=== PATIENT | female | born 1980 | race Caucasian/White ===

== ENCOUNTER 2024-12-13 12:12 | Inpatient (IN) | payer MEDICAID ==
[~2024-12-13] VITALS: Ht 142.2 cm; Wt 43.5 kg
[2024-12-13] VITALS (36 sets, daily range): BP systolic 66–134; BP diastolic 39–87; PULSE 59–101; RESP 8–18; TEMP 95–98.9; O2SAT 92–99
[2024-12-13 12:57] LABS: BASOPHILS # (AUTO) 0.03 K/uL (0.00-0.20); BASOPHILS % (AUTO) 0.3 % (0.0-5.0); HEMATOCRIT 39.2 % (36-48); IMMATURE GRANULOCYTE ABSOLUTE 0.04 K/uL (0-1); LYMPHOCYTES # (AUTO) 0.8 K/uL (1.0-4.8); MEAN CORPUSCULAR HEMOGLOBIN 31.7 pg (27.0-33.0); MEAN CORPUSCULAR HGB CONC 33.7 g/dL (32.0-36.0); MEAN CORPUSCULAR VOLUME 94.2 fL (79-99); MONOCYTES # (AUTO) 0.3 K/uL (0.1-1.0); MONOCYTES % (AUTO) 3.2 % (3.0-13.0); NEUTROPHILS # (AUTO) 8.1 K/uL (1.8-7.7); NEUTROPHILS % (AUTO) 87.1 % (40.0-77.0); PLATELET COUNT (AUTO) 142 K/uL (130-400); RED BLOOD CELL COUNT(AUTO) 4.16 MIL/uL (4.00-5.50); RED CELL DISTRIBUTION WIDTH 14.7 % (11.0-15.5); WHITE BLOOD COUNT (AUTO) 9.3 K/uL (4.8-10.8)
[2024-12-13 13:04] LABS: CREATININE 0.6 mg/dL (0.5-1.0); POTASSIUM 3.6 mmol/L (3.5-5.1)
[2024-12-13 13:09] LABS: ALBUMIN 2.2 g/dL (3.5-5.0); BILIRUBIN,DIRECT 0.1 mg/dL (0.0-0.3); BILIRUBIN,TOTAL 0.3 mg/dL (0.2-1.0); TOTAL PROTEIN, SERUM 5.8 g/dL (6.0-8.3)
[2024-12-13] MEDS: 0.9%NACL 1000ML 1,000 ML IV ONE ×2 (13:16→15:20)
--- NOTE | 2024-12-13 13:30 | NUR ---
dr joan quesada at bedside. patient requiring large dose of norepinephrine and shallow breathing; possible intubation. voiced that he ordered some CT scans but to go ahead and hold off and do them later or tomorrow until patient is more stable.
[2024-12-13] MEDS: cefTRIAXone 1G VIAL IVPB ONE (13:32)
[2024-12-13 13:45] LABS: RAPID GROUP A STREP negative (NEGATIVE)
[2024-12-13 13:55] LABS: COVID19 (SARS ANTIGEN RAPID) PRESUMPTIVE NEGATIVE (NEGATIVE); INFLUENZA TYPE A Negative For Type A (NEGATIVE); INFLUENZA TYPE B Negative For Type B (NEGATIVE)
[2024-12-13 14:03] LABS: APPEARANCE,URINE TURBID (CLEAR); COLOR,URINE Light-Yellow (YELLOW)
[2024-12-13 14:04] LABS: BILIRUBIN,URINE N mg/dL (NEGATIVE); GLUCOSE, URINE (UA) NEGATIVE (NEGATIVE); OCCULT BLOOD,URINE LARGE (NEGATIVE); PH,URINE 8.5 (5.0-8.0); PROTEIN,URINE 300 mg/dL (NEGATIVE)
[2024-12-13 14:05] LABS: KETONES,URINE NEGATIVE (NEGATIVE); LEUKOCYTE ESTERASE ,URINE LARGE Leu/uL (NEGATIVE); NITRATE,URINE NEGATIVE (NEGATIVE); UROBILINOGEN,URINE 0.2 mg/dL (0.2-1.0)
--- NOTE | 2024-12-13 14:09 | NUR ---
transfered care to mirlande at this time
[2024-12-13 14:11] LABS: BACTERIA,URINE Moderate /HPF (None Seen); WBC,URINE 26-50 /HPF (0-1)
[2024-12-13 14:12] LABS: TRIPLE PHOSPHATE CRYSTAL,UR Moderate /LPF (None Seen)
--- NOTE | 2024-12-13 14:18 | HMCIMG ---
Exam Type: CHEST 1VW Clinical Information: Sepsis Comparison: None Findings: Status post median sternotomy. Ill-defined infiltrates of the right upper lobe are seen consistent with pneumonia. The heart is normal in size. The bony and soft tissue structures show no worrisome pathology. IMPRESSION: Findings consistent with pneumonia. Follow-up is advised.
--- NOTE | 2024-12-13 14:59 | ERN ---
General Chief Complaint: Weakness Stated Complaint: WEAKNESS, FTT Time Seen by MD: 12:16 Time Seen by Midlevel: 12:16 Source: patient History of Present Illness Initial Comments 44 y/o female presents to the ED due to generalized weakness onset 3 days. Pt from [facility] facility, she is non-verbal, wheelchair / bedbound. Per provider she denies any fever, cough, congestion, vomiting, or further associated symtpoms. PMHx IDD, Scoliosis, cerebral palsy Allergies: Coded Allergies: clindamycin (Unverified Allergy, Unknown, 12/13/24) thioridazine (Unverified Allergy, Unknown, 12/13/24) Past Medical History Past Medical History: Other Medical History Other: IDD, KYHOSIS, SCOLIOSIS, CP, Past Surgical History: Other ROS Dictation ROS limited due to poor mentation Physical Exam Physical Exam Dictation General: awake, alert, no acute distress Head/Face: Normocephalic, atraumatic Eyes: PERRL, EOMI, normal conjuctiva ENT: oral cavity clear, oral mucosa moist Neck: Supple, normal range of motion Cardiovascular: RRR, normal S1/S2 Respiratory:No respiratory distress, crackles auscultated to the right side Abdomen: Soft, non-tender, non-distended, no guarding or rebound. Skin: Warm, dry, normal turgor. Left hip pressure ulcer MS/Extremity: Pulses equal, no cyanosis, neurovascular intact Neuro: Baseline neurologically Results Laboratory and Microbiology Lab and Micro Result Labs Reviewed?: Yes EKG/XRAY/US/CT/MRI X-RAY Comment REASON: Sepsis ORDERING PHYSICIAN: KAYLA GIBSON PROCEDURE: CXR1VW - CHEST 1VW Exam Type: CHEST 1VW Clinical Information: Sepsis Comparison: None Findings: Status post median sternotomy. Ill-defined infiltrates of the right upper lobe are seen consistent with pneumonia. The heart is normal in size. The bony and soft tissue structures show no worrisome pathology. IMPRESSION: Findings consistent with pneumonia. Follow-up is advised. DICTATED BY: JODIE OROZCO MD DATE: 12/13/24 1415 MDM MDM: Differential diagnosis: Sepsis, pneumonia, UTI, electrolyte imbalance, dehydration Rationale: 44 y/o female presents to the ED due to generalized weakness onset 3 days. Pt from [facility] facility, she is non-verbal, wheelchair / bedbound. Per provider she denies any fever, cough, congestion, vomiting, or further associated symtpoms. PMHx IDD, Scoliosis, cerebral palsy Per physical examination patient appears malnourished, dehydrated, she is nonverbal, pressure ulcer wound noted to the patient's left hip. Provider states that patient has had the wound therefore quite a while and is to follow up with wound care but isn't currently on antibiotics. Per initial vitals patient's hypotensive with blood pressure 86/62 and tympanic temperature of 96.3�. Patient received IV fluids and Rocephin in the ED. Repeat blood pressure of 71/44 therefore patient placed on Levophed. Due to patient's rectal temperature of 93.4� she was placed on a Halina Hugger. Labs obtained CBC nonspecific, chemistry indicates some mild alkaline phosphatase elevation, UA indicates urinary tract infection. SARs influenza and strep negative. Chest x- ray obtained indicates pneumonia noted to the right upper lobe. Case was disc ussed with hospitalist who accepted admission. Previous outside records reviewed: Old ER visits. Risk of complication and/or morbidity or mortality of patient management: None Medications-Per medication reconciliation Need for hospitalization: Patient does meet criteria for hospitalization. Need for emergency major/minor surgery: No There are no social concerns with this patient. Prescription drug management Prescriptions will include symptomatic care Patient's prior external medical records from other ER visits were reviewed by me as indicated. Prior testing and results from previous visits were reviewed. Prior tests were taken into account with medical decision making and resource utilization, independent historian/historians were used to obtain complete medical history. I independently interpreted the test that were performed, results were reviewed by me and considered findings on radiology if ordered. Medical management and examination interpretation discussions were had by me with other qualified healthcare professionals as indicated for the patient's care. ED Course Critical Care Note Critical Time: 30 minutes Comments Critical Care Procedure Note Authorized and Performed by: me Total critical care time: Approximately 36 minutes Due to a high probability of clinically significant, life threatening deterioration, the patient required my highest level of preparedness to intervene emergently and I personally spent this critical care time directly and personally managing the patient. This critical care time included obtaining a history; examining the patient; pulse oximetry; ordering and review of studies; arranging urgent treatment with development of a management plan; evaluation of patient's response to treatment; frequent reassessment; and, discussions with other providers. This critical care time was performed to assess and manage the high probability of imminent, life-threatening deterioration that could result in multi-organ failure. It was exclusive of separately billable procedures and treating other patients and teaching time. Please see MDM section and the rest of the note for further information on patient assessment and treatment. DX & DISP Disposition: Inpatient Decision to Admit Date: Dec 13, 2024 Departure Impression: Primary Impression: Sepsis Additional Impressions: Pneumonia, UTI (urinary tract infection), Hypotension Condition: Stable Referrals: CLAIRE ALVARADO MD (PCP) I performed the substantive portion of the visit. I have reviewed and personally made and approve the management plan that is documented in the notes by myself or the SLAVA. I acknowledge full responsibility for the patient's management plan. KAYLA GIBSON Dec 13, 2024 14:59
[2024-12-13] MEDS ORDERED: GLUCAGON 1MG KIT 1 MG ML IM PRN (15:00)
[2024-12-13] MEDS ORDERED: LACTATED RINGERS 1000ML 1,000 ML IV SCH (15:00)
[2024-12-13] MEDS ORDERED: PHARMACY COMMUNICATION MISC SCH (15:00)
[2024-12-13] MEDS: DEXTROSE 50%-WATER 50 ML DISP.SYRIN IV ONE (15:20)
[2024-12-13] MEDS: SODIUM CHLORIDE 3% FOR INHALATION 4 ML/AMP VIAL.NEB IH ONE (15:29)
[2024-12-13 15:32] LABS: INR 1.3 (0.85-1.15); PROTHROMBIN TIME 13.4 SEC (9.6-11.6)
[2024-12-13 15:33] LABS: PARTIAL THROMBOPLASTIN TIME 41.8 SEC (26.3-35.5)
[2024-12-13 16:03] LABS: ALBUMIN 2.2 g/dL (3.5-5.0); BILIRUBIN,DIRECT 0.1 mg/dL (0.0-0.3); BILIRUBIN,TOTAL 0.3 mg/dL (0.2-1.0); THYROID STIMULATING HORMONE 2.61 uIU/mL (0.36-3.74); TOTAL PROTEIN, SERUM 5.9 g/dL (6.0-8.3)
--- NOTE | 2024-12-13 16:20 | HP ---
[facility] H[facility]ORY [facility] PHYS[facility] Date of Service: Dec 13, 2024 Time of Service: 16:19 HISTORY OF PRESENT ILLNESS: [Service: 12/13/2024, patient is critically ill, patient was seen in ER room nine The 44-year-old nonverbal female with history of severe intellectual disability, scoliosis, cerebral palsy, attention deficit hyperactive disorder, history of microcephaly, history of oppositional defiant disorder with aggression, severe contracture of bilateral upper and lower extremity, currently a [facility] patient, who presented to the ER for further evaluation of significant obtundation/lethargy, poor oral intake and clinical decline. Patient is obtunded out and unable to participate in any history at all. longterm nurse present at bedside who states that patient has been having poor oral intake over the past 2-3 days. She was seen by her PCP today and was referred to the ER for further evaluation. At baseline, patient is awake, nonverbal and very fidgety per the nursing staff. She does not follow commands and she has no history of seizures. Patient to the hospital, patient was noted to be hypothermic and hypotensive. She received 1 L of IV fluids with NS, she was placed on a Halina Hugger and she receive broad-spectrum antibiotics with IV Rocephin. Chest x-ray showed concerns for developing right upper lobe pneumonia, urinalysis showed turbid urine with large amount of leukocyte esterase, pyuria, bacteriuria concerning for UTI. Labs on presentation showed WBC count of 9300, hemoglobin of 13.2, platelet coun t of [id number]. BMP remarkable for sodium of 150, potassium 3.6, chloride of 116, BUN of 47, creatinine of 0.6, alkaline phosphatase of 151, lactic acid of 1.0, ammonia of 43. Patient will be admitted for further management of suspected septic shock with hypothermia, UTI, pneumonia. Patient will be admitted to ICU, patient also noted to have unstageable pressure ulcer involving the left hip, Wound Care will be requested. Patient will receive broad-spectrum IV antibiotics, fluid resuscitation, and we will monitor this patient closely per we will obtain CT head without contrast and CT chest/ abdomen.] REVIEW OF SYSTEMS: Patient is obtunded, unable to obtain ROS PAST MEDICAL HISTORY: Severe intellectual disability, scoliosis, cerebral palsy, attention deficit hyperactive disorder, microcephaly Nursing staff reports that patient was hospitalized in [facility] in [place] about four months ago for sepsis PAST SURGICAL HISTORY: Unable to obtain PAST SOCIAL HISTORY: Unable to obtain FAMILY HISTORY: Unable to obtain Allergies: Clindamycin and thioridazine Coded Allergies: clindamycin (Unverified Allergy, Unknown, 12/13/24) thioridazine (Unverified Allergy, Unknown, 12/13/24) PHYSICAL EXAM GENERAL APPEARANCE: patient is obtunded, very frail, cachectic, contractures noted of the lower extremities NEUROLOGICAL: Cranial nerves II-XII grossly intact. Motor is 5/5 in bilateral upper and lower extremities proximal to distal. No sensory deficits. HEENT: Face is symmetric. Pupils are equal and reactive. Extraocular movements are intact. NECK: Supple. No JVD. No thyromegaly. No submental, submandibular, pre- /postauricular, occipital or supraclavicular lymphadenopathy. CHEST: Normal chest expansion. No Telemetry. LUNGS: Absence of any rales, rhonchi or any wheezing. CARDIOVASCULAR: Regular. S1 and S2 normal. No appreciable rubs, murmurs or gallops. ABDOMEN: Soft, nontender, and nondistended. There is no rebound, voluntary guarding, or rigidity. : Deferred. No Clark. EXTREMITIES: Non-edematous and not cyanotic. No clubbing. Good capillary refill. SKIN: No skin breakdown. Vital Sign (Last 24 Hours) 12/13/24 13:22 Temp 93.4 Pulse 64 Resp 12 B/P (MAP) 87/59 Pulse Ox 99 O2 Delivery Room Air* O2 Flow Rate 0 FiO2 21 LABS: Laboratory: Test 12/13/24 15:43 12/13/24 14:52 12/13/24 13:36 12/13/24 13:17 Range/Units Lactic Acid Level 1.0 0.8-2.5 mmol/L Serum Test, Qualitative NEGATIVE NEGATIVE Whole Blood Glucose 56 L 70-110 MG/DL Urine Color Light-Yellow YELLOW Urine Appearance TURBID H CLEAR Urine pH 8.5 H 5.0-8.0 Urine Specific [place] 1.020 1.001-1.031 Urine Protein 300 H NEGATIVE mg/dL Urine Glucose (UA) NEGATIVE NEGATIVE mg/dL Urine Ketones NEGATIVE NEGATIVE mg/dL Urine Occult Blood LARGE NEGATIVE Urine Nitrate NEGATIVE NEGATIVE Urine Bilirubin N NEGATIVE mg/dL Urine Urobilinogen 0.2 0.2-1.0 mg/dL Urine Leukocyte Esterase LARGE H NEGATIVE Susi/uL Urine RBC 6-10 H 0-1 /HPF Urine WBC 26-50 H 0-1 /HPF Urine Triple Phosphate Crystals Moderate H None Seen /LPF Urine Bacteria Moderate H None Seen /HPF Influenza Type A Antigen Negative For Type A NEGATIVE Influenza Type B Antigen Negative For Type B NEGATIVE SARS-CoV-2 Antigen (Rapid) PRESUMPTIVE NEGATIVE NEGATIVE Group A Streptococcus Rapid negative NEGATIVE Test 12/13/24 12:51 Range/Units White Blood Count 9.3 4.8-10.8 K/uL Red Blood Count 4.16 4.00-5.50 MIL/uL Hemoglobin 13.2 12.0-16.0 g/dL Hematocrit 39.2 36-48 % Mean Corpuscular Volume 94.2 79-99 fL Mean Corpuscular Hemoglobin 31.7 27.0-33.0 pg Mean Corpuscular Hemoglobin Concent 33.7 32.0-36.0 g/dL Red Cell Distribution Width 14.7 11.0-15.5 % Platelet Count 142 130-400 K/uL Mean Platelet Volume 8.6 7.5-10.5 fL Immature Granulocyte % (Auto) 0.4 0-1 % Neutrophils (%) (Auto) 87.1 H 40.0-77.0 % Lymphocytes (%) (Auto) 9.0 L 21.0-51.0 % Monocytes (%) (Auto) 3.2 3.0-13.0 % Eosinophils (%) (Auto) 0.0 0.0-8.0 % Basophils (%) (Auto) 0.3 0.0-5.0 % Neutrophils # (Auto) 8.1 H 1.8-7.7 K/uL Lymphocytes # (Auto) 0.8 L 1.0-4.8 K/uL Monocytes # (Auto) 0.3 0.1-1.0 K/uL Eosinophils # (Auto) 0.00 0.00-0.70 K/uL Basophils # (Auto) 0.03 0.00-0.20 K/uL Absolute Immature Granulocyte (auto 0.04 0-1 K/uL Nucleated Red Blood Cells 0.0 0.0-0.19 % White Cell Morphology Comment See comments Prothrombin Time 13.4 H 9.6-11.6 SEC Prothromb Time International Ratio 1.30 H 0.85-1.15 Activated Partial Thromboplast Time 41.8 H 26.3-35.5 SEC Sodium Level 150 H 136-145 mmol/L Potassium Level 3.6 3.5-5.1 mmol/L Chloride Level 116 H 101-111 mmol/L Carbon Dioxide Level 32 21-32 mmol/L Blood Urea Nitrogen 47 H 7-18 mg/dL Creatinine 0.6 0.5-1.0 mg/dL Glomerular Filtration Rate Calc 115 >90 mL/min Random Glucose 78 70-105 mg/dL Total Calcium 8.8 8.5-10.1 mg/dL Total Bilirubin 0.3 0.2-1.0 mg/dL Direct Bilirubin 0.1 0.0-0.3 mg/dL Aspartate Amino Transf (AST/SGOT) 31 10-37 U/L Alanine Aminotransferase (ALT/SGPT) 44 12-78 U/L Alkaline Phosphatase 151 H 50-136 U/L Total Creatine Kinase 111 21-232 U/L C-Reactive Protein, Quantitative 112.50 H 0.5-3.0 mg/L Total Protein 5.9 L 6.0-8.3 g/dL Albumin 2.2 L 3.5-5.0 g/dL Procalcitonin 0.29 0.05-0.5 ng/mL Thyroid Stimulating Hormone (TSH) 2.61 0.36-3.74 uIU/mL Current Medications Medications (Trade) Dose Ordered Sig/Castillo Route PRN Reason Start Time Stop Time Status Last Admin Dose Admin Acetaminophen (TYLenol 325MG ELIXIR) 325 mg Q6H PRN PO MILD PAIN (1-3) 12/13/24 15:00 01/12/25 14:59 Albuterol (DUOneb) 1 udvial Q6H PRN IH SHORTNESS OF BREATH 12/13/24 15:30 01/12/25 15:29 Budesonide (Pulmicort 0.5 Mg/2ml) 0.5 mg BIDRESP IH 12/13/24 18:00 01/12/25 17:59 Dextrose 1,000 ml @ 75 mls/hr [id number] IV 12/13/24 15:00 01/12/25 14:59 Dextrose (D50w) 50 ml AD PRN IV HYPOGLYCEMIA PROTOCOL 12/13/24 15:00 01/12/25 14:59 Doxycycline Hyclate 250 ml @ 125 mls/hr Q12H IV 12/13/24 15:30 12/23/24 15:29 Glucagon (Glucagon 1mg Kit) 1 mg AD PRN IM HYPOGLYCEMIA PROTOCOL 12/13/24 15:00 01/12/25 14:59 Lactated Ringer's 1,000 ml @ 100 mls/hr Q10H IV 12/13/24 15:00 12/13/24 15:18 DC Meropenem (Merrem 1gm) 1 gm Q8H IVPB 12/13/24 16:00 12/23/24 15:59 Norepinephrine 250 ml @ 0 mls/hr PROTOCOL IV 12/13/24 14:30 01/12/25 14:29 Ondansetron HCl (zoFRAN 4MG INJ) 4 mg Q6H PRN IVP NAUSEA/VOMITING 12/13/24 16:30 01/12/25 16:29 Pantoprazole Sodium (PROTonix 40MG INJ) 40 mg Q24H IVP 12/13/24 15:00 01/12/25 14:59 Pharmacy Profile Note (Pharmacy Communication) 1 each ONCE MISC 12/13/24 15:00 12/13/24 15:28 DC Thiamine HCl (Vitamin B-1) 300 mg Q24H IVP 12/13/24 15:00 01/12/25 14:59 DIAGNOSTICS / RADIOLOGY: SERVICE 1223 REASON: Sepsis ORDERING PHYSICIAN: KAYLA GIBSON PROCEDURE: CXR1VW - CHEST 1VW Exam Type: CHEST 1VW Clinical Information: Sepsis Comparison: None Findings: Status post median sternotomy. Ill-defined infiltrates of the right upper lobe are seen consistent with pneumonia. The heart is normal in size. The bony and soft tissue structures show no worrisome pathology. IMPRESSION: Findings consistent with pneumonia. Follow-up is advised. DICTATED BY: JODIE OROZCO MD DATE: 12/13/241414 ELECTRONICALLY SIGNED BY: JODIE OROZCO MD DATE: 12/13/241417 ASSESSMENT: Septic shock, POA (2/2 community-acquired pneumonia and complicated UTI) Hypothermia, POA Toxic metabolic encephalopathy with obtundation, POA Severe hypoglycemia, POA Community-acquired pneumonia with acute hypoxemic respiratory failure, POA Complicated urinary tract infection, POA Frailty/debility, POA History of chronic contractures of bilateral lower extremities, POA Unstageable decubitus ulcer involving the left hip, POA Cachexia, POA History of severe intellectual disability, POA History of scoliosis, POA History of microcephaly, POA History of ADHD, POA History of aggression, POA PLAN: Patient will be admitted to ICU Patient will be kept strictly NPO and on aspiration precautions c/w Levophed to maintain MAP> 65 Patient received sepsis bolus of fluid in the ER with 1 L of NS, we will start patient on D5W at 75 mL/hour for management of hypernatremia and hypoglycemia We will maintain POCT blood glucose check q.1 hours, we will maintain blood glucose greater than 70 Patient will be started on IV thiamine supplementation Broad-spectrum antibiotics with IV meropenem and doxycycline Blood cultures, urine cultures and respiratory cultures will be requested, AFB smear has been requested Consultation with critical Care will be requested Patient will be placed on air mattress, offloading measures, wound care will be requested Consultation with Infectious Disease will be requested Low threshold for intubation in case patient is unable to maintain airway or for any signs of aspiration, discussed in detail with ICU team We will check cortisol level, TSH, ammonia We will see how patient progresses closely in the next 24-48 hours We will obtain a CT head without contrast to rule out any significant intracranial abnormality or bleeding, we will follow up CT abdomen pelvis/CT chest thorax We will check BMP later tonight and All labs will be repeated in the morning Critical care minutes: 60 minutes Plan of care was discussed with nursing personnel at bedside, Carlos Real MD Advanced Care Planning: Which of the following were discussed: Hospice care: Yes __ No _X_ Therapeutic options: Yes _X_ No __ Advance directives: Yes _X_ No __ Other discussions: Discussed with who?: Nursing staff Voluntary nature of this service was explained to the patient? Yes _x_ No __ Amount of time spent: 20 minutes CARLOS REAL MD Dec 13, 2024 16:20
[2024-12-13] MEDS ORDERED: ondanSETRON 4MG INJ IVP PRN (16:30)
--- NOTE | 2024-12-13 16:50 | NUR ---
CT ON HOLD, PT UNSTABLE BP AT THIS TIME. RN WILL CALL WHEN READY. Addendum: 12/13/24 at 1822 by MARLYS MCKAY @16:22 PT IN ICU NOT STABLE FOR CT ROBYN KABA
[2024-12-13] MEDS: DOXYCYCLINE 100MG+NS 250ML 250 ML IV SCH (17:04)
[2024-12-13] MEDS: DEXTROSE 5%-WATER 1,000 ML IV SCH (17:04)
[2024-12-13] MEDS: MEROPENEM 1GM 1 GM VIAL IVPB SCH (17:04)
[2024-12-13] MEDS: PANTOPrazole 40 MG/VIAL IVP SCH (17:04)
[2024-12-13] MEDS: THIAMINE HCL 100 MG/ML 2ML VIAL IVP SCH (17:05)
--- NOTE | 2024-12-13 17:15 | NUR ---
patient continues with shallow breathing and requiring large amount of norepinephrine. blood pressure at this time is 80/[address] can wait until tomorrow as patient remains too unstable to get in CT machine and would not be able to even lay flat. May require possible intubation.
--- NOTE | 2024-12-13 18:00 | NUR ---
NURSING NOTE SALOME COOK NP BENCHMARK MADE AWARE PATIENT ARRIVED TO ROOM. NOT CURRENTLY STABLE. PENDING CT SCANS. AIRBORNE FOR TB RULE OUT. CARE ONGOING.
[2024-12-13] MEDS: BUDESONIDE 0.5 MG/2 ML INH IH SCH (18:42)
[2024-12-13 20:42] LABS: CREATININE 0.6 mg/dL (0.5-1.0); POTASSIUM 3.2 mmol/L (3.5-5.1)
--- NOTE | 2024-12-13 21:46 | CONS ---
[facility] CONSULTATION NOTE Date Patient Seen: Dec 13, 2024 Time of Visit: 21:21 Supervising Physician: Dontae Escalante MD Reason for Consultation: [facility] Primary Care Physician: Yarelis Ogden MD Outpatient Specialists: [ ] Inpatient Consults: Dr Esperanza MAYA MD Attending: Carlos Real MD PROBLEM LIST: Septic shock, POA (2/2 community-acquired pneumonia and complicated UTI) Hypothermia, POA Toxic metabolic encephalopathy with obtundation, POA Severe hypoglycemia, POA Community-acquired pneumonia with acute hypoxemic respiratory failure, POA Complicated urinary tract infection, POA Frailty/debility, POA History of chronic contractures of bilateral lower extremities, POA Unstageable decubitus ulwctual disability, POA History of scoliosis, POA History of microcephaly, POA History of ADHD, POA History of aggression, POA HPI: This is a chronically ill 44-year-old nonverbal female with a past medical history of intellectual disability, scoliosis, cerebral palsy, microcephalic, aggression, bed-bound status with severe contractures to bilateral upper and lower extremities from a [facility] who presented to the ER for evaluation of increased altered mental status, lethargic and poor oral intake. Most history received from [facility] staff reports patient is having poor oral intake in the last 2-3 days. She was taken to her PCP and was referred to the ED for evaluation. As per staff person now patient was more awake at the PCP but now seems to be more lethargic. Patient was obtunded, nonverbal on assessment. We are consulted for critical care management and assessment for possible need of intubation which was deferred at this time due to good ABGs and currently good saturation. On initial assessment patient was hypoglycemic with glucose in the 50s was given an amp of D50 per ED staff. On arrival to the ED patient was hypothermic and hypotensive. She received a 30 mL per kg bolus of NS and was started on Rocephin for broad-spectrum antibiotic chest x-ray showed concerns for developing right upper lobe pneumonia with suspected cavitation. Urinalysis showed turbid urine with large amount of leukocyte esterase pyuria bacteria concerning for acute complicated cystitis. Initial white count was normal at 9.3 with a left shift of neutrophils elevated at 87.1. ESR of 45. Chemistries sodium was 150 potassium 3.2 chloride of 118 carbon dioxide of 28 BUN of 34 creatinine of 0.6 and GFR of 115. Ammonia 43 and total calcium of 7.6. TSH was 2.66 W and now CRP of 112.50 total protein of 5.9 albumin of 2.2 and alkaline phosphatase 151. Isolation precautions ordered CT of the chest and CT of the head pending. PAST MEDICAL HX: Severe intellectual disability Scoliosis Cerebral palsy Attention deficit hyperactivity disorder Microcephaly Previous sepsis four months ago at [facility] PAST SURGICAL HX: noncontributory SOCIAL HISTORY: No tobacco, ETOH, or illicit drug use Coded Allergies: clindamycin (Unverified Allergy, Unknown, 12/13/24) thioridazine (Unverified Allergy, Unknown, 12/13/24) REVIEW OF SYSTEMS: Unable to obtain due to encephalopathy PHYSICAL EXAM: GENERAL: Obtunded, encephalopathy chronically ill contracted upper and lower extremities HEENT: Sclera non icteric, dry mucosa NECK: Supple, no JVD, trachea midline LUNGS: Coarse rhonchi breath sounds bilaterally. No wheezes HEART: Regular rate and rhythm. Normal S1 and S2, without murmurs ABD: Cachectic, flat, nontender. Bowel sounds present EXT: Contractions to upper and lower extremities, right hip unstageable pressure ulcer with a black eschar NEURO: Obtunded, nonverbal and chronically ill with upper and lower extremity contractures. Vital Signs (last 8hr) Date Time Temp Pulse Resp B/P (MAP) Pulse Ox O2 Delivery O2 Flow Rate FiO2 12/13/24 20:44 60 11 121/83 (96) 99 12/13/24 20:44 60 11 121/83 99 Room Air 12/13/24 20:29 61 14 126/82 (97) 99 12/13/24 20:29 61 14 126/82 99 Room Air 12/13/24 20:14 65 13 118/81 98 Room Air 12/13/24 20:14 65 13 118/81 (93) 98 12/13/24 20:00 99 Room Air* 0 21 12/13/24 19:59 95.0 64 14 117/75 98 Room Air 12/13/24 19:59 95.0 64 14 117/75 (89) 98 12/13/24 19:44 61 123/83 (96) 99 12/13/24 19:44 61 123/83 99 Room Air 12/13/24 19:29 60 13 117/70 (86) 99 12/13/24 19:29 60 13 117/70 99 Room Air 12/13/24 19:14 61 8 122/79 98 Room Air 12/13/24 19:14 61 8 122/79 (93) 98 12/13/24 18:47 62 11 12/13/24 18:15 65 12 113/71 (85) 92 12/13/24 18:00 66 12 110/66 (81) 92 12/13/24 18:00 92 Room Air* 0 21 12/13/24 17:45 97.2 69 12 103/67 92 Room Air 12/13/24 17:45 69 12 103/67 (79) 92 12/13/24 13:22 93.4 64 12 87/59 99 Room Air* 0 21 LABS: Hematology Labs: Test 12/13/24 12:51 Range/Units White Blood Count 9.3 4.8-10.8 K/uL Red Blood Count 4.16 4.00-5.50 MIL/uL Hemoglobin 13.2 12.0-16.0 g/dL Hematocrit 39.2 36-48 % Mean Corpuscular Volume 94.2 79-99 fL Mean Corpuscular Hemoglobin 31.7 27.0-33.0 pg Mean Corpuscular Hemoglobin Concent 33.7 32.0-36.0 g/dL Red Cell Distribution Width 14.7 11.0-15.5 % Platelet Count 142 130-400 K/uL Mean Platelet Volume 8.6 7.5-10.5 fL Immature Granulocyte % (Auto) 0.4 0-1 % Neutrophils (%) (Auto) 87.1 H 40.0-77.0 % Lymphocytes (%) (Auto) 9.0 L 21.0-51.0 % Monocytes (%) (Auto) 3.2 3.0-13.0 % Eosinophils (%) (Auto) 0.0 0.0-8.0 % Basophils (%) (Auto) 0.3 0.0-5.0 % Neutrophils # (Auto) 8.1 H 1.8-7.7 K/uL Lymphocytes # (Auto) 0.8 L 1.0-4.8 K/uL Monocytes # (Auto) 0.3 0.1-1.0 K/uL Eosinophils # (Auto) 0.00 0.00-0.70 K/uL Basophils # (Auto) 0.03 0.00-0.20 K/uL Absolute Immature Granulocyte (auto 0.04 0-1 K/uL Nucleated Red Blood Cells 0.0 0.0-0.19 % White Cell Morphology Comment See comments Erythrocyte Sedimentation Rate 45 H 0-20 MM/HR Chemistry Labs: Test 12/13/24 20:29 12/13/24 20:11 12/13/24 15:43 12/13/24 12:51 Range/Units Whole Blood Glucose 112 H 70-110 MG/DL Sodium Level 150 H 136-145 mmol/L Potassium Level 3.2 L 3.5-5.1 mmol/L Chloride Level 118 H 101-111 mmol/L Carbon Dioxide Level 28 21-32 mmol/L Blood Urea Nitrogen 34 H 7-18 mg/dL Creatinine 0.6 0.5-1.0 mg/dL Glomerular Filtration Rate Calc 115 >90 mL/min Random Glucose 127 #H 70-105 mg/dL Total Calcium 7.6 L 8.5-10.1 mg/dL Lactic Acid Level 1.0 0.8-2.5 mmol/L Ammonia 43 H 11-32 umol/L Serum Test, Qualitative NEGATIVE NEGATIVE Total Bilirubin 0.3 0.2-1.0 mg/dL Direct Bilirubin 0.1 0.0-0.3 mg/dL Aspartate Amino Transf (AST/SGOT) 31 10-37 U/L Alanine Aminotransferase (ALT/SGPT) 44 12-78 U/L Alkaline Phosphatase 151 H 50-136 U/L Total Creatine Kinase 111 21-232 U/L C-Reactive Protein, Quantitative 112.50 H 0.5-3.0 mg/L Total Protein 5.9 L 6.0-8.3 g/dL Albumin 2.2 L 3.5-5.0 g/dL Procalcitonin 0.29 0.05-0.5 ng/mL Thyroid Stimulating Hormone (TSH) 2.66 0.36-3.74 uIU/mL Coagulation Labs: Test 12/13/24 12:51 Range/Units Prothrombin Time 13.4 H 9.6-11.6 SEC Prothromb Time International Ratio 1.30 H 0.85-1.15 Activated Partial Thromboplast Time 41.8 H 26.3-35.5 SEC DIAGNOSTICS / RADIOLOGY RESULTS: [ ] Signed PATIENT: DESTINY PAZ MR#: [id number] : 1980 SEX: F AGE: 44 LOCATION: [facility] ORDER 27 STATUS: REG ER REPORT#: [id number] SERVICE 22 REASON: Sepsis ORDERING PHYSICIAN: KAYLA GIBSON PROCEDURE: CXR1VW - CHEST 1VW Exam Type: CHEST 1VW Clinical Information: Sepsis Comparison: None Findings: Status post median sternotomy. Ill-defined infiltrates of the right upper lobe are seen consistent with pneumonia. The heart is normal in size. The bony and soft tissue structures show no worrisome pathology. IMPRESSION: Findings consistent with pneumonia. Follow-up is advised. DICTATED BY: JODIE OROZCO MD DATE: 12/13/241414 ELECTRONICALLY SIGNED BY: JODIE OROZCO MD DATE: 12/13/241417 PLAN CT of the chest AFB smears x3 q.a.m. Airborne isolation Monitor respiratory status closely Discuss advance directives with next of kin Levophed p.r.n. to maintain map above 65 D5 at 75 mL/hour Broad-spectrum IV antibiotics currently on meropenem and doxycycline deescalate per urine and respiratory cultures Monitoring electrolytes and replace accordingly NEURO: Minimize central acting medications as possible. Fall Precautions. Well lighted room through the day and minimize interruptions through the night to prevent acute delirium. CT of the head PULMONARY: Supplemental 02 as needed Titrate Fio2 to keep Spo2 > or = 90% DuoNeb�s and CPT as needed IS hourly while awake for pulmonary hygiene Out of bed to chair as tolerated CARDIOVASCULAR: Follow hemodynamics. Titrate vasopressor to keep MAP >65 or systolic blood pressure >95mmHg Drips: Levophed p.r.n. to maintain map above 65 LINES: PIV Consider PICC line if Levophed as needed GI & NUTRITION: Continue nutritional support Aspirations precautions Prokinetic agents and laxatives as needed NPO for now IV fluids Aspiration precautions Maintain head of the bed greater than 30 degree KIDNEYS & ELECTROLYTES: Strict monitoring of intake and output Daily weights Avoid nephrotoxic agents Monitor electrolytes and replace as needed Goal urine output of 30mL/hr or 0.5mL/kg/hr Clark catheter CT abdomen and pelvis to rule out complicated cystitis ENDOCRINE: Maintain blood glucose between 100-180 at all times. Insulin sliding scale for blood glucose management TSH normal Cortisol level D5 at 75 mL/hour Avoid hypoglycemia INFECTIOUS DISEASE: Trend temperature. Lara-culture if febrile. Micro: [ Blood culture Respiratory culture Sputum cultures FB smear COVID and influenza negative Antibiotics: Meropenem Doxycycline HEMATOLOGY & COAGULATION: Monitor H&H. Keep Hgb > 7 Transfuse 1 unit of PRBC for Hgb < 7 Transfuse 1 pack of platelets of platelets < 20, 000 Watch for any signs and symptoms of bleeding SKIN: Pressure ulcer prevention per facility protocol Rehab: PT/OT Prophylaxis: GI: Protonix DVT: Lovenox Code Status: Full Resuscitation Disposition: ICU Other: Critical care time This patient required multiple bedside visits to manage the patient, review blood gases, coordinate with respiratory, nurses, review radiology exams, talk to the family members and discuss advanced directives. I personally spent [75] minutes of critical care time in treatment of this patient. This includes patient management, time at bedside, time reviewing tests, labs, appropriate images and studies, documentation, and patient care coordination. This time excludes separately billable procedures. SALOME COOK [facility] Dec 13, 2024 21:46
[2024-12-13] MEDS: PoTASSium chloRIDE 20MEQ/100ML 100 ML IV PRN (21:59)
[2024-12-13] MEDS: NOREPINEPHRIN 4MG/NS 250ML 250 ML IV SCH (22:36)
[2024-12-13] MEDS: MAGNESIUM 2GM PREMIX 50ML 50 ML IV SCH (23:11)
[2024-12-14] VITALS (61 sets, daily range): BP systolic 76–130; BP diastolic 33–90; PULSE 67–107; RESP 8–28; TEMP 97.7–100.2; O2SAT 95–100
[2024-12-14 04:54] LABS: BASOPHILS # (AUTO) 0.05 K/uL (0.00-0.20); HEMATOCRIT 42.6 % (36-48); IMMATURE GRANULOCYTE ABSOLUTE 0.05 K/uL (0-1); LYMPHOCYTES # (AUTO) 0.5 K/uL (1.0-4.8); LYMPHOCYTES % (AUTO) 10.4 % (21.0-51.0); MEAN CORPUSCULAR HEMOGLOBIN 31.1 pg (27.0-33.0); MEAN CORPUSCULAR HGB CONC 33.1 g/dL (32.0-36.0); MONOCYTES # (AUTO) 0.1 K/uL (0.1-1.0); MONOCYTES % (AUTO) 2.5 % (3.0-13.0); NEUTROPHILS # (AUTO) 4.4 K/uL (1.8-7.7); NEUTROPHILS % (AUTO) 85.1 % (40.0-77.0); PLATELET COUNT (AUTO) 170 K/uL (130-400); RED BLOOD CELL COUNT(AUTO) 4.53 MIL/uL (4.00-5.50); RED CELL DISTRIBUTION WIDTH 14.8 % (11.0-15.5); WHITE BLOOD COUNT (AUTO) 5.2 K/uL (4.8-10.8)
[2024-12-14 05:18] LABS: ALBUMIN 1.6 g/dL (3.5-5.0); BILIRUBIN,TOTAL 0.4 mg/dL (0.2-1.0); CREATININE 0.7 mg/dL (0.5-1.0); MAGNESIUM 2.5 mg/dL (1.80-2.40); PHOSPHORUS 1.7 mg/dL (2.5-4.9); POTASSIUM 4.3 mmol/L (3.5-5.1); TOTAL PROTEIN, SERUM 4.8 g/dL (6.0-8.3)
[2024-12-14] MEDS: SODIUM CHLORIDE 3% FOR INHALATION 4 ML/AMP VIAL.NEB IH ONE (07:17)
--- NOTE | 2024-12-14 07:50 | NUR ---
Encountered patient laying in right lateral position in bed. Patient is nonverbal, only mumbles incomprehensible sounds and responsive to light pressure. Vitals as charted, helton catheter in place with pale yellow urine with sediment noted. Patient currently on vasopressor support, will wean as tolerated. Oral care performed at this time, head of bed elevated, bed alarm on, call light within reach, no further needs noted.
[2024-12-14] MEDS: DEXTROSE 50%-WATER 50 ML DISP.SYRIN IV PRN (08:45)
[2024-12-14] MEDS: ENOXAPARIN SODIUM 30 MG/0.3 ML SQ SCH (08:46)
--- NOTE | 2024-12-14 10:17 | PN ---
[facility] PROGRESS NOTE Date Patient Seen: Dec 14, 2024 Time of Visit: 09:56 Supervising Physician: Pola Lowery MD Primary Care Physician: Yarelis Ogden MD Outpatient Specialists: [ ] Inpatient Consults: Dr Esperanza MAYA MD Attending: Carlos Rael MD PROBLEM LIST: Septic shock, POA (2/2 community-acquired pneumonia and complicated cystitis) requiring pressor Right upper lobe cavitation TB rule out, POA Hypothermia, POA , resolved Toxic metabolic encephalopathy with obtundation, POA , resolving Severe hypoglycemia, POA on D5 Community-acquired pneumonia with acute hypoxemic respiratory failure, POA Suspected aspiration, POA Acute complicated cystitis, POA Frailty/debility, POA History of chronic contractures of bilateral lower extremities, POA Unstageable decubitus ulcers to right hip POA Intellectual disability, POA History of scoliosis, POA History of microcephaly, POA History of ADHD, POA History of aggression, POA Nonverbal INTERVAL HISTORY: This is a chronically ill 44-year-old nonverbal female with a past medical history of intellectual disability, scoliosis, cerebral palsy, microcephalic, aggression, bed-bound status with severe contractures to bilateral upper and lower extremities from a [facility] who presented to the ER for evaluation of increased altered mental status, lethargic and poor oral intake. Most history received from [facility] staff reports patient is having poor oral intake in the last 2-3 days. She was taken to her PCP and was referred to the ED for evaluation. As per staff person now patient was more awake at the PCP but now seems to be more lethargic. Patient was obtunded, nonverbal on assessment. We are consulted for critical care management and assessment for possible need of intubation which was deferred at this time due to good ABGs and currently good saturation. On initial assessment patient was hypoglycemic with glucose in the 50s was given an amp of D50 per ED staff. On arrival to the ED patient was hypothermic and hypotensive. She received a 30 mL per kg bolus of NS and was started on Rocephin for broad-spectrum antibiotic chest x-ray showed concerns for developing right upper lobe pneumonia with suspected cavitation. Per RN and no major overnight events. This morning patient is awake alert to voice. She is currently in isolation precautions due to TB rule out. She is Nonverbal. On low-dose Levophed at 0.08 mcg/kg per minute and weaning. She appears to be in no apparent distress saturating 98% with 2 L via nasal cannula respiratory rate of 13 and unlabored. Hypothermia has resolved recent temperature 97.7� axillary. She had 550 mL of urine output this morning. On CBC neutrophils trended down from 87.12 85.1 otherwise unremarkable. Sodium trending down potassium of 4.3 chloride 116 carbon dioxide of 26 BUN of 32 creatinine is good at 0.7 GFR 111. She had a drop in blood sugar this morning of 58 she continues on D5 at 75 mL/hour. We will have speech to eval swallow and give recommendations in order to start p.o. diet. Patient with history of intellectual disability, aggression, and NG tube we will likely increase irritability and cause further encephalopathy. Urine culture with greater than [id number] CFU pending identification and susceptibilities. She had CT of chest abdomen and pelvis pending report. On CT head no obvious bleed or intracranial abnormality pending report. We will continue supportive care and wean pressors as much as possible. For now we will keep in ICU pending AFB smears. REVIEW OF SYSTEMS: Unable to obtain due to encephalopathy PHYSICAL EXAM: GENERAL: Awake to voice nonverbal, lethargic HEENT: Sclera non icteric, dry mucosa NECK: Supple, no JVD, trachea midline LUNGS: Coarse rhonchi breath sounds bilaterally. No wheezes HEART: Regular rate and rhythm. Normal S1 and S2, without murmurs ABD: Cachectic, flat, nontender. Bowel sounds present EXT: Contractions to upper and lower extremities, right hip unstageable pressure ulcer with a black eschar NEURO: Awake to voice, lethargic nonverbal and chronically ill with upper and lower extremity contractures. Vital Signs (last 8hr) Date Time Temp Pulse Resp B/P (MAP) Pulse Ox O2 Delivery O2 Flow Rate FiO2 12/14/24 08:45 83 13 123/74 (90) 98 32 12/14/24 08:30 73 14 116/65 (82) 99 32 12/14/24 08:15 67 14 106/59 (75) 98 32 12/14/24 08:00 97.7 12/14/24 08:00 73 14 116/65 (82) 99 32 12/14/24 07:45 67 14 116/69 (85) 100 32 12/14/24 07:35 103/68 4/24/25 07:30 97.7 73 16 122/72 (89) 99 32 12/14/24 07:18 74 15 N/Cannula Low lpm 3.0 32 12/14/24 07:17 74 11 12/14/24 07:15 76 15 103/68 (80) 97 32 12/14/24 07:00 72 15 107/70 (82) 98 32 12/14/24 06:59 76 20 106/71 (83) 98 12/14/24 06:44 73 11 104/66 (79) 98 12/14/24 06:29 74 15 109/70 (83) 98 12/14/24 06:14 85 28 78/49 (59) 99 12/14/24 05:59 77 16 98/60 (73) 98 12/14/24 05:36 99.0 81 12 104/60 (75) 97 12/14/24 04:00 99 Nasal Cannula* 2 28 12/14/24 03:59 91 19 94/70 (78) 96 12/14/24 03:51 93 19 94/61 (72) 96 12/14/24 03:14 85 9 90/34 (52) 96 12/14/24 02:42 100.2 12/14/24 02:14 81 8 78/49 (59) 95 12/14/24 01:59 81 16 79/50 (60) 96 LABS: Hematology Labs: Test 12/14/24 04:21 12/13/24 12:51 Range/Units White Blood Count 5.2 # 4.8-10.8 K/uL Red Blood Count 4.53 4.00-5.50 MIL/uL Hemoglobin 14.1 12.0-16.0 g/dL Hematocrit 42.6 36-48 % Mean Corpuscular Volume 94.0 79-99 fL Mean Corpuscular Hemoglobin 31.1 27.0-33.0 pg Mean Corpuscular Hemoglobin Concent 33.1 32.0-36.0 g/dL Red Cell Distribution Width 14.8 11.0-15.5 % Platelet Count 170 130-400 K/uL Mean Platelet Volume 9.0 7.5-10.5 fL Immature Granulocyte % (Auto) 1.0 0-1 % Neutrophils (%) (Auto) 85.1 H 40.0-77.0 % Lymphocytes (%) (Auto) 10.4 L 21.0-51.0 % Monocytes (%) (Auto) 2.5 L 3.0-13.0 % Eosinophils (%) (Auto) 0.0 0.0-8.0 % Basophils (%) (Auto) 1.0 0.0-5.0 % Neutrophils # (Auto) 4.4 1.8-7.7 K/uL Lymphocytes # (Auto) 0.5 L 1.0-4.8 K/uL Monocytes # (Auto) 0.1 0.1-1.0 K/uL Eosinophils # (Auto) 0.00 0.00-0.70 K/uL Basophils # (Auto) 0.05 0.00-0.20 K/uL Absolute Immature Granulocyte (auto 0.05 0-1 K/uL Nucleated Red Blood Cells 0.0 0.0-0.19 % White Cell Morphology Comment See comments Erythrocyte Sedimentation Rate 45 H 0-20 MM/HR Chemistry Labs: Test 12/14/24 08:41 12/14/24 04:21 12/13/24 15:43 12/13/24 12:51 Range/Units Whole Blood Glucose 70 70-110 MG/DL Sodium Level 146 H 136-145 mmol/L Potassium Level 4.3 3.5-5.1 mmol/L Chloride Level 116 H 101-111 mmol/L Carbon Dioxide Level 26 21-32 mmol/L Blood Urea Nitrogen 32 H 7-18 mg/dL Creatinine 0.7 0.5-1.0 mg/dL Glomerular Filtration Rate Calc 111 >90 mL/min Random Glucose 58 #L 70-105 mg/dL Total Calcium 7.6 L 8.5-10.1 mg/dL Phosphorus Level 1.7 L 2.5-4.9 mg/dL Magnesium Level 2.50 H 1.80-2.40 mg/dL Total Bilirubin 0.4 # 0.2-1.0 mg/dL Aspartate Amino Transf (AST/SGOT) 23 10-37 U/L Alanine Aminotransferase (ALT/SGPT) 38 12-78 U/L Alkaline Phosphatase 123 50-136 U/L Total Protein 4.8 L 6.0-8.3 g/dL Albumin 1.6 #L 3.5-5.0 g/dL Lactic Acid Level 1.0 0.8-2.5 mmol/L Ammonia 43 H 11-32 umol/L Serum Test, Qualitative NEGATIVE NEGATIVE Direct Bilirubin 0.1 0.0-0.3 mg/dL Total Creatine Kinase 111 21-232 U/L C-Reactive Protein, Quantitative 112.50 H 0.5-3.0 mg/L Procalcitonin 0.29 0.05-0.5 ng/mL Thyroid Stimulating Hormone (TSH) 2.66 0.36-3.74 uIU/mL Coagulation Labs: Test 12/13/24 12:51 Range/Units Prothrombin Time 13.4 H 9.6-11.6 SEC Prothromb Time International Ratio 1.30 H 0.85-1.15 Activated Partial Thromboplast Time 41.8 H 26.3-35.5 SEC DIAGNOSTICS / RADIOLOGY RESULTS: Pending CT head and CT chest, abdomen and pelvis report PLAN CT of the chest pending report CT of the head pending report AFB smears x3 q.a.m. pending results Airborne isolation Monitor respiratory status closely Discuss advance directives with next of kin Levophed p.r.n. to maintain map above 60 D5 at 75 mL/hour Broad-spectrum IV antibiotics currently on meropenem and doxycycline deescalate per urine and respiratory cultures Monitoring electrolytes and replace accordingly Speech to eval swallow Obtain home medications community mental health social worker to eval home living conditions and next of kin- find out if any advance directives and or home meds NEURO: Minimize central acting medications as possible. Fall Precautions. Well lighted room through the day and minimize interruptions through the night to prevent acute delirium. CT of the head PULMONARY: Supplemental 02 as needed Titrate Fio2 to keep Spo2 > or = 90% DuoNeb�s and CPT as needed IS hourly while awake for pulmonary hygiene Out of bed to chair as tolerated CARDIOVASCULAR: Follow hemodynamics. Titrate vasopressor to keep MAP >60 or systolic blood pressure >95mmHg Drips: Levophed p.r.n. to maintain map above 60 LINES: PIV Consider PICC line if Levophed as needed GI & NUTRITION: Continue nutritional support Aspirations precautions Prokinetic agents and laxatives as needed NPO for now IV fluids Aspiration precautions Maintain head of the bed greater than 30 degree KIDNEYS & ELECTROLYTES: Strict monitoring of intake and output Daily weights Avoid nephrotoxic agents Monitor electrolytes and replace as needed Goal urine output of 30mL/hr or 0.5mL/kg/hr Clark catheter CT abdomen and pelvis to rule out complicated cystitis ENDOCRINE: Maintain blood glucose between 100-180 at all times. Insulin sliding scale for blood glucose management TSH normal Cortisol level D5 at 75 mL/hour Avoid hypoglycemia INFECTIOUS DISEASE: Trend temperature. Lara-culture if febrile. Micro: [ Blood culture Respiratory culture Sputum cultures FB smear COVID and influenza negative Antibiotics: Meropenem Doxycycline HEMATOLOGY & COAGULATION: Monitor H&H. Keep Hgb > 7 Transfuse 1 unit of PRBC for Hgb < 7 Transfuse 1 pack of platelets of platelets < 20, 000 Watch for any signs and symptoms of bleeding SKIN: Pressure ulcer prevention per facility protocol Rehab: PT/OT Prophylaxis: GI: Protonix DVT: Lovenox Code Status: Full Resuscitation Disposition: ICU Other: Critical care time This patient required multiple bedside visits to manage the patient, review blood gases, coordinate with respiratory, nurses, review radiology exams, talk to the family members and discuss advanced directives. I personally spent [75] minutes of critical care time in treatment of this patient. This includes patient management, time at bedside, time reviewing tests, labs, appropriate images and studies, documentation, and patient care coordination. This time excludes separately billable procedures. SALOME COOK [facility] Dec 14, 2024 10:17
[2024-12-14] MEDS: ALBUMIN (HUMAN) 25% 50 ML IV SCH (11:14)
--- NOTE | 2024-12-14 12:11 | PN ---
[facility] PROGRESS NOTE Date of Service: Dec 14, 2024 Time of Service: 12:07 SUBJECTIVE: 12/14 patient seen at bedside, no acute events overnight. Patient was seen at bedside, she does not participate in the medical interview. She does not appear to be in any acute distress. She is on pressors, we will continue to wean as able. Sodium improved from 150 down to 146, remainder of her labs are relatively unremarkable. Urine growing bacteria, we will continue with empiric antibiotics REVIEW OF SYSTEMS: Patient is obtunded, unable to obtain ROS PHYSICAL EXAM GENERAL APPEARANCE: patient is obtunded, very frail, cachectic, contractures noted of the lower extremities NEUROLOGICAL: Cranial nerves II-XII grossly intact. Motor is 5/5 in bilateral upper and lower extremities proximal to distal. No sensory deficits. HEENT: Face is symmetric. Pupils are equal and reactive. Extraocular movements are intact. NECK: Supple. No JVD. No thyromegaly. No submental, submandibular, pre- /postauricular, occipital or supraclavicular lymphadenopathy. CHEST: Normal chest expansion. No Telemetry. LUNGS: Absence of any rales, rhonchi or any wheezing. CARDIOVASCULAR: Regular. S1 and S2 normal. No appreciable rubs, murmurs or gallops. ABDOMEN: Soft, nontender, and nondistended. There is no rebound, voluntary guarding, or rigidity. : Deferred. No Clark. EXTREMITIES: Non-edematous and not cyanotic. No clubbing. Good capillary refill. SKIN: No skin breakdown. Vital Signs (last 8hr) Date Time Temp Pulse Resp B/P (MAP) Pulse Ox O2 Delivery O2 Flow Rate FiO2 12/14/24 12:00 97.9 12/14/24 08:45 83 13 123/74 (90) 98 32 12/14/24 08:30 73 14 116/65 (82) 99 32 12/14/24 08:15 67 14 106/59 (75) 98 32 12/14/24 08:00 97.7 12/14/24 08:00 98 Nasal Cannula* 3 32 12/14/24 08:00 73 14 116/65 (82) 99 32 12/14/24 07:45 67 14 116/69 (85) 100 32 12/14/24 07:35 103/68 12/14/24 07:30 97.7 73 16 122/72 (89) 99 32 12/14/24 07:18 74 15 N/Cannula Low lpm 3.0 32 12/14/24 07:17 74 11 12/14/24 07:15 76 15 103/68 (80) 97 32 12/14/24 07:00 72 15 107/70 (82) 98 32 12/14/24 06:59 76 20 106/71 (83) 98 12/14/24 06:44 73 11 104/66 (79) 98 12/14/24 06:29 74 15 109/70 (83) 98 12/14/24 06:14 85 28 78/49 (59) 99 12/14/24 05:59 77 16 98/60 (73) 98 12/14/24 05:36 99.0 81 12 104/60 (75) 97 LABS: Laboratory: Test 12/14/24 11:09 12/14/24 04:27 12/14/24 04:21 12/13/24 15:43 Range/Units Whole Blood Glucose 131 #H 70-110 MG/DL B-Type Natriuretic Peptide 155 H 0-100 pg/mL White Blood Count 5.2 # 4.8-10.8 K/uL Red Blood Count 4.53 4.00-5.50 MIL/uL Hemoglobin 14.1 12.0-16.0 g/dL Hematocrit 42.6 36-48 % Mean Corpuscular Volume 94.0 79-99 fL Mean Corpuscular Hemoglobin 31.1 27.0-33.0 pg Mean Corpuscular Hemoglobin Concent 33.1 32.0-36.0 g/dL Red Cell Distribution Width 14.8 11.0-15.5 % Platelet Count 170 130-400 K/uL Mean Platelet Volume 9.0 7.5-10.5 fL Immature Granulocyte % (Auto) 1.0 0-1 % Neutrophils (%) (Auto) 85.1 H 40.0-77.0 % Lymphocytes (%) (Auto) 10.4 L 21.0-51.0 % Monocytes (%) (Auto) 2.5 L 3.0-13.0 % Eosinophils (%) (Auto) 0.0 0.0-8.0 % Basophils (%) (Auto) 1.0 0.0-5.0 % Neutrophils # (Auto) 4.4 1.8-7.7 K/uL Lymphocytes # (Auto) 0.5 L 1.0-4.8 K/uL Monocytes # (Auto) 0.1 0.1-1.0 K/uL Eosinophils # (Auto) 0.00 0.00-0.70 K/uL Basophils # (Auto) 0.05 0.00-0.20 K/uL Absolute Immature Granulocyte (auto 0.05 0-1 K/uL Nucleated Red Blood Cells 0.0 0.0-0.19 % Sodium Level 146 H 136-145 mmol/L Potassium Level 4.3 3.5-5.1 mmol/L Chloride Level 116 H 101-111 mmol/L Carbon Dioxide Level 26 21-32 mmol/L Blood Urea Nitrogen 32 H 7-18 mg/dL Creatinine 0.7 0.5-1.0 mg/dL Glomerular Filtration Rate Calc 111 >90 mL/min Random Glucose 58 #L 70-105 mg/dL Total Calcium 7.6 L 8.5-10.1 mg/dL Phosphorus Level 1.7 L 2.5-4.9 mg/dL Magnesium Level 2.50 H 1.80-2.40 mg/dL Total Bilirubin 0.4 # 0.2-1.0 mg/dL Aspartate Amino Transf (AST/SGOT) 23 10-37 U/L Alanine Aminotransferase (ALT/SGPT) 38 12-78 U/L Alkaline Phosphatase 123 50-136 U/L Total Protein 4.8 L 6.0-8.3 g/dL Albumin 1.6 #L 3.5-5.0 g/dL Lactic Acid Level 1.0 0.8-2.5 mmol/L Ammonia 43 H 11-32 umol/L Serum Test, Qualitative NEGATIVE NEGATIVE Test 12/13/24 13:36 12/13/24 13:17 12/13/24 12:51 Range/Units Urine Color Light-Yellow YELLOW Urine Appearance TURBID H CLEAR Urine pH 8.5 H 5.0-8.0 Urine Specific [place] 1.020 1.001-1.031 Urine Protein 300 H NEGATIVE mg/dL Urine Glucose (UA) NEGATIVE NEGATIVE mg/dL Urine Ketones NEGATIVE NEGATIVE mg/dL Urine Occult Blood LARGE NEGATIVE Urine Nitrate NEGATIVE NEGATIVE Urine Bilirubin N NEGATIVE mg/dL Urine Urobilinogen 0.2 0.2-1.0 mg/dL Urine Leukocyte Esterase LARGE H NEGATIVE Susi/uL Urine RBC 6-10 H 0-1 /HPF Urine WBC 26-50 H 0-1 /HPF Urine Triple Phosphate Crystals Moderate H None Seen /LPF Urine Bacteria Moderate H None Seen /HPF Influenza Type A Antigen Negative For Type A NEGATIVE Influenza Type B Antigen Negative For Type B NEGATIVE SARS-CoV-2 Antigen (Rapid) PRESUMPTIVE NEGATIVE NEGATIVE Group A Streptococcus Rapid negative NEGATIVE White Cell Morphology Comment See comments Erythrocyte Sedimentation Rate 45 H 0-20 MM/HR Prothrombin Time 13.4 H 9.6-11.6 SEC Prothromb Time International Ratio 1.30 H 0.85-1.15 Activated Partial Thromboplast Time 41.8 H 26.3-35.5 SEC Direct Bilirubin 0.1 0.0-0.3 mg/dL Total Creatine Kinase 111 21-232 U/L C-Reactive Protein, Quantitative 112.50 H 0.5-3.0 mg/L Procalcitonin 0.29 0.05-0.5 ng/mL Thyroid Stimulating Hormone (TSH) 2.66 0.36-3.74 uIU/mL Current Medications Medications (Trade) Dose Ordered Sig/Castillo Route PRN Reason Start Time Stop Time Status Last Admin Dose Admin Acetaminophen (TYLenol 325MG ELIXIR) 325 mg Q6H PRN PO MILD PAIN (1-3) 12/13/24 15:00 01/12/25 14:59 Albumin Human 50 ml @ 0 mls/hr AD IV 12/14/24 10:00 12/19/24 09:59 12/14/24 11:14 50 MLS/HR Albuterol (DUOneb) 1 udvial Q6H PRN IH SHORTNESS OF BREATH 12/13/24 15:30 01/12/25 15:29 Budesonide (Pulmicort 0.5 Mg/2ml) 0.5 mg BIDRESP IH 12/13/24 18:00 01/12/25 17:59 12/14/24 07:17 0.5 MG Dextrose 1,000 ml @ 75 mls/hr [id number] IV 12/13/24 15:00 01/12/25 14:59 12/14/24 04:55 75 MLS/HR Dextrose (D50w) 50 ml AD PRN IV HYPOGLYCEMIA PROTOCOL 12/13/24 15:00 01/12/25 14:59 12/14/24 08:45 50 ML Doxycycline Hyclate 250 ml @ 125 mls/hr Q12H IV 12/13/24 15:30 12/23/24 15:29 12/14/24 03:10 125 MLS/HR Enoxaparin Sodium (Lovenox) 30 mg DAILY SQ 12/14/24 09:00 01/13/25 08:59 12/14/24 08:46 30 MG Glucagon (Glucagon 1mg Kit) 1 mg AD PRN IM HYPOGLYCEMIA PROTOCOL 12/13/24 15:00 01/12/25 14:59 Lactated Ringer's 1,000 ml @ 100 mls/hr Q10H IV 12/13/24 15:00 12/13/24 15:18 DC Magnesium Sulfate 50 ml @ 0 mls/hr PROTOCOL IV 12/13/24 21:30 01/12/25 21:29 12/13/24 23:11 25 MLS/HR Meropenem (Merrem 1gm) 1 gm Q8H IVPB 12/13/24 16:00 12/23/24 15:59 12/14/24 08:45 1 GM Norepinephrine 250 ml @ 0 mls/hr PROTOCOL IV 12/13/24 14:30 01/12/25 14:29 12/14/24 07:35 25.3 MLS/HR Ondansetron HCl (zoFRAN 4MG INJ) 4 mg Q6H PRN IVP NAUSEA/VOMITING 12/13/24 16:30 01/12/25 16:29 Pantoprazole Sodium (PROTonix 40MG INJ) 40 mg Q24H IVP 12/13/24 15:00 01/12/25 14:59 12/13/24 17:04 40 MG Pharmacy Profile Note (Pharmacy Communication) 1 each ONCE MISC 12/13/24 15:00 12/13/24 15:28 DC Potassium Chloride 100 ml @ 50 mls/hr AD PRN IV POTASSIUM PROTOCOL 12/13/24 21:30 01/12/25 21:29 12/14/24 01:53 50 MLS/HR Thiamine HCl (Vitamin B-1) 300 mg Q24H IVP 12/13/24 15:00 01/12/25 14:59 12/13/24 17:05 300 MG DIAGNOSTICS / RADIOLOGY: [ ] ASSESSMENT: Septic shock, POA (2/2 community-acquired pneumonia and complicated UTI) Hypothermia, POA Toxic metabolic encephalopathy with obtundation, POA Severe hypoglycemia, POA Community-acquired pneumonia with acute hypoxemic respiratory failure, POA Complicated urinary tract infection, POA Frailty/debility, POA History of chronic contractures of bilateral lower extremities, POA Unstageable decubitus ulcer involving the left hip, POA Cachexia, POA History of severe intellectual disability, POA History of scoliosis, POA History of microcephaly, POA History of ADHD, POA History of aggression, POA PLAN: Continue ICU Patient will be kept strictly NPO and on aspiration precautions c/w Levophed to maintain MAP> 65, wean as able We will maintain POCT blood glucose check q.1 hours, we will maintain blood glucose greater than 70 Continue Broad-spectrum antibiotics with IV meropenem and doxycycline Cultures and sensitivities pending, will follow up Consultation with critical Care will be requested Patient will be placed on air mattress, offloading measures, wound care will be requested Infectious Disease consulted, appreciate recommendations Disposition: pending improvement in clinical status Greater than 35 minutes ICU time spent in care of this patient SEVEN KIRKLAND MD Dec 14, 2024 12:11
--- NOTE | 2024-12-14 12:18 | HMCIMG ---
CT CHEST/ABD/PELV W/O CONTRAST HISTORY: Sepsis COMPARISON: None TECHNIQUE: Multiple sequential axial images of the chest were obtained from the thoracic inlet through upper abdomen. Patient was not given contrast through intravenous route. FINDINGS: Extensive right lung pulmonary infiltrates are seen with almost complete opacification of right upper hemithorax. There appears to be cystic lesions versus cystic bronchiectasis versus cavitary lesion within the infiltrates with subsegmental atelectasis changes. Central mass lesion cannot be excluded.. Tiny bilateral pleural effusions are seen. COPD changes are seen. There are interstitial fibrosis. There is no evidence of pneumothorax. There are normal size mediastinal and hilar lymph nodes. The heart is not enlarged. There is levoscoliosis of thoracic spine. Degenerative changes of the thoracolumbar spine are present. There is no evidence of adrenal nodule. IMPRESSION: 1. Extensive right lung pulmonary infiltrates are seen with almost complete opacification of right upper hemithorax. There appears to be cystic lesions versus cystic bronchiectasis versus cavitary lesion within the infiltrates with subsegmental atelectasis changes. Central mass lesion cannot be excluded.. Tiny bilateral pleural effusions are seen. COPD changes are seen. There are interstitial fibrosis. CT CHEST/ABD/PELV W/O CONTRAST HISTORY: Sepsis COMPARISON: None TECHNIQUE: Multiple sequential axial images of the abdomen and pelvis were obtained from the dome of the diaphragm through symphysis pubis. Patient was not given contrast through intravenous route. Oral contrast was not given. FINDINGS: Liver measures 10 cm. There may be small hypodense foci liver lesions. The study is limited due to patient's underlying cachexia. There are small bowel dilatation with colonic distention. The liver, spleen, adrenal glands and pancreas are unremarkable. There is no evidence of hydronephrosis bilaterally. No evidence of renal stone is seen. Fecal material is seen in the colon. There are normal size retroperitoneal and mesenteric lymph nodes. No ascites is seen. Atherosclerotic changes are present. Pelvic sidewalls are symmetric bilaterally. Bladder is poorly seen. This is a limited study. The study is also limited due to poor positioning. IMPRESSION: 1. Extensive right lung pulmonary infiltrates are seen with almost complete opacification of right upper hemithorax. There appears to be cystic lesions versus cystic bronchiectasis versus cavitary lesion within the infiltrates with subsegmental atelectasis changes. Central mass lesion cannot be excluded.. Tiny bilateral pleural effusions are seen. COPD changes are seen. There are interstitial fibrosis. Limited study due to severe cachexia. Minimal mesenteric fat is seen. There are small bowel dilatation and colonic distention. Large amount of fecal material is seen in the colon. CT was performed with one or more following dose reduction techniques: automated exposure control, adjustment of the mA and kv according to patient's size, or use of a iterative reconstruction technique.
--- NOTE | 2024-12-14 12:19 | HMCIMG ---
CT HEAD/BRAIN W/O CONTRAST HISTORY: Obtunded COMPARISON: None TECHNIQUE: Multiple sequential axial images of the head were obtained from the base of the skull through vertex. Patient was not given contrast through intravenous route. FINDINGS: The ventricles and extraventricular CSF spaces are dilated consistent with cerebral atrophy. Nonspecific white matter changes seen. There is no midline shift, mass effect or herniation. No acute intracranial bleed is seen. Visualized portion of the paranasal sinuses are grossly within normal limits. IMPRESSION: 1. No acute intracranial bleed is seen. 2. Atrophy with white matter changes. CT was performed with one or more following dose reduction techniques: automated exposure control, adjustment of the mA and kv according to patient's size, or use of a iterative reconstruction technique.
--- NOTE | 2024-12-14 12:40 | NUR ---
Levophed off at this time, MAP maintaining above 60, no further needs noted.
--- NOTE | 2024-12-14 13:37 | NUR ---
DC PLAN VISITED WITH PATIENT. NON VERBAL. SPOKE TO SIDNEY BAUMANN [phone] SAID HE IS THE DIRECTOR FOR [facility]. SAID PATIENT HAS NO FAMILY THEY ARE THE ONES THAT MAKE DECISIONS FOR PATIENT. SAID BEST TO CALL ELISABETH FLORENCIA [phone]. SHE IS THE THE [employer] SUPERVISOR FOR THE PATIENT. MADELEINE NURSE CAME IN TO SEE PATIENT [phone]. SAID THAT SHE CAN BE REACHED AT ANY TIME FOR CONSENTS. SAID THAT IF WE CALL [facility] THEY ARE ONLY OPEN FROM 8 - 5 WEDNESDAY TO WEDNESDAY. SAID ONCE PATIENT IS READY TO RETURN TO [facility] CAN GO VIA [facility]AN JUST NEED PLENTY OF TIME TO GET VAN HERE AND WED - WED 8-. ADMINISTRATIVE OFFICER ALSO ON CASE. Addendum: 12/14/24 at 1342 by AMOL SUTTON RN CM Amended: Links added.
--- NOTE | 2024-12-14 13:48 | NUR ---
SS REFERRAL Sw spoke to akira Chino's nurse at [facility]. Pt has been a resident with them for over 27yrs. They no family contacts and pt has never had any visitors since her placement. Nurse reports pt has always been very petite in size, non verbal, and at one time was ambulatory. Nurse states that pt contacted Covid and was sent to hospital, when pt returned to their facility pt was contracted and bed bound. Per nurse, pt has had very poor appetite, low BP and upon discovery of developing red spot on pt, they scheduled appt with PCP Dr Lane for yesterday. Nurse felt sore was un stageable, but PCP felt it as a stage 2. MD prescribed Medihoney and daily dressing changes that staff would have done, but pt was brought to ER. Lulú soto she is available for any consents needed for pt's care. Based on information provided by nurse Lulú Alvarez, no APS reporting needed at this time.
--- NOTE | 2024-12-14 14:32 | NUR ---
[facility] Consult: Patient assessed by wound healing team. See wound assessment. Assessment and recommendations provided to primary nurse. Education provided. Addendum: 12/14/24 at 1621 by ALESSIO BAKER RN RN/ Amended: Links added.
--- NOTE | 2024-12-14 16:50 | NUR ---
BEDSIDE SWALLOW EVAL COMPLETED. Pt not appropriate for oral intake and at high risk of aspiration. Recommend NPO, detention alternate means of nutrition/hydration. TEACHING ARTIST reviewed results and recommendations with patient and nurse Dc. TEACHING ARTIST educated patient on risks and consequences of aspiration. No family present at time of visit. Speech therapy not warranted at this time. All questions answered. Addendum: 12/15/[address]ANIELLE GARCIA Amended: Links added.
--- NOTE | 2024-12-14 18:16 | NUR ---
14 icelandic NG tube inserted into right nare at bedside with assistance of nurse Santiago. Patient tolerated intervention well with moderate discomfort. Placement verified via air bolus and secondary verification by Nurse Santiago. Abdominal xray ordered, pending radiologist verification.
[2024-12-14] MEDS: IpraTROPium/alBUTERol SULFATE 3 ML SOLUTION IH PRN (18:21)
[2024-12-14] MEDS: acetylCYSTeine 20% 200MG/ML 4ML VIAL IH SCH (18:21)
--- NOTE | 2024-12-14 21:11 | HMCIMG ---
Exam Type: ABD 1VW Clinical Information: VERIFY NG TUBE PLACEMENT Comparison: None Findings: Abdomen demonstrates no evidence of pathologic calcification or soft tissue mass. There are no radiopacities to suggest calculous disease. The intestinal gas pattern is within normal limits without evidence of dilatation to suggest obstruction or adynamic ileus. The bony structures are unremarkable. IMPRESSION: Normal abdomen.
[2024-12-15] VITALS (23 sets, daily range): BP systolic 103–155; BP diastolic 40–93; PULSE 56–88; RESP 12–23; TEMP 96.7–98.2; O2SAT 96–100
[2024-12-15] MEDS: HONEY 1 APPL/ML TUBE TP ONE (02:07)
[2024-12-15] MEDS ORDERED: VENL75CA97 PO (03:42)
[2024-12-15] MEDS ORDERED: ACET-66 PO (03:42)
[2024-12-15] MEDS ORDERED: ONDA-105 PO (03:42)
[2024-12-15] MEDS ORDERED: CHOL-34 PO (03:42)
[2024-12-15] MEDS ORDERED: QUET200T30 PO (03:42)
[2024-12-15] MEDS ORDERED: GUAI237L82 PO (03:42)
[2024-12-15] MEDS ORDERED: LORA0.5T83 PO (03:42)
[2024-12-15] MEDS ORDERED: BUSP15 PO (03:42)
[2024-12-15] MEDS ORDERED: METO25TA6 PO (03:42)
[2024-12-15 04:18] LABS: BASOPHILS # (AUTO) 0.04 K/uL (0.00-0.20); BASOPHILS % (AUTO) 0.5 % (0.0-5.0); EOSINOPHILS # (AUTO) 0.01 K/uL (0.00-0.70); EOSINOPHILS % (AUTO) 0.1 % (0.0-8.0); HEMATOCRIT 32.1 % (36-48); IMMATURE GRANULOCYTE ABSOLUTE 0.04 K/uL (0-1); LYMPHOCYTES # (AUTO) 1.1 K/uL (1.0-4.8); LYMPHOCYTES % (AUTO) 13.6 % (21.0-51.0); MEAN CORPUSCULAR HEMOGLOBIN 31.3 pg (27.0-33.0); MEAN CORPUSCULAR HGB CONC 34.3 g/dL (32.0-36.0); MEAN CORPUSCULAR VOLUME 91.5 fL (79-99); MONOCYTES # (AUTO) 0.2 K/uL (0.1-1.0); MONOCYTES % (AUTO) 2.1 % (3.0-13.0); NEUTROPHILS # (AUTO) 6.9 K/uL (1.8-7.7); NEUTROPHILS % (AUTO) 83.2 % (40.0-77.0); PLATELET COUNT (AUTO) 74 K/uL (130-400); RED BLOOD CELL COUNT(AUTO) 3.51 MIL/uL (4.00-5.50); RED CELL DISTRIBUTION WIDTH 14.6 % (11.0-15.5); WHITE BLOOD COUNT (AUTO) 8.3 K/uL (4.8-10.8)
[2024-12-15 04:40] LABS: ALBUMIN 1.7 g/dL (3.5-5.0); BILIRUBIN,TOTAL 0.5 mg/dL (0.2-1.0); CREATININE 0.5 mg/dL (0.5-1.0); MAGNESIUM 1.6 mg/dL (1.80-2.40); PHOSPHORUS 1.5 mg/dL (2.5-4.9); TOTAL PROTEIN, SERUM 4.4 g/dL (6.0-8.3)
[2024-12-15 04:49] LABS: POTASSIUM 2.9 mmol/L (3.5-5.1)
[2024-12-15] MEDS: CALCIUM GLUC 1GM/10ML VIAL IVPB ONE (05:37)
[2024-12-15] MEDS: poTASSium PHOS 15 mMOL+NS250ML 250 ML IV SCH (05:59)
--- NOTE | 2024-12-15 07:06 | CONS ---
INFECTIOUS DISEASE CONSULTATION NOTE DATE OF SERVICE: 12/14/2024 REQUESTING PHYSICIAN: Carlos Real MD REASON FOR CONSULTATION: Pneumonia, septic shock and UTI. HISTORY OF PRESENT ILLNESS: This is a 44-year-old female with history of severe mental retardation, cerebral palsy and scoliosis who was brought to the hospital with altered mental status and decreased oral intake. [facility] was noticed to have decreased oral intake and increasing confusion. The patient was brought to the Emergency Room where she was found to have septic shock. The patient was hypothermic and was placed on Halina Hugger. The patient was also found with hypotension and was started on vasopressor. Chest x-ray shows bilateral infiltrate, worse on the right side, possible cavitary lesion. The patient has been placed on isolation to rule out TB. The patient has been started on doxycycline and meropenem. No documented diarrhea or abdominal pain. No history of sick contact. PAST MEDICAL HISTORY: * Severe mental retardation. * Cerebral palsy. * Scoliosis. * ADHD. * Contracture deformity. PAST SURGICAL HISTORY: None documented. ALLERGIES: * CLINDAMYCIN. * THIORIDAZINE. CURRENT MEDICATIONS: * Doxycycline. * Meropenem. * . * Lovenox. * Tylenol. SOCIAL HISTORY: Lives at center. No alcohol, tobacco, or illicit drug use. FAMILY HISTORY: Unable to obtain. REVIEW OF SYSTEMS: Available history obtained from the medical record. The patient is nonverbal. PHYSICAL EXAMINATION: GENERAL: Young female, severely malnourished, ill looking. VITAL SIGNS: Temperature 99.0, pulse 74, respiratory rate 18, BP 103/68. EYES: No icterus. No conjunctival hemorrhage. HENT: No oral thrush seen. Moist oral mucosa. NECK: Supple. No JVD or thyromegaly. LUNGS: Few crackles on the right side. No rhonchi. CARDIOVASCULAR: S1, S2 regular. No murmur heard. ABDOMEN: Full, soft. Bowel sound is present. CENTRAL NERVOUS SYSTEM: The patient is awake, nonverbal, bedbound debility. SKIN: No rashes, no itchiness. MUSCULOSKELETAL: Contracted lower extremities. BACK: There is scoliosis. Unstageable ulcer involving the left heel. LABORATORY DATA: Sodium 146, potassium 4.3, BUN 32, creatinine 0.7. WBC 5.2, hemoglobin 14.1, platelets 170. Urinalysis, ____, leukocyte esterase large. Influenza antigen negative. RADIOLOGY: Chest x-ray results reviewed. ASSESSMENT: A 44-year-old female presenting with hypotension, poor oral intake and altered mental status. Current problems include: * Septic shock. * Multifocal pneumonia. * Urinary tract infection. * Right lung cavitary lesion. * Severe malnutrition. * Left hip unstageable pressure ulcer. PLAN: * Continue critical care support. * Continue vasopressor. * Continue meropenem. * Continue doxycycline. * Sputum for acid-fast bacilli. * Continue bone isolation. * Continue DVT prophylaxis. * Monitor electrolytes. * Continue nutritional support. Thank you for allowing me to participate in the care of this patient. TID: [id number] RECEIPT: [id number]
[2024-12-15] MEDS: HONEY 1 APPL/ML TUBE TP SCH (09:03)
--- NOTE | 2024-12-15 09:58 | HMCIMG ---
Exam Type: CHEST 1VW Clinical Information: Hypoxemic respiratory failure Comparison: None Findings: Ill-defined infiltrates of both lungs are seen consistent with bilateral pneumonia. . The heart is normal in size. The bony and soft tissue structures show no worrisome pathology. IMPRESSION: Findings consistent with pneumonia. Follow-up is advised.
--- NOTE | 2024-12-15 10:20 | PN ---
[facility] PROGRESS NOTE Date Patient Seen: Dec 15, 2024 Time of Visit: 10:19 Supervising Physician: Pola Lowery MD Primary Care Physician: Yarelis Ogden MD Outpatient Specialists: [ ] Inpatient Consults: ZULMA , Dr Esperanza Naranjo MD Attending: Carlos Real MD PROBLEM LIST: Septic shock, POA (2/2 community-acquired pneumonia and complicated cystitis) requiring pressor, resolved Right upper lobe cavitation TB rule out, POA - pending bronchoscopy for tomorrow 12/16/24 Hypothermia, POA , resolved Toxic metabolic encephalopathy with obtundation, POA , resolving Severe hypoglycemia, POA on D5 Acute [id number] K-hold anticoagulation Failure to thrive pending GI for G-tube eval Community-acquired pneumonia with acute hypoxemic respiratory failure, POA Suspected aspiration, POA Acute complicated cystitis, POA Frailty/debility, POA History of chronic contractures of bilateral lower extremities, POA Unstageable decubitus ulcers to right hip POA Intellectual disability, POA History of scoliosis, POA History of microcephaly, POA History of ADHD, POA History of aggression, POA Nonverbal INTERVAL HISTORY: Patient is awake nonverbal. No major overnight events. She is hemodynamically stable with a blood pressure of 126/80 heart rate in the 60s saturating 97% at room air. No apparent distress respiratory rate of 17 and afebrile. She is pending TV rule out but unable to obtain a good sputum culture due to does not follow command and on nasal tracheal suctioning per RT unable to obtain either. We will plan for bronchoscopy tomorrow by in endo Department for right upper lobe BAL rule out TB. She is off pressors today. Patient has not had a bowel movement continues on bowel regimen. Urine output is 0.97 mL/kilogram per hour. WBCs 8.3 H&H is 11/32.1 with a platelet count of 74 K. neutrophils trending down to 83.2. On chemistries sodium is 140 potassium of 2.9 magnesium of 1.60 total calcium of 7.5 phosphorus 1.5. LDH of 621 albumin of 1.7 total protein of 4.4. Severely malnourished. We will have GI eval for G-tube placement due to failure to thrive and suspected aspiration. Continue electrolyte replacements. Otherwise patient is stable to downgrade to medical surgical. Continue airborne isolation until TB rule out. REVIEW OF SYSTEMS: UNABLE TO OBTAIN DUE TO PATIENT IS NONVERBAL. INTELLECTUAL DISABILITY. PHYSICAL EXAM: GENERAL: Awake to voice nonverbal, intellectually disabled microcephaly. HEENT: Sclera non icteric, dry mucosa NECK: Supple, no JVD, trachea midline LUNGS: Coarse rhonchi breath sounds bilaterally. No wheezes HEART: Regular rate and rhythm. Normal S1 and S2, without murmurs ABD: Cachectic, flat, nontender. Bowel sounds present EXT: Contractions to upper and lower extremities, right hip unstageable pressure ulcer with a black eschar NEURO: Awake to voice, nonverbal and chronically ill with upper and lower extremity contractures. Vital Signs (last 8hr) Date Time Temp Pulse Resp B/P (MAP) Pulse Ox O2 Delivery O2 Flow Rate FiO2 12/15/24 08:44 57 16 111/74 97 Room Air 12/15/24 08:20 79 17 N/A Room Air 21 12/15/24 08:00 99 Room Air* 0 21 12/15/24 07:44 96.6 67 17 117/72 98 Room Air 12/15/24 06:29 75 16 12/15/24 04:00 98.1 12/15/24 04:00 61 12 109/59 (76) 100 28 12/15/24 04:00 99 Room Air* 0 21 12/15/24 03:00 72 14 109/62 (78) 100 28 LABS: Hematology Labs: Test 12/15/24 04:10 12/13/24 12:51 Range/Units White Blood Count 8.3 # 4.8-10.8 K/uL Red Blood Count 3.51 #L 4.00-5.50 MIL/uL Hemoglobin 11.0 #L 12.0-16.0 g/dL Hematocrit 32.1 #L 36-48 % Mean Corpuscular Volume 91.5 79-99 fL Mean Corpuscular Hemoglobin 31.3 27.0-33.0 pg Mean Corpuscular Hemoglobin Concent 34.3 32.0-36.0 g/dL Red Cell Distribution Width 14.6 11.0-15.5 % Platelet Count 74 #L 130-400 K/uL Mean Platelet Volume 9.3 7.5-10.5 fL Immature Granulocyte % (Auto) 0.5 0-1 % Neutrophils (%) (Auto) 83.2 H 40.0-77.0 % Lymphocytes (%) (Auto) 13.6 L 21.0-51.0 % Monocytes (%) (Auto) 2.1 L 3.0-13.0 % Eosinophils (%) (Auto) 0.1 0.0-8.0 % Basophils (%) (Auto) 0.5 0.0-5.0 % Neutrophils # (Auto) 6.9 1.8-7.7 K/uL Lymphocytes # (Auto) 1.1 1.0-4.8 K/uL Monocytes # (Auto) 0.2 0.1-1.0 K/uL Eosinophils # (Auto) 0.01 0.00-0.70 K/uL Basophils # (Auto) 0.04 0.00-0.20 K/uL Absolute Immature Granulocyte (auto 0.04 0-1 K/uL Nucleated Red Blood Cells 0.0 0.0-0.19 % White Cell Morphology Comment See comments Erythrocyte Sedimentation Rate 45 H 0-20 MM/HR Chemistry Labs: Test 12/15/24 04:10 12/14/24 20:47 12/14/24 04:27 12/13/24 15:43 Range/Units Sodium Level 140 136-145 mmol/L Potassium Level 2.9 *L 3.5-5.1 mmol/L Chloride Level 109 101-111 mmol/L Carbon Dioxide Level 29 21-32 mmol/L Blood Urea Nitrogen 14 7-18 mg/dL Creatinine 0.5 0.5-1.0 mg/dL Glomerular Filtration Rate Calc 120 >90 mL/min Random Glucose 87 70-105 mg/dL Total Calcium 7.5 L 8.5-10.1 mg/dL Phosphorus Level 1.5 L 2.5-4.9 mg/dL Magnesium Level 1.60 L 1.80-2.40 mg/dL Total Bilirubin 0.5 # 0.2-1.0 mg/dL Aspartate Amino Transf (AST/SGOT) 35 10-37 U/L Alanine Aminotransferase (ALT/SGPT) 47 # 12-78 U/L Alkaline Phosphatase 93 50-136 U/L Total Protein 4.4 L 6.0-8.3 g/dL Albumin 1.7 L 3.5-5.0 g/dL Procalcitonin 0.28 0.05-0.5 ng/mL Whole Blood Glucose 85 70-110 MG/DL B-Type Natriuretic Peptide 155 H 0-100 pg/mL Lactic Acid Level 1.0 0.8-2.5 mmol/L Ammonia 43 H 11-32 umol/L Serum Test, Qualitative NEGATIVE NEGATIVE Test 12/13/24 12:51 Range/Units Direct Bilirubin 0.1 0.0-0.3 mg/dL Total Creatine Kinase 111 21-232 U/L C-Reactive Protein, Quantitative 112.50 H 0.5-3.0 mg/L Thyroid Stimulating Hormone (TSH) 2.66 0.36-3.74 uIU/mL Coagulation Labs: Test 12/13/24 12:51 Range/Units Prothrombin Time 13.4 H 9.6-11.6 SEC Prothromb Time International Ratio 1.30 H 0.85-1.15 Activated Partial Thromboplast Time 41.8 H 26.3-35.5 SEC DIAGNOSTICS / RADIOLOGY RESULTS: [ ] IMAGING REPORT Signed PATIENT: DESTINY PAZ MR#: [id number] : 1980 SEX: F AGE: 44 LOCATION: [facility] ORDER 2300 STATUS: ADM IN REPORT#: [id number] SERVICE 0600 REASON: Hypoxemic respiratory failure ORDERING PHYSICIAN: SALOME COOK PROCEDURE: CXR1VW - CHEST 1VW Exam Type: CHEST 1VW Clinical Information: Hypoxemic respiratory failure Comparison: None Findings: Ill-defined infiltrates of both lungs are seen consistent with bilateral pneumonia. . The heart is normal in size. The bony and soft tissue structures show no worrisome pathology. IMPRESSION: Findings consistent with pneumonia. Follow-up is advised. DICTATED BY: JODIE OROZCO MD DATE: 12/15/24953 ELECTRONICALLY SIGNED BY: JODIE OROZCO MD DATE: 12/15/24957 PLAN Plan for scheduled bronchoscopy tomorrow. Right upper lobe BAL . rule out TB AFB smears x3 q.a.m. pending results-unable to be performed due to patient does not follow commands and unable to obtain per RT via nasal tracheal suctioning. Airborne isolation TB precautions Monitor respiratory status closely Discuss advance directives with next of kin or guardian D5 at 75 mL/hour Broad-spectrum IV antibiotics currently on meropenem and doxycycline deescalate per urine and respiratory cultures Monitoring electrolytes and replace accordingly Speech to eval swallow -per speech therapy recommendations for NPO, long-term much in the means of nutrition hydration patient is not appropriate for oral intake at this time. Resume home medications licensed clinical social worker to eval home living conditions and next of kin- find out if any advance directives and or home meds GI consult to eval for G-tube placement. NEURO: Minimize central acting medications as possible. Fall Precautions. Well lighted room through the day and minimize interruptions through the night to prevent acute delirium. CT of the head PULMONARY: Supplemental 02 as needed Titrate Fio2 to keep Spo2 > or = 90% DuoNeb�s and CPT as needed IS hourly while awake for pulmonary hygiene Out of bed to chair as tolerated CARDIOVASCULAR: Follow hemodynamics. Titrate vasopressor to keep MAP >60 or systolic blood pressure >95mmHg Drips: none LINES: PIV GI & NUTRITION: Continue nutritional support Aspirations precautions Prokinetic agents and laxatives as needed NPO for now IV fluids Aspiration precautions Maintain head of the bed greater than 30 degree KIDNEYS & ELECTROLYTES: Strict monitoring of intake and output Daily weights Avoid nephrotoxic agents Monitor electrolytes and replace as needed Goal urine output of 30mL/hr or 0.5mL/kg/hr Clark catheter CT abdomen and pelvis to rule out complicated cystitis ENDOCRINE: Maintain blood glucose between 100-180 at all times. Insulin sliding scale for blood glucose management TSH normal Cortisol level D5 at 75 mL/hour Avoid hypoglycemia INFECTIOUS DISEASE: Trend temperature. Lara-culture if febrile. Micro: [ Blood culture Respiratory culture Sputum cultures FB smear COVID and influenza negative Antibiotics: Meropenem Doxycycline HEMATOLOGY & COAGULATION: Monitor H&H. Keep Hgb > 7 Transfuse 1 unit of PRBC for Hgb < 7 Transfuse 1 pack of platelets of platelets < 20, 000 Watch for any signs and symptoms of bleeding SKIN: Pressure ulcer prevention per facility protocol Rehab: PT/OT Prophylaxis: GI: Protonix DVT: Lovenox Code Status: Full Resuscitation Disposition: ICU Other: Critical care time This patient required multiple bedside visits to manage the patient, review blood gases, coordinate with respiratory, nurses, review radiology exams, talk to the family members and discuss advanced directives. I personally spent [75] minutes of critical care time in treatment of this patient. This includes patient management, time at bedside, time reviewing tests, labs, appropriate images and studies, documentation, and patient care coordination. This time excludes separately billable procedures. ATTESTATION BY PHYSICIAN I attest that I reviewed and discussed the case with the Physician Psychology Teacher as well as agree with the Physician Psychology Teacher's findings, plans of care, and documentation above. Pola Burgos MD, [facility] Dec 15, 2024 10:20
[2024-12-15] MEDS ORDERED: acetaMINOPHEN 500 MG TABLET PO PRN ×2 (10:30)
--- NOTE | 2024-12-15 10:30 | NUR ---
Nutritional Note: Pt is nonverbal, nurse reports 2-3days of poor PO intake and overall decline. Recommend: -increase Vital Af 1.2 TF rate to 35ml/hr with 150ml H20 flush q 4. (Goal rate Provides 1008kcal, 63gm pro/day, 1581ml total free H20day ) -Continue Thamine -ProStat BID (30 ml) Which will aid in wound healing. Balance protein calorie intake to promote wound healing. This provides 3.3 mg L-arginine, 15 gm protein and 100 kcal per 30 ml -Consider Zinc Sulfate 220mg BID, Vit C 500mg BID, and MVI for wound healing -Consider Vit D supplement - Electrolyte replacements per protocol -Monitor feeding tolerance, %, wt, and labs -If No BM >3days consider bowel stimulant. -Schedule outpatient RD f/u for long-term nutrition care. - Notify RD if additional nutrition concerns arise. SEE RD Nutritional Assessment for additional assessment information. Addendum: 12/15/24 at [address] Amended: Links added.
[2024-12-15] MEDS ORDERED: guaiFENesin-DM 200/20MG 10ML PO PRN (11:00)
--- NOTE | 2024-12-15 11:28 | CONS ---
GASTROENTEROLOGY CONSULTATION NOTE Date of Consultation: Dec 15, 2024 Time of Consultation: 11:28 History of Present Illness: This is a 44-year-old female with past medical history of intellectual disability, scoliosis, ADHD, microcephaly, contractures who comes from [facility] due to lethargy, poor oral intake and clinical decline. She is in ICU and pending bronchoscopy to rule out TB. We are consulted for possible PEG tube. Hemoglobin stable measuring 10.5 with a platelet count of 73. INR 1.37. Review of Systems: CONSTITUTIONAL: No malaise or change in sensation of wellbeing. ENMT: No rhinorrhea, otorrhea, sinus pain, ear ache. CARDIOVASCULAR: No angina, palpitations, orthopnea or paroxysmal dyspnea. RESPIRATORY: No SOB. GASTROINTESTINAL: No abdominal pain, nausea, vomiting, diarrhea, hematemesis, melena or change in the patient's habitual bowel movements consistency/number. GENITOURINARY: No dysuria, hematuria or change in bladder continence. MUSCULOSKELETAL: No new muscle pain or decrease in muscular strength. No new joint swelling, redness or tenderness. SKIN: No new rash. Past Medical History: PAST MEDICAL HISTORY: Severe intellectual disability, scoliosis, cerebral palsy, attention deficit hyperactive disorder, microcephaly Nursing staff reports that patient was hospitalized in [facility] in [place] about four months ago for sepsis PAST SURGICAL HISTORY: Unable to obtain PAST SOCIAL HISTORY: Unable to obtain FAMILY HISTORY: Unable to obtain Coded Allergies: clindamycin (Unverified Allergy, Unknown, 12/13/24) thioridazine (Unverified Allergy, Unknown, 12/13/24) Physical Exam: GEN: Awake, alert, oriented in person, time and place, and in no acute distress. HEENT: No sinus tenderness. Tympanic membranes were not examined. No rhinorrhea. Oral pharyngeal mucosa is pink, moist and within normal limits. Neck is supple with no cervical lymphadenopathy, thyromegaly or JVD. CHEST: Inspection, palpation and percussion of the chest were unremarkable. Lung auscultation revealed normal breath sounds bilaterally. CARDIAC: PMI is within normal limits. Heart sounds are regular. Normal S1, S2. No gallop or murmur. ABD: Soft, non-tender and not distended. No peritoneal signs on palpation. No organomegaly. Normal bowel sounds. EXT: No cyanosis or clubbing. No edema. SKIN: Intact. No rashes. JOINTS: No evidence of synovitis or acute arthritis. NEURO: Alert and oriented to name, place and person. Cranial nerve examination is unremarkable. No focal motor deficits. Normal speech. Gait is normal. Strength is normal. Vital Sign (Last 24 Hours) 12/15/24 12/15/24 12/15/24 12/15/24 07:44 08:00 08:20 08:44 Temp 96.6 Pulse 57 Resp 16 B/P (MAP) 111/74 Pulse Ox 97 O2 Delivery Room Air O2 Flow Rate 0 FiO2 21 Intake & Output (last 24hrs) 12/14/24 12/14/24 12/15/24 15:00 23:00 07:00 Intake Total 1045.7 ml 791.6 ml 725.0 ml Output Total 650 ml Balance 1045.7 ml 141.6 ml 725.0 ml Laboratory: [ ] Laboratory: Test 12/15/24 04:10 12/14/24 20:47 12/14/24 04:27 12/13/24 15:43 Range/Units White Blood Count 8.3 # 4.8-10.8 K/uL Red Blood Count 3.51 #L 4.00-5.50 MIL/uL Hemoglobin 11.0 #L 12.0-16.0 g/dL Hematocrit 32.1 #L 36-48 % Mean Corpuscular Volume 91.5 79-99 fL Mean Corpuscular Hemoglobin 31.3 27.0-33.0 pg Mean Corpuscular Hemoglobin Concent 34.3 32.0-36.0 g/dL Red Cell Distribution Width 14.6 11.0-15.5 % Platelet Count 74 #L 130-400 K/uL Mean Platelet Volume 9.3 7.5-10.5 fL Immature Granulocyte % (Auto) 0.5 0-1 % Neutrophils (%) (Auto) 83.2 H 40.0-77.0 % Lymphocytes (%) (Auto) 13.6 L 21.0-51.0 % Monocytes (%) (Auto) 2.1 L 3.0-13.0 % Eosinophils (%) (Auto) 0.1 0.0-8.0 % Basophils (%) (Auto) 0.5 0.0-5.0 % Neutrophils # (Auto) 6.9 1.8-7.7 K/uL Lymphocytes # (Auto) 1.1 1.0-4.8 K/uL Monocytes # (Auto) 0.2 0.1-1.0 K/uL Eosinophils # (Auto) 0.01 0.00-0.70 K/uL Basophils # (Auto) 0.04 0.00-0.20 K/uL Absolute Immature Granulocyte (auto 0.04 0-1 K/uL Nucleated Red Blood Cells 0.0 0.0-0.19 % Sodium Level 140 136-145 mmol/L Potassium Level 2.9 *L 3.5-5.1 mmol/L Chloride Level 109 101-111 mmol/L Carbon Dioxide Level 29 21-32 mmol/L Blood Urea Nitrogen 14 7-18 mg/dL Creatinine 0.5 0.5-1.0 mg/dL Glomerular Filtration Rate Calc 120 >90 mL/min Random Glucose 87 70-105 mg/dL Total Calcium 7.5 L 8.5-10.1 mg/dL Phosphorus Level 1.5 L 2.5-4.9 mg/dL Magnesium Level 1.60 L 1.80-2.40 mg/dL Total Bilirubin 0.5 # 0.2-1.0 mg/dL Aspartate Amino Transf (AST/SGOT) 35 10-37 U/L Alanine Aminotransferase (ALT/SGPT) 47 # 12-78 U/L Alkaline Phosphatase 93 50-136 U/L Total Protein 4.4 L 6.0-8.3 g/dL Albumin 1.7 L 3.5-5.0 g/dL Procalcitonin 0.28 0.05-0.5 ng/mL Whole Blood Glucose 85 70-110 MG/DL B-Type Natriuretic Peptide 155 H 0-100 pg/mL Lactic Acid Level 1.0 0.8-2.5 mmol/L Ammonia 43 H 11-32 umol/L Serum Test, Qualitative NEGATIVE NEGATIVE Test 12/13/24 13:36 12/13/24 13:17 12/13/24 12:51 Range/Units Urine Color Light-Yellow YELLOW Urine Appearance TURBID H CLEAR Urine pH 8.5 H 5.0-8.0 Urine Specific Savage 1.020 1.001-1.031 Urine Protein 300 H NEGATIVE mg/dL Urine Glucose (UA) NEGATIVE NEGATIVE mg/dL Urine Ketones NEGATIVE NEGATIVE mg/dL Urine Occult Blood LARGE NEGATIVE Urine Nitrate NEGATIVE NEGATIVE Urine Bilirubin N NEGATIVE mg/dL Urine Urobilinogen 0.2 0.2-1.0 mg/dL Urine Leukocyte Esterase LARGE H NEGATIVE Susi/uL Urine RBC 6-10 H 0-1 /HPF Urine WBC 26-50 H 0-1 /HPF Urine Triple Phosphate Crystals Moderate H None Seen /LPF Urine Bacteria Moderate H None Seen /HPF Influenza Type A Antigen Negative For Type A NEGATIVE Influenza Type B Antigen Negative For Type B NEGATIVE SARS-CoV-2 Antigen (Rapid) PRESUMPTIVE NEGATIVE NEGATIVE Group A Streptococcus Rapid negative NEGATIVE White Cell Morphology Comment See comments Erythrocyte Sedimentation Rate 45 H 0-20 MM/HR Prothrombin Time 13.4 H 9.6-11.6 SEC Prothromb Time International Ratio 1.30 H 0.85-1.15 Activated Partial Thromboplast Time 41.8 H 26.3-35.5 SEC Direct Bilirubin 0.1 0.0-0.3 mg/dL Total Creatine Kinase 111 21-232 U/L C-Reactive Protein, Quantitative 112.50 H 0.5-3.0 mg/L Thyroid Stimulating Hormone (TSH) 2.66 0.36-3.74 uIU/mL Current Medications Medications (Trade) Dose Ordered Sig/Castillo Route PRN Reason Start Time Stop Time Status Last Admin Dose Admin Acetaminophen (TYLenol 325MG ELIXIR) 325 mg Q6H PRN PO MILD PAIN (1-3) 12/13/24 15:00 01/12/25 14:59 Acetaminophen (TYLenol 500MG TAB) 500 mg Q4PRN PRN PO FEVER 12/15/24 10:30 01/14/25 10:29 Acetaminophen (TYLenol 500MG TAB) 500 mg Q4PRN PRN PO PAIN 12/15/24 10:30 01/14/25 10:29 Acetylcysteine (MUComyst 20% 4ML) 400mg = 2ml [id number] IH 12/14/24 18:00 01/13/25 17:59 12/15/24 06:31 800 MG Albumin Human 50 ml @ 0 mls/hr AD IV 12/14/24 10:00 12/19/24 09:59 12/14/24 11:14 50 MLS/HR Albuterol (DUOneb) 1 udvial Q6H PRN IH SHORTNESS OF BREATH 12/13/24 15:30 01/12/25 15:29 12/15/24 06:29 1 UDVIAL Bisacodyl (DulcoLAX) 10 mg DAILY RC 12/16/24 09:00 12/19/24 08:59 Budesonide (Pulmicort 0.5 Mg/2ml) 0.5 mg BIDRESP IH 12/13/24 18:00 01/12/25 17:59 12/15/24 06:29 0.5 MG Buspirone HCl (BUspar) 15 mg TID PO 12/15/24 14:00 01/14/25 13:59 Dextrose 1,000 ml @ 75 mls/hr [id number] IV 12/13/24 15:00 01/12/25 14:59 12/14/24 18:38 75 MLS/HR Dextrose (D50w) 50 ml AD PRN IV HYPOGLYCEMIA PROTOCOL 12/13/24 15:00 01/12/25 14:59 12/14/24 16:12 50 ML Doxycycline Hyclate 250 ml @ 125 mls/hr Q12H IV 12/13/24 15:30 12/23/24 15:29 12/15/24 02:06 125 MLS/HR Enoxaparin Sodium (Lovenox) 30 mg DAILY SQ 12/14/24 09:00 12/15/24 09:05 DC 12/14/24 08:46 30 MG Enoxaparin Sodium (Lovenox) 30 mg DAILY SQ 12/16/24 09:00 01/15/25 08:59 Future Hold Glucagon (Glucagon 1mg Kit) 1 mg AD PRN IM HYPOGLYCEMIA PROTOCOL 12/13/24 15:00 01/12/25 14:59 Guaifenesin/ Dextromethorphan (RobiTUSSin DM 200/20MG 10ML) 10 ml Q4H PRN PO COUGH 12/15/24 11:00 01/14/25 10:59 Home Med (Home Medication) (Cholecalciferol (Vitamin D3) 25 MCG) DAILY PO 12/16/24 09:00 01/15/25 08:59 Lactated Ringer's 1,000 ml @ 100 mls/hr Q10H IV 12/13/24 15:00 12/13/24 15:18 DC Leptospermum Honey ([facility]) 1 appl DAILY TP 12/15/24 09:00 01/14/25 08:59 12/15/24 09:03 1 APPL Lorazepam (AtiVAN) 0.5 mg DAILYDINNER PO 12/15/24 17:00 01/14/25 16:59 Magnesium Sulfate 50 ml @ 0 mls/hr PROTOCOL IV 12/13/24 21:30 01/12/25 21:29 12/15/24 05:11 0 MLS/HR Meropenem (Merrem 1gm) 1 gm Q8H IVPB 12/13/24 16:00 12/23/24 15:59 12/15/24 08:58 1 GM Miscellaneous Medication (Ondansetron HCl ) 8 mg TID PO 12/15/24 14:00 12/15/24 10:43 DC Norepinephrine 250 ml @ 0 mls/hr PROTOCOL IV 12/13/24 14:30 01/12/25 14:29 12/14/24 07:35 25.3 MLS/HR Ondansetron HCl (zoFRAN 4MG INJ) 4 mg Q6H PRN IVP NAUSEA/VOMITING 12/13/24 16:30 01/12/25 16:29 Pantoprazole Sodium (PROTonix 40MG INJ) 40 mg Q24H IVP 12/13/24 15:00 01/12/25 14:59 12/14/24 15:12 40 MG Pharmacy Profile Note (Pharmacy Communication) 1 each ONCE MISC 12/13/24 15:00 12/13/24 15:28 DC Polyethylene Glycol (MIRalax 3350 17 GM POWD.PACK) 17 gm DAILY PO 12/16/24 09:00 01/15/25 08:59 Potassium Phosphate 250 ml @ 42 mls/hr PROTOCOL IV 12/15/24 05:30 12/15/24 10:19 DC 12/15/24 05:59 42 MLS/HR Potassium Chloride 100 ml @ 50 mls/hr AD PRN IV POTASSIUM PROTOCOL 12/13/24 21:30 01/12/25 21:29 12/15/24 05:11 50 MLS/HR Quetiapine Fumarate (SEROquel 100 mg TAB) 200 mg BID PO 12/15/24 21:00 01/14/25 20:59 Thiamine HCl (Vitamin B-1) 300 mg Q24H IVP 12/13/24 15:00 01/12/25 14:59 12/14/24 15:13 300 MG Venlafaxine HCl (EffEXOR XR 37.5mg CAP) 75 mg DAILY PO 12/16/24 09:00 01/15/25 08:59 Diagnostics / Radiology: [COPY/PASTE HERE IF NO REPORTS PLEASE DELETE SECTION] Assessment: Failure to thrive Microcephaly Scoliosis Plan: HOLD OFF ON EGD/PEG until TB ruled out Continue GI prophylaxis Advance feedings as tolerated Avoid NSAIDs Antireflux measures Monitor H&H and transfuse as needed Call with questions, concerns or change in clinical status Patient to follow-up at clinic post discharge Thank you for this consult ZHAO GUERRA CRUSHER DRY GROUND MICA Dec 15, 2024 11:28
--- NOTE | 2024-12-15 12:50 | NUR ---
SPEECH NOTE: Orders to evaluate patient received again. IRONWORKER MACHINE OPERATOR coordinated with nurse Fischer. Patient was evaluated yesterday and recommendations were made for NPO, longterm alternate means of nutrition/hydration as patient is not appropriate for oral intake at this time and places her at high risk for aspiration. Order likely a duplicate; cancel at this time. All questions answered. Addendum: 12/15/[address]ANIELLE GARCIA Amended: Links added.
--- NOTE | 2024-12-15 13:21 | PN ---
INFECTIOUS DISEASE PROGRESS NOTE Date of Service: Dec 15, 2024 SUBJECTIVE: This is a 44-year-old female patient with intellectual disability who was seen in room 217. Patient unable to voice needs. The Preliminary urine cultures results is growing Gram-negative rods. Patient is afebrile, temperature is 97.0�. A CT of the chest done on admission showed right lung pulmonary cavitary lesions patient is currently on airborne isolation. Recommending a bronchoscopy to rule out TB. Continues on Meropenem and doxycycline. No other issues reported by nursing. PHYSICAL EXAM EYES: Anicteric. Pupils equal and reactive. HENT: No oral thrush seen, moist Oral mucosa. NECK: Supple, no JVD or thyromegaly. LUNGS: Good air entry. Productive cough. CARDIOVASCULAR: S1, S2 regular. No murmur heard. ABDOMEN: Soft, non tender, bowel sounds present, no organomegaly. CENTRAL NERVOUS SYSTEM: Intellectual disability.. SKIN: No rashes, no swelling. LYMPHATICS: No peripheral lymphadenopathy. MUSCULOSKELETAL: No joint swelling, erythema or tenderness. EXTREMITIES: No cyanosis or clubbing. BACK: No deformity, no pressure ulcer. GENITOURINARY: No dysuria or hematuria. Incontinence. Vital Sign (Last 12 Hours) 12/15/24 12/15/24 12/15/24 12/15/24 01:00 02:00 03:00 04:00 Pulse 83 72 72 Resp 23 16 14 B/P (MAP) 115/40 (65) 129/76 (93) 109/62 (78) Pulse Ox 92 98 100 99 O2 Delivery Room Air* O2 Flow Rate 0 FiO2 28 28 21 12/15/24 12/15/24 12/15/24 12/15/24 04:00 04:00 06:29 07:44 Temp 98.1 96.6 Pulse 61 75 67 Resp 12 16 17 B/P (MAP) 109/59 (76) 117/72 Pulse Ox 100 98 O2 Delivery Room Air FiO2 28 12/15/24 12/15/24 12/15/24 12/15/24 08:00 08:20 08:44 09:44 Pulse 79 57 60 Resp 17 16 14 B/P (MAP) 111/74 113/63 Pulse Ox 99 97 97 O2 Delivery Room Air* N/A Room Air Room Air O2 Flow Rate 0 FiO2 21 21 12/15/24 12/15/24 12/15/24 10:44 11:29 11:44 Temp 97.0 Pulse 59 80 72 Resp 17 16 15 B/P (MAP) 126/80 124/76 Pulse Ox 97 97 O2 Delivery Room Air Intake & Output (last 24hrs) 12/14/24 12/14/24 12/15/24 15:00 23:00 07:00 Intake Total 1045.7 ml 791.6 ml 725.0 ml Output Total 650 ml Balance 1045.7 ml 141.6 ml 725.0 ml LABS: Laboratory: Test 12/15/24 04:10 12/14/24 20:47 12/14/24 04:27 12/13/24 15:43 Range/Units White Blood Count 8.3 # 4.8-10.8 K/uL Red Blood Count 3.51 #L 4.00-5.50 MIL/uL Hemoglobin 11.0 #L 12.0-16.0 g/dL Hematocrit 32.1 #L 36-48 % Mean Corpuscular Volume 91.5 79-99 fL Mean Corpuscular Hemoglobin 31.3 27.0-33.0 pg Mean Corpuscular Hemoglobin Concent 34.3 32.0-36.0 g/dL Red Cell Distribution Width 14.6 11.0-15.5 % Platelet Count 74 #L 130-400 K/uL Mean Platelet Volume 9.3 7.5-10.5 fL Immature Granulocyte % (Auto) 0.5 0-1 % Neutrophils (%) (Auto) 83.2 H 40.0-77.0 % Lymphocytes (%) (Auto) 13.6 L 21.0-51.0 % Monocytes (%) (Auto) 2.1 L 3.0-13.0 % Eosinophils (%) (Auto) 0.1 0.0-8.0 % Basophils (%) (Auto) 0.5 0.0-5.0 % Neutrophils # (Auto) 6.9 1.8-7.7 K/uL Lymphocytes # (Auto) 1.1 1.0-4.8 K/uL Monocytes # (Auto) 0.2 0.1-1.0 K/uL Eosinophils # (Auto) 0.01 0.00-0.70 K/uL Basophils # (Auto) 0.04 0.00-0.20 K/uL Absolute Immature Granulocyte (auto 0.04 0-1 K/uL Nucleated Red Blood Cells 0.0 0.0-0.19 % Sodium Level 140 136-145 mmol/L Potassium Level 2.9 *L 3.5-5.1 mmol/L Chloride Level 109 101-111 mmol/L Carbon Dioxide Level 29 21-32 mmol/L Blood Urea Nitrogen 14 7-18 mg/dL Creatinine 0.5 0.5-1.0 mg/dL Glomerular Filtration Rate Calc 120 >90 mL/min Random Glucose 87 70-105 mg/dL Total Calcium 7.5 L 8.5-10.1 mg/dL Phosphorus Level 1.5 L 2.5-4.9 mg/dL Magnesium Level 1.60 L 1.80-2.40 mg/dL Total Bilirubin 0.5 # 0.2-1.0 mg/dL Aspartate Amino Transf (AST/SGOT) 35 10-37 U/L Alanine Aminotransferase (ALT/SGPT) 47 # 12-78 U/L Alkaline Phosphatase 93 50-136 U/L Total Protein 4.4 L 6.0-8.3 g/dL Albumin 1.7 L 3.5-5.0 g/dL Procalcitonin 0.28 0.05-0.5 ng/mL Whole Blood Glucose 85 70-110 MG/DL B-Type Natriuretic Peptide 155 H 0-100 pg/mL Lactic Acid Level 1.0 0.8-2.5 mmol/L Ammonia 43 H 11-32 umol/L Serum Test, Qualitative NEGATIVE NEGATIVE Test 12/13/24 13:36 12/13/24 13:17 Range/Units Urine Color Light-Yellow YELLOW Urine Appearance TURBID H CLEAR Urine pH 8.5 H 5.0-8.0 Urine Specific [place] 1.020 1.001-1.031 Urine Protein 300 H NEGATIVE mg/dL Urine Glucose (UA) NEGATIVE NEGATIVE mg/dL Urine Ketones NEGATIVE NEGATIVE mg/dL Urine Occult Blood LARGE NEGATIVE Urine Nitrate NEGATIVE NEGATIVE Urine Bilirubin N NEGATIVE mg/dL Urine Urobilinogen 0.2 0.2-1.0 mg/dL Urine Leukocyte Esterase LARGE H NEGATIVE Susi/uL Urine RBC 6-10 H 0-1 /HPF Urine WBC 26-50 H 0-1 /HPF Urine Triple Phosphate Crystals Moderate H None Seen /LPF Urine Bacteria Moderate H None Seen /HPF Influenza Type A Antigen Negative For Type A NEGATIVE Influenza Type B Antigen Negative For Type B NEGATIVE SARS-CoV-2 Antigen (Rapid) PRESUMPTIVE NEGATIVE NEGATIVE Group A Streptococcus Rapid negative NEGATIVE DIAGNOSTICS / RADIOLOGY: PATIENT: DESTINY PAZ ACCT: [id number] LOC: 2C U: [id number] AGE/SX: 44/F ROOM: 217 RE12/13/[address]: MARIA LUISA GARNER MD : 1980 BED: 1 DIS: STATUS: ADM IN TLOC: SPEC: [id number] NORM: 12/13/24 STATUS: RES REQ: [id number] RECD: 12/14/[address] [facility] [address]: KAYLA GIBSON SOURCE: [facility] [place] ENTR: 12/14/[address] [facility] [address]: CLAIRE ALVARADO MD SPDESC: CLEAN CAT SHAUN STORY MD ORDERED: AERO ID & SENS Procedure Result Jian Date-Time --- --------- AEROBIC ID & SENSITIVITIES Preliminary 12/15/24-628 [facility] COLONY DESCRIPTION: DAY 1: COLONY COUNT: >100,000 CFU/ML GRAM NEGATIVE RODS IDENTIFICATION AND SENSITIVITY TO FOLLOW Test(s) performed by: [facility] [address] [place] [address] ASSESSMENT: Urinary tract infection. Pneumonia. Septic shock. Right lung cavitary lesions, ruling out TB. Thrombocytopenia. Hypokalemia. Debility PLAN: Continue Meropenem IV. Continue doxycycline. Continue GI prophylaxis. Continue GI prophylaxis. Patient will need a bronchoscopy. Continue monitoring electrolytes. This case was reviewed and discussed with my supervising physician and the above assessment and plan was formulated and agreed upon. ATTESTATION BY PHYSICIAN I have seen and examined the patient. I reviewed the documentation, medical decision making, and treatment plan as noted by the mid-level provider above. I agree with the findings and plan of care. IGNACIA MARTI MD, [facility] Dec 15, 2024 13:21
[2024-12-15] MEDS ORDERED: NON-FORMULARY MEDICATION 1 EACH (Ondansetron HCl 8 MG) PO SCH (14:00)
[2024-12-15] MEDS ORDERED: PoTASSium chloRIDE 20MEQ ER 20 MEQ ERTAB PO PRN (14:30)
[2024-12-15] MEDS ORDERED: PoTASSium chloRIDE 20MEQ/100ML 100 ML IV PRN ×2 (14:30)
--- NOTE | 2024-12-15 15:15 | NUR ---
PATIENT TRANSFER RECEIVED PATIENT FROM ICU. REPORT GIVEN BY ERICK. PATIENT WITH YECENIA MIDLINE. 18 ARGENTINE RECINOS INSERTED TODAY. NG TUBE IN PLACE. PATIENT ON AIRBORNE PRECAUTIONS PENDING TB RESULTS. UPON ASSESSMENT OF PATIENT MIDLINE WAS OCCLUDED. PATIENT PULLED NG TUBE OUT. LEFT HIP ULCER WAS REPORTED. ULCER TO LEFT KNEE FOLD WAS NOTED. NO DRAINAGE NOTED NO ODOR NOTED.
[2024-12-15 15:38] LABS: CREATININE 0.5 mg/dL (0.5-1.0)
[2024-12-15 15:54] LABS: POTASSIUM 2.9 mmol/L (3.5-5.1)
--- NOTE | 2024-12-15 16:15 | PN ---
[facility] PROGRESS NOTE Date of Service: Dec 15, 2024 Time of Service: 16:13 SUBJECTIVE: 12/14 patient seen at bedside, no acute events overnight. Patient was seen at bedside, she does not participate in the medical interview. She does not appear to be in any acute distress. She is on pressors, we will continue to wean as able. Sodium improved from 150 down to 146, remainder of her labs are relatively unremarkable. Urine growing bacteria, we will continue with empiric antibiotics 12/15/24 Patient sen and examined. Care discussed with RN No acute overnight events. Follow cultures/continue antibiotics. REVIEW OF SYSTEMS: Patient is obtunded, unable to obtain ROS PHYSICAL EXAM GENERAL APPEARANCE: patient is obtunded, very frail, cachectic, contractures noted of the lower extremities NEUROLOGICAL: Cranial nerves II-XII grossly intact. Motor is 5/5 in bilateral upper and lower extremities proximal to distal. No sensory deficits. HEENT: Face is symmetric. Pupils are equal and reactive. Extraocular movements are intact. NECK: Supple. No JVD. No thyromegaly. No submental, submandibular, pre- /postauricular, occipital or supraclavicular lymphadenopathy. CHEST: Normal chest expansion. No Telemetry. LUNGS: Absence of any rales, rhonchi or any wheezing. CARDIOVASCULAR: Regular. S1 and S2 normal. No appreciable rubs, murmurs or gallops. ABDOMEN: Soft, nontender, and nondistended. There is no rebound, voluntary guarding, or rigidity. : Deferred. No Clark. EXTREMITIES: Non-edematous and not cyanotic. No clubbing. Good capillary refill. SKIN: No skin breakdown. Vital Signs (last 8hr) Date Time Temp Pulse Resp B/P (MAP) Pulse Ox O2 Delivery O2 Flow Rate FiO2 12/15/24 11:44 97.0 72 15 124/76 97 12/15/24 11:29 80 16 12/15/24 10:44 59 17 126/80 97 Room Air 12/15/24 09:44 60 14 113/63 97 12/15/24 08:44 57 16 111/74 97 Room Air 12/15/24 08:20 79 17 N/A Room Air 21 LABS: Laboratory: Test 12/15/24 14:50 12/15/24 04:10 12/14/24 20:47 12/14/24 04:27 Range/Units Sodium Level 134 L 136-145 mmol/L Potassium Level 2.9 *L 3.5-5.1 mmol/L Chloride Level 104 101-111 mmol/L Carbon Dioxide Level 29 21-32 mmol/L Blood Urea Nitrogen 9 7-18 mg/dL Creatinine 0.5 0.5-1.0 mg/dL Glomerular Filtration Rate Calc 120 >90 mL/min Random Glucose 296 #H 70-105 mg/dL Total Calcium 7.5 L 8.5-10.1 mg/dL Magnesium Level 2.00 1.80-2.40 mg/dL White Blood Count 8.3 # 4.8-10.8 K/uL Red Blood Count 3.51 #L 4.00-5.50 MIL/uL Hemoglobin 11.0 #L 12.0-16.0 g/dL Hematocrit 32.1 #L 36-48 % Mean Corpuscular Volume 91.5 79-99 fL Mean Corpuscular Hemoglobin 31.3 27.0-33.0 pg Mean Corpuscular Hemoglobin Concent 34.3 32.0-36.0 g/dL Red Cell Distribution Width 14.6 11.0-15.5 % Platelet Count 74 #L 130-400 K/uL Mean Platelet Volume 9.3 7.5-10.5 fL Immature Granulocyte % (Auto) 0.5 0-1 % Neutrophils (%) (Auto) 83.2 H 40.0-77.0 % Lymphocytes (%) (Auto) 13.6 L 21.0-51.0 % Monocytes (%) (Auto) 2.1 L 3.0-13.0 % Eosinophils (%) (Auto) 0.1 0.0-8.0 % Basophils (%) (Auto) 0.5 0.0-5.0 % Neutrophils # (Auto) 6.9 1.8-7.7 K/uL Lymphocytes # (Auto) 1.1 1.0-4.8 K/uL Monocytes # (Auto) 0.2 0.1-1.0 K/uL Eosinophils # (Auto) 0.01 0.00-0.70 K/uL Basophils # (Auto) 0.04 0.00-0.20 K/uL Absolute Immature Granulocyte (auto 0.04 0-1 K/uL Nucleated Red Blood Cells 0.0 0.0-0.19 % Phosphorus Level 1.5 L 2.5-4.9 mg/dL Total Bilirubin 0.5 # 0.2-1.0 mg/dL Aspartate Amino Transf (AST/SGOT) 35 10-37 U/L Alanine Aminotransferase (ALT/SGPT) 47 # 12-78 U/L Alkaline Phosphatase 93 50-136 U/L Lactate Dehydrogenase 621 H 81-234 U/L Total Protein 4.4 L 6.0-8.3 g/dL Albumin 1.7 L 3.5-5.0 g/dL Procalcitonin 0.28 0.05-0.5 ng/mL Whole Blood Glucose 85 70-110 MG/DL B-Type Natriuretic Peptide 155 H 0-100 pg/mL Current Medications Medications (Trade) Dose Ordered Sig/Castillo Route PRN Reason Start Time Stop Time Status Last Admin Dose Admin Acetaminophen (TYLenol 325MG ELIXIR) 325 mg Q6H PRN PO MILD PAIN (1-3) 12/13/24 15:00 01/12/25 14:59 Acetaminophen (TYLenol 500MG TAB) 500 mg Q4PRN PRN PO FEVER 12/15/24 10:30 01/14/25 10:29 Acetaminophen (TYLenol 500MG TAB) 500 mg Q4PRN PRN PO PAIN 12/15/24 10:30 01/14/25 10:29 Acetylcysteine (MUComyst 20% 4ML) 400mg = 2ml [id number] IH 12/14/24 18:00 01/13/25 17:59 12/15/24 11:38 800 MG Albumin Human 50 ml @ 0 mls/hr AD IV 12/14/24 10:00 12/19/24 09:59 12/14/24 11:14 50 MLS/HR Albuterol (DUOneb) 1 udvial Q6H PRN IH SHORTNESS OF BREATH 12/13/24 15:30 01/12/25 15:29 12/15/24 11:29 1 UDVIAL Bisacodyl (DulcoLAX) 10 mg DAILY RC 12/16/24 09:00 12/19/24 08:59 Budesonide (Pulmicort 0.5 Mg/2ml) 0.5 mg BIDRESP IH 12/13/24 18:00 01/12/25 17:59 12/15/24 06:29 0.5 MG Buspirone HCl (BUspar) 15 mg TID PO 12/15/24 14:00 01/14/25 13:59 Dextrose 1,000 ml @ 75 mls/hr [id number] IV 12/13/24 15:00 01/12/25 14:59 12/14/24 18:38 75 MLS/HR Dextrose (D50w) 50 ml AD PRN IV HYPOGLYCEMIA PROTOCOL 12/13/24 15:00 01/12/25 14:59 12/14/24 16:12 50 ML Doxycycline Hyclate 250 ml @ 125 mls/hr Q12H IV 12/13/24 15:30 12/23/24 15:29 12/15/24 15:43 125 MLS/HR Enoxaparin Sodium (Lovenox) 30 mg DAILY SQ 12/14/24 09:00 12/15/24 09:05 DC 12/14/24 08:46 30 MG Enoxaparin Sodium (Lovenox) 30 mg DAILY SQ 12/16/24 09:00 12/15/24 13:22 DC Glucagon (Glucagon 1mg Kit) 1 mg AD PRN IM HYPOGLYCEMIA PROTOCOL 12/13/24 15:00 01/12/25 14:59 Guaifenesin/ Dextromethorphan (RobiTUSSin DM 200/20MG 10ML) 10 ml Q4H PRN PO COUGH 12/15/24 11:00 01/14/25 10:59 Home Med (Home Medication) (Cholecalciferol (Vitamin D3) 25 MCG) DAILY PO 12/16/24 09:00 01/15/25 08:59 Lactated Ringer's 1,000 ml @ 100 mls/hr Q10H IV 12/13/24 15:00 12/13/24 15:18 DC Leptospermum Honey (Medihoney) 1 appl DAILY TP 12/15/24 09:00 01/14/25 08:59 12/15/24 09:03 1 APPL Lorazepam (AtiVAN) 0.5 mg DAILYDINNER PO 12/15/24 17:00 01/14/25 16:59 Magnesium Sulfate 50 ml @ 0 mls/hr PROTOCOL IV 12/13/24 21:30 01/12/25 21:29 12/15/24 05:11 0 MLS/HR Meropenem (Merrem 1gm) 1 gm Q8H IVPB 12/13/24 16:00 12/23/24 15:59 12/15/24 15:43 1 GM Miscellaneous Medication (Ondansetron HCl ) 8 mg TID PO 12/15/24 14:00 12/15/24 10:43 DC Norepinephrine 250 ml @ 0 mls/hr PROTOCOL IV 12/13/24 14:30 12/15/24 14:26 DC 12/14/24 07:35 25.3 MLS/HR Ondansetron HCl (zoFRAN 4MG INJ) 4 mg Q6H PRN IVP NAUSEA/VOMITING 12/13/24 16:30 01/12/25 16:29 Pantoprazole Sodium (PROTonix 40MG INJ) 40 mg Q24H IVP 12/13/24 15:00 01/12/25 14:59 12/15/24 15:43 40 MG Pharmacy Profile Note (Pharmacy Communication) 1 each ONCE MISC 12/13/24 15:00 12/13/24 15:28 DC Polyethylene Glycol (MIRalax 3350 17 GM POWD.PACK) 17 gm DAILY PO 12/16/24 09:00 01/15/25 08:59 Potassium Phosphate 250 ml @ 42 mls/hr PROTOCOL IV 12/15/24 05:30 12/15/24 10:19 DC 12/15/24 05:59 42 MLS/HR Potassium Chloride 100 ml @ 50 mls/hr AD PRN IV POTASSIUM PROTOCOL 12/13/24 21:30 01/12/25 21:29 12/15/24 05:11 50 MLS/HR Potassium Chloride 100 ml @ 50 mls/hr AD PRN IV POTASSIUM PROTOCOL 12/15/24 14:30 01/14/25 14:29 Potassium Chloride 100 ml @ 100 mls/hr AD PRN IV POTASSIUM PROTOCOL 12/15/24 14:30 01/14/25 14:29 Potassium Chloride (K-Dur/Klor-Con 20meq) 20 meq AD PRN PO POTASSIUM PROTOCOL 12/15/24 14:30 01/14/25 14:29 Potassium Chloride (KCl 10% Elixir 20meq/15ml) 20 meq AD PRN PO POTASSIUM PROTOCOL 12/15/24 14:30 01/14/25 14:29 Quetiapine Fumarate (SEROquel 100 mg TAB) 200 mg BID PO 12/15/24 21:00 01/14/25 20:59 Thiamine HCl (Vitamin B-1) 300 mg Q24H IVP 12/13/24 15:00 01/12/25 14:59 12/15/24 15:43 300 MG Venlafaxine HCl (EffEXOR XR 37.5mg CAP) 75 mg DAILY PO 12/16/24 09:00 01/15/25 08:59 DIAGNOSTICS / RADIOLOGY: [ ] ASSESSMENT: Septic shock, POA (2/2 community-acquired pneumonia and complicated UTI) Hypothermia, POA Toxic metabolic encephalopathy with obtundation, POA Severe hypoglycemia, POA Community-acquired pneumonia with acute hypoxemic respiratory failure, POA Complicated urinary tract infection, POA Frailty/debility, POA History of chronic contractures of bilateral lower extremities, POA Unstageable decubitus ulcer involving the left hip, POA Cachexia, POA History of severe intellectual disability, POA History of scoliosis, POA History of microcephaly, POA History of ADHD, POA History of aggression, POA PLAN: Patient will be admitted to ICU Patient will be kept strictly NPO and on aspiration precautions c/w Levophed to maintain MAP> 65 Patient received sepsis bolus of fluid in the ER with 1 L of NS, we will start patient on D5W at 75 mL/hour for management of hypernatremia and hypoglycemia We will maintain POCT blood glucose check q.1 hours, we will maintain blood glucose greater than 70 Patient will be started on IV thiamine supplementation Broad-spectrum antibiotics with IV meropenem and doxycycline Blood cultures, urine cultures and respiratory cultures will be requested, AFB smear has been requested Consultation with critical Care will be requested Patient will be placed on air mattress, offloading measures, wound care will be requested Consultation with Infectious Disease will be requested Low threshold for intubation in case patient is unable to maintain airway or for any signs of aspiration, discussed in detail with ICU team We will check cortisol level, TSH, ammonia We will see how patient progresses closely in the next 24-48 hours We will obtain a CT head without contrast to rule out any significant intracranial abnormality or bleeding, we will follow up CT abdomen pelvis/CT chest thorax We will check BMP later tonight and All labs will be repeated in the morning Critical care minutes: 60 minutes Plan of care was discussed with nursing personnel at bedside, Carlos Real MD Advanced Care Planning: Which of the following were discussed: Hospice care: Yes __ No _X_ Therapeutic options: Yes _X_ No __ Advance directives: Yes _X_ No __ Other discussions: Discussed with who?: Nursing staff Voluntary nature of this service was explained to the patient? Yes _x_ No __ Amount of time spent: 20 minutes ANANT EATON MD Dec 15, 2024 16:15
[2024-12-15 18:19] LABS: INR 1.36 (0.85-1.15)
--- NOTE | 2024-12-15 19:30 | NUR ---
RECEIVED PT RECEIVED FROM OUTGOING NURSE CAROLINE OF FAILED NGT RE-INSERTION WITH RYANN ROLDAN. WAS ALSO RECEIVED WITH NON-WORKING MIDLINE. AR MANAGER MAXIMILIANO MAKING ROUNDS ON THE FLOOR, MADE AWARE OF NEED FOR MIDLINE.
--- NOTE | 2024-12-15 21:00 | NUR ---
MIDLINE PICC NURSE IN TO DO MIDLINE. CARD PUNCHER WAS MADE AWARE THAT HE FAILED RE-INSERTION ON THE LUIZ. PICC NURSE DISCONTINUED MIDLINE ON YECENIA WITH CATHETERS INTACT THEN RE-INSERTED MIDLINE TO YECENIA BURMESE 5 2 LUMEN. CARD PUNCHER WAS MADE AWARE THAT IT IS READY TO USE.
--- NOTE | 2024-12-15 21:30 | NUR ---
MEDS SHIFT ASSESSMENT DONE, PLEASE REFER TO CHART. MITTENS ARE TOO BIG FOR PT. SMALL SOCKS APPLIED SOFT RESTRAINTS TO HELP PREVENT PULLING OF LINES. BOTH PORTS OF MIDLINE FLUSHED, FLUSHES WELL. RE-STARTED IVF OF D5W REGULATED AT 75CC/HR. STARTED PENDING IV MERREM AND IV DOXY AT BEDSIDE . INSERTED NGT CITIZEN [place] 14 TO LEFT NARE. CN JAMAR IN TO VERIFY PLACEMENT WITH EXTRACTOR OPERATOR. SECURED NGT AND DUE PO MEDS GIVEN VIA NGT. KEPT COMFORTABLE IN BED WITH HOB ELEVATED. SITTER KEEPING CLOSE WATCH AT BEDSIDE.
[2024-12-15] MEDS: busPIRone HCL 5 MG TABLET PO SCH (21:45)
[2024-12-15] MEDS: LORazepam 0.5 MG TABLET PO SCH (21:46)
[2024-12-15] MEDS: queTIAPine fuMARate 100 MG TAB PO SCH (21:46)
[2024-12-15] MEDS: PoTASSium chl 10% ELIXIR 20MEQ 20 MEQ/15 ML UDCUP PO PRN (22:57)
[2024-12-16] VITALS (20 sets, daily range): BP systolic 92–119; BP diastolic 53–76; PULSE 63–132; RESP 16–18; TEMP 87–97.6; O2SAT 91–99
[2024-12-16 04:37] LABS: BASOPHILS # (AUTO) 0.02 K/uL (0.00-0.20); BASOPHILS % (AUTO) 0.5 % (0.0-5.0); HEMATOCRIT 29.8 % (36-48); IMMATURE GRANULOCYTE ABSOLUTE 0.03 K/uL (0-1); LYMPHOCYTES # (AUTO) 0.5 K/uL (1.0-4.8); LYMPHOCYTES % (AUTO) 11.6 % (21.0-51.0); MEAN CORPUSCULAR HEMOGLOBIN 31.6 pg (27.0-33.0); MEAN CORPUSCULAR HGB CONC 35.2 g/dL (32.0-36.0); MEAN CORPUSCULAR VOLUME 89.8 fL (79-99); MONOCYTES # (AUTO) 0.1 K/uL (0.1-1.0); MONOCYTES % (AUTO) 2.1 % (3.0-13.0); NEUTROPHILS # (AUTO) 3.3 K/uL (1.8-7.7); PLATELET COUNT (AUTO) 73 K/uL (130-400); RED BLOOD CELL COUNT(AUTO) 3.32 MIL/uL (4.00-5.50); RED CELL DISTRIBUTION WIDTH 14.3 % (11.0-15.5); WHITE BLOOD COUNT (AUTO) 3.9 K/uL (4.8-10.8)
[2024-12-16 04:50] LABS: ALBUMIN 1.6 g/dL (3.5-5.0); BILIRUBIN,TOTAL 0.5 mg/dL (0.2-1.0); CREATININE 0.5 mg/dL (0.5-1.0); MAGNESIUM 1.8 mg/dL (1.80-2.40); PHOSPHORUS 1.9 mg/dL (2.5-4.9); POTASSIUM 4.9 mmol/L (3.5-5.1); TOTAL PROTEIN, SERUM 4.2 g/dL (6.0-8.3)
--- NOTE | 2024-12-16 06:05 | NUR ---
MEDS PT SLEPT AT INTERVALS DURING THE SHIFT. ASLEEP AT THIS TIME WITH RESPIRATIONS EVEN AND UNLABORED. KEPT NPO FOR PROCEDURE. MG REPLACEMENT STARTED IV PER PROTOCOL. FOR MORE CARE.
[2024-12-16] MEDS: venLAFAXine HCL XR 37.5 MG CAP 37.5 MG CAP.ER.24H PO SCH (09:00)
[2024-12-16] MEDS: polyETHYLene GLYCol 3350 17 GM POWD.PACK PO SCH (09:00)
[2024-12-16] MEDS: (Cholecalciferol (Vitamin D3) 25 MCG) PO SCH (09:00)
[2024-12-16] MEDS ORDERED: ENOXAPARIN SODIUM 30 MG/0.3 ML SQ SCH (09:00)
--- NOTE | 2024-12-16 09:00 | NUR ---
note pt oral meds held, not given through peg, pt to be npo for bronchoscopy
[2024-12-16] MEDS: BisaCODYL 10 MG SUPP.RECT RC SCH (10:17)
--- NOTE | 2024-12-16 10:20 | NUR ---
note at this time drafter civil engineering reported to this specification writer of pt decrease axillary temp of 88 degrees F, hr 64, bp 96/64, rectal temp taken temperature, 89 degrees F, pt AAOx0, which is baseline, notified primary Md Dr sameer dr ordered pt placed on bearhugger external warming device, at 32 degrees celsius, then reassess 1230 pt rectal temp taken, 90 degrees f, notified md, ordered 1.5 litter of d5 warmed, bolus administered, told to wait and reassess, at 1313 rapid response called on patient due to change in condition, pt lethargic, 02 sat 88%, placed on supplemental o2, 02 sat came up to 97%, md at room at bedside 1314, ordered labs, ct and xray, refer to order history, relayed results back to dr ray aware of pt temp, now 94 at 1330
[2024-12-16 11:23] LABS: ABG BASE EXCESS 3.9 mmol/L (-2.0-3.0); ABG OXYGEN SATURATION 95.6 % (94.0-98.0); ABG PCO2 46 mmHg (32-45); ABG PH 7.418 (7.350-7.450); CARBON MONOXIDE 0.2 % (0.5-1.5); HHb 4.3; PO2, ARTERIAL BG 91.5 mmHg (83.0-108.0); VENT MODE, BG RA (ROOM AIR)
[2024-12-16] MEDS: DEXTROSE 5%-WATER 500 ML IV SCH (12:30)
--- NOTE | 2024-12-16 13:30 | NUR ---
note pt blood glucose at 1330 was 409, aware
[2024-12-16 13:42] LABS: CREATININE 0.6 mg/dL (0.5-1.0); MAGNESIUM 2.1 mg/dL (1.80-2.40); PHOSPHORUS 1.8 mg/dL (2.5-4.9); POTASSIUM 3.6 mmol/L (3.5-5.1)
--- NOTE | 2024-12-16 14:06 | HMCIMG ---
CT HEAD WITHOUT CONTRAST INDICATION: Change of status TECHNIQUE: Noncontrast axial helical CT images from the vertex through the skull base using 5 mm slice thickness without contrast material. CT was performed with one or more of the following dose reduction techniques: Automated exposure control, adjustment of the mA and/or kV according to patient size, or use of iterative reconstruction technique. COMPARISON: 12/14/2024 FINDINGS/IMPRESSION: No evidence for intracranial hemorrhage, hydrocephalus, midline shift, or any other acute intracranial process, and no change when compared to the 12/14/2024 study.
--- NOTE | 2024-12-16 14:51 | PN ---
[facility] PROGRESS NOTE Date Patient Seen: Dec 16, 2024 Time of Visit: 14:50 Supervising Physician: Dr. Pola Lowery Primary Care Physician: Yarelis Ogden MD Outpatient Specialists: [ ] Inpatient Consults: ZULMA , Dr Esperanza Naranjo MD Attending: Carlos Real MD PROBLEM LIST: Septic shock, POA (2/2 community-acquired pneumonia and complicated cystitis) requiring pressor, resolved Right upper lobe cavitation TB rule out, POA - pending bronchoscopy for tomorrow 12/16/24 Hypothermia, POA , resolved Toxic metabolic encephalopathy with obtundation, POA , resolving Severe hypoglycemia, POA on D5 Acute [id number] K-hold anticoagulation Failure to thrive pending GI for G-tube eval Community-acquired pneumonia with acute hypoxemic respiratory failure, POA Suspected aspiration, POA Acute complicated cystitis, POA Frailty/debility, POA History of chronic contractures of bilateral lower extremities, POA Unstageable decubitus ulcers to right hip POA Intellectual disability, POA History of scoliosis, POA History of microcephaly, POA History of ADHD, POA History of aggression, POA Nonverbal INTERVAL HISTORY: Patient evaluated at bedside today, currently under droplet precautions due to suspected TB. On CT scan review patient has several lesions that appear to be cavitary pneumonia however the patient's status in a shelter raise the risk for tuberculosis. Patient was scheduled for bronchoscopy today however at the time of my evaluation the patient was hypothermic, has just been set up with a Halina Hugger, most recent rectal temperature 87.5. Per anesthesia the bronchoscopy will be postponed until Wednesday. She is also pending evaluation for G-tube, patient currently with NG tube on NPO status, we will resume feedings as a bronchoscopy is not to be performed. Currently pending urine susceptibilities at this time. Patient remains on room air and continues on doxycycline and meropenem. REVIEW OF SYSTEMS: UNABLE TO OBTAIN DUE TO PATIENT IS NONVERBAL. INTELLECTUAL DISABILITY. PHYSICAL EXAM: GENERAL: Awake to voice nonverbal, intellectually disabled microcephaly. HEENT: Sclera non icteric, dry mucosa NECK: Supple, no JVD, trachea midline LUNGS: Coarse rhonchi breath sounds bilaterally. No wheezes HEART: Regular rate and rhythm. Normal S1 and S2, without murmurs ABD: Cachectic, flat, nontender. Bowel sounds present EXT: Contractions to upper and lower extremities, right hip unstageable pressure ulcer with a black eschar NEURO: Awake to voice, nonverbal and chronically ill with upper and lower extremity contractures. Vital Signs (last 8hr) Date Time Temp Pulse Resp B/P (MAP) Pulse Ox O2 Delivery O2 Flow Rate FiO2 12/16/24 13:05 90.7 110 17 103/62 100 Nasal Cannula 2.0 12/16/24 12:00 89.1 97 18 93/56 90 Room Air 12/16/24 11:09 82 18 12/16/24 11:08 82 18 N/A Room Air 21 12/16/24 10:00 87.1 63 18 92/59 98 Room Air 12/16/24 07:16 67 18 12/16/24 07:16 67 18 N/A Room Air 21 LABS: Hematology Labs: Test 12/16/24 04:03 Range/Units White Blood Count 3.9 #L 4.8-10.8 K/uL Red Blood Count 3.32 L 4.00-5.50 MIL/uL Hemoglobin 10.5 L 12.0-16.0 g/dL Hematocrit 29.8 L 36-48 % Mean Corpuscular Volume 89.8 79-99 fL Mean Corpuscular Hemoglobin 31.6 27.0-33.0 pg Mean Corpuscular Hemoglobin Concent 35.2 32.0-36.0 g/dL Red Cell Distribution Width 14.3 11.0-15.5 % Platelet Count 73 L 130-400 K/uL Mean Platelet Volume 9.4 7.5-10.5 fL Immature Granulocyte % (Auto) 0.8 0-1 % Neutrophils (%) (Auto) 85.0 H 40.0-77.0 % Lymphocytes (%) (Auto) 11.6 L 21.0-51.0 % Monocytes (%) (Auto) 2.1 L 3.0-13.0 % Eosinophils (%) (Auto) 0.0 0.0-8.0 % Basophils (%) (Auto) 0.5 0.0-5.0 % Neutrophils # (Auto) 3.3 1.8-7.7 K/uL Lymphocytes # (Auto) 0.5 L 1.0-4.8 K/uL Monocytes # (Auto) 0.1 0.1-1.0 K/uL Eosinophils # (Auto) 0.00 0.00-0.70 K/uL Basophils # (Auto) 0.02 0.00-0.20 K/uL Absolute Immature Granulocyte (auto 0.03 0-1 K/uL Nucleated Red Blood Cells 0.0 0.0-0.19 % Platelet Morphology See comments Chemistry Labs: Test 12/16/24 13:23 12/16/24 13:20 12/16/24 04:03 12/15/24 04:10 Range/Units Sodium Level 134 L 136-145 mmol/L Potassium Level 3.6 3.5-5.1 mmol/L Chloride Level 103 101-111 mmol/L Carbon Dioxide Level 29 21-32 mmol/L Blood Urea Nitrogen 15 7-18 mg/dL Creatinine 0.6 0.5-1.0 mg/dL Glomerular Filtration Rate Calc 115 >90 mL/min Random Glucose 427 #*H 70-105 mg/dL Total Calcium 6.8 L 8.5-10.1 mg/dL Phosphorus Level 1.8 L 2.5-4.9 mg/dL Magnesium Level 2.10 1.80-2.40 mg/dL Ammonia < 10 L 11-32 umol/L Whole Blood Glucose 409 *H 70-110 MG/DL Bedside Glucose Comment Notified Nurse Total Bilirubin 0.5 0.2-1.0 mg/dL Aspartate Amino Transf (AST/SGOT) 49 H 10-37 U/L Alanine Aminotransferase (ALT/SGPT) 58 # 12-78 U/L Alkaline Phosphatase 94 50-136 U/L Total Protein 4.2 L 6.0-8.3 g/dL Albumin 1.6 L 3.5-5.0 g/dL Serum Test, Qualitative NEGATIVE NEGATIVE Lactate Dehydrogenase 621 H 81-234 U/L Procalcitonin 0.28 0.05-0.5 ng/mL Coagulation Labs: Test 12/15/24 17:45 Range/Units Prothrombin Time 14.0 H 9.6-11.6 SEC Prothromb Time International Ratio 1.36 H 0.85-1.15 Activated Partial Thromboplast Time 46.0 H 26.3-35.5 SEC DIAGNOSTICS / RADIOLOGY RESULTS: [ ] PLAN NEURO: Minimize central acting medications as possible. Maintain fall precautions, adequate lighting during the day PULMONARY: Supplemental 02 as needed. Maintain aspiration precautions at all times CARDIOVASCULAR: Follow hemodynamics. Vital signs per facility protocol GI & NUTRITION: Continue with nutritional support. Continue stool softeners and laxatives as needed. KIDNEYS & ELECTROLYTES: Strict monitoring of intake, output and overall fluid balance. Avoid nephrotoxic medications to the extent possible. Medications to be dosed according to renal function. Monitor electrolytes and replace as needed ENDOCRINE: Maintain blood glucose between 100-180 at all times. Hypoglycemia protocol in place INFECTIOUS DISEASE: Trend temperature, WBC and procalcitonin level Follow cultures, deescalate antibiotics as soon as possible. Panculture if new onset fever ONCOLOGY/HEMATOLOGY/COAGULATION: Monitor for s/s of bleeding Monitor hemoglobin, coagulation studies as needed SKIN: Pressure ulcer prevention per facility protocol Specialty mattress ORTHO/REHAB: Continue PT/OT Prophylaxis: Continue GI and DVT prophylaxis Code Status: Full Resuscitation Disposition: TBD Other: Total patient care time exceeds 35 minutes excluding all procedures. VETO HAYS Dec 16, 2024 14:51
[2024-12-16] MEDS: 0.9%NACL 1000ML 1,000 ML IV SCH (15:08)
--- NOTE | 2024-12-16 15:32 | HMCIMG ---
INDICATION: CHANGE IN STATUS TECHNIQUE: CHEST 1VW COMPARISON: 12/15/2024 FINDINGS AND IMPRESSION: Continued bilateral airspace consolidation. Enteric tube terminates in the stomach. Cardiac silhouette is within normal limits. Mild degenerative changes of the spine. Surgical wires are again seen in the midline.
--- NOTE | 2024-12-16 16:06 | NUR ---
note pt continuos feeding started now at 20ml per hr, previously npo due to scheduled bronchoscopy, anesthesia cancelled, dr knox rescheduled for monday 12/18 due to pt hyperthermia and change in condition
--- NOTE | 2024-12-16 17:47 | EKG ---
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
--- NOTE | 2024-12-16 17:53 | PN ---
INFECTIOUS DISEASE FOLLOWUP NOTE DATE OF SERVICE: 12/16/2024. SUBJECTIVE: The patient is seen and examined at bedside today. The patient has no fever, no chills. No nausea. Bedbound debility. The patient still has hypothermia and remains on a warming blanket. Bronchoscopy could not be done due to the patient's instability as per Anesthesia. PHYSICAL EXAMINATION: VITAL SIGNS: Temperature 86.5. EYES: No icterus. No conjunctival hemorrhage. HENT: No oral thrush seen. Moist oral mucosa. NECK: Supple. No JVD or thyromegaly. LUNGS: Crackles bilaterally, worse on the right side. CARDIOVASCULAR: S1, S2, regular. No murmur heard. ABDOMEN: Full, soft, nontender. Bowel sound is present. CENTRAL NERVOUS SYSTEM: The patient is apparently bedbound, nonverbal. SKIN: No rashes, no itchiness. LYMPHATIC: No peripheral lymphadenopathy. BACK: There is scoliosis. EXTREMITIES: Unstageable ulcer on the left . GENITOURINARY: Clark catheter in place. No hematuria. LABORATORY DATA: Urine culture growing Proteus mirabilis. Blood culture, no growth for 3 days. ASSESSMENT: A 45-year-old female with multiple problems including: * Sepsis shock. * Pneumonia. * UTI. * Malnutrition. * Left ulcer. * Right lung cavitary lesion. * Mental retardation. PLAN: * Continue meropenem. * Continue doxycycline. * Continue isolation. * Continue nutritional support. * Continue pain management. * Monitor electrolytes. TID: [id number] RECEIPT: [id number]
--- NOTE | 2024-12-16 18:39 | NUR ---
ppd PPD TEST APPLIED TO RIGHT FOREARM.
--- NOTE | 2024-12-16 18:45 | PN ---
[facility] PROGRESS NOTE Date of Service: Dec 16, 2024 Time of Service: 18:40 SUBJECTIVE: 12/14 patient seen at bedside, no acute events overnight. Patient was seen at bedside, she does not participate in the medical interview. She does not appear to be in any acute distress. She is on pressors, we will continue to wean as able. Sodium improved from 150 down to 146, remainder of her labs are relatively unremarkable. Urine growing bacteria, we will continue with empiric antibiotics 12/15/24 Patient sen and examined. Care discussed with RN No acute overnight events. Follow cultures/continue antibiotics. 12/16 patient seen at bedside, no acute events overnight. Pulmonology was pending bronchoscopy to obtain samples to test for tuberculosis however patient became hypothermic and somnolent. Repeat labs, ABG were ordered however no abnormalities were noted. Lactic acid was normal, sodium had mildly decreased from 142 down to 134, ammonia was within normal limits. She was started on a Halina Hugger and bolused fluids, her temperature began to improve and she was more awake. Her phosphorus is low at 1.8 and given her constitution this is concerning for refeeding syndrome, we will continue to monitor closely. REVIEW OF SYSTEMS: Patient is obtunded, unable to obtain ROS PHYSICAL EXAM GENERAL APPEARANCE: patient is obtunded, very frail, cachectic, contractures noted of the lower extremities NEUROLOGICAL: Cranial nerves II-XII grossly intact. Motor is 5/5 in bilateral upper and lower extremities proximal to distal. No sensory deficits. HEENT: Face is symmetric. Pupils are equal and reactive. Extraocular movements are intact. NECK: Supple. No JVD. No thyromegaly. No submental, submandibular, pre- /postauricular, occipital or supraclavicular lymphadenopathy. CHEST: Normal chest expansion. No Telemetry. LUNGS: Absence of any rales, rhonchi or any wheezing. CARDIOVASCULAR: Regular. S1 and S2 normal. No appreciable rubs, murmurs or gallops. ABDOMEN: Soft, nontender, and nondistended. There is no rebound, voluntary guarding, or rigidity. : Deferred. No Clark. EXTREMITIES: Non-edematous and not cyanotic. No clubbing. Good capillary refill. SKIN: No skin breakdown. Vital Signs (last 8hr) Date Time Temp Pulse Resp B/P (MAP) Pulse Ox O2 Delivery O2 Flow Rate FiO2 12/16/24 18:34 88 18 12/16/24 18:33 88 18 N/A Room Air 21 12/16/24 13:05 90.7 110 17 103/62 100 Nasal Cannula 2.0 12/16/24 12:00 89.1 97 18 93/56 90 Room Air 12/16/24 11:09 82 18 12/16/24 11:08 82 18 N/A Room Air 21 LABS: Laboratory: Test 12/16/24 13:23 12/16/24 13:20 12/16/24 11:21 12/16/24 04:03 Range/Units Sodium Level 134 L 136-145 mmol/L Potassium Level 3.6 3.5-5.1 mmol/L Chloride Level 103 101-111 mmol/L Carbon Dioxide Level 29 21-32 mmol/L Blood Urea Nitrogen 15 7-18 mg/dL Creatinine 0.6 0.5-1.0 mg/dL Glomerular Filtration Rate Calc 115 >90 mL/min Random Glucose 427 #*H 70-105 mg/dL Total Calcium 6.8 L 8.5-10.1 mg/dL Phosphorus Level 1.8 L 2.5-4.9 mg/dL Magnesium Level 2.10 1.80-2.40 mg/dL Ammonia < 10 L 11-32 umol/L Whole Blood Glucose 409 *H 70-110 MG/DL Bedside Glucose Comment Notified Nurse Blood Gas Specimen Type Arterial Arterial Blood pH 7.418 7.350-7.450 Arterial Blood Partial Pressure CO2 46 H 32-45 mmHg Arterial Blood Partial Pressure O2 91.5 83.0-108.0 mmHg Arterial Blood HCO3 29.0 H 21.0-28.0 mmol/L Arterial Blood Oxygen Saturation 95.6 94.0-98.0 % Arterial Blood Base Excess 3.9 H -2.0-3.0 mmol/L Hemoglobin (Blood Gas) 11.6 L 12.0-16.0 g/dL Sodium (Blood Gas) 141 136-145 MMOL/L Bedside Potassium (Blood Gas) 4.0 3.4-4.5 MMOL/L Bedside Chloride (Blood Gas) 110 H 98-107 MMOL/L Bedside Glucose (Blood Gas) 100 H 65-95 MG/DL Bedside Ionized Calcium (Blood Gas) 1.20 1.15-1.33 MMOL/L Bedside Lactic Acid (Blood Gas) 1.04 H 0.36-0.75 MMOL/L Blood Gas Temperature 37.0 35.5-37.0 CELSIUS Blood Gas Vent Mode RA ROOM AIR FiO2 21.0 % Blood Gas Specimen Comment RR ROBYN LOPEZ White Blood Count 3.9 #L 4.8-10.8 K/uL Red Blood Count 3.32 L 4.00-5.50 MIL/uL Hemoglobin 10.5 L 12.0-16.0 g/dL Hematocrit 29.8 L 36-48 % Mean Corpuscular Volume 89.8 79-99 fL Mean Corpuscular Hemoglobin 31.6 27.0-33.0 pg Mean Corpuscular Hemoglobin Concent 35.2 32.0-36.0 g/dL Red Cell Distribution Width 14.3 11.0-15.5 % Platelet Count 73 L 130-400 K/uL Mean Platelet Volume 9.4 7.5-10.5 fL Immature Granulocyte % (Auto) 0.8 0-1 % Neutrophils (%) (Auto) 85.0 H 40.0-77.0 % Lymphocytes (%) (Auto) 11.6 L 21.0-51.0 % Monocytes (%) (Auto) 2.1 L 3.0-13.0 % Eosinophils (%) (Auto) 0.0 0.0-8.0 % Basophils (%) (Auto) 0.5 0.0-5.0 % Neutrophils # (Auto) 3.3 1.8-7.7 K/uL Lymphocytes # (Auto) 0.5 L 1.0-4.8 K/uL Monocytes # (Auto) 0.1 0.1-1.0 K/uL Eosinophils # (Auto) 0.00 0.00-0.70 K/uL Basophils # (Auto) 0.02 0.00-0.20 K/uL Absolute Immature Granulocyte (auto 0.03 0-1 K/uL Nucleated Red Blood Cells 0.0 0.0-0.19 % Platelet Morphology See comments Total Bilirubin 0.5 0.2-1.0 mg/dL Aspartate Amino Transf (AST/SGOT) 49 H 10-37 U/L Alanine Aminotransferase (ALT/SGPT) 58 # 12-78 U/L Alkaline Phosphatase 94 50-136 U/L Total Protein 4.2 L 6.0-8.3 g/dL Albumin 1.6 L 3.5-5.0 g/dL Serum Test, Qualitative NEGATIVE NEGATIVE Test 12/15/24 17:45 12/15/24 04:10 Range/Units Prothrombin Time 14.0 H 9.6-11.6 SEC Prothromb Time International Ratio 1.36 H 0.85-1.15 Activated Partial Thromboplast Time 46.0 H 26.3-35.5 SEC Lactate Dehydrogenase 621 H 81-234 U/L Procalcitonin 0.28 0.05-0.5 ng/mL Current Medications Medications (Trade) Dose Ordered Sig/Castillo Route PRN Reason Start Time Stop Time Status Last Admin Dose Admin Acetaminophen (TYLenol 325MG ELIXIR) 325 mg Q6H PRN PO MILD PAIN (1-3) 12/13/24 15:00 01/12/25 14:59 Acetaminophen (TYLenol 500MG TAB) 500 mg Q4PRN PRN PO FEVER 12/15/24 10:30 01/14/25 10:29 Acetaminophen (TYLenol 500MG TAB) 500 mg Q4PRN PRN PO PAIN 12/15/24 10:30 01/14/25 10:29 Acetylcysteine (MUComyst 20% 4ML) 400mg = 2ml [id number] IH 12/14/24 18:00 01/13/25 17:59 12/16/24 18:30 800 MG Albumin Human 50 ml @ 0 mls/hr AD IV 12/14/24 10:00 12/19/24 09:59 12/14/24 11:14 50 MLS/HR Albuterol (DUOneb) 1 udvial Q6H PRN IH SHORTNESS OF BREATH 12/13/24 15:30 01/12/25 15:29 12/16/24 18:30 1 UDVIAL Bisacodyl (DulcoLAX) 10 mg DAILY RC 12/16/24 09:00 12/19/24 08:59 12/16/24 10:17 10 MG Budesonide (Pulmicort 0.5 Mg/2ml) 0.5 mg BIDRESP IH 12/13/24 18:00 01/12/25 17:59 12/16/24 18:29 0.5 MG Buspirone HCl (BUspar) 15 mg TID PO 12/15/24 14:00 01/14/25 13:59 12/15/24 21:45 15 MG Dextrose 500 ml @ 0 mls/hr Q0M IV 12/16/24 12:30 01/15/25 12:29 12/16/24 12:30 999 MLS/HR Dextrose 1,000 ml @ 75 mls/hr [id number] IV 12/13/24 15:00 12/16/24 14:30 DC 12/16/24 10:16 75 MLS/HR Dextrose (D50w) 50 ml AD PRN IV HYPOGLYCEMIA PROTOCOL 12/13/24 15:00 01/12/25 14:59 12/14/24 16:12 50 ML Doxycycline Hyclate 250 ml @ 125 mls/hr Q12H IV 12/13/24 15:30 12/23/24 15:29 12/16/24 15:09 125 MLS/HR Enoxaparin Sodium (Lovenox) 30 mg DAILY SQ 12/14/24 09:00 12/15/24 09:05 DC 12/14/24 08:46 30 MG Enoxaparin Sodium (Lovenox) 30 mg DAILY SQ 12/16/24 09:00 12/15/24 13:22 DC Glucagon (Glucagon 1mg Kit) 1 mg AD PRN IM HYPOGLYCEMIA PROTOCOL 12/13/24 15:00 01/12/25 14:59 Guaifenesin/ Dextromethorphan (RobiTUSSin DM 200/20MG 10ML) 10 ml Q4H PRN PO COUGH 12/15/24 11:00 01/14/25 10:59 Home Med (Home Medication) (Cholecalciferol (Vitamin D3) 25 MCG) DAILY PO 12/16/24 09:00 01/15/25 08:59 Lactated Ringer's 1,000 ml @ 100 mls/hr Q10H IV 12/13/24 15:00 12/13/24 15:18 DC Leptospermum Honey (Medihoney) 1 appl DAILY TP 12/15/24 09:00 01/14/25 08:59 12/16/24 10:16 1 APPL Lorazepam (AtiVAN) 0.5 mg DAILYDINNER PO 12/15/24 17:00 01/14/25 16:59 12/15/24 21:46 0.5 MG Magnesium Sulfate 50 ml @ 0 mls/hr PROTOCOL IV 12/13/24 21:30 01/12/25 21:29 12/16/24 06:03 25 MLS/HR Meropenem (Merrem 1gm) 1 gm Q8H IVPB 12/13/24 16:00 12/23/24 15:59 12/16/24 17:10 1 GM Miscellaneous Medication (Ondansetron HCl ) 8 mg TID PO 12/15/24 14:00 12/15/24 10:43 DC Norepinephrine 250 ml @ 0 mls/hr PROTOCOL IV 12/13/24 14:30 12/15/24 14:26 DC 12/14/24 07:35 25.3 MLS/HR Ondansetron HCl (zoFRAN 4MG INJ) 4 mg Q6H PRN IVP NAUSEA/VOMITING 12/13/24 16:30 01/12/25 16:29 Pantoprazole Sodium (PROTonix 40MG INJ) 40 mg Q24H IVP 12/13/24 15:00 01/12/25 14:59 12/16/24 15:08 40 MG Pharmacy Profile Note (Pharmacy Communication) 1 each ONCE MISC 12/13/24 15:00 12/13/24 15:28 DC Polyethylene Glycol (MIRalax 3350 17 GM POWD.PACK) 17 gm DAILY PO 12/16/24 09:00 01/15/25 08:59 Potassium Phosphate 250 ml @ 42 mls/hr PROTOCOL IV 12/15/24 05:30 12/15/24 10:19 DC 12/15/24 05:59 42 MLS/HR Potassium Chloride 100 ml @ 50 mls/hr AD PRN IV POTASSIUM PROTOCOL 12/13/24 21:30 01/12/25 21:29 12/16/24 02:25 50 MLS/HR Potassium Chloride 100 ml @ 50 mls/hr AD PRN IV POTASSIUM PROTOCOL 12/15/24 14:30 01/14/25 14:29 Potassium Chloride 100 ml @ 100 mls/hr AD PRN IV POTASSIUM PROTOCOL 12/15/24 14:30 01/14/25 14:29 Potassium Chloride (K-Dur/Klor-Con 20meq) 20 meq AD PRN PO POTASSIUM PROTOCOL 12/15/24 14:30 01/14/25 14:29 Potassium Chloride (KCl 10% Elixir 20meq/15ml) 20 meq AD PRN PO POTASSIUM PROTOCOL 12/15/24 14:30 01/14/25 14:29 12/15/24 22:57 20 MEQ Quetiapine Fumarate (SEROquel 100 mg TAB) 200 mg BID PO 12/15/24 21:00 01/14/25 20:59 12/15/24 21:46 200 MG Sodium Chloride 1,000 ml @ 75 mls/hr [id number] IV 12/16/24 14:30 01/15/25 14:29 12/16/24 15:08 75 MLS/HR Thiamine HCl (Vitamin B-1) 300 mg Q24H IVP 12/13/24 15:00 01/12/25 14:59 12/16/24 15:08 300 MG Venlafaxine HCl (EffEXOR XR 37.5mg CAP) 75 mg DAILY PO 12/16/24 09:00 01/15/25 08:59 DIAGNOSTICS / RADIOLOGY: [ ] ASSESSMENT: Septic shock, POA (2/2 community-acquired pneumonia and complicated UTI) Hypothermia, POA Toxic metabolic encephalopathy with obtundation, POA Severe hypoglycemia, POA Community-acquired pneumonia with acute hypoxemic respiratory failure, POA Complicated urinary tract infection, POA Frailty/debility, POA Acute UTI, Proteus, POA History of chronic contractures of bilateral lower extremities, POA Unstageable decubitus ulcer involving the left hip, POA Cachexia, POA History of severe intellectual disability, POA History of scoliosis, POA History of microcephaly, POA History of ADHD, POA History of aggression, POA PLAN: Continue ICU NG tube in place, will start tube feedings Patient will be kept strictly NPO and on aspiration precautions We will maintain POCT blood glucose check q.1 hours, we will maintain blood glucose greater than 70 Continue Broad-spectrum antibiotics with IV meropenem and doxycycline Urine growing proteus Consultation with critical Care will be requested Patient will be placed on air mattress, offloading measures, wound care will be requested Infectious Disease consulted, appreciate recommendations Disposition: pending improvement in clinical status SEVEN KIRKLAND MD Dec 16, 2024 18:45
--- NOTE | 2024-12-16 18:47 | NUR ---
note At 1730 FLOUR WORKER reported to this real estate underwriter of pt increase HR, HR 118, notified Md 12 lead EKG ordered, Ekg showed sinus tach, relayed to MD, ordered 1 liter NS, then reassess, heart rate still in 120's at 1820 after bolus, dr estrella aware, dr estrella reports pt does not meet icu criteria
--- NOTE | 2024-12-16 19:00 | NUR ---
CLERK ANALYST CLERK ANALYST MARC ON THE FLOOR TO ASSESS PT. NEW ORDERS NOTED PLEASE REFER TO CPOE.
--- NOTE | 2024-12-16 19:33 | PN ---
[facility] PROGRESS NOTE Date of Service: Dec 16, 2024 Time of Service: 19:33 Attending/supervising physicians: Dr. Familia Love and Dr. Javier Carpenter SUBJECTIVE: 12/14 patient seen at bedside, no acute events overnight. Patient was seen at bedside, she does not participate in the medical interview. She does not appear to be in any acute distress. She is on pressors, we will continue to wean as able. Sodium improved from 150 down to 146, remainder of her labs are relatively unremarkable. Urine growing bacteria, we will continue with empiric antibiotics 12/15/24 Patient sen and examined. Care discussed with RN No acute overnight events. Follow cultures/continue antibiotics. 12/16 patient seen at bedside, no acute events overnight. Pulmonology was pending bronchoscopy to obtain samples to test for tuberculosis however patient became hypothermic and somnolent. Repeat labs, ABG were ordered however no abnormalities were noted. Lactic acid was normal, sodium had mildly decreased from 142 down to 134, ammonia was within normal limits. She was started on a Halina Hugger and bolused fluids, her temperature began to improve and she was more awake. Her phosphorus is low at 1.8 and given her constitution this is concerning for refeeding syndrome, we will continue to monitor closely. 12/16/24 helicopter crew chief: Charge nurse RN called me with concern for patient due to patient being tachycardic heart rate 120-130s and a temperature of 93.6� rectal. RN reports blood pressure 109/65, respirations, 98% on nasal cannula. RN reports that patient has was a rapid response earlier, has been on the Halina Hugger all day with no improvement of the temperature, and now is tachycardic. I went to assess the patient at bedside. The patient's breathing was even, unlabored, and lethargic. The patient is nonverbal, moans with touch. The patient was receiving feedings per NG and IV fluids. Stat ABGs, blood work were done. Remarkable lab results: Lactic acid increased from 1.04 to 1.59. Phos was 1.6, magnesium 1.9, total protein 4.3, albumin 1.6. ABGs on room air: PO2 58.4, ABG O2 saturation 89.2. (PO2 this morning was 91.5). The patient was placed back on 2 L nasal cannula, increased bear hugger to 30� C from 32� C. Electrolytes were replaced. Telemetry pack was order. We will continue monitoring patient closely. 12/17/2024 0315: Addendum: Reassessed the patient multiple times. Her temperature improved, remained tachycardic, despite a total of a 1500 mL bolus of LR. BP ranging systolic 98-105. The patient had a hypoglycemic episode at 11:54 p.m., blood glucose was 51, despite being of feedings. Change fluids to D5 W at 75 mL an hour. We will continue monitoring patient closely. 06:00 Reassessed the patient before off of my shift HR had improved to 112-116. b/p low 100s systolic. REVIEW OF SYSTEMS: Patient is obtunded, unable to obtain ROS. Patient is nonverbal, only moans. PHYSICAL EXAM GENERAL APPEARANCE: The patient is obtunded, very frail, cachectic, contractures noted of the lower extremities NEUROLOGICAL: The patient response to painful stimuli, moans when touched, is nonverbal. Does not follow command. HEENT: Face is symmetric. Pupils are equal and reactive. Extraocular movements are intact. NECK: Supple. No JVD. No thyromegaly. No submental, submandibular, pre- /postauricular, occipital or supraclavicular lymphadenopathy. CHEST: Normal chest expansion. No Telemetry. LUNGS: Absence of any rales, rhonchi or any wheezing. CARDIOVASCULAR: Regular. Tachycardic. No appreciable rubs, murmurs or gallops. ABDOMEN: Soft, nontender, and nondistended. There is no rebound, voluntary guarding, or rigidity. : Deferred. No Clark. EXTREMITIES: Contractures to bilateral lower extremity. Non-edematous and not cyanotic. No clubbing. Good capillary refill. SKIN: No skin breakdown. Vital Signs (last 8hr) Date Time Temp Pulse Resp B/P (MAP) Pulse Ox O2 Delivery O2 Flow Rate FiO2 12/16/24 18:34 88 18 12/16/24 18:33 88 18 N/A Room Air 21 12/16/24 13:05 90.7 110 17 103/62 100 Nasal Cannula 2.0 12/16/24 12:00 89.1 97 18 93/56 90 Room Air LABS: Laboratory: Test 12/16/24 13:23 12/16/24 13:20 12/16/24 11:21 12/16/24 04:03 Range/Units Sodium Level 134 L 136-145 mmol/L Potassium Level 3.6 3.5-5.1 mmol/L Chloride Level 103 101-111 mmol/L Carbon Dioxide Level 29 21-32 mmol/L Blood Urea Nitrogen 15 7-18 mg/dL Creatinine 0.6 0.5-1.0 mg/dL Glomerular Filtration Rate Calc 115 >90 mL/min Random Glucose 427 #*H 70-105 mg/dL Total Calcium 6.8 L 8.5-10.1 mg/dL Phosphorus Level 1.8 L 2.5-4.9 mg/dL Magnesium Level 2.10 1.80-2.40 mg/dL Ammonia < 10 L 11-32 umol/L Whole Blood Glucose 409 *H 70-110 MG/DL Bedside Glucose Comment Notified Nurse Blood Gas Specimen Type Arterial Arterial Blood pH 7.418 7.350-7.450 Arterial Blood Partial Pressure CO2 46 H 32-45 mmHg Arterial Blood Partial Pressure O2 91.5 83.0-108.0 mmHg Arterial Blood HCO3 29.0 H 21.0-28.0 mmol/L Arterial Blood Oxygen Saturation 95.6 94.0-98.0 % Arterial Blood Base Excess 3.9 H -2.0-3.0 mmol/L Hemoglobin (Blood Gas) 11.6 L 12.0-16.0 g/dL Sodium (Blood Gas) 141 136-145 MMOL/L Bedside Potassium (Blood Gas) 4.0 3.4-4.5 MMOL/L Bedside Chloride (Blood Gas) 110 H 98-107 MMOL/L Bedside Glucose (Blood Gas) 100 H 65-95 MG/DL Bedside Ionized Calcium (Blood Gas) 1.20 1.15-1.33 MMOL/L Bedside Lactic Acid (Blood Gas) 1.04 H 0.36-0.75 MMOL/L Blood Gas Temperature 37.0 35.5-37.0 CELSIUS Blood Gas Vent Mode RA ROOM AIR FiO2 21.0 % Blood Gas Specimen Comment FREDDIE LOPEZ, ROBYN White Blood Count 3.9 #L 4.8-10.8 K/uL Red Blood Count 3.32 L 4.00-5.50 MIL/uL Hemoglobin 10.5 L 12.0-16.0 g/dL Hematocrit 29.8 L 36-48 % Mean Corpuscular Volume 89.8 79-99 fL Mean Corpuscular Hemoglobin 31.6 27.0-33.0 pg Mean Corpuscular Hemoglobin Concent 35.2 32.0-36.0 g/dL Red Cell Distribution Width 14.3 11.0-15.5 % Platelet Count 73 L 130-400 K/uL Mean Platelet Volume 9.4 7.5-10.5 fL Immature Granulocyte % (Auto) 0.8 0-1 % Neutrophils (%) (Auto) 85.0 H 40.0-77.0 % Lymphocytes (%) (Auto) 11.6 L 21.0-51.0 % Monocytes (%) (Auto) 2.1 L 3.0-13.0 % Eosinophils (%) (Auto) 0.0 0.0-8.0 % Basophils (%) (Auto) 0.5 0.0-5.0 % Neutrophils # (Auto) 3.3 1.8-7.7 K/uL Lymphocytes # (Auto) 0.5 L 1.0-4.8 K/uL Monocytes # (Auto) 0.1 0.1-1.0 K/uL Eosinophils # (Auto) 0.00 0.00-0.70 K/uL Basophils # (Auto) 0.02 0.00-0.20 K/uL Absolute Immature Granulocyte (auto 0.03 0-1 K/uL Nucleated Red Blood Cells 0.0 0.0-0.19 % Platelet Morphology See comments Total Bilirubin 0.5 0.2-1.0 mg/dL Aspartate Amino Transf (AST/SGOT) 49 H 10-37 U/L Alanine Aminotransferase (ALT/SGPT) 58 # 12-78 U/L Alkaline Phosphatase 94 50-136 U/L Total Protein 4.2 L 6.0-8.3 g/dL Albumin 1.6 L 3.5-5.0 g/dL Serum Test, Qualitative NEGATIVE NEGATIVE Test 12/15/24 17:45 12/15/24 04:10 Range/Units Prothrombin Time 14.0 H 9.6-11.6 SEC Prothromb Time International Ratio 1.36 H 0.85-1.15 Activated Partial Thromboplast Time 46.0 H 26.3-35.5 SEC Lactate Dehydrogenase 621 H 81-234 U/L Procalcitonin 0.28 0.05-0.5 ng/mL Current Medications Medications (Trade) Dose Ordered Sig/Castillo Route PRN Reason Start Time Stop Time Status Last Admin Dose Admin Acetaminophen (TYLenol 325MG ELIXIR) 325 mg Q6H PRN PO MILD PAIN (1-3) 12/13/24 15:00 01/12/25 14:59 Acetaminophen (TYLenol 500MG TAB) 500 mg Q4PRN PRN PO FEVER 12/15/24 10:30 01/14/25 10:29 Acetaminophen (TYLenol 500MG TAB) 500 mg Q4PRN PRN PO PAIN 12/15/24 10:30 01/14/25 10:29 Acetylcysteine (MUComyst 20% 4ML) 400mg = 2ml [id number] IH 12/14/24 18:00 01/13/25 17:59 12/16/24 18:30 800 MG Albumin Human 50 ml @ 0 mls/hr AD IV 12/14/24 10:00 12/19/24 09:59 12/14/24 11:14 50 MLS/HR Albuterol (DUOneb) 1 udvial Q6H PRN IH SHORTNESS OF BREATH 12/13/24 15:30 01/12/25 15:29 12/16/24 18:30 1 UDVIAL Bisacodyl (DulcoLAX) 10 mg DAILY RC 12/16/24 09:00 12/19/24 08:59 12/16/24 10:17 10 MG Budesonide (Pulmicort 0.5 Mg/2ml) 0.5 mg BIDRESP IH 12/13/24 18:00 01/12/25 17:59 12/16/24 18:29 0.5 MG Buspirone HCl (BUspar) 15 mg TID PO 12/15/24 14:00 01/14/25 13:59 12/15/24 21:45 15 MG Dextrose 500 ml @ 0 mls/hr Q0M IV 12/16/24 12:30 01/15/25 12:29 12/16/24 12:30 999 MLS/HR Dextrose 1,000 ml @ 75 mls/hr [id number] IV 12/13/24 15:00 12/16/24 14:30 DC 12/16/24 10:16 75 MLS/HR Dextrose (D50w) 50 ml AD PRN IV HYPOGLYCEMIA PROTOCOL 12/13/24 15:00 01/12/25 14:59 12/14/24 16:12 50 ML Doxycycline Hyclate 250 ml @ 125 mls/hr Q12H IV 12/13/24 15:30 12/23/24 15:29 12/16/24 15:09 125 MLS/HR Enoxaparin Sodium (Lovenox) 30 mg DAILY SQ 12/14/24 09:00 12/15/24 09:05 DC 12/14/24 08:46 30 MG Enoxaparin Sodium (Lovenox) 30 mg DAILY SQ 12/16/24 09:00 12/15/24 13:22 DC Glucagon (Glucagon 1mg Kit) 1 mg AD PRN IM HYPOGLYCEMIA PROTOCOL 12/13/24 15:00 01/12/25 14:59 Guaifenesin/ Dextromethorphan (RobiTUSSin DM 200/20MG 10ML) 10 ml Q4H PRN PO COUGH 12/15/24 11:00 01/14/25 10:59 Home Med (Home Medication) (Cholecalciferol (Vitamin D3) 25 MCG) DAILY PO 12/16/24 09:00 01/15/25 08:59 Lactated Ringer's 1,000 ml @ 100 mls/hr Q10H IV 12/13/24 15:00 12/13/24 15:18 DC Leptospermum [facility] ([facility]) 1 appl DAILY TP 12/15/24 09:00 01/14/25 08:59 12/16/24 10:16 1 APPL Lorazepam (AtiVAN) 0.5 mg DAILYDINNER PO 12/15/24 17:00 01/14/25 16:59 12/15/24 21:46 0.5 MG Magnesium Sulfate 50 ml @ 0 mls/hr PROTOCOL IV 12/13/24 21:30 01/12/25 21:29 12/16/24 06:03 25 MLS/HR Meropenem (Merrem 1gm) 1 gm Q8H IVPB 12/13/24 16:00 12/23/24 15:59 12/16/24 17:10 1 GM Miscellaneous Medication (Ondansetron HCl ) 8 mg TID PO 12/15/24 14:00 12/15/24 10:43 DC Norepinephrine 250 ml @ 0 mls/hr PROTOCOL IV 12/13/24 14:30 12/15/24 14:26 DC 12/14/24 07:35 25.3 MLS/HR Ondansetron HCl (zoFRAN 4MG INJ) 4 mg Q6H PRN IVP NAUSEA/VOMITING 12/13/24 16:30 01/12/25 16:29 Pantoprazole Sodium (PROTonix 40MG INJ) 40 mg Q24H IVP 12/13/24 15:00 01/12/25 14:59 12/16/24 15:08 40 MG Pharmacy Profile Note (Pharmacy Communication) 1 each ONCE MISC 12/13/24 15:00 12/13/24 15:28 DC Polyethylene Glycol (MIRalax 3350 17 GM POWD.PACK) 17 gm DAILY PO 12/16/24 09:00 01/15/25 08:59 Potassium Phosphate 250 ml @ 42 mls/hr PROTOCOL IV 12/15/24 05:30 12/15/24 10:19 DC 12/15/24 05:59 42 MLS/HR Potassium Chloride 100 ml @ 50 mls/hr AD PRN IV POTASSIUM PROTOCOL 12/13/24 21:30 01/12/25 21:29 12/16/24 02:25 50 MLS/HR Potassium Chloride 100 ml @ 50 mls/hr AD PRN IV POTASSIUM PROTOCOL 12/15/24 14:30 01/14/25 14:29 Potassium Chloride 100 ml @ 100 mls/hr AD PRN IV POTASSIUM PROTOCOL 12/15/24 14:30 01/14/25 14:29 Potassium Chloride (K-Dur/Klor-Con 20meq) 20 meq AD PRN PO POTASSIUM PROTOCOL 12/15/24 14:30 01/14/25 14:29 Potassium Chloride (KCl 10% Elixir 20meq/15ml) 20 meq AD PRN PO POTASSIUM PROTOCOL 12/15/24 14:30 01/14/25 14:29 12/15/24 22:57 20 MEQ Quetiapine Fumarate (SEROquel 100 mg TAB) 200 mg BID PO 12/15/24 21:00 01/14/25 20:59 12/15/24 21:46 200 MG Sodium Chloride 1,000 ml @ 75 mls/hr [id number] IV 12/16/24 14:30 01/15/25 14:29 12/16/24 15:08 75 MLS/HR Thiamine HCl (Vitamin B-1) 300 mg Q24H IVP 12/13/24 15:00 01/12/25 14:59 12/16/24 15:08 300 MG Venlafaxine HCl (EffEXOR XR 37.5mg CAP) 75 mg DAILY PO 12/16/24 09:00 01/15/25 08:59 DIAGNOSTICS / RADIOLOGY: [ ] ASSESSMENT: Hypothermia, POA, in need of bare hugger Acute hypoxemic respiratory failure, POA Recurrent hypoglycemic episodes Septic shock, POA (2/2 community-acquired pneumonia and complicated UTI) Toxic metabolic encephalopathy with obtundation, POA Community-acquired pneumonia with acute hypoxemic respiratory failure, POA Acute complicated cystitis, POA Frailty/debility, POA Acute UTI, Proteus, POA History of chronic contractures of bilateral lower extremities, POA Unstageable decubitus ulcer involving the left hip, POA Cachexia, POA History of severe intellectual disability, POA History of scoliosis, POA History of microcephaly, POA History of ADHD, POA History of aggression, POA PLAN: The patient is in medical floor. Place patient on telemetry pack. Continue with the Halina Hugger. Increased the rate from 32� C to 38� C. Will titrate back down once temperature improves. NG tube in place, continue continuous tube feedings. Patient will be kept strictly NPO and on aspiration precautions, NGT feedings only. We will maintain POCT blood glucose check q.4 hours, we will maintain blood glucose greater than 70. Permissive hyperglycemia. No insulin for now. Continue Broad-spectrum antibiotics with IV meropenem and doxycycline Monitor respirations status closely. Place patient on 2 L nasal cannula due to hypoxemia. ABGs in the a.m.. Chest x-ray in the morning. Urine growing proteus Critical Care is following the patient. Patient will be placed on air mattress, offloading measures, wound care will be requested. Patient has a 1:1 sitter due to removes NGT/lines. May use mittens. Infectious Disease consulted, appreciate recommendations Reposition the patient every 2 hours and p.r.n.. Monitor renal and liver function. Monitor electrolytes and treat accordingly. Monitor blood pressure every 4 hours and as needed. Administered LR 1.5 L for tachycardia and hypotension on 12/16 helicopter crew chief. Addendum: Change IV fluids to D5 W at 75 mL an hour due to hypoglycemia. Monitor for fluid overload. BNP WNL. DVT and GI prophylaxis. A.m. labs. Condition guarded. ADVANCED CARE PLANNING 1. Which of the following were discussed? Hospice Care - No Therapeutic options - No Advance Directives - No Other discussions - 2. Discussed with who? N/A, patient obtunded unable to understand or follow command. No family at bedside. 3. Voluntary nature of this service was explained to the patient? No 4. Amount of critical care time time spent - __ over 120 minutes. 5. Reviewed by Physician? (if this service was performed by SLAVA) No I consulted with Dr. Love on this patient. I will follow his recommendation to keep patient on medical floor. I will continue monitoring patient closely. Critical care time over 120 minutes. Due to a high probability for clinically significant, life-threatening deterioration, the patient required my highest level of preparedness to intervene emergently, and I personally spent 120 minutes of critical care time directly and personally managing the patient. I devoted my full attention to the patient during this time, which is separate from time spent on any billable procedures. This includes time spent involved in work directly related to the care of the patient: such as review of prior records, development of treatment plan with patient and as well as nursing, discussions with consultants, evaluation of patient's response to treatment, examination of patient, obtaining history from nursing staff, ordering and performing treatments and interventions, ordering and review of laboratory studies, ordering and review of radiographic studies, pulse oximetry and re-evaluation of patient's condition, discussions with the family members and the patient, and any required documentation. This critical care time was performed to assess and manage the high probability of imminent life-threatening deterioration that could result in multi-organ failure. ATTESTATION BY PHYSICIAN I have seen and examined the patient. I reviewed the documentation, medical decision making, and treatment plan as noted by the mid-level provider above. I agree with the findings and plan of care. CHE JUSTICE PLATE GRAINER Dec 16, 2024 19:33
[2024-12-16 19:36] LABS: ABG BASE EXCESS 0.2 mmol/L (-2.0-3.0); ABG HCO3 25.1 mmol/L (21.0-28.0); ABG OXYGEN SATURATION 89.2 % (94.0-98.0); ABG PCO2 42 mmHg (32-45); ABG PH 7.396 (7.350-7.450); CARBON MONOXIDE 0.3 % (0.5-1.5); HHb 10.7; PO2, ARTERIAL BG 58.4 mmHg (83.0-108.0); VENT MODE, BG RA,21 (ROOM AIR)
[2024-12-16 19:48] LABS: HEMATOCRIT 30.2 % (36-48); MEAN CORPUSCULAR HEMOGLOBIN 31.7 pg (27.0-33.0); MEAN CORPUSCULAR HGB CONC 35.1 g/dL (32.0-36.0); MEAN CORPUSCULAR VOLUME 90.4 fL (79-99); RED BLOOD CELL COUNT(AUTO) 3.34 MIL/uL (4.00-5.50); RED CELL DISTRIBUTION WIDTH 14.6 % (11.0-15.5); WHITE BLOOD COUNT (AUTO) 4.5 K/uL (4.8-10.8)
--- NOTE | 2024-12-16 20:00 | NUR ---
ASSESS SHIFT ASSESSMENT DONE, PLEASE REFER TO CHART. LAB RESULTS ARNOLDO BY MARC PACHECO, NEW ORDERS GIVEN, PLEASE REFER TO CPOE. PLACED PT ON TELE MONITORING ORDERED. SITTER AT BEDSIDE IN ATTENDANCE TO NEEDS AT THIS TIME. KEPT PT ON BEAR HUGGER AT 32 DEGREES.
[2024-12-16 20:14] LABS: CREATININE 0.4 mg/dL (0.5-1.0); POTASSIUM 3.5 mmol/L (3.5-5.1)
[2024-12-16 20:23] LABS: ALBUMIN 1.6 g/dL (3.5-5.0); BILIRUBIN,TOTAL 0.4 mg/dL (0.2-1.0); MAGNESIUM 1.9 mg/dL (1.80-2.40); PHOSPHORUS 1.6 mg/dL (2.5-4.9); TOTAL PROTEIN, SERUM 4.3 g/dL (6.0-8.3)
--- NOTE | 2024-12-16 22:00 | NUR ---
V/S V/S MONITORED AND PT IS TACHY SUSTAINING AT 120-130'S BPM. PAGED JUNIOR TRAN VIA ANSWERING SERVICE. JUNIOR TRAN CALLED BACK AND REFERRED PT'S V/S. NEW ORDERS RECEIVED, PLEASE REFER TO CPOE. STARTED LR 1 LITER FOR 1 HOUR INFUSION. INCREASED TEMPERATURE OF BEAR HUGGER TO 38 ORDERED BY HEALTH PLAN ADVISOR. WILL RE-ASSESS PT.
[2024-12-16] MEDS: LACTATED RINGERS 1000ML IV ONE (22:30)
--- NOTE | 2024-12-16 22:30 | NUR ---
MEDS STARTED PT ON ELECTROLYTE REPLACEMENTS ORDERED. KEPT WARM AND DRY. KEPT ON CLOSE WATCH.
[2024-12-16] MEDS: CALCIUM GLUC 1GM/10ML VIAL IV ONE (22:54)
[2024-12-16] MEDS: LACTATED RINGERS 1000ML 1,000 ML IV SCH (23:34)
[2024-12-16] MEDS: acetaMINOPHEN 325 MG/10.15ML UDCUP PO PRN (23:50)
[2024-12-17] VITALS (17 sets, daily range): BP systolic 98–126; BP diastolic 55–82; PULSE 90–151; RESP 14–20; TEMP 94.5–100.5; O2SAT 92–97
--- NOTE | 2024-12-17 | NUR ---
MEDS PT GETTING RESTLESS AND IS MOANING. BLOOD SUGAR CHECKED =51. CHECKED RESIDUAL ON NGT =10CC. MEDICATED WITH TYLENOL VIA NGT AND WATER FLUSHES GIVEN. D50 1 AMPULE GIVEN VIA MIDLINE. AT 0010, PT STILL TACHY SUSTAINING HR= 130'S-140'S. V/S MONITORED AND AT 0024, PAGED MARC VIA ANSWERING SERVICE. PATIENT TRANSPORTATION DRIVER MARC CALLED BACK AND REFERRED PT'S CONDITION. NEW ORDERS GIVEN, PLEASE REFER TO CPOE.
[2024-12-17] MEDS ORDERED: LACTATED RINGERS 1000ML IV SCH (00:30)
[2024-12-17] MEDS: DEXTROSE 5%-WATER 1,000 ML IV SCH (00:50)
--- NOTE | 2024-12-17 01:03 | NUR ---
PAGED SEED POTATO CUTTER MARC PAGED VIA ANSWERING SERVICE. SEED POTATO CUTTER CALLED BACK AND UPDATED ON PT'S CONDITION. NEW ORDERS GIVEN, PLEASE REFER TO CPOE. WILL MEDICATE PT.
--- NOTE | 2024-12-17 01:30 | NUR ---
TEMP PT NOTED TO BE WARM TO TOUCH. RE-CHECKED TEMPERATURE [id number]=353.5 DEGREES. REMOVED BEAR HUGGER. PT WAS GIVEN A SPONGE BATH BY SITTER. KEPT ROOM TEMPERATURE COOL. REMOVED EXTRA BLANKET. WILL RE-ASSESS PT.
--- NOTE | 2024-12-17 02:30 | NUR ---
RE-CHECK PT'S TEMPERATURE RE-CHECKED =98 DEGREES RECTALLY. PT IS STILL TACHYCARDIC WITH LS=631'S BUT IS ASLEEP. WILL KEEP ON CLOSE WATCH.
[2024-12-17 04:33] LABS: BASOPHILS # (AUTO) 0.02 K/uL (0.00-0.20); BASOPHILS % (AUTO) 0.3 % (0.0-5.0); EOSINOPHILS # (AUTO) 0.08 K/uL (0.00-0.70); EOSINOPHILS % (AUTO) 1.2 % (0.0-8.0); HEMATOCRIT 29.3 % (36-48); IMMATURE GRANULOCYTE ABSOLUTE 0.04 K/uL (0-1); LYMPHOCYTES # (AUTO) 0.9 K/uL (1.0-4.8); LYMPHOCYTES % (AUTO) 12.9 % (21.0-51.0); MEAN CORPUSCULAR HEMOGLOBIN 31.4 pg (27.0-33.0); MEAN CORPUSCULAR HGB CONC 34.5 g/dL (32.0-36.0); MONOCYTES # (AUTO) 0.2 K/uL (0.1-1.0); MONOCYTES % (AUTO) 2.8 % (3.0-13.0); NEUTROPHILS # (AUTO) 5.5 K/uL (1.8-7.7); NEUTROPHILS % (AUTO) 82.2 % (40.0-77.0); PLATELET COUNT (AUTO) 74 K/uL (130-400); RED BLOOD CELL COUNT(AUTO) 3.22 MIL/uL (4.00-5.50); RED CELL DISTRIBUTION WIDTH 14.5 % (11.0-15.5); WHITE BLOOD COUNT (AUTO) 6.7 K/uL (4.8-10.8)
[2024-12-17 05:13] LABS: ALBUMIN 1.5 g/dL (3.5-5.0); BILIRUBIN,TOTAL 0.5 mg/dL (0.2-1.0); CREATININE 0.5 mg/dL (0.5-1.0); MAGNESIUM 2.3 mg/dL (1.80-2.40); PHOSPHORUS 1.1 mg/dL (2.5-4.9); POTASSIUM 3.8 mmol/L (3.5-5.1); TOTAL PROTEIN, SERUM 4.1 g/dL (6.0-8.3)
--- NOTE | 2024-12-17 05:55 | NUR ---
ROUNDS PT RESTING WELL, HR ALREADY AT 112 BPM. NO DISTRESS NOTED. KEPT WARM AND DRY. FOR MORE CARE.
[2024-12-17] MEDS ORDERED: PHARMACY COMMUNICATION MISC SCH (07:30)
[2024-12-17] MEDS ORDERED: DEXTROSE 5 %-0.45 % NACL 500 ML IV SCH (07:30)
[2024-12-17] MEDS: DEXTROSE 5 %-0.45 % NACL 500 ML IV SCH (08:55)
[2024-12-17] MEDS: SOD PHOSPHATE IV ONE (08:55)
[2024-12-17] MEDS: NACL 0.9% IV ONE (08:55)
[2024-12-17] MEDS: [UNRECOGNIZED DRUG - OTHER] IV ONE (08:55)
[2024-12-17] MEDS: ZOSYN 3.375GM +NS 50ML IV SCH (09:07)
--- NOTE | 2024-12-17 10:59 | PN ---
[facility] PROGRESS NOTE Date Patient Seen: Dec 17, 2024 Time of Visit: 10:58 Supervising Physician: Pola Lowery MD Supervising Physician: Dr. Pola Lowery Primary Care Physician: Yarelis Ogden MD Outpatient Specialists: [ ] Inpatient Consults: [facility]UL[facility] , Dr Esperanza Naranjo MD Attending: Carlos Real MD PROBLEM LIST: Sepsis 2/2 Pneumonia and Acute complicated Cystitis Right upper lobe cavitation TB rule out, POA - pending bronchoscopy for tomorrow 12/16/24 Hypothermia, POA , resolved 2/2 sepsis Hypoglycemia episodes Acute thrombocytopenia Failure to thrive pending GI for G-tube eval Community-acquired pneumonia with acute hypoxemic respiratory failure, POA Suspected aspiration, POA Acute complicated cystitis, POA + Proteus Mirabiis Frailty/debility, POA History of chronic contractures of bilateral lower extremities, POA Unstageable decubitus ulcers to right hip POA Intellectual disability, POA History of scoliosis, POA History of microcephaly, POA History of ADHD, POA History of aggression, POA Nonverbal Plan summary: Continue IV antibiotics Follow ID recommendations Maintain normal thermic as much as possible Plan for bronchoscopy for BAL of right upper lobe to rule out TB tomorrow in endo lab approximately 11 30 Continue tube feedings INTERVAL HISTORY: Pt is awake alert but nonverbal. Sitter at bedside. She continues with the episodes of hypothermia but improving. She is hemodynamically and saturating 98% on room air. Urine output 4.1 L in last 24 hours. WBCs have normalized H&H stable 10.1/29.3 and neutrophils 82.2 decreasing. Kidneys are doing well creatinine of 0.5 GFR 120 phosphorus of 1.1, albumin of 1.5 total protein of 4.1 and CRP of 59.20. Plan is for scheduled bronchoscopy in the endo lab tomorrow approximately 11:30. REVIEW OF SYSTEMS: UNABLE TO OBTAIN DUE TO PATIENT IS NONVERBAL. INTELLECTUAL DISABILITY. PHYSICAL EXAM: GENERAL: Awake to voice nonverbal, intellectually disabled microcephaly. HEENT: Sclera non icteric, dry mucosa NECK: Supple, no JVD, trachea midline LUNGS: Coarse rhonchi breath sounds bilaterally. No wheezes HEART: Regular rate and rhythm. Normal S1 and S2, without murmurs ABD: Cachectic, flat, nontender. Bowel sounds present EXT: Contractions to upper and lower extremities, right hip unstageable pressure ulcer with a black eschar NEURO: Awake to voice, nonverbal and chronically ill with upper and lower extremity contractures. Vital Signs (last 8hr) Date Time Temp Pulse Resp B/P (MAP) Pulse Ox O2 Delivery O2 Flow Rate FiO2 12/17/24 10:21 96.1 12/17/24 07:29 95.5 112 18 108/69 93 Room Air 12/17/24 06:27 97.3 12/17/24 06:27 95.5 12/17/24 03:25 97.9 148 16 100/64 95 Room Air LABS: Hematology Labs: Test 12/17/24 04:26 12/16/24 04:03 Range/Units White Blood Count 6.7 # 4.8-10.8 K/uL Red Blood Count 3.22 L 4.00-5.50 MIL/uL Hemoglobin 10.1 L 12.0-16.0 g/dL Hematocrit 29.3 L 36-48 % Mean Corpuscular Volume 91.0 79-99 fL Mean Corpuscular Hemoglobin 31.4 27.0-33.0 pg Mean Corpuscular Hemoglobin Concent 34.5 32.0-36.0 g/dL Red Cell Distribution Width 14.5 11.0-15.5 % Platelet Count 74 #L 130-400 K/uL Mean Platelet Volume 9.7 7.5-10.5 fL Immature Granulocyte % (Auto) 0.6 0-1 % Neutrophils (%) (Auto) 82.2 H 40.0-77.0 % Lymphocytes (%) (Auto) 12.9 L 21.0-51.0 % Monocytes (%) (Auto) 2.8 L 3.0-13.0 % Eosinophils (%) (Auto) 1.2 0.0-8.0 % Basophils (%) (Auto) 0.3 0.0-5.0 % Neutrophils # (Auto) 5.5 1.8-7.7 K/uL Lymphocytes # (Auto) 0.9 L 1.0-4.8 K/uL Monocytes # (Auto) 0.2 0.1-1.0 K/uL Eosinophils # (Auto) 0.08 0.00-0.70 K/uL Basophils # (Auto) 0.02 0.00-0.20 K/uL Absolute Immature Granulocyte (auto 0.04 0-1 K/uL Nucleated Red Blood Cells 0.0 0.0-0.19 % Erythrocyte Sedimentation Rate 20 0-20 MM/HR Platelet Morphology See comments Chemistry Labs: Test 12/17/24 04:26 12/17/24 00:17 12/16/24 19:37 12/16/24 13:23 Range/Units Sodium Level 143 136-145 mmol/L Potassium Level 3.8 3.5-5.1 mmol/L Chloride Level 111 101-111 mmol/L Carbon Dioxide Level 29 21-32 mmol/L Blood Urea Nitrogen 13 7-18 mg/dL Creatinine 0.5 0.5-1.0 mg/dL Glomerular Filtration Rate Calc 120 >90 mL/min Random Glucose 92 70-105 mg/dL Lactic Acid Level 1.3 0.8-2.5 mmol/L Total Calcium 7.7 L 8.5-10.1 mg/dL Phosphorus Level 1.1 L 2.5-4.9 mg/dL Magnesium Level 2.30 1.80-2.40 mg/dL Total Bilirubin 0.5 # 0.2-1.0 mg/dL Aspartate Amino Transf (AST/SGOT) 56 H 10-37 U/L Alanine Aminotransferase (ALT/SGPT) 64 12-78 U/L Alkaline Phosphatase 104 50-136 U/L C-Reactive Protein, Quantitative 59.20 H 0.5-3.0 mg/L Total Protein 4.1 L 6.0-8.3 g/dL Albumin 1.5 L 3.5-5.0 g/dL Whole Blood Glucose 181 #H 70-110 MG/DL Troponin I High Sensitivity 6 4-50 ng/L B-Type Natriuretic Peptide 72 0-100 pg/mL Procalcitonin 0.20 0.05-0.5 ng/mL Ammonia < 10 L 11-32 umol/L Test 12/16/24 13:20 12/16/24 04:03 Range/Units Bedside Glucose Comment Notified Nurse Serum Test, Qualitative NEGATIVE NEGATIVE Coagulation Labs: Test 12/15/24 17:45 Range/Units Prothrombin Time 14.0 H 9.6-11.6 SEC Prothromb Time International Ratio 1.36 H 0.85-1.15 Activated Partial Thromboplast Time 46.0 H 26.3-35.5 SEC DIAGNOSTICS / RADIOLOGY RESULTS: [ ] PLAN NEURO: Minimize central acting medications as possible. Maintain fall precautions, adequate lighting during the day PULMONARY: Supplemental 02 as needed. Maintain aspiration precautions at all times CARDIOVASCULAR: Follow hemodynamics. Vital signs per facility protocol GI & NUTRITION: Continue with nutritional support. Continue stool softeners and laxatives as needed. KIDNEYS & ELECTROLYTES: Strict monitoring of intake, output and overall fluid balance. Avoid nephrotoxic medications to the extent possible. Medications to be dosed according to renal function. Monitor electrolytes and replace as needed ENDOCRINE: Maintain blood glucose between 100-180 at all times. Hypoglycemia protocol in place INFECTIOUS DISEASE: Trend temperature, WBC and procalcitonin level Follow cultures, deescalate antibiotics as soon as possible. Panculture if new onset fever ONCOLOGY/HEMATOLOGY/COAGULATION: Monitor for s/s of bleeding Monitor hemoglobin, coagulation studies as needed SKIN: Pressure ulcer prevention per facility protocol Specialty mattress ORTHO/REHAB: Continue PT/OT Prophylaxis: Continue GI and DVT prophylaxis Code Status: Full Resuscitation Disposition: TBD Other: Total patient care time exceeds 35 minutes excluding all procedures. ATTESTATION BY PHYSICIAN I attest that I reviewed and discussed the case with the Physician Roll Clamp Operator as well as agree with the Physician Roll Clamp Operator's findings, plans of care, and documentation above. Pola Burgos MD, NELLY J [employer] JUST[employer] DEPARTMENT CHAIR Dec 17, 2024 10:59
[2024-12-17 12:37] LABS: ABG BASE EXCESS 2.9 mmol/L (-2.0-3.0); ABG HCO3 27.1 mmol/L (21.0-28.0); ABG OXYGEN SATURATION 96.5 % (94.0-98.0); ABG PCO2 40 mmHg (32-45); ABG PH 7.448 (7.350-7.450); DEVICE COMMENT LUCIA FNP; VENT MODE, BG ROOM AIR (ROOM AIR)
--- NOTE | 2024-12-17 13:12 | PN ---
[facility] PROGRESS NOTE Date of Service: Dec 17, 2024 Time of Service: 13:06 SUBJECTIVE: 12/14 patient seen at bedside, no acute events overnight. Patient was seen at bedside, she does not participate in the medical interview. She does not appear to be in any acute distress. She is on pressors, we will continue to wean as able. Sodium improved from 150 down to 146, remainder of her labs are relatively unremarkable. Urine growing bacteria, we will continue with empiric antibiotics 12/15/24 Patient sen and examined. Care discussed with RN No acute overnight events. Follow cultures/continue antibiotics. 12/16 patient seen at bedside, no acute events overnight. Pulmonology was pending bronchoscopy to obtain samples to test for tuberculosis however patient became hypothermic and somnolent. Repeat labs, ABG were ordered however no abnormalities were noted. Lactic acid was normal, sodium had mildly decreased from 142 down to 134, ammonia was within normal limits. She was started on a Halina Hugger and bolused fluids, her temperature began to improve and she was more awake. Her phosphorus is low at 1.8 and given her constitution this is concerning for refeeding syndrome, we will continue to monitor closely. 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 RN reports blood pressure 109/65, respirations, 98% on nasal cannula. RN reports that patient has was a rapid response earlier, has been on the Halina Hugger all day with no improvement of the temperature, and now is tachycardic. I went to assess the patient at bedside. The patient's breathing was even, unlabored, and lethargic. The patient is nonverbal, moans with touch. The patient was receiving feedings per NG and IV fluids. Stat ABGs, blood work were done. Remarkable lab results: Lactic acid increased from 1.04 to 1.59. Phos was 1.6, magnesium 1.9, total protein 4.3, albumin 1.6. ABGs on room air: PO2 58.4, ABG O2 saturation 89.2. (PO2 this morning was 91.5). The patient was placed back on 2 L nasal cannula, increased bear hugger to 30� C from 32� C. Electrolytes were replaced. Telemetry pack was order. We will continue monitoring patient closely. 12/17/2024 0315: Addendum: Reassessed the patient multiple times. Her temperature improved, remained tachycardic, despite a total of a 1500 mL bolus of LR. BP ranging systolic 98-105. The patient had a hypoglycemic episode at 11:54 p.m., blood glucose was 51, despite being of feedings. Change fluids to D5 W at 75 mL an hour. We will continue monitoring patient closely. 06:00 Reassessed the patient before off of my shift HR had improved to 112-116. b/p low 100s systolic. 12/17 patient seen at bedside, temperature has improved. She continues to be tachycardic, hemodynamically stable saturating well on room air. Hemoglobin stable at 10.1, similar to yesterday, her phosphate is very low at 1.1. She is much more awake and interactive today compared to yesterday. The constellation of symptoms with hypothermia, tachycardia and even the altered mental status are likely secondary to refeeding syndrome. The patient is not septic, her ammonia is at normal levels, lactic acid is at normal levels, CO2 is at normal levels she has been adequately resuscitated with fluids. She will be repleted with IV phosphate, her tube feeds we will be reduced to trickle feeds at 10 cc/hour before attempting to increase the feed rate. If her tachycardia improves with these changes then tomorrow we will attempt to increase the rate of her tube feeds. REVIEW OF SYSTEMS: Patient is obtunded, unable to obtain ROS. Patient is nonverbal, only moans. PHYSICAL EXAM GENERAL APPEARANCE: The patient is obtunded, very frail, cachectic, contrac tures noted of the lower extremities NEUROLOGICAL: The patient response to painful stimuli, moans when touched, is nonverbal. Does not follow command. HEENT: Face is symmetric. Pupils are equal and reactive. Extraocular movements are intact. NECK: Supple. No JVD. No thyromegaly. No submental, submandibular, pre- /postauricular, occipital or supraclavicular lymphadenopathy. CHEST: Normal chest expansion. No Telemetry. LUNGS: Absence of any rales, rhonchi or any wheezing. CARDIOVASCULAR: Regular. Tachycardic. No appreciable rubs, murmurs or gallops. ABDOMEN: Soft, nontender, and nondistended. There is no rebound, voluntary guarding, or rigidity. : Deferred. No Clark. EXTREMITIES: Contractures to bilateral lower extremity. Non-edematous and not cyanotic. No clubbing. Good capillary refill. SKIN: No skin breakdown. Vital Signs (last 8hr) Date Time Temp Pulse Resp B/P (MAP) Pulse Ox O2 Delivery O2 Flow Rate FiO2 12/17/24 11:32 94.5 92 14 113/76 96 Room Air 12/17/24 10:21 96.1 12/17/24 07:29 95.5 112 18 108/69 93 Room Air 12/17/24 07:00 111 18 N/A Room Air 21 12/17/24 06:27 97.3 12/17/24 06:27 95.5 LABS: Laboratory: Test 12/17/24 12:36 12/17/24 04:26 12/17/24 00:17 12/16/24 19:37 Range/Units Blood Gas Specimen Type Arterial Arterial Blood pH 7.448 7.350-7.450 Arterial Blood Partial Pressure CO2 40 32-45 mmHg Arterial Blood Partial Pressure O2 82.0 L 83.0-108.0 mmHg Arterial Blood HCO3 27.1 21.0-28.0 mmol/L Arterial Blood Oxygen Saturation 96.5 94.0-98.0 % Arterial Blood Base Excess 2.9 -2.0-3.0 mmol/L Blood Gas Temperature 37.0 35.5-37.0 CELSIUS Blood Gas Vent Mode ROOM AIR ROOM AIR FiO2 21.0 % Blood Gas Specimen Comment CHE PSYCHOLOGY FELLOW White Blood Count 6.7 # 4.8-10.8 K/uL Red Blood Count 3.22 L 4.00-5.50 MIL/uL Hemoglobin 10.1 L 12.0-16.0 g/dL Hematocrit 29.3 L 36-48 % Mean Corpuscular Volume 91.0 79-99 fL Mean Corpuscular Hemoglobin 31.4 27.0-33.0 pg Mean Corpuscular Hemoglobin Concent 34.5 32.0-36.0 g/dL Red Cell Distribution Width 14.5 11.0-15.5 % Platelet Count 74 #L 130-400 K/uL Mean Platelet Volume 9.7 7.5-10.5 fL Immature Granulocyte % (Auto) 0.6 0-1 % Neutrophils (%) (Auto) 82.2 H 40.0-77.0 % Lymphocytes (%) (Auto) 12.9 L 21.0-51.0 % Monocytes (%) (Auto) 2.8 L 3.0-13.0 % Eosinophils (%) (Auto) 1.2 0.0-8.0 % Basophils (%) (Auto) 0.3 0.0-5.0 % Neutrophils # (Auto) 5.5 1.8-7.7 K/uL Lymphocytes # (Auto) 0.9 L 1.0-4.8 K/uL Monocytes # (Auto) 0.2 0.1-1.0 K/uL Eosinophils # (Auto) 0.08 0.00-0.70 K/uL Basophils # (Auto) 0.02 0.00-0.20 K/uL Absolute Immature Granulocyte (auto 0.04 0-1 K/uL Nucleated Red Blood Cells 0.0 0.0-0.19 % Erythrocyte Sedimentation Rate 20 0-20 MM/HR Sodium Level 143 136-145 mmol/L Potassium Level 3.8 3.5-5.1 mmol/L Chloride Level 111 101-111 mmol/L Carbon Dioxide Level 29 21-32 mmol/L Blood Urea Nitrogen 13 7-18 mg/dL Creatinine 0.5 0.5-1.0 mg/dL Glomerular Filtration Rate Calc 120 >90 mL/min Random Glucose 92 70-105 mg/dL Lactic Acid Level 1.3 0.8-2.5 mmol/L Total Calcium 7.7 L 8.5-10.1 mg/dL Phosphorus Level 1.1 L 2.5-4.9 mg/dL Magnesium Level 2.30 1.80-2.40 mg/dL Total Bilirubin 0.5 # 0.2-1.0 mg/dL Aspartate Amino Transf (AST/SGOT) 56 H 10-37 U/L Alanine Aminotransferase (ALT/SGPT) 64 12-78 U/L Alkaline Phosphatase 104 50-136 U/L C-Reactive Protein, Quantitative 59.20 H 0.5-3.0 mg/L Total Protein 4.1 L 6.0-8.3 g/dL Albumin 1.5 L 3.5-5.0 g/dL Whole Blood Glucose 181 #H 70-110 MG/DL Troponin I High Sensitivity 6 4-50 ng/L B-Type Natriuretic Peptide 72 0-100 pg/mL Procalcitonin 0.20 0.05-0.5 ng/mL Test 12/16/24 19:34 12/16/24 13:23 12/16/24 13:20 12/16/24 04:03 Range/Units Hemoglobin (Blood Gas) 11.5 L 12.0-16.0 g/dL Sodium (Blood Gas) 140 136-145 MMOL/L Bedside Potassium (Blood Gas) 3.4 3.4-4.5 MMOL/L Bedside Chloride (Blood Gas) 110 H 98-107 MMOL/L Bedside Glucose (Blood Gas) 99 H 65-95 MG/DL Bedside Ionized Calcium (Blood Gas) 1.17 1.15-1.33 MMOL/L Bedside Lactic Acid (Blood Gas) 1.59 H 0.36-0.75 MMOL/L Ammonia < 10 L 11-32 umol/L Bedside Glucose Comment Notified Nurse Platelet Morphology See comments Serum Test, Qualitative NEGATIVE NEGATIVE Test 12/15/24 17:45 Range/Units Prothrombin Time 14.0 H 9.6-11.6 SEC Prothromb Time International Ratio 1.36 H 0.85-1.15 Activated Partial Thromboplast Time 46.0 H 26.3-35.5 SEC Current Medications Medications (Trade) Dose Ordered Sig/Castillo Route PRN Reason Start Time Stop Time Status Last Admin Dose Admin Acetaminophen (TYLenol 325MG ELIXIR) 325 mg Q6H PRN PO MILD PAIN (1-3) 12/13/24 15:00 01/12/25 14:59 12/16/24 23:50 325 MG Acetaminophen (TYLenol 500MG TAB) 500 mg Q4PRN PRN PO FEVER 12/15/24 10:30 01/14/25 10:29 Acetaminophen (TYLenol 500MG TAB) 500 mg Q4PRN PRN PO PAIN 12/15/24 10:30 01/14/25 10:29 Acetylcysteine (MUComyst 20% 4ML) 400mg = 2ml [id number] IH 12/14/24 18:00 01/13/25 17:59 12/17/24 07:06 800 MG Albumin Human 50 ml @ 0 mls/hr AD IV 12/14/24 10:00 12/19/24 09:59 12/14/24 11:14 50 MLS/HR Albuterol (DUOneb) 1 udvial Q6H PRN IH SHORTNESS OF BREATH 12/13/24 15:30 01/12/25 15:29 12/17/24 07:06 1 UDVIAL Bisacodyl (DulcoLAX) 10 mg DAILY RC 12/16/24 09:00 12/19/24 08:59 12/17/24 09:08 10 MG Budesonide (Pulmicort 0.5 Mg/2ml) 0.5 mg BIDRESP IH 12/13/24 18:00 01/12/25 17:59 12/17/24 07:06 0.5 MG Buspirone HCl (BUspar) 15 mg TID PO 12/15/24 14:00 01/14/25 13:59 12/17/24 09:07 15 MG Dextrose 500 ml @ 0 mls/hr Q0M IV 12/16/24 12:30 12/17/24 07:15 DC 12/16/24 12:30 999 MLS/HR Dextrose 1,000 ml @ 75 mls/hr [id number] IV 12/13/24 15:00 12/16/24 14:30 DC 12/16/24 10:16 75 MLS/HR Dextrose 1,000 ml @ 75 mls/hr [id number] IV 12/17/24 01:00 12/17/24 07:15 DC 12/17/24 00:50 75 MLS/HR Dextrose (D50w) 50 ml AD PRN IV HYPOGLYCEMIA PROTOCOL 12/13/24 15:00 01/12/25 14:59 12/17/24 00:00 50 ML Dextrose/Sodium Chloride 500 ml @ 75 mls/hr Q6H40M IV 12/17/24 07:30 12/17/24 07:20 DC Dextrose/Sodium Chloride 500 ml @ 75 mls/hr Q6H40M IV 12/17/24 07:30 01/16/25 07:29 12/17/24 08:55 75 MLS/HR Doxycycline Hyclate 250 ml @ 125 mls/hr Q12H IV 12/13/24 15:30 12/17/24 07:20 DC 12/17/24 03:24 125 MLS/HR Enoxaparin Sodium (Lovenox) 30 mg DAILY SQ 12/14/24 09:00 12/15/24 09:05 DC 12/14/24 08:46 30 MG Enoxaparin Sodium (Lovenox) 30 mg DAILY SQ 12/16/24 09:00 12/15/24 13:22 DC Folic Acid (FOLic ACID 1 MG TABLET) 1 mg DAILY PO 12/18/24 09:00 01/17/25 08:59 Glucagon (Glucagon 1mg Kit) 1 mg AD PRN IM HYPOGLYCEMIA PROTOCOL 12/13/24 15:00 01/12/25 14:59 Guaifenesin/ Dextromethorphan (RobiTUSSin DM 200/20MG 10ML) 10 ml Q4H PRN PO COUGH 12/15/24 11:00 01/14/25 10:59 Home Med (Home Medication) (Cholecalciferol (Vitamin D3) 25 MCG) DAILY PO 12/16/24 09:00 01/15/25 08:59 Lactated Ringer's 1,000 ml @ 75 mls/hr [id number] IV 12/16/24 23:30 12/17/24 00:30 DC 12/16/24 23:34 75 MLS/HR Lactated Ringer's 1,000 ml @ 100 mls/hr Q10H IV 12/13/24 15:00 12/13/24 15:18 DC Lactated Ringer's (Lactated Ringers 1000ml) 500 ml BOLUS IV 12/17/24 00:30 01/16/25 00:29 Leptospermum Honey (Medihoney) 1 appl DAILY TP 12/15/24 09:00 01/14/25 08:59 12/17/24 09:08 1 APPL Lorazepam (AtiVAN) 0.5 mg DAILYDINNER PO 12/15/24 17:00 01/14/25 16:59 12/15/24 21:46 0.5 MG Magnesium Sulfate 50 ml @ 0 mls/hr PROTOCOL IV 12/13/24 21:30 01/12/25 21:29 12/16/24 23:35 25 MLS/HR Meropenem (Merrem 1gm) 1 gm Q8H IVPB 12/13/24 16:00 12/17/24 07:37 DC 12/16/24 23:45 1 GM Miscellaneous Medication (Ondansetron HCl ) 8 mg TID PO 12/15/24 14:00 12/15/24 10:43 DC Multivitamins Therapeutic (Multivitamin Tablet) 1 tab DAILY PO 12/18/24 09:00 01/17/25 08:59 Norepinephrine 250 ml @ 0 mls/hr PROTOCOL IV 12/13/24 14:30 12/15/24 14:26 DC 12/14/24 07:35 25.3 MLS/HR Ondansetron HCl (zoFRAN 4MG INJ) 4 mg Q6H PRN IVP NAUSEA/VOMITING 12/13/24 16:30 01/12/25 16:29 Pantoprazole Sodium (PROTonix 40MG INJ) 40 mg Q24H IVP 12/13/24 15:00 01/12/25 14:59 12/16/24 15:08 40 MG Pharmacy Profile Note (Pharmacy Communication) 1 each ONCE MISC 12/13/24 15:00 12/13/24 15:28 DC Pharmacy Profile Note (Pharmacy Communication) 1 each ONCE MISC 12/17/24 07:30 12/17/24 08:12 DC Piperacillin Sod/ Tazobactam Sod (Zosyn 3.375gm+NS 50ml) 3.375 gm Q8H IV 12/17/24 08:00 12/27/24 07:59 12/17/24 09:07 3.375 GM Polyethylene Glycol (MIRalax 3350 17 GM POWD.PACK) 17 gm DAILY PO 12/16/24 09:00 01/15/25 08:59 12/17/24 09:08 17 GM Potassium Phosphate 250 ml @ 42 mls/hr PROTOCOL IV 12/15/24 05:30 12/15/24 10:19 DC 12/15/24 05:59 42 MLS/HR Potassium Chloride 100 ml @ 50 mls/hr AD PRN IV POTASSIUM PROTOCOL 12/13/24 21:30 01/12/25 21:29 12/16/24 22:30 50 MLS/HR Potassium Chloride 100 ml @ 50 mls/hr AD PRN IV POTASSIUM PROTOCOL 12/15/24 14:30 01/14/25 14:29 Potassium Chloride 100 ml @ 100 mls/hr AD PRN IV POTASSIUM PROTOCOL 12/15/24 14:30 01/14/25 14:29 Potassium Chloride (K-Dur/Klor-Con 20meq) 20 meq AD PRN PO POTASSIUM PROTOCOL 12/15/24 14:30 01/14/25 14:29 Potassium Chloride (KCl 10% Elixir 20meq/15ml) 20 meq AD PRN PO POTASSIUM PROTOCOL 12/15/24 14:30 01/14/25 14:29 12/15/24 22:57 20 MEQ Quetiapine Fumarate (SEROquel 100 mg TAB) 200 mg BID PO 12/15/24 21:00 01/14/25 20:59 12/17/24 09:08 200 MG Sodium Chloride 1,000 ml @ 75 mls/hr [id number] IV 12/16/24 14:30 12/16/24 22:18 DC 12/16/24 15:08 75 MLS/HR Thiamine HCl (Vitamin B-1) 300 mg Q24H IVP 12/13/24 15:00 01/12/25 14:59 12/16/24 15:08 300 MG Venlafaxine HCl (EffEXOR XR 37.5mg CAP) 75 mg DAILY PO 12/16/24 09:00 01/15/25 08:59 12/17/24 09:07 75 MG DIAGNOSTICS / RADIOLOGY: [ ] ASSESSMENT: Hypothermia, POA, in need of bare hugger Acute hypoxemic respiratory failure, POA Refeeding syndrome, POA Recurrent hypoglycemic episodes Septic shock, POA (2/2 community-acquired pneumonia and complicated UTI) Toxic metabolic encephalopathy with obtundation, POA Community-acquired pneumonia with acute hypoxemic respiratory failure, POA Acute complicated cystitis, POA Frailty/debility, POA Acute UTI, Proteus, POA History of chronic contractures of bilateral lower extremities, POA Unstageable decubitus ulcer involving the left hip, POA Cachexia, POA History of severe intellectual disability, POA History of scoliosis, POA History of microcephaly, POA History of ADHD, POA History of aggression, POA PLAN: The patient is in medical floor. Continue telemetry pack. Continue with the Halina Hugger as needed NG tube in place, continue continuous tube feedings. Give trickle feeds at 10cc/hr, until tachycardia improves Start IV phosphate repletion Patient will be kept strictly NPO and on aspiration precautions, NGT feedings only. We will maintain POCT blood glucose check q.4 hours, we will maintain blood glucose greater than 70. Continue Broad-spectrum antibiotics with IV meropenem and doxycycline Monitor respirations status closely. Place patient on 2 L nasal cannula due to hypoxemia. Urine growing proteus Patient will be placed on air mattress, offloading measures, wound care will be requested. Patient has a 1:1 sitter due to removes NGT/lines. May use mittens. Infectious Disease consulted, appreciate recommendations Reposition the patient every 2 hours and p.r.n.. Disposition: Pending improvement in clinical status SEVEN KIRKLAND MD Dec 17, 2024 13:12
--- NOTE | 2024-12-17 20:00 | NUR ---
MEDS SHIFT ASSESSMENT DONE, PLEASE REFER TO CHART. CHECKED NGT FOR RESIDUAL, NONE FOUND. DUE PO MEDS GIVEN VIA NGT. CONTINUED VITAL AF 1.2 FEEDING AT 10CC/HR. KEPT COMFORTABLE IN BED WITH HOB ELEVATED. KEPT ON BEAR HUGGER PT'S RECTAL TEMPERATURE STILL AT 95.8 DEGREES. SITTER AT BEDSIDE KEEPING CLOSE WATCH ON PT.
--- NOTE | 2024-12-17 21:46 | PN ---
INFECTIOUS DISEASE FOLLOWUP NOTE DATE OF SERVICE: 12/17/2024 SUBJECTIVE: The patient is seen and examined at bedside today. The patient has no fever, no chills. The patient is nonverbal, bedbound, warming blanket. PHYSICAL EXAMINATION: VITAL SIGNS: Temperature 95.5. EYES: No icterus. Pupils are equal and reactive. HENT: No oral thrush seen. Moist oral mucosa. NECK: Supple. No JVD or thyromegaly. LUNGS: Crackles bilaterally. No rhonchi. CARDIOVASCULAR: S1 and S2 regular. No murmur heard. ABDOMEN: Full, soft, bowel sound is present. CENTRAL NERVOUS SYSTEM: The patient is encephalopathic. No ____. SKIN: No rashes, no itchiness. LYMPHATIC: No peripheral lymphadenopathy. BACK: No deformity, contracted. There is scoliosis. Hip ulcer non-stageable involving the left hip. ASSESSMENT: A 44-year-old female with multiple problems include: * Septic shock. * Pneumonia. * UTI. * Malnutrition. * Right hip ulcer. * Right lung cavitary lesion. * Mental retardation. PLAN: * Continue wound care. * Continue pain management. * Continue meropenem. * Continue doxycycline. * Continue GI prophylaxis. * Monitor electrolytes. * The patient will be followed up closely. * Continue oxygen. TID: [id number] RECEIPT: [id number] MTDD
[2024-12-18] VITALS (43 sets, daily range): BP systolic 79–128; BP diastolic 37–81; PULSE 56–120; RESP 15–20; TEMP 94.1–97.6; O2SAT 95–96
--- NOTE | 2024-12-18 | NUR ---
NPO PT'S RECTAL TEMPERATURE =97.5 DEGREES. PT IS TACHYCARDIC WITH QU=[phone] BMP. REMOVED BEAR HUGGER BUT KEPT PT WARM AND DRY. CHECKED NGT FOR RESIDUAL, NONE FOUND. WATER FLUSHES GIVEN THEN TURNED OFF FEEDING TO KEEP PT NPO FOR PROCEDURE IN AM. SITTER KEEPING PT ON CLOSE WATCH.
[2024-12-18 05:20] LABS: HEMATOCRIT 27.7 % (36-48); MEAN CORPUSCULAR HEMOGLOBIN 30.7 pg (27.0-33.0); MEAN CORPUSCULAR HGB CONC 33.9 g/dL (32.0-36.0); MEAN CORPUSCULAR VOLUME 90.5 fL (79-99); PLATELET COUNT (AUTO) 59 K/uL (130-400); RED BLOOD CELL COUNT(AUTO) 3.06 MIL/uL (4.00-5.50); RED CELL DISTRIBUTION WIDTH 14.6 % (11.0-15.5); WHITE BLOOD COUNT (AUTO) 5.2 K/uL (4.8-10.8)
[2024-12-18 05:31] LABS: INR 1.19 (0.85-1.15); PROTHROMBIN TIME 12.4 SEC (9.6-11.6)
[2024-12-18 05:32] LABS: PARTIAL THROMBOPLASTIN TIME 43.7 SEC (26.3-35.5)
[2024-12-18 05:42] LABS: CREATININE 0.3 mg/dL (0.5-1.0); MAGNESIUM 1.4 mg/dL (1.80-2.40); PHOSPHORUS 1.4 mg/dL (2.5-4.9)
[2024-12-18 05:51] LABS: POTASSIUM 2.8 mmol/L (3.5-5.1)
--- NOTE | 2024-12-18 05:55 | NUR ---
REPLACE PT SLEPT AT INTERVALS DURING THE SHIFT. CALM AND QUITE AT THIS TIME. KCL AND MG REPLACEMENTS STARTED IV. KEPT NPO FOR PROCEDURE. FOR MORE CARE.
[2024-12-18] MEDS ORDERED: PHARMACY COMMUNICATION MISC SCH (08:00)
[2024-12-18] MEDS: FOLic ACID 1 MG TABLET PO SCH (09:00)
[2024-12-18] MEDS: MULTIVITAMIN TABLET PO SCH (09:00)
[2024-12-18] MEDS: POTASSIUM PHOSP IV ONE (09:25)
[2024-12-18] MEDS: NACL 0.9% IV ONE (09:25)
--- NOTE | 2024-12-18 09:42 | PN ---
GASTROENTEROLOGY PROGRESS NOTE Date of Visit: Dec 18, 2024 Time of Visit: 09:41 Events / Notes: No acute events overnight. Patient stable. Pending to r/o TB. No other GI issues. Denies fever, chills, abdominal pain, N/V, hematemesis, bloating, constipation, diarrhea, melena or hematochezia. Review of Systems: CONSTITUTIONAL: No malaise or change in sensation of wellbeing. ENMT: No rhinorrhea, otorrhea, sinus pain, ear ache. CARDIOVASCULAR: No angina, palpitations, orthopnea or paroxysmal dyspnea. RESPIRATORY: No SOB. GASTROINTESTINAL: No abdominal pain, nausea, vomiting, diarrhea, hematemesis, melena or change in the patient's habitual bowel movements consistency/number. GENITOURINARY: No dysuria, hematuria or change in bladder continence. MUSCULOSKELETAL: No new muscle pain or decrease in muscular strength. No new joint swelling, redness or tenderness. SKIN: No new rash. Physical Exam: GEN: Awake, alert, oriented in person, time and place, and in no acute distress. HEENT: No sinus tenderness. Tympanic membranes were not examined. No rhinorrhea. Oral pharyngeal mucosa is pink, moist and within normal limits. Neck is supple with no cervical lymphadenopathy, thyromegaly or JVD. CHEST: Inspection, palpation and percussion of the chest were unremarkable. Lung auscultation revealed normal breath sounds bilaterally. CARDIAC: PMI is within normal limits. Heart sounds are regular. Normal S1, S2. No gallop or murmur. ABD: Soft, non-tender and not distended. No peritoneal signs on palpation. No organomegaly. Normal bowel sounds. EXT: No cyanosis or clubbing. No edema. SKIN: Intact. No rashes. JOINTS: No evidence of synovitis or acute arthritis. NEURO: Alert and oriented to name, place and person. Cranial nerve examination is unremarkable. No focal motor deficits. Normal speech. Gait is normal. Strength is normal. Vital Signs (last 8hr) Date Time Temp Pulse Resp B/P (MAP) Pulse Ox O2 Delivery O2 Flow Rate FiO2 12/18/24 07:37 96.1 81 17 95/55 93 Room Air 12/18/24 06:28 102 19 12/18/24 06:27 102 18 N/A Room Air 21 12/18/24 04:00 97.2 102 20 99/62 95 Room Air Laboratory: [ ] Laboratory: Test 12/18/24 04:39 12/18/24 04:00 12/17/24 12:36 12/17/24 04:26 Range/Units White Blood Count 5.2 4.8-10.8 K/uL Red Blood Count 3.06 L 4.00-5.50 MIL/uL Hemoglobin 9.4 L 12.0-16.0 g/dL Hematocrit 27.7 L 36-48 % Mean Corpuscular Volume 90.5 79-99 fL Mean Corpuscular Hemoglobin 30.7 27.0-33.0 pg Mean Corpuscular Hemoglobin Concent 33.9 32.0-36.0 g/dL Red Cell Distribution Width 14.6 11.0-15.5 % Platelet Count 59 L 130-400 K/uL Mean Platelet Volume 9.4 7.5-10.5 fL Nucleated Red Blood Cells 0.0 0.0-0.19 % Platelet Morphology Comment See comments Prothrombin Time 12.4 H 9.6-11.6 SEC Prothromb Time International Ratio 1.19 H 0.85-1.15 Activated Partial Thromboplast Time 43.7 H 26.3-35.5 SEC Sodium Level 143 136-145 mmol/L Potassium Level 2.8 *L 3.5-5.1 mmol/L Chloride Level 108 101-111 mmol/L Carbon Dioxide Level 34 H 21-32 mmol/L Blood Urea Nitrogen 8 7-18 mg/dL Creatinine 0.3 L 0.5-1.0 mg/dL Glomerular Filtration Rate Calc 136 >90 mL/min Random Glucose 83 70-105 mg/dL Total Calcium 7.4 L 8.5-10.1 mg/dL Phosphorus Level 1.4 L 2.5-4.9 mg/dL Magnesium Level 1.40 L 1.80-2.40 mg/dL Whole Blood Glucose 95 70-110 MG/DL Blood Gas Specimen Type Arterial Arterial Blood pH 7.448 7.350-7.450 Arterial Blood Partial Pressure CO2 40 32-45 mmHg Arterial Blood Partial Pressure O2 82.0 L 83.0-108.0 mmHg Arterial Blood HCO3 27.1 21.0-28.0 mmol/L Arterial Blood Oxygen Saturation 96.5 94.0-98.0 % Arterial Blood Base Excess 2.9 -2.0-3.0 mmol/L Blood Gas Temperature 37.0 35.5-37.0 CELSIUS Blood Gas Vent Mode ROOM AIR ROOM AIR FiO2 21.0 % Blood Gas Specimen Comment CHE [employer] Immature Granulocyte % (Auto) 0.6 0-1 % Neutrophils (%) (Auto) 82.2 H 40.0-77.0 % Lymphocytes (%) (Auto) 12.9 L 21.0-51.0 % Monocytes (%) (Auto) 2.8 L 3.0-13.0 % Eosinophils (%) (Auto) 1.2 0.0-8.0 % Basophils (%) (Auto) 0.3 0.0-5.0 % Neutrophils # (Auto) 5.5 1.8-7.7 K/uL Lymphocytes # (Auto) 0.9 L 1.0-4.8 K/uL Monocytes # (Auto) 0.2 0.1-1.0 K/uL Eosinophils # (Auto) 0.08 0.00-0.70 K/uL Basophils # (Auto) 0.02 0.00-0.20 K/uL Absolute Immature Granulocyte (auto 0.04 0-1 K/uL Erythrocyte Sedimentation Rate 20 0-20 MM/HR Lactic Acid Level 1.3 0.8-2.5 mmol/L Total Bilirubin 0.5 # 0.2-1.0 mg/dL Aspartate Amino Transf (AST/SGOT) 56 H 10-37 U/L Alanine Aminotransferase (ALT/SGPT) 64 12-78 U/L Alkaline Phosphatase 104 50-136 U/L C-Reactive Protein, Quantitative 59.20 H 0.5-3.0 mg/L Total Protein 4.1 L 6.0-8.3 g/dL Albumin 1.5 L 3.5-5.0 g/dL Test 12/16/24 19:37 12/16/24 19:34 12/16/24 13:23 12/16/24 13:20 Range/Units Troponin I High Sensitivity 6 4-50 ng/L B-Type Natriuretic Peptide 72 0-100 pg/mL Procalcitonin 0.20 0.05-0.5 ng/mL Hemoglobin (Blood Gas) 11.5 L 12.0-16.0 g/dL Sodium (Blood Gas) 140 136-145 MMOL/L Bedside Potassium (Blood Gas) 3.4 3.4-4.5 MMOL/L Bedside Chloride (Blood Gas) 110 H 98-107 MMOL/L Bedside Glucose (Blood Gas) 99 H 65-95 MG/DL Bedside Ionized Calcium (Blood Gas) 1.17 1.15-1.33 MMOL/L Bedside Lactic Acid (Blood Gas) 1.59 H 0.36-0.75 MMOL/L Ammonia < 10 L 11-32 umol/L Bedside Glucose Comment Notified Nurse Current Medications Medications (Trade) Dose Ordered Sig/Castillo Route PRN Reason Start Time Stop Time Status Last Admin Dose Admin Acetaminophen (TYLenol 325MG ELIXIR) 325 mg Q6H PRN PO MILD PAIN (1-3) 12/13/24 15:00 01/12/25 14:59 12/16/24 23:50 325 MG Acetaminophen (TYLenol 500MG TAB) 500 mg Q4PRN PRN PO FEVER 12/15/24 10:30 12/18/24 06:36 DC Acetaminophen (TYLenol 500MG TAB) 500 mg Q4PRN PRN PO PAIN 12/15/24 10:30 12/18/24 06:37 DC Acetylcysteine (MUComyst 20% 4ML) 400mg = 2ml [id number] IH 12/14/24 18:00 01/13/25 17:59 12/18/24 06:22 800 MG Albumin Human 50 ml @ 0 mls/hr AD IV 12/14/24 10:00 12/18/24 06:39 DC 12/14/24 11:14 50 MLS/HR Albuterol (DUOneb) 1 udvial Q6H PRN IH SHORTNESS OF BREATH 12/13/24 15:30 01/12/25 15:29 12/18/24 06:22 1 UDVIAL Bisacodyl (DulcoLAX) 10 mg DAILY RC 12/16/24 09:00 12/19/24 08:59 12/18/24 09:25 10 MG Budesonide (Pulmicort 0.5 Mg/2ml) 0.5 mg BIDRESP IH 12/13/24 18:00 01/12/25 17:59 12/18/24 06:22 0.5 MG Buspirone HCl (BUspar) 15 mg TID PO 12/15/24 14:00 01/14/25 13:59 12/17/24 20:01 15 MG Dextrose 500 ml @ 0 mls/hr Q0M IV 12/16/24 12:30 12/17/24 07:15 DC 12/16/24 12:30 999 MLS/HR Dextrose 1,000 ml @ 75 mls/hr [id number] IV 12/13/24 15:00 12/16/24 14:30 DC 12/16/24 10:16 75 MLS/HR Dextrose 1,000 ml @ 75 mls/hr [id number] IV 12/17/24 01:00 12/17/24 07:15 DC 12/17/24 00:50 75 MLS/HR Dextrose (D50w) 50 ml AD PRN IV HYPOGLYCEMIA PROTOCOL 12/13/24 15:00 01/12/25 14:59 12/17/24 00:00 50 ML Dextrose/Sodium Chloride 500 ml @ 75 mls/hr Q6H40M IV 12/17/24 07:30 12/17/24 07:20 DC Dextrose/Sodium Chloride 500 ml @ 75 mls/hr Q6H40M IV 12/17/24 07:30 01/16/25 07:29 12/17/24 21:23 75 MLS/HR Doxycycline Hyclate 250 ml @ 125 mls/hr Q12H IV 12/13/24 15:30 12/17/24 07:20 DC 12/17/24 03:24 125 MLS/HR Enoxaparin Sodium (Lovenox) 30 mg DAILY SQ 12/14/24 09:00 12/15/24 09:05 DC 12/14/24 08:46 30 MG Enoxaparin Sodium (Lovenox) 30 mg DAILY SQ 12/16/24 09:00 12/15/24 13:22 DC Folic Acid (FOLic ACID 1 MG TABLET) 1 mg DAILY PO 12/18/24 09:00 01/17/25 08:59 Glucagon (Glucagon 1mg Kit) 1 mg AD PRN IM HYPOGLYCEMIA PROTOCOL 12/13/24 15:00 01/12/25 14:59 Guaifenesin/ Dextromethorphan (RobiTUSSin DM 200/20MG 10ML) 10 ml Q4H PRN PO COUGH 12/15/24 11:00 01/14/25 10:59 Home Med (Home Medication) (Cholecalciferol (Vitamin D3) 25 MCG) DAILY PO 12/16/24 09:00 01/15/25 08:59 Lactated Ringer's 1,000 ml @ 75 mls/hr [id number] IV 12/16/24 23:30 12/17/24 00:30 DC 12/16/24 23:34 75 MLS/HR Lactated Ringer's 1,000 ml @ 100 mls/hr Q10H IV 12/13/24 15:00 12/13/24 15:18 DC Lactated Ringer's (Lactated Ringers 1000ml) 500 ml BOLUS IV 12/17/24 00:30 12/18/24 06:39 DC Leptospermum Honey (Medihoney) 1 appl DAILY TP 12/15/24 09:00 01/14/25 08:59 12/18/24 09:26 1 APPL Lorazepam (AtiVAN) 0.5 mg DAILYDINNER PO 12/15/24 17:00 01/14/25 16:59 12/17/24 16:13 0.5 MG Magnesium Sulfate 50 ml @ 0 mls/hr PROTOCOL IV 12/13/24 21:30 01/12/25 21:29 12/18/24 05:55 25 MLS/HR Meropenem (Merrem 1gm) 1 gm Q8H IVPB 12/13/24 16:00 12/17/24 07:37 DC 12/16/24 23:45 1 GM Miscellaneous Medication (Ondansetron HCl ) 8 mg TID PO 12/15/24 14:00 12/15/24 10:43 DC Multivitamins Therapeutic (Multivitamin Tablet) 1 tab DAILY PO 12/18/24 09:00 01/17/25 08:59 Norepinephrine 250 ml @ 0 mls/hr PROTOCOL IV 12/13/24 14:30 12/15/24 14:26 DC 12/14/24 07:35 25.3 MLS/HR Ondansetron HCl (zoFRAN 4MG INJ) 4 mg Q6H PRN IVP NAUSEA/VOMITING 12/13/24 16:30 01/12/25 16:29 Pantoprazole Sodium (PROTonix 40MG INJ) 40 mg Q24H IVP 12/13/24 15:00 01/12/25 14:59 12/17/24 16:13 40 MG Pharmacy Profile Note (Pharmacy Communication) 1 each ONCE MISC 12/13/24 15:00 12/13/24 15:28 DC Pharmacy Profile Note (Pharmacy Communication) 1 each ONCE MISC 12/17/24 07:30 12/17/24 08:12 DC Pharmacy Profile Note (Pharmacy Communication) 1 each ONCE MISC 12/18/24 08:00 12/18/24 08:29 DC Piperacillin Sod/ Tazobactam Sod (Zosyn 3.375gm+NS 50ml) 3.375 gm Q8H IV 12/17/24 08:00 12/27/24 07:59 12/18/24 09:25 3.375 GM Polyethylene Glycol (MIRalax 3350 17 GM POWD.PACK) 17 gm DAILY PO 12/16/24 09:00 01/15/25 08:59 12/17/24 09:08 17 GM Potassium Phosphate 250 ml @ 42 mls/hr PROTOCOL IV 12/15/24 05:30 12/15/24 10:19 DC 12/15/24 05:59 42 MLS/HR Potassium Chloride 100 ml @ 50 mls/hr AD PRN IV POTASSIUM PROTOCOL 12/13/24 21:30 01/12/25 21:29 12/18/24 05:55 50 MLS/HR Potassium Chloride 100 ml @ 50 mls/hr AD PRN IV POTASSIUM PROTOCOL 12/15/24 14:30 12/18/24 06:39 DC Potassium Chloride 100 ml @ 100 mls/hr AD PRN IV POTASSIUM PROTOCOL 12/15/24 14:30 12/18/24 06:39 DC Potassium Chloride (K-Dur/Klor-Con 20meq) 20 meq AD PRN PO POTASSIUM PROTOCOL 12/15/24 14:30 01/14/25 14:29 Potassium Chloride (KCl 10% Elixir 20meq/15ml) 20 meq AD PRN PO POTASSIUM PROTOCOL 12/15/24 14:30 01/14/25 14:29 12/15/24 22:57 20 MEQ Potassium Chloride (KCl 10% Elixir 20meq/15ml) 40 meq BID PO 12/18/24 09:00 12/18/24 21:01 Quetiapine Fumarate (SEROquel 100 mg TAB) 200 mg BID PO 12/15/24 21:00 01/14/25 20:59 12/17/24 20:01 200 MG Sodium Chloride 1,000 ml @ 75 mls/hr [id number] IV 12/16/24 14:30 12/16/24 22:18 DC 12/16/24 15:08 75 MLS/HR Thiamine HCl (Vitamin B-1) 300 mg Q24H IVP 12/13/24 15:00 01/12/25 14:59 12/17/24 16:14 300 MG Venlafaxine HCl (EffEXOR XR 37.5mg CAP) 75 mg DAILY PO 12/16/24 09:00 01/15/25 08:59 12/17/24 09:07 75 MG Diagnostics / Radiology: [COPY/PASTE HERE IF NO REPORTS PLEASE DELETE SECTION] Assessment: Failure to thrive Microcephaly Scoliosis Plan: HOLD OFF ON EGD/PEG until TB ruled out Continue GI prophylaxis Advance feedings as tolerated Avoid NSAIDs Antireflux measures Monitor H&H and transfuse as needed Call with questions, concerns or change in clinical status Patient to follow-up at clinic post discharge Thank you for this consult ZHAO GUERRA [employer] Dec 18, 2024 09:41
[2024-12-18 11:41] LABS: MAGNESIUM 2.3 mg/dL (1.80-2.40); POTASSIUM 3.5 mmol/L (3.5-5.1)
[2024-12-18] MEDS ORDERED: dexaMETHasone SOD PHOSPHATE 10MG/ML 1ML VIAL ONE (12:07)
[2024-12-18] MEDS ORDERED: LIDOCAINE PF 100MG/5ML (2%) SYRINGE 5ML ONE (12:07)
[2024-12-18] MEDS ORDERED: GLYCOPYRROLATE 0.2 MG/ML 5 ML VIAL ONE (12:08)
[2024-12-18] MEDS ORDERED: NEOSTIGMINE METHYLSULFATE 1MG/ML IV ONE (12:08)
[2024-12-18] MEDS ORDERED: SUCCINYLCHOLINE CHLORIDE 20 MG/ML 10 ML VIAL ONE (12:08)
[2024-12-18] MEDS ORDERED: rocuRONium bROMide 10MG/1ML 5ML VL ONE (12:08)
[2024-12-18] MEDS ORDERED: proPOFol 10 MG/ML 20ML VIAL IV ONE (12:08)
[2024-12-18] MEDS ORDERED: ondanSETRON 4MG INJ ONE (12:08)
[2024-12-18] MEDS ORDERED: FENTanyl CITRate PF 50 MCG/1 ML 2ML VIAL ONE (12:09)
[2024-12-18] MEDS ORDERED: MIDAZOLAM HCL 1 MG/ML 2ML VIAL ONE (12:09)
[2024-12-18] MEDS ORDERED: EPINEPHrine PF 1MG (1:1,000) 1 MG/ML AMP ONE (12:14)
--- NOTE | 2024-12-18 12:25 | NUR ---
BRONCHOSCOPY 1215 PATIENT LEFT VIA STRETCHER TO PENDING BRONCHOSCOPY PROCEDURE. NO S/S OF DISTRESS NOTED
[2024-12-18] MEDS ORDERED: ketaMINE 50MG/ML SYRINGE 50 MG/ML DISP.SYRIN ONE (12:30)
--- NOTE | 2024-12-18 13:00 | PRN ---
This is a procedure note. Procedure performed: Fiberoptic bronchoscopy Diagnosis: Right upper lobe cavitary pneumonia. Description of procedure: Consent obtained. Time out done. Patient sedated and intubated by anesthesia provided there Fiberoptic bronchoscopy performed through endotracheal tube 7.5. Inspection of the airways revealed normal airway anatomy, no endobronchial lesions were seen, scant purulent secretions coming permanently from right upper lobe and right middle lobe. Subsequently BAL performed from right upper lobe, obtain three samples and one sample from right middle lobe. Fluid sent for analysis. Patient tolerated procedure well. No immediate complications. MITA PRADO MD Dec 18, 2024 13:00
[2024-12-18] MEDS ORDERED: NALoxone HCL 0.4 MG/1 ML ML ONE (14:29)
--- NOTE | 2024-12-18 14:34 | PN ---
[facility] PROGRESS NOTE Date of Service: Dec 18, 2024 Time of Service: 14:30 SUBJECTIVE: 12/14 patient seen at bedside, no acute events overnight. Patient was seen at bedside, she does not participate in the medical interview. She does not appear to be in any acute distress. She is on pressors, we will continue to wean as able. Sodium improved from 150 down to 146, remainder of her labs are relatively unremarkable. Urine growing bacteria, we will continue with empiric antibiotics 12/15/24 Patient sen and examined. Care discussed with RN No acute overnight events. Follow cultures/continue antibiotics. 12/16 patient seen at bedside, no acute events overnight. Pulmonology was pending bronchoscopy to obtain samples to test for tuberculosis however patient became hypothermic and somnolent. Repeat labs, ABG were ordered however no abnormalities were noted. Lactic acid was normal, sodium had mildly decreased from 142 down to 134, ammonia was within normal limits. She was started on a Halina Hugger and bolused fluids, her temperature began to improve and she was more awake. Her phosphorus is low at 1.8 and given her constitution this is concerning for refeeding syndrome, we will continue to monitor closely. 12/16/24 sausage stuffer: Charge nurse RN called me with concern for patient due to patient being tachycardic heart rate 120-130s and a temperature of 93.6� rectal. RN reports blood pressure 109/65, respirations, 98% on nasal cannula. RN reports that patient has was a rapid response earlier, has been on the Halina Hugger all day with no improvement of the temperature, and now is tachycardic. I went to assess the patient at bedside. The patient's breathing was even, unlabored, and lethargic. The patient is nonverbal, moans with touch. The patient was receiving feedings per NG and IV fluids. Stat ABGs, blood work were done. Remarkable lab results: Lactic acid increased from 1.04 to 1.59. Phos was 1.6, magnesium 1.9, total protein 4.3, albumin 1.6. ABGs on room air: PO2 58.4, ABG O2 saturation 89.2. (PO2 this morning was 91.5). The patient was placed back on 2 L nasal cannula, increased bear hugger to 30� C from 32� C. Electrolytes were replaced. Telemetry pack was order. We will continue monitoring patient closely. 12/17/2024 0315: Addendum: Reassessed the patient multiple times. Her temperature improved, remained tachycardic, despite a total of a 1500 mL bolus of LR. BP ranging systolic 98-105. The patient had a hypoglycemic episode at 11:54 p.m., blood glucose was 51, despite being of feedings. Change fluids to D5 W at 75 mL an hour. We will continue monitoring patient closely. 06:00 Reassessed the patient before off of my shift HR had improved to 112-116. b/p low 100s systolic. 12/17 patient seen at bedside, temperature has improved. She continues to be tachycardic, hemodynamically stable saturating well on room air. Hemoglobin stable at 10.1, similar to yesterday, her phosphate is very low at 1.1. She is much more awake and interactive today compared to yesterday. The constellation of symptoms with hypothermia, tachycardia and even the altered mental status are likely secondary to refeeding syndrome. The patient is not septic, her ammonia is at normal levels, lactic acid is at normal levels, CO2 is at normal levels she has been adequately resuscitated with fluids. She will be repleted with IV phosphate, her tube feeds we will be reduced to trickle feeds at 10 cc/hour before attempting to increase the feed rate. If her tachycardia improves with these changes then tomorrow we will attempt to increase the rate of her tube feeds. 12/18 patient seen at bedside, no acute events overnight. Her tachycardia has improved, hypothermia improving, she is awake today in no acute distress. Pending bronchoscopy later today to take samples for ruling out TB. Once completed we will resume trickle feeds. Today potassium, phosphate and magnesium were all low, we will be repleted. This is likely secondary to refeeding syndrome. REVIEW OF SYSTEMS: Patient is obtunded, unable to obtain ROS. Patient is nonverbal, only moans. PHYSICAL EXAM GENERAL APPEARANCE: The patient is obtunded, very frail, cachectic, contractures noted of the lower extremities NEUROLOGICAL: The patient response to painful stimuli, moans when touched, is nonverbal. Does not follow command. HEENT: Face is symmetric. Pupils are equal and reactive. Extraocular movements are intact. NECK: Supple. No JVD. No thyromegaly. No submental, submandibular, pre- /postauricular, occipital or supraclavicular lymphadenopathy. CHEST: Normal chest expansion. No Telemetry. LUNGS: Absence of any rales, rhonchi or any wheezing. CARDIOVASCULAR: Regular. Tachycardic. No appreciable rubs, murmurs or gallops. ABDOMEN: Soft, nontender, and nondistended. There is no rebound, voluntary guarding, or rigidity. : Deferred. No Clark. EXTREMITIES: Contractures to bilateral lower extremity. Non-edematous and not cyanotic. No clubbing. Good capillary refill. SKIN: No skin breakdown. Vital Signs (last 8hr) Date Time Temp Pulse Resp B/P (MAP) Pulse Ox O2 Delivery O2 Flow Rate FiO2 12/18/24 14:00 95 20 108/53 100 Nonrebreathing Mask 15.0 12/18/24 13:55 92 20 101/57 99 Nonrebreathing Mask 15.0 12/18/24 13:50 95 20 96/51 99 Nonrebreathing Mask 15.0 12/18/24 13:45 98 20 79/45 99 Nonrebreathing Mask 15.0 12/18/24 13:40 96 20 83/44 99 Nonrebreathing Mask 15.0 12/18/24 13:35 107 20 83/45 99 Nonrebreathing Mask 15.0 12/18/24 13:30 107 20 87/45 99 Nonrebreathing Mask 15.0 12/18/24 13:25 109 20 88/48 99 Nonrebreathing Mask 15.0 12/18/24 13:20 108 20 84/48 99 Nonrebreathing Mask 15.0 12/18/24 13:15 94.1 102 20 90/50 99 Nonrebreathing Mask 15.0 12/18/24 12:35 RA 12/18/24 12:35 INTUBATED 12/18/24 12:35 80 20 97/66 99 Room Air 12/18/24 11:59 95.4 86 18 101/37 96 Room Air 12/18/24 11:10 56 18 12/18/24 11:10 86 18 N/A Room Air 21 12/18/24 07:37 96.1 81 17 95/55 93 Room Air LABS: Laboratory: Test 12/18/24 11:48 12/18/24 11:20 12/18/24 04:39 12/17/24 12:36 Range/Units Whole Blood Glucose 74 70-110 MG/DL Potassium Level 3.5 3.5-5.1 mmol/L Magnesium Level 2.30 1.80-2.40 mg/dL White Blood Count 5.2 4.8-10.8 K/uL Red Blood Count 3.06 L 4.00-5.50 MIL/uL Hemoglobin 9.4 L 12.0-16.0 g/dL Hematocrit 27.7 L 36-48 % Mean Corpuscular Volume 90.5 79-99 fL Mean Corpuscular Hemoglobin 30.7 27.0-33.0 pg Mean Corpuscular Hemoglobin Concent 33.9 32.0-36.0 g/dL Red Cell Distribution Width 14.6 11.0-15.5 % Platelet Count 59 L 130-400 K/uL Mean Platelet Volume 9.4 7.5-10.5 fL Nucleated Red Blood Cells 0.0 0.0-0.19 % Platelet Morphology Comment See comments Prothrombin Time 12.4 H 9.6-11.6 SEC Prothromb Time International Ratio 1.19 H 0.85-1.15 Activated Partial Thromboplast Time 43.7 H 26.3-35.5 SEC Sodium Level 143 136-145 mmol/L Chloride Level 108 101-111 mmol/L Carbon Dioxide Level 34 H 21-32 mmol/L Blood Urea Nitrogen 8 7-18 mg/dL Creatinine 0.3 L 0.5-1.0 mg/dL Glomerular Filtration Rate Calc 136 >90 mL/min Random Glucose 83 70-105 mg/dL Total Calcium 7.4 L 8.5-10.1 mg/dL Phosphorus Level 1.4 L 2.5-4.9 mg/dL Blood Gas Specimen Type Arterial Arterial Blood pH 7.448 7.350-7.450 Arterial Blood Partial Pressure CO2 40 32-45 mmHg Arterial Blood Partial Pressure O2 82.0 L 83.0-108.0 mmHg Arterial Blood HCO3 27.1 21.0-28.0 mmol/L Arterial Blood Oxygen Saturation 96.5 94.0-98.0 % Arterial Blood Base Excess 2.9 -2.0-3.0 mmol/L Blood Gas Temperature 37.0 35.5-37.0 CELSIUS Blood Gas Vent Mode ROOM AIR ROOM AIR FiO2 21.0 % Blood Gas Specimen Purnima BOLTON HAND I TUBE BENDER Test 12/17/24 04:26 12/16/24 19:37 12/16/24 19:34 Range/Units Immature Granulocyte % (Auto) 0.6 0-1 % Neutrophils (%) (Auto) 82.2 H 40.0-77.0 % Lymphocytes (%) (Auto) 12.9 L 21.0-51.0 % Monocytes (%) (Auto) 2.8 L 3.0-13.0 % Eosinophils (%) (Auto) 1.2 0.0-8.0 % Basophils (%) (Auto) 0.3 0.0-5.0 % Neutrophils # (Auto) 5.5 1.8-7.7 K/uL Lymphocytes # (Auto) 0.9 L 1.0-4.8 K/uL Monocytes # (Auto) 0.2 0.1-1.0 K/uL Eosinophils # (Auto) 0.08 0.00-0.70 K/uL Basophils # (Auto) 0.02 0.00-0.20 K/uL Absolute Immature Granulocyte (auto 0.04 0-1 K/uL Erythrocyte Sedimentation Rate 20 0-20 MM/HR Lactic Acid Level 1.3 0.8-2.5 mmol/L Total Bilirubin 0.5 # 0.2-1.0 mg/dL Aspartate Amino Transf (AST/SGOT) 56 H 10-37 U/L Alanine Aminotransferase (ALT/SGPT) 64 12-78 U/L Alkaline Phosphatase 104 50-136 U/L C-Reactive Protein, Quantitative 59.20 H 0.5-3.0 mg/L Total Protein 4.1 L 6.0-8.3 g/dL Albumin 1.5 L 3.5-5.0 g/dL Troponin I High Sensitivity 6 4-50 ng/L B-Type Natriuretic Peptide 72 0-100 pg/mL Procalcitonin 0.20 0.05-0.5 ng/mL Hemoglobin (Blood Gas) 11.5 L 12.0-16.0 g/dL Sodium (Blood Gas) 140 136-145 MMOL/L Bedside Potassium (Blood Gas) 3.4 3.4-4.5 MMOL/L Bedside Chloride (Blood Gas) 110 H 98-107 MMOL/L Bedside Glucose (Blood Gas) 99 H 65-95 MG/DL Bedside Ionized Calcium (Blood Gas) 1.17 1.15-1.33 MMOL/L Bedside Lactic Acid (Blood Gas) 1.59 H 0.36-0.75 MMOL/L Current Medications Medications (Trade) Dose Ordered Sig/Castillo Route PRN Reason Start Time Stop Time Status Last Admin Dose Admin Acetaminophen (TYLenol 325MG ELIXIR) 325 mg Q6H PRN PO MILD PAIN (1-3) 12/13/24 15:00 01/12/25 14:59 12/16/24 23:50 325 MG Acetaminophen (TYLenol 500MG TAB) 500 mg Q4PRN PRN PO FEVER 12/15/24 10:30 12/18/24 06:36 DC Acetaminophen (TYLenol 500MG TAB) 500 mg Q4PRN PRN PO PAIN 12/15/24 10:30 12/18/24 06:37 DC Acetylcysteine (MUComyst 20% 4ML) 400mg = 2ml [id number] IH 12/14/24 18:00 01/13/25 17:59 12/18/24 11:06 800 MG Albumin Human 50 ml @ 0 mls/hr AD IV 12/14/24 10:00 12/18/24 06:39 DC 12/14/24 11:14 50 MLS/HR Albuterol (DUOneb) 1 udvial Q6H PRN IH SHORTNESS OF BREATH 12/13/24 15:30 01/12/25 15:29 12/18/24 11:06 1 UDVIAL Bisacodyl (DulcoLAX) 10 mg DAILY RC 12/16/24 09:00 12/19/24 08:59 12/18/24 09:25 10 MG Budesonide (Pulmicort 0.5 Mg/2ml) 0.5 mg BIDRESP IH 12/13/24 18:00 01/12/25 17:59 12/18/24 06:22 0.5 MG Buspirone HCl (BUspar) 15 mg TID PO 12/15/24 14:00 01/14/25 13:59 12/17/24 20:01 15 MG Dextrose 500 ml @ 0 mls/hr Q0M IV 12/16/24 12:30 12/17/24 07:15 DC 12/16/24 12:30 999 MLS/HR Dextrose 1,000 ml @ 75 mls/hr [id number] IV 12/13/24 15:00 12/16/24 14:30 DC 12/16/24 10:16 75 MLS/HR Dextrose 1,000 ml @ 75 mls/hr [id number] IV 12/17/24 01:00 12/17/24 07:15 DC 12/17/24 00:50 75 MLS/HR Dextrose (D50w) 50 ml AD PRN IV HYPOGLYCEMIA PROTOCOL 12/13/24 15:00 01/12/25 14:59 12/17/24 00:00 50 ML Dextrose/Sodium Chloride 500 ml @ 75 mls/hr Q6H40M IV 12/17/24 07:30 12/17/24 07:20 DC Dextrose/Sodium Chloride 500 ml @ 75 mls/hr Q6H40M IV 12/17/24 07:30 01/16/25 07:29 12/18/24 11:04 75 MLS/HR Doxycycline Hyclate 250 ml @ 125 mls/hr Q12H IV 12/13/24 15:30 12/17/24 07:20 DC 12/17/24 03:24 125 MLS/HR Enoxaparin Sodium (Lovenox) 30 mg DAILY SQ 12/14/24 09:00 12/15/24 09:05 DC 12/14/24 08:46 30 MG Enoxaparin Sodium (Lovenox) 30 mg DAILY SQ 12/16/24 09:00 12/15/24 13:22 DC Folic Acid (FOLic ACID 1 MG TABLET) 1 mg DAILY PO 12/18/24 09:00 01/17/25 08:59 Glucagon (Glucagon 1mg Kit) 1 mg AD PRN IM HYPOGLYCEMIA PROTOCOL 12/13/24 15:00 01/12/25 14:59 Guaifenesin/ Dextromethorphan (RobiTUSSin DM 200/20MG 10ML) 10 ml Q4H PRN PO COUGH 12/15/24 11:00 01/14/25 10:59 Home Med (Home Medication) (Cholecalciferol (Vitamin D3) 25 MCG) DAILY PO 12/16/24 09:00 01/15/25 08:59 Lactated Ringer's 1,000 ml @ 75 mls/hr [id number] IV 12/16/24 23:30 12/17/24 00:30 DC 12/16/24 23:34 75 MLS/HR Lactated Ringer's 1,000 ml @ 100 mls/hr Q10H IV 12/13/24 15:00 12/13/24 15:18 DC Lactated Ringer's (Lactated Ringers 1000ml) 500 ml BOLUS IV 12/17/24 00:30 12/18/24 06:39 DC Leptospermum Honey (Medihoney) 1 appl DAILY TP 12/15/24 09:00 01/14/25 08:59 12/18/24 09:26 1 APPL Lorazepam (AtiVAN) 0.5 mg DAILYDINNER PO 12/15/24 17:00 01/14/25 16:59 12/17/24 16:13 0.5 MG Magnesium Sulfate 50 ml @ 0 mls/hr PROTOCOL IV 12/13/24 21:30 01/12/25 21:29 12/18/24 05:55 25 MLS/HR Meropenem (Merrem 1gm) 1 gm Q8H IVPB 12/13/24 16:00 12/17/24 07:37 DC 12/16/24 23:45 1 GM Miscellaneous Medication (Ondansetron HCl ) 8 mg TID PO 12/15/24 14:00 12/15/24 10:43 DC Multivitamins Therapeutic (Multivitamin Tablet) 1 tab DAILY PO 12/18/24 09:00 01/17/25 08:59 Norepinephrine 250 ml @ 0 mls/hr PROTOCOL IV 12/13/24 14:30 12/15/24 14:26 DC 12/14/24 07:35 25.3 MLS/HR Ondansetron HCl (zoFRAN 4MG INJ) 4 mg Q6H PRN IVP NAUSEA/VOMITING 12/13/24 16:30 01/12/25 16:29 Pantoprazole Sodium (PROTonix 40MG INJ) 40 mg Q24H IVP 12/13/24 15:00 01/12/25 14:59 12/17/24 16:13 40 MG Pharmacy Profile Note (Pharmacy Communication) 1 each ONCE MISC 12/13/24 15:00 12/13/24 15:28 DC Pharmacy Profile Note (Pharmacy Communication) 1 each ONCE MISC 12/17/24 07:30 12/17/24 08:12 DC Pharmacy Profile Note (Pharmacy Communication) 1 each ONCE MISC 12/18/24 08:00 12/18/24 08:29 DC Piperacillin Sod/ Tazobactam Sod (Zosyn 3.375gm+NS 50ml) 3.375 gm Q8H IV 12/17/24 08:00 12/27/24 07:59 12/18/24 09:25 3.375 GM Polyethylene Glycol (MIRalax 3350 17 GM POWD.PACK) 17 gm DAILY PO 12/16/24 09:00 01/15/25 08:59 12/17/24 09:08 17 GM Potassium Phosphate 250 ml @ 42 mls/hr PROTOCOL IV 12/15/24 05:30 12/15/24 10:19 DC 12/15/24 05:59 42 MLS/HR Potassium Chloride 100 ml @ 50 mls/hr AD PRN IV POTASSIUM PROTOCOL 12/13/24 21:30 01/12/25 21:29 12/18/24 05:55 50 MLS/HR Potassium Chloride 100 ml @ 50 mls/hr AD PRN IV POTASSIUM PROTOCOL 12/15/24 14:30 12/18/24 06:39 DC Potassium Chloride 100 ml @ 100 mls/hr AD PRN IV POTASSIUM PROTOCOL 12/15/24 14:30 12/18/24 06:39 DC Potassium Chloride (K-Dur/Klor-Con 20meq) 20 meq AD PRN PO POTASSIUM PROTOCOL 12/15/24 14:30 01/14/25 14:29 Potassium Chloride (KCl 10% Elixir 20meq/15ml) 20 meq AD PRN PO POTASSIUM PROTOCOL 12/15/24 14:30 01/14/25 14:29 12/15/24 22:57 20 MEQ Potassium Chloride (KCl 10% Elixir 20meq/15ml) 40 meq BID PO 12/18/24 09:00 12/18/24 21:01 Quetiapine Fumarate (SEROquel 100 mg TAB) 200 mg BID PO 12/15/24 21:00 01/14/25 20:59 12/17/24 20:01 200 MG Sodium Chloride 1,000 ml @ 75 mls/hr [id number] IV 12/16/24 14:30 12/16/24 22:18 DC 12/16/24 15:08 75 MLS/HR Thiamine HCl (Vitamin B-1) 300 mg Q24H IVP 12/13/24 15:00 01/12/25 14:59 12/17/24 16:14 300 MG Venlafaxine HCl (EffEXOR XR 37.5mg CAP) 75 mg DAILY PO 12/16/24 09:00 01/15/25 08:59 12/17/24 09:07 75 MG DIAGNOSTICS / RADIOLOGY: [ ] ASSESSMENT: Hypothermia, POA, in need of bare hugger Acute hypoxemic respiratory failure, POA Refeeding syndrome, POA Recurrent hypoglycemic episodes Septic shock, POA (2/2 community-acquired pneumonia and complicated UTI) Toxic metabolic encephalopathy with obtundation, POA Community-acquired pneumonia with acute hypoxemic respiratory failure, POA Acute complicated cystitis, POA Frailty/debility, POA Acute UTI, Proteus, POA History of chronic contractures of bilateral lower extremities, POA Unstageable decubitus ulcer involving the left hip, POA Cachexia, POA History of severe intellectual disability, POA History of scoliosis, POA History of microcephaly, POA History of ADHD, POA History of aggression, POA PLAN: The patient is in medical floor. Continue telemetry pack. Continue with the Halina Hugger as needed NG tube in place, continue continuous tube feedings. Give trickle feeds at 10cc/hr, until tachycardia improves Start IV phosphate repletion Patient will be kept strictly NPO and on aspiration precautions, NGT feedings only. We will maintain POCT blood glucose check q.4 hours, we will maintain blood glucose greater than 70. Continue Broad-spectrum antibiotics with IV meropenem and doxycycline Monitor respirations status closely. Place patient on 2 L nasal cannula due to hypoxemia. Urine growing proteus Patient will be placed on air mattress, offloading measures, wound care will be requested. Patient has a 1:1 sitter due to removes NGT/lines. May use mittens. Infectious Disease consulted, appreciate recommendations Reposition the patient every 2 hours and p.r.n.. Disposition: Pending bronchoscopy, improvement in clinical status SEVEN KIRKLAND MD Dec 18, 2024 14:34
[2024-12-18 15:11] LABS: BODY FLUID RBC 1824 /cu. mm.; BODY FLUID WBC 1100 /cu. mm.
[2024-12-18 15:13] LABS: APPEARANCE BODY FLUID CLOUDY (CLEAR); COLOR,BODY FLUID ORANGE (LT YELLOW); SPECIMENTYPE,BODY FLUID WASHINGS; TOTAL VOLUME,BODY FLUID 15 mL
--- NOTE | 2024-12-18 15:19 | NUR ---
[facility] Follow-up: Patient re-assessed by wound healing team. See wound assessment. Assessment and recommendations provided to primary nurse. Education provided. Wound care done. Addendum: 12/19/24 at 1331 by ALESSIO BAKER RN RN/ Amended: Links added.
[2024-12-18] MEDS: PoTASSium chl 10% ELIXIR 20MEQ 20 MEQ/15 ML UDCUP PO SCH (15:21)
[2024-12-18 15:38] LABS: BF LYMPHOCYTE 3 %; BF MACROPHAGE 12; BF MONOCYTE 2 %; BF OTHER CELLS 1; BF TOTAL CELLS COUNTED 100
--- NOTE | 2024-12-18 19:52 | PN ---
[facility] PROGRESS NOTE Date Patient Seen: Dec 18, 2024 Time of Visit: 19:49 Supervising Physician: Dr. Pola Lowery Supervising Physician: Dr. Pola Lowery Primary Care Physician: Yarelis Ogden MD Outpatient Specialists: [ ] Inpatient Consults: [facility] , Dr Esperanza Naranjo MD Attending: Carlos Real MD PROBLEM LIST: Sepsis 2/2 Pneumonia and Acute complicated Cystitis Right upper lobe cavitation TB rule out, POA - pending bronchoscopy for tomorrow 12/16/24 Hypothermia, POA , resolved 2/2 sepsis Hypoglycemia episodes Acute thrombocytopenia Failure to thrive pending GI for G-tube eval Community-acquired pneumonia with acute hypoxemic respiratory failure, POA Suspected aspiration, POA Acute complicated cystitis, POA + Proteus Mirabiis Frailty/debility, POA History of chronic contractures of bilateral lower extremities, POA Unstageable decubitus ulcers to right hip POA Intellectual disability, POA History of scoliosis, POA History of microcephaly, POA History of ADHD, POA History of aggression, POA Nonverbal Plan summary: Continue IV antibiotics Follow ID recommendations Maintain normal thermic as much as possible Plan for bronchoscopy for BAL of right upper lobe to rule out TB tomorrow in endo lab approximately 11 30 Continue tube feedings INTERVAL HISTORY: Patient evaluated at bedside prior to bronchoscopy, potassium and magnesium being replaced at this time. Patient's body temperature within normal limits. She continues with NG tube. Patient remains nonverbal, however awake and alert likely secondary to her increased feeding intake. No overnight events reported by nursing staff present at the time, no nausea or vomiting episodes. Platelets at 59 this morning. Hemoglobin 9.4, creatinine 0.3. We will continue to follow the patient following bronchoscopy. REVIEW OF SYSTEMS: UNABLE TO OBTAIN DUE TO PATIENT IS NONVERBAL. INTELLECTUAL DISABILITY. PHYSICAL EXAM: GENERAL: Awake to voice nonverbal, intellectually disabled microcephaly. HEENT: Sclera non icteric, dry mucosa NECK: Supple, no JVD, trachea midline LUNGS: Coarse rhonchi breath sounds bilaterally. No wheezes HEART: Regular rate and rhythm. Normal S1 and S2, without murmurs ABD: Cachectic, flat, nontender. Bowel sounds present EXT: Contractions to upper and lower extremities, right hip unstageable pressure ulcer with a black eschar NEURO: Awake to voice, nonverbal and chronically ill with upper and lower extremity contractures. Vital Signs (last 8hr) Date Time Temp Pulse Resp B/P (MAP) Pulse Ox O2 Delivery O2 Flow Rate FiO2 12/18/24 18:49 99 19 98/64 94 Room Air 12/18/24 18:22 94 20 12/18/24 17:49 88 16 113/73 99 Nonrebreathing Mask 8.0 12/18/24 17:15 95.9 12/18/24 16:49 82 17 115/75 100 Nonrebreathing Mask 8.0 12/18/24 16:19 85 15 120/79 99 Nonrebreathing Mask 8.0 12/18/24 15:49 94 16 109/64 96 Nonrebreathing Mask 8.0 12/18/24 15:34 107 18 113/72 97 Nasal Cannula 8.0 12/18/24 15:21 88 16 128/81 98 Nonrebreathing Mask 8.0 12/18/24 15:15 95.4 12/18/24 15:04 94.8 83 15 113/64 98 Nonrebreathing Mask 8.0 12/18/24 14:55 92 20 125/77 99 Nonrebreathing Mask 15.0 12/18/24 14:45 89 20 120/72 99 Nonrebreathing Mask 15.0 12/18/24 14:30 90 20 115/72 99 Nonrebreathing Mask 15.0 12/18/24 14:15 91 20 115/65 99 Nonrebreathing Mask 15.0 12/18/24 14:10 95 20 115/67 99 Nonrebreathing Mask 15.0 12/18/24 14:05 94 20 110/68 99 Nonrebreathing Mask 15.0 12/18/24 14:00 95 20 108/53 100 Nonrebreathing Mask 15.0 12/18/24 13:55 92 20 101/57 99 Nonrebreathing Mask 15.0 12/18/24 13:50 95 20 96/51 99 Nonrebreathing Mask 15.0 12/18/24 13:45 98 20 79/45 99 Nonrebreathing Mask 15.0 12/18/24 13:40 96 20 83/44 99 Nonrebreathing Mask 15.0 12/18/24 13:35 94.1 12/18/24 13:35 107 20 83/45 99 Nonrebreathing Mask 15.0 12/18/24 13:30 107 20 87/45 99 Nonrebreathing Mask 15.0 12/18/24 13:25 109 20 88/48 99 Nonrebreathing Mask 15.0 12/18/24 13:20 108 20 84/48 99 Nonrebreathing Mask 15.0 12/18/24 13:15 94.1 102 20 90/50 99 Nonrebreathing Mask 15.0 12/18/24 12:35 RA 12/18/24 12:35 INTUBATED 12/18/24 12:35 80 20 97/66 99 Room Air 12/18/24 11:59 95.4 86 18 101/37 96 Room Air LABS: Hematology Labs: Test 12/18/24 04:39 12/17/24 04:26 Range/Units White Blood Count 5.2 4.8-10.8 K/uL Red Blood Count 3.06 L 4.00-5.50 MIL/uL Hemoglobin 9.4 L 12.0-16.0 g/dL Hematocrit 27.7 L 36-48 % Mean Corpuscular Volume 90.5 79-99 fL Mean Corpuscular Hemoglobin 30.7 27.0-33.0 pg Mean Corpuscular Hemoglobin Concent 33.9 32.0-36.0 g/dL Red Cell Distribution Width 14.6 11.0-15.5 % Platelet Count 59 L 130-400 K/uL Mean Platelet Volume 9.4 7.5-10.5 fL Nucleated Red Blood Cells 0.0 0.0-0.19 % Platelet Morphology Comment See comments Immature Granulocyte % (Auto) 0.6 0-1 % Neutrophils (%) (Auto) 82.2 H 40.0-77.0 % Lymphocytes (%) (Auto) 12.9 L 21.0-51.0 % Monocytes (%) (Auto) 2.8 L 3.0-13.0 % Eosinophils (%) (Auto) 1.2 0.0-8.0 % Basophils (%) (Auto) 0.3 0.0-5.0 % Neutrophils # (Auto) 5.5 1.8-7.7 K/uL Lymphocytes # (Auto) 0.9 L 1.0-4.8 K/uL Monocytes # (Auto) 0.2 0.1-1.0 K/uL Eosinophils # (Auto) 0.08 0.00-0.70 K/uL Basophils # (Auto) 0.02 0.00-0.20 K/uL Absolute Immature Granulocyte (auto 0.04 0-1 K/uL Erythrocyte Sedimentation Rate 20 0-20 MM/HR Chemistry Labs: Test 12/18/24 16:22 12/18/24 11:20 12/18/24 04:39 12/17/24 04:26 Range/Units Whole Blood Glucose 83 70-110 MG/DL Potassium Level 3.5 3.5-5.1 mmol/L Magnesium Level 2.30 1.80-2.40 mg/dL Sodium Level 143 136-145 mmol/L Chloride Level 108 101-111 mmol/L Carbon Dioxide Level 34 H 21-32 mmol/L Blood Urea Nitrogen 8 7-18 mg/dL Creatinine 0.3 L 0.5-1.0 mg/dL Glomerular Filtration Rate Calc 136 >90 mL/min Random Glucose 83 70-105 mg/dL Total Calcium 7.4 L 8.5-10.1 mg/dL Phosphorus Level 1.4 L 2.5-4.9 mg/dL Lactic Acid Level 1.3 0.8-2.5 mmol/L Total Bilirubin 0.5 # 0.2-1.0 mg/dL Aspartate Amino Transf (AST/SGOT) 56 H 10-37 U/L Alanine Aminotransferase (ALT/SGPT) 64 12-78 U/L Alkaline Phosphatase 104 50-136 U/L C-Reactive Protein, Quantitative 59.20 H 0.5-3.0 mg/L Total Protein 4.1 L 6.0-8.3 g/dL Albumin 1.5 L 3.5-5.0 g/dL Coagulation Labs: Test 12/18/24 04:39 Range/Units Prothrombin Time 12.4 H 9.6-11.6 SEC Prothromb Time International Ratio 1.19 H 0.85-1.15 Activated Partial Thromboplast Time 43.7 H 26.3-35.5 SEC DIAGNOSTICS / RADIOLOGY RESULTS: [ ] PLAN NEURO: Minimize central acting medications as possible. Maintain fall precautions, adequate lighting during the day PULMONARY: Supplemental 02 as needed. Maintain aspiration precautions at all times CARDIOVASCULAR: Follow hemodynamics. Vital signs per facility protocol GI & NUTRITION: Continue with nutritional support. Continue stool softeners and laxatives as needed. KIDNEYS & ELECTROLYTES: Strict monitoring of intake, output and overall fluid balance. Avoid nephrotoxic medications to the extent possible. Medications to be dosed according to renal function. Monitor electrolytes and replace as needed ENDOCRINE: Maintain blood glucose between 100-180 at all times. Hypoglycemia protocol in place INFECTIOUS DISEASE: Trend temperature, WBC and procalcitonin level Follow cultures, deescalate antibiotics as soon as possible. Panculture if new onset fever ONCOLOGY/HEMATOLOGY/COAGULATION: Monitor for s/s of bleeding Monitor hemoglobin, coagulation studies as needed SKIN: Pressure ulcer prevention per facility protocol Specialty mattress ORTHO/REHAB: Continue PT/OT Prophylaxis: Continue GI and DVT prophylaxis Code Status: Full Resuscitation Disposition: TBD Other: Total patient care time exceeds 35 minutes excluding all procedures. VETO HAYS Dec 18, 2024 19:52
--- NOTE | 2024-12-18 23:12 | PN ---
INFECTIOUS DISEASE PROGRESS NOTE Date of Service: Dec 18, 2024 SUBJECTIVE: This is a 44-year-old female patient with intellectual disability who was seen in room 301. During rounding today patient is out for a bronchoscopy procedure under anesthesia. Patient is currently on Zosyn IV every 8 hours. Low potassium level of 2.8 being replaced. No other issues reported by nursing. PHYSICAL EXAM EYES: Anicteric. Pupils equal and reactive. HENT: No oral thrush seen, moist Oral mucosa. NECK: Supple, no JVD or thyromegaly. LUNGS: Good air entry. Productive cough. CARDIOVASCULAR: S1, S2 regular. No murmur heard. ABDOMEN: Soft, non tender, bowel sounds present, no organomegaly. CENTRAL NERVOUS SYSTEM: Intellectual disability. SKIN: No rashes, no swelling. LYMPHATICS: No peripheral lymphadenopathy. MUSCULOSKELETAL: No joint swelling, erythema or tenderness. EXTREMITIES: No cyanosis or clubbing. BACK: No deformity, no pressure ulcer. GENITOURINARY: No dysuria or hematuria. Incontinence. Vital Sign (Last 12 Hours) 12/18/24 12/18/24 12/18/24 12/18/24 11:15 11:59 12:35 12:35 Temp 95.4 95.4 Pulse 86 80 Resp 18 20 B/P (MAP) 101/37 97/66 Pulse Ox 96 99 O2 Delivery Room Air Room Air INTUBATED 12/18/24 12/18/24 12/18/24 12/18/24 12:35 13:15 13:20 13:25 Temp 94.1 Pulse 102 108 109 Resp 20 20 20 B/P (MAP) 90/50 84/48 88/48 Pulse Ox 99 99 99 O2 Delivery RA Nonrebreathing Mask Nonrebreathing Mask Nonrebreathing Mask O2 Flow Rate 15.0 15.0 15.0 12/18/24 12/18/24 12/18/24 12/18/24 13:30 13:35 13:35 13:40 Temp 94.1 Pulse 107 107 96 Resp 20 20 20 B/P (MAP) 87/45 83/45 83/44 Pulse Ox 99 99 99 O2 Delivery Nonrebreathing Mask Nonrebreathing Mask Nonrebreathing Mask O2 Flow Rate 15.0 15.0 15.0 12/18/24 12/18/24 12/18/24 12/18/24 13:45 13:50 13:55 14:00 Pulse 98 95 92 95 Resp 20 20 20 20 B/P (MAP) 79/45 96/51 101/57 108/53 Pulse Ox 99 99 99 100 O2 Delivery Nonrebreathing Mask Nonrebreathing Mask Nonrebreathing Mask Nonrebreathing Mask O2 Flow Rate 15.0 15.0 15.0 15.0 12/18/24 12/18/24 12/18/24 12/18/24 14:05 14:10 14:15 14:30 Pulse 94 95 91 90 Resp 20 20 20 20 B/P (MAP) 110/68 115/67 115/65 115/72 Pulse Ox 99 99 99 99 O2 Delivery Nonrebreathing Mask Nonrebreathing Mask Nonrebreathing Mask Nonrebreathing Mask O2 Flow Rate 15.0 15.0 15.0 15.0 12/18/24 12/18/24 12/18/24 12/18/24 14:45 14:55 15:04 15:15 Temp 94.8 95.4 Pulse 89 92 83 Resp 20 20 15 B/P (MAP) 120/72 125/77 113/64 Pulse Ox 99 99 98 O2 Delivery Nonrebreathing Mask Nonrebreathing Mask Nonrebreathing Mask O2 Flow Rate 15.0 15.0 8.0 12/18/24 12/18/24 12/18/24 12/18/24 15:21 15:34 15:49 16:19 Pulse 88 107 94 85 Resp 16 18 16 15 B/P (MAP) 128/81 113/72 109/64 120/79 Pulse Ox 98 97 96 99 O2 Delivery Nonrebreathing Mask Nasal Cannula Nonrebreathing Mask Nonrebreathing Mask O2 Flow Rate 8.0 8.0 8.0 8.0 12/18/24 12/18/24 12/18/24 12/18/24 16:49 17:15 17:49 18:22 Temp 95.9 Pulse 82 88 94 Resp 17 16 19 B/P (MAP) 115/75 113/73 Pulse Ox 100 99 O2 Delivery Nonrebreathing Mask Nonrebreathing Mask N/A Room Air O2 Flow Rate 8.0 8.0 FiO2 21 12/18/24 12/18/24 12/18/24 12/18/24 18:22 18:49 19:49 20:49 Temp 97.5 Pulse 94 99 77 97 Resp 20 19 19 B/P (MAP) 98/64 90/51 111/69 Pulse Ox 94 95 95 O2 Delivery Room Air Room Air Room Air 12/18/24 23:07 Pulse 97 Resp 20 Intake & Output (last 24hrs) 12/17/24 12/17/24 12/18/24 15:00 23:00 07:00 Intake Total 150 ml 1148.0 ml Output Total 1500 ml 100 ml 1300 ml Balance -1500 ml 50 ml -152.0 ml LABS: Laboratory: Test 12/18/24 20:35 12/18/24 12:45 12/18/24 11:20 12/18/24 04:39 Range/Units Whole Blood Glucose 130 #H 70-110 MG/DL Bedside Glucose Comment Protocol Initiated Body Fluid Source WASHINGS Body Fluid Volume 15 mL Body Fluid Color ORANGE H LT YELLOW Body Fluid Supernatant Appearance CLOUDY H CLEAR Body Fluid WBC 1100 /cu. mm. Body Fluid RBC 1824 /cu. mm. Body Fluid Neutrophils 82.0 % Body Fluid Lymphocytes 3 % Body Fluid Monocytes % 2 % Body Fluid Macrophages (%) 12 Body Fluid Other Cells (%) 1 Potassium Level 3.5 3.5-5.1 mmol/L Magnesium Level 2.30 1.80-2.40 mg/dL White Blood Count 5.2 4.8-10.8 K/uL Red Blood Count 3.06 L 4.00-5.50 MIL/uL Hemoglobin 9.4 L 12.0-16.0 g/dL Hematocrit 27.7 L 36-48 % Mean Corpuscular Volume 90.5 79-99 fL Mean Corpuscular Hemoglobin 30.7 27.0-33.0 pg Mean Corpuscular Hemoglobin Concent 33.9 32.0-36.0 g/dL Red Cell Distribution Width 14.6 11.0-15.5 % Platelet Count 59 L 130-400 K/uL Mean Platelet Volume 9.4 7.5-10.5 fL Nucleated Red Blood Cells 0.0 0.0-0.19 % Platelet Morphology Comment See comments Prothrombin Time 12.4 H 9.6-11.6 SEC Prothromb Time International Ratio 1.19 H 0.85-1.15 Activated Partial Thromboplast Time 43.7 H 26.3-35.5 SEC Sodium Level 143 136-145 mmol/L Chloride Level 108 101-111 mmol/L Carbon Dioxide Level 34 H 21-32 mmol/L Blood Urea Nitrogen 8 7-18 mg/dL Creatinine 0.3 L 0.5-1.0 mg/dL Glomerular Filtration Rate Calc 136 >90 mL/min Random Glucose 83 70-105 mg/dL Total Calcium 7.4 L 8.5-10.1 mg/dL Phosphorus Level 1.4 L 2.5-4.9 mg/dL Test 12/17/24 12:36 12/17/24 04:26 Range/Units Blood Gas Specimen Type Arterial Arterial Blood pH 7.448 7.350-7.450 Arterial Blood Partial Pressure CO2 40 32-45 mmHg Arterial Blood Partial Pressure O2 82.0 L 83.0-108.0 mmHg Arterial Blood HCO3 27.1 21.0-28.0 mmol/L Arterial Blood Oxygen Saturation 96.5 94.0-98.0 % Arterial Blood Base Excess 2.9 -2.0-3.0 mmol/L Blood Gas Temperature 37.0 35.5-37.0 CELSIUS Blood Gas Vent Mode ROOM AIR ROOM AIR FiO2 21.0 % Blood Gas Specimen Comment CHE GUTTER MOUTH CUTTER Immature Granulocyte % (Auto) 0.6 0-1 % Neutrophils (%) (Auto) 82.2 H 40.0-77.0 % Lymphocytes (%) (Auto) 12.9 L 21.0-51.0 % Monocytes (%) (Auto) 2.8 L 3.0-13.0 % Eosinophils (%) (Auto) 1.2 0.0-8.0 % Basophils (%) (Auto) 0.3 0.0-5.0 % Neutrophils # (Auto) 5.5 1.8-7.7 K/uL Lymphocytes # (Auto) 0.9 L 1.0-4.8 K/uL Monocytes # (Auto) 0.2 0.1-1.0 K/uL Eosinophils # (Auto) 0.08 0.00-0.70 K/uL Basophils # (Auto) 0.02 0.00-0.20 K/uL Absolute Immature Granulocyte (auto 0.04 0-1 K/uL Erythrocyte Sedimentation Rate 20 0-20 MM/HR Lactic Acid Level 1.3 0.8-2.5 mmol/L Total Bilirubin 0.5 # 0.2-1.0 mg/dL Aspartate Amino Transf (AST/SGOT) 56 H 10-37 U/L Alanine Aminotransferase (ALT/SGPT) 64 12-78 U/L Alkaline Phosphatase 104 50-136 U/L C-Reactive Protein, Quantitative 59.20 H 0.5-3.0 mg/L Total Protein 4.1 L 6.0-8.3 g/dL Albumin 1.5 L 3.5-5.0 g/dL DIAGNOSTICS / RADIOLOGY: PATIENT: DESTINY PAZ ACCT: [id number] LOC: [facility] U: [id number] AGE/SX: 44/F ROOM: [facility] RE12/13/[address]: MARIA LUISA GARNER MD : 1980 BED: 1 DIS: STATUS: ADM IN TLOC: ------- ----- SPEC: [id number] NORM: 12/13/24 STATUS: COMP REQ: [id number] RECD: 12/14/[address] [facility] [address]: KAYLA GIBSON SOURCE: [facility] [place] ENTR: 12/14/24 [facility] DR: CLAIRE ALVARADO MD SPDESC: CLEAN CAT SHAUN STORY MD ORDERED: AERO ID & SENS Procedure Result Jian Date-Time AEROBIC ID & SENSITIVITIES Final 12/16/24-0642 [facility] COLONY DESCRIPTION: DAY 1: COLONY COUNT: >100,000 CFU/ML GRAM NEGATIVE RODS IDENTIFICATION AND SENSITIVITY TO FOLLOW PROTEUS MIRABILIS PMIRABILIS M.I.C. RX --------- ---- AMPICILLIN <=8 S AZTREONAM <=4 S CEFAZOLIN <=2 S CEFTAZIDIME/AVIBACTAM <=8 S CIPROFLOXACIN >2 R GENTAMICIN <=2 S LEVOFLOXACIN 4 R MEROPENEM <=1 S PIPERACILLIN/TAZOBACTAM <=8 S TRIMETHOPRIM/SUFLAMETHOXAZOLE <=2/38 S ASSESSMENT: Urinary tract infection. Pneumonia. Septic shock. Right lung cavitary lesions, ruling out TB. Thrombocytopenia. Hypokalemia. Debility PLAN: Continue Zosyn IV. Continue GI prophylaxis. Continue oxygen support as needed. Pending a bronchoscopy procedure under anesthesia care for today. Continue monitoring electrolytes. This case was reviewed and discussed with my supervising physician and the above assessment and plan was formulated and agreed upon. ATTESTATION BY PHYSICIAN I have seen and examined the patient. I reviewed the documentation, medical decision making, and treatment plan as noted by the mid-level provider above. I agree with the findings and plan of care. IGNACIA MARTI MD, MIRTA L [facility] Dec 18, 2024 23:12
[2024-12-19] VITALS (14 sets, daily range): BP systolic 108–130; BP diastolic 68–85; PULSE 81–131; RESP 16–20; TEMP 93.5–97.8; O2SAT 93–100
[2024-12-19 00:08] LABS: MYCOPLASMA AB IGM <770 U/mL (0-769)
[2024-12-19 05:11] LABS: QUANTIFERON MITOGEN VALUE 0.05 IU/mL (.); QUANTIFERON NIL VALUE 0.05 IU/mL (.)
[2024-12-19 06:35] LABS: HEMATOCRIT 33.9 % (36-48); MEAN CORPUSCULAR HEMOGLOBIN 31.3 pg (27.0-33.0); MEAN CORPUSCULAR HGB CONC 33.9 g/dL (32.0-36.0); MEAN CORPUSCULAR VOLUME 92.1 fL (79-99); RED BLOOD CELL COUNT(AUTO) 3.68 MIL/uL (4.00-5.50); RED CELL DISTRIBUTION WIDTH 14.4 % (11.0-15.5); WHITE BLOOD COUNT (AUTO) 4.9 K/uL (4.8-10.8)
[2024-12-19 06:42] LABS: CREATININE 0.3 mg/dL (0.5-1.0); POTASSIUM 4.9 mmol/L (3.5-5.1)
--- NOTE | 2024-12-19 12:03 | PN ---
GASTROENTEROLOGY PROGRESS NOTE Date of Visit: Dec 19, 2024 Time of Visit: 12:02 Events / Notes: No acute events overnight. Patient stable. Pending to r/o TB. No other GI issues. Denies fever, chills, abdominal pain, N/V, hematemesis, bloating, constipation, diarrhea, melena or hematochezia. Review of Systems: CONSTITUTIONAL: No malaise or change in sensation of wellbeing. ENMT: No rhinorrhea, otorrhea, sinus pain, ear ache. CARDIOVASCULAR: No angina, palpitations, orthopnea or paroxysmal dyspnea. RESPIRATORY: No SOB. GASTROINTESTINAL: No abdominal pain, nausea, vomiting, diarrhea, hematemesis, melena or change in the patient's habitual bowel movements consistency/number. GENITOURINARY: No dysuria, hematuria or change in bladder continence. MUSCULOSKELETAL: No new muscle pain or decrease in muscular strength. No new joint swelling, redness or tenderness. SKIN: No new rash. Physical Exam: GEN: Awake, alert, oriented in person, time and place, and in no acute distress. HEENT: No sinus tenderness. Tympanic membranes were not examined. No rhinorrhea. Oral pharyngeal mucosa is pink, moist and within normal limits. Neck is supple with no cervical lymphadenopathy, thyromegaly or JVD. CHEST: Inspection, palpation and percussion of the chest were unremarkable. Lung auscultation revealed normal breath sounds bilaterally. CARDIAC: PMI is within normal limits. Heart sounds are regular. Normal S1, S2. No gallop or murmur. ABD: Soft, non-tender and not distended. No peritoneal signs on palpation. No organomegaly. Normal bowel sounds. EXT: No cyanosis or clubbing. No edema. SKIN: Intact. No rashes. JOINTS: No evidence of synovitis or acute arthritis. NEURO: Alert and oriented to name, place and person. Cranial nerve examination is unremarkable. No focal motor deficits. Normal speech. Gait is normal. Strength is normal. Vital Signs (last 8hr) Date Time Temp Pulse Resp B/P (MAP) Pulse Ox O2 Delivery O2 Flow Rate FiO2 12/19/24 11:29 130 19 N/A Room Air 21 12/19/24 10:00 94.8 12/19/24 08:00 93.6 81 18 111/77 96 Room Air 12/19/24 07:29 91 20 12/19/24 07:28 91 19 N/A Room Air 21 Laboratory: [ ] Laboratory: Test 12/19/24 11:31 12/19/24 06:14 12/19/24 04:35 12/18/24 12:45 Range/Units Whole Blood Glucose 112 H 70-110 MG/DL White Blood Count 4.9 4.8-10.8 K/uL Red Blood Count 3.68 L 4.00-5.50 MIL/uL Hemoglobin 11.5 #L 12.0-16.0 g/dL Hematocrit 33.9 #L 36-48 % Mean Corpuscular Volume 92.1 79-99 fL Mean Corpuscular Hemoglobin 31.3 27.0-33.0 pg Mean Corpuscular Hemoglobin Concent 33.9 32.0-36.0 g/dL Red Cell Distribution Width 14.4 11.0-15.5 % Platelet Count 71 L 130-400 K/uL Mean Platelet Volume 10.2 7.5-10.5 fL Nucleated Red Blood Cells 0.0 0.0-0.19 % Sodium Level 137 136-145 mmol/L Potassium Level 4.9 3.5-5.1 mmol/L Chloride Level 105 101-111 mmol/L Carbon Dioxide Level 30 21-32 mmol/L Blood Urea Nitrogen 10 7-18 mg/dL Creatinine 0.3 L 0.5-1.0 mg/dL Glomerular Filtration Rate Calc 136 >90 mL/min Random Glucose 143 H 70-105 mg/dL Total Calcium 8.1 L 8.5-10.1 mg/dL Bedside Glucose Comment Protocol Initiated Body Fluid Source WASHINGS Body Fluid Volume 15 mL Body Fluid Color ORANGE H LT YELLOW Body Fluid Supernatant Appearance CLOUDY H CLEAR Body Fluid WBC 1100 /cu. mm. Body Fluid RBC 1824 /cu. mm. Body Fluid Neutrophils 82.0 % Body Fluid Lymphocytes 3 % Body Fluid Monocytes % 2 % Body Fluid Macrophages (%) 12 Body Fluid Other Cells (%) 1 Test 12/18/24 11:20 12/18/24 04:39 12/17/24 12:36 Range/Units Magnesium Level 2.30 1.80-2.40 mg/dL Platelet Morphology Comment See comments Prothrombin Time 12.4 H 9.6-11.6 SEC Prothromb Time International Ratio 1.19 H 0.85-1.15 Activated Partial Thromboplast Time 43.7 H 26.3-35.5 SEC Phosphorus Level 1.4 L 2.5-4.9 mg/dL Blood Gas Specimen Type Arterial Arterial Blood pH 7.448 7.350-7.450 Arterial Blood Partial Pressure CO2 40 32-45 mmHg Arterial Blood Partial Pressure O2 82.0 L 83.0-108.0 mmHg Arterial Blood HCO3 27.1 21.0-28.0 mmol/L Arterial Blood Oxygen Saturation 96.5 94.0-98.0 % Arterial Blood Base Excess 2.9 -2.0-3.0 mmol/L Blood Gas Temperature 37.0 35.5-37.0 CELSIUS Blood Gas Vent Mode ROOM AIR ROOM AIR FiO2 21.0 % Blood Gas Specimen Comment CHE DIRECTOR DECISION SUPPORT Current Medications Medications (Trade) Dose Ordered Sig/Castillo Route PRN Reason Start Time Stop Time Status Last Admin Dose Admin Acetaminophen (TYLenol 325MG ELIXIR) 325 mg Q6H PRN PO MILD PAIN (1-3) 12/13/24 15:00 01/12/25 14:59 12/16/24 23:50 325 MG Acetaminophen (TYLenol 500MG TAB) 500 mg Q4PRN PRN PO FEVER 12/15/24 10:30 12/18/24 06:36 DC Acetaminophen (TYLenol 500MG TAB) 500 mg Q4PRN PRN PO PAIN 12/15/24 10:30 12/18/24 06:37 DC Acetylcysteine (MUComyst 20% 4ML) 400mg = 2ml [id number] IH 12/14/24 18:00 12/19/24 11:38 DC 12/19/24 11:23 800 MG Albumin Human 50 ml @ 0 mls/hr AD IV 12/14/24 10:00 12/18/24 06:39 DC 12/14/24 11:14 50 MLS/HR Albuterol (DUOneb) 1 udvial Q6H PRN IH SHORTNESS OF BREATH 12/13/24 15:30 12/19/24 11:38 DC 12/19/24 11:23 1 UDVIAL Bisacodyl (DulcoLAX) 10 mg DAILY RC 12/16/24 09:00 12/19/24 08:59 DC 12/18/24 09:25 10 MG Budesonide (Pulmicort 0.5 Mg/2ml) 0.5 mg BIDRESP IH 12/13/24 18:00 01/12/25 17:59 12/19/24 07:21 0.5 MG Buspirone HCl (BUspar) 15 mg TID PO 12/15/24 14:00 01/14/25 13:59 12/19/24 08:33 15 MG Dextrose 500 ml @ 0 mls/hr Q0M IV 12/16/24 12:30 12/17/24 07:15 DC 12/16/24 12:30 999 MLS/HR Dextrose 1,000 ml @ 75 mls/hr [id number] IV 12/13/24 15:00 12/16/24 14:30 DC 12/16/24 10:16 75 MLS/HR Dextrose 1,000 ml @ 75 mls/hr [id number] IV 12/17/24 01:00 12/17/24 07:15 DC 12/17/24 00:50 75 MLS/HR Dextrose (D50w) 50 ml AD PRN IV HYPOGLYCEMIA PROTOCOL 12/13/24 15:00 01/12/25 14:59 12/17/24 00:00 50 ML Dextrose/Sodium Chloride 500 ml @ 75 mls/hr Q6H40M IV 12/17/24 07:30 12/17/24 07:20 DC Dextrose/Sodium Chloride 500 ml @ 75 mls/hr Q6H40M IV 12/17/24 07:30 01/16/25 07:29 12/19/24 00:15 75 MLS/HR Doxycycline Hyclate 250 ml @ 125 mls/hr Q12H IV 12/13/24 15:30 12/17/24 07:20 DC 12/17/24 03:24 125 MLS/HR Enoxaparin Sodium (Lovenox) 30 mg DAILY SQ 12/14/24 09:00 12/15/24 09:05 DC 12/14/24 08:46 30 MG Enoxaparin Sodium (Lovenox) 30 mg DAILY SQ 12/16/24 09:00 12/15/24 13:22 DC Folic Acid (FOLic ACID 1 MG TABLET) 1 mg DAILY PO 12/18/24 09:00 01/17/25 08:59 12/19/24 08:33 1 MG Glucagon (Glucagon 1mg Kit) 1 mg AD PRN IM HYPOGLYCEMIA PROTOCOL 12/13/24 15:00 01/12/25 14:59 Guaifenesin/ Dextromethorphan (RobiTUSSin DM 200/20MG 10ML) 10 ml Q4H PRN PO COUGH 12/15/24 11:00 01/14/25 10:59 Home Med (Home Medication) (Cholecalciferol (Vitamin D3) 25 MCG) DAILY PO 12/16/24 09:00 01/15/25 08:59 Lactated Ringer's 1,000 ml @ 75 mls/hr [id number] IV 12/16/24 23:30 12/17/24 00:30 DC 12/16/24 23:34 75 MLS/HR Lactated Ringer's 1,000 ml @ 100 mls/hr Q10H IV 12/13/24 15:00 12/13/24 15:18 DC Lactated Ringer's (Lactated Ringers 1000ml) 500 ml BOLUS IV 12/17/24 00:30 12/18/24 06:39 DC Leptospermum Honey (Medihoney) 1 appl DAILY TP 12/15/24 09:00 01/14/25 08:59 12/19/24 08:51 1 APPL Lorazepam (AtiVAN) 0.5 mg DAILYDINNER PO 12/15/24 17:00 01/14/25 16:59 12/18/24 17:13 0.5 MG Magnesium Sulfate 50 ml @ 0 mls/hr PROTOCOL IV 12/13/24 21:30 01/12/25 21:29 12/18/24 05:55 25 MLS/HR Meropenem (Merrem 1gm) 1 gm Q8H IVPB 12/13/24 16:00 12/17/24 07:37 DC 12/16/24 23:45 1 GM Miscellaneous Medication (Ondansetron HCl ) 8 mg TID PO 12/15/24 14:00 12/15/24 10:43 DC Multivitamins Therapeutic (Multivitamin Tablet) 1 tab DAILY PO 12/18/24 09:00 01/17/25 08:59 12/19/24 08:33 1 TAB Norepinephrine 250 ml @ 0 mls/hr PROTOCOL IV 12/13/24 14:30 12/15/24 14:26 DC 12/14/24 07:35 25.3 MLS/HR Ondansetron HCl (zoFRAN 4MG INJ) 4 mg Q6H PRN IVP NAUSEA/VOMITING 12/13/24 16:30 01/12/25 16:29 Pantoprazole Sodium (PROTonix 40MG INJ) 40 mg Q24H IVP 12/13/24 15:00 01/12/25 14:59 12/18/24 15:21 40 MG Pharmacy Profile Note (Pharmacy Communication) 1 each ONCE MISC 12/13/24 15:00 12/13/24 15:28 DC Pharmacy Profile Note (Pharmacy Communication) 1 each ONCE MISC 12/17/24 07:30 12/17/24 08:12 DC Pharmacy Profile Note (Pharmacy Communication) 1 each ONCE MISC 12/18/24 08:00 12/18/24 08:29 DC Piperacillin Sod/ Tazobactam Sod (Zosyn 3.375gm+NS 50ml) 3.375 gm Q8H IV 12/17/24 08:00 12/27/24 07:59 12/19/24 08:33 3.375 GM Polyethylene Glycol (MIRalax 3350 17 GM POWD.PACK) 17 gm DAILY PO 12/16/24 09:00 01/15/25 08:59 12/19/24 08:50 17 GM Potassium Phosphate 250 ml @ 42 mls/hr PROTOCOL IV 12/15/24 05:30 12/15/24 10:19 DC 12/15/24 05:59 42 MLS/HR Potassium Chloride 100 ml @ 50 mls/hr AD PRN IV POTASSIUM PROTOCOL 12/13/24 21:30 01/12/25 21:29 12/18/24 05:55 50 MLS/HR Potassium Chloride 100 ml @ 50 mls/hr AD PRN IV POTASSIUM PROTOCOL 12/15/24 14:30 12/18/24 06:39 DC Potassium Chloride 100 ml @ 100 mls/hr AD PRN IV POTASSIUM PROTOCOL 12/15/24 14:30 12/18/24 06:39 DC Potassium Chloride (K-Dur/Klor-Con 20meq) 20 meq AD PRN PO POTASSIUM PROTOCOL 12/15/24 14:30 01/14/25 14:29 Potassium Chloride (KCl 10% Elixir 20meq/15ml) 20 meq AD PRN PO POTASSIUM PROTOCOL 12/15/24 14:30 01/14/25 14:29 12/15/24 22:57 20 MEQ Potassium Chloride (KCl 10% Elixir 20meq/15ml) 40 meq BID PO 12/18/24 09:00 12/18/24 21:01 DC 12/18/24 21:06 40 MEQ Quetiapine Fumarate (SEROquel 100 mg TAB) 200 mg BID PO 12/15/24 21:00 01/14/25 20:59 12/19/24 08:34 200 MG Sodium Chloride 1,000 ml @ 75 mls/hr [id number] IV 12/16/24 14:30 12/16/24 22:18 DC 12/16/24 15:08 75 MLS/HR Thiamine HCl (Vitamin B-1) 300 mg Q24H IVP 12/13/24 15:00 01/12/25 14:59 12/18/24 15:21 300 MG Venlafaxine HCl (EffEXOR XR 37.5mg CAP) 75 mg DAILY PO 12/16/24 09:00 01/15/25 08:59 12/19/24 08:33 75 MG Diagnostics / Radiology: [COPY/PASTE HERE IF NO REPORTS PLEASE DELETE SECTION] Assessment: Failure to thrive Microcephaly Scoliosis Plan: HOLD OFF ON EGD/PEG until TB ruled out Continue GI prophylaxis Advance feedings as tolerated Avoid NSAIDs Antireflux measures Monitor H&H and transfuse as needed Call with questions, concerns or change in clinical status Patient to follow-up at clinic post discharge Thank you for this consult ZHAO GUERRA DIRECTOR DECISION SUPPORT Dec 19, 2024 12:03
--- NOTE | 2024-12-19 12:25 | NUR ---
Change in condition Patient noted with elevated heart rate fluctuating between 100-140. Guilherme KIM ordered to discontinue nebulizer treatments. Dr. Love notified. 12 lead EKG ordered.
--- NOTE | 2024-12-19 12:34 | EKG ---
[facility] Test Date: 2024-12-19 Test Time: 11:31:35 Pat Name: DESTINY PAZ Department: [facility] Room: 301 1 Gender: F [employer]borne [employer] Delivery Specialist: mio : 1980 Requested By: SEVEN KIRKLAND Order Number: [id number] Reading MD: Jerald Mccarthy Measurements Intervals [place] Rate: 125 P: 48 FL: 126 QRS: 44 QRSD: 70 T: 245 QT: 278 QTc: 401 Interpretive Statements Sinus tachycardia Low voltage QRS Nonspecific T wave abnormality Compared to ECG 12/16/2024 16:41:27 Low QRS voltage now present T-wave abnormality now present ST (T wave) deviation no longer present Electronically Signed On 12-19-2024 13:41:53 CDT by Jerald Mccarthy Please click the below link to view image of tracing.
--- NOTE | 2024-12-19 12:55 | NUR ---
EKG RESULTS Provider notified, present in the room. No further orders at this time. Labs will be collected in AM.
--- NOTE | 2024-12-19 18:12 | PN ---
[facility] PROGRESS NOTE Date of Service: Dec 19, 2024 Time of Service: 18:05 SUBJECTIVE: 12/14 patient seen at bedside, no acute events overnight. Patient was seen at bedside, she does not participate in the medical interview. She does not appear to be in any acute distress. She is on pressors, we will continue to wean as able. Sodium improved from 150 down to 146, remainder of her labs are relatively unremarkable. Urine growing bacteria, we will continue with empiric antibiotics 12/15/24 Patient sen and examined. Care discussed with RN No acute overnight events. Follow cultures/continue antibiotics. 12/16 patient seen at bedside, no acute events overnight. Pulmonology was pending bronchoscopy to obtain samples to test for tuberculosis however patient became hypothermic and somnolent. Repeat labs, ABG were ordered however no abnormalities were noted. Lactic acid was normal, sodium had mildly decreased from 142 down to 134, ammonia was within normal limits. She was started on a Halina Hugger and bolused fluids, her temperature began to improve and she was more awake. Her phosphorus is low at 1.8 and given her constitution this is concerning for refeeding syndrome, we will continue to monitor closely. 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 RN reports blood pressure 109/65, respirations, 98% on nasal cannula. RN reports that patient has was a rapid response earlier, has been on the Halina Hugger all day with no improvement of the temperature, and now is tachycardic. I went to assess the patient at bedside. The patient's breathing was even, unlabored, and lethargic. The patient is nonverbal, moans with touch. The patient was receiving feedings per NG and IV fluids. Stat ABGs, blood work were done. Remarkable lab results: Lactic acid increased from 1.04 to 1.59. Phos was 1.6, magnesium 1.9, total protein 4.3, albumin 1.6. ABGs on room air: PO2 58.4, ABG O2 saturation 89.2. (PO2 this morning was 91.5). The patient was placed back on 2 L nasal cannula, increased bear hugger to 30� C from 32� C. Electrolytes were replaced. Telemetry pack was order. We will continue monitoring patient closely. 12/17/2024 0315: Addendum: Reassessed the patient multiple times. Her temperature improved, remained tachycardic, despite a total of a 1500 mL bolus of LR. BP ranging systolic 98-105. The patient had a hypoglycemic episode at 11:54 p.m., blood glucose was 51, despite being of feedings. Change fluids to D5 W at 75 mL an hour. We will continue monitoring patient closely. 06:00 Reassessed the patient before off of my shift HR had improved to 112-116. b/p low 100s systolic. 12/17 patient seen at bedside, temperature has improved. She continues to be tachycardic, hemodynamically stable saturating well on room air. Hemoglobin stable at 10.1, similar to yesterday, her phosphate is very low at 1.1. She is much more awake and interactive today compared to yesterday. The constellation of symptoms with hypothermia, tachycardia and even the altered mental status are likely secondary to refeeding syndrome. The patient is not septic, her ammonia is at normal levels, lactic acid is at normal levels, CO2 is at normal levels she has been adequately resuscitated with fluids. She will be repleted with IV phosphate, her tube feeds we will be reduced to trickle feeds at 10 cc/hour before attempting to increase the feed rate. If her tachycardia improves with these changes then tomorrow we will attempt to increase the rate of her tube feeds. 12/18 patient seen at bedside, no acute events overnight. Her tachycardia has improved, hypothermia improving, she is awake today in no acute distress. Pending bronchoscopy later today to take samples for ruling out TB. Once completed we will resume trickle feeds. Today potassium, phosphate and magnesium were all low, we will be repleted. This is likely secondary to refeeding syndrome. 12/19 patient seen at bedside, no acute events overnight. Patient is still having hypothermia and tachycardia ranging from 81 up to 130, labs relatively u nremarkable. Repeat mg and phos tomorrow, will begin to titrate up tube feedings REVIEW OF SYSTEMS: Patient is obtunded, unable to obtain ROS. Patient is nonverbal, only moans. PHYSICAL EXAM GENERAL APPEARANCE: The patient is obtunded, very frail, cachectic, contractures noted of the lower extremities NEUROLOGICAL: The patient response to painful stimuli, moans when touched, is nonverbal. Does not follow command. HEENT: Face is symmetric. Pupils are equal and reactive. Extraocular movements are intact. NECK: Supple. No JVD. No thyromegaly. No submental, submandibular, pre- /postauricular, occipital or supraclavicular lymphadenopathy. CHEST: Normal chest expansion. No Telemetry. LUNGS: Absence of any rales, rhonchi or any wheezing. CARDIOVASCULAR: Regular. Tachycardic. No appreciable rubs, murmurs or gallops. ABDOMEN: Soft, nontender, and nondistended. There is no rebound, voluntary guarding, or rigidity. : Deferred. No Clark. EXTREMITIES: Contractures to bilateral lower extremity. Non-edematous and not cyanotic. No clubbing. Good capillary refill. SKIN: No skin breakdown. Vital Signs (last 8hr) Date Time Temp Pulse Resp B/P (MAP) Pulse Ox O2 Delivery O2 Flow Rate FiO2 12/19/24 16:00 96.1 102 16 108/71 97 Room Air 12/19/24 12:00 97.5 131 18 115/69 94 Room Air 12/19/24 11:29 130 19 N/A Room Air 21 LABS: Laboratory: Test 12/19/24 15:23 12/19/24 06:14 12/19/24 04:35 12/18/24 12:45 Range/Units Whole Blood Glucose 94 70-110 MG/DL White Blood Count 4.9 4.8-10.8 K/uL Red Blood Count 3.68 L 4.00-5.50 MIL/uL Hemoglobin 11.5 #L 12.0-16.0 g/dL Hematocrit 33.9 #L 36-48 % Mean Corpuscular Volume 92.1 79-99 fL Mean Corpuscular Hemoglobin 31.3 27.0-33.0 pg Mean Corpuscular Hemoglobin Concent 33.9 32.0-36.0 g/dL Red Cell Distribution Width 14.4 11.0-15.5 % Platelet Count 71 L 130-400 K/uL Mean Platelet Volume 10.2 7.5-10.5 fL Nucleated Red Blood Cells 0.0 0.0-0.19 % Sodium Level 137 136-145 mmol/L Potassium Level 4.9 3.5-5.1 mmol/L Chloride Level 105 101-111 mmol/L Carbon Dioxide Level 30 21-32 mmol/L Blood Urea Nitrogen 10 7-18 mg/dL Creatinine 0.3 L 0.5-1.0 mg/dL Glomerular Filtration Rate Calc 136 >90 mL/min Random Glucose 143 H 70-105 mg/dL Total Calcium 8.1 L 8.5-10.1 mg/dL Bedside Glucose Comment Protocol Initiated Body Fluid Source WASHINGS Body Fluid Volume 15 mL Body Fluid Color ORANGE H LT YELLOW Body Fluid Supernatant Appearance CLOUDY H CLEAR Body Fluid WBC 1100 /cu. mm. Body Fluid RBC 1824 /cu. mm. Body Fluid Neutrophils 82.0 % Body Fluid Lymphocytes 3 % Body Fluid Monocytes % 2 % Body Fluid Macrophages (%) 12 Body Fluid Other Cells (%) 1 Test 12/18/24 11:20 12/18/24 04:39 Range/Units Magnesium Level 2.30 1.80-2.40 mg/dL Platelet Morphology Comment See comments Prothrombin Time 12.4 H 9.6-11.6 SEC Prothromb Time International Ratio 1.19 H 0.85-1.15 Activated Partial Thromboplast Time 43.7 H 26.3-35.5 SEC Phosphorus Level 1.4 L 2.5-4.9 mg/dL Current Medications Medications (Trade) Dose Ordered Sig/Castillo Route PRN Reason Start Time Stop Time Status Last Admin Dose Admin Acetaminophen (TYLenol 325MG ELIXIR) 325 mg Q6H PRN PO MILD PAIN (1-3) 12/13/24 15:00 01/12/25 14:59 12/16/24 23:50 325 MG Acetaminophen (TYLenol 500MG TAB) 500 mg Q4PRN PRN PO FEVER 12/15/24 10:30 12/18/24 06:36 DC Acetaminophen (TYLenol 500MG TAB) 500 mg Q4PRN PRN PO PAIN 12/15/24 10:30 12/18/24 06:37 DC Acetylcysteine (MUComyst 20% 4ML) 400mg = 2ml [id number] IH 12/14/24 18:00 12/19/24 11:38 DC 12/19/24 11:23 800 MG Albumin Human 50 ml @ 0 mls/hr AD IV 12/14/24 10:00 12/18/24 06:39 DC 12/14/24 11:14 50 MLS/HR Albuterol (DUOneb) 1 udvial Q6H PRN IH SHORTNESS OF BREATH 12/13/24 15:30 12/19/24 11:38 DC 12/19/24 11:23 1 UDVIAL Bisacodyl (DulcoLAX) 10 mg DAILY RC 12/16/24 09:00 12/19/24 08:59 DC 12/18/24 09:25 10 MG Budesonide (Pulmicort 0.5 Mg/2ml) 0.5 mg BIDRESP IH 12/13/24 18:00 01/12/25 17:59 12/19/24 07:21 0.5 MG Buspirone HCl (BUspar) 15 mg TID PO 12/15/24 14:00 01/14/25 13:59 12/19/24 14:51 15 MG Dextrose 500 ml @ 0 mls/hr Q0M IV 12/16/24 12:30 12/17/24 07:15 DC 12/16/24 12:30 999 MLS/HR Dextrose 1,000 ml @ 75 mls/hr [id number] IV 12/13/24 15:00 12/16/24 14:30 DC 12/16/24 10:16 75 MLS/HR Dextrose 1,000 ml @ 75 mls/hr [id number] IV 12/17/24 01:00 12/17/24 07:15 DC 12/17/24 00:50 75 MLS/HR Dextrose (D50w) 50 ml AD PRN IV HYPOGLYCEMIA PROTOCOL 12/13/24 15:00 01/12/25 14:59 12/17/24 00:00 50 ML Dextrose/Sodium Chloride 500 ml @ 75 mls/hr Q6H40M IV 12/17/24 07:30 12/17/24 07:20 DC Dextrose/Sodium Chloride 500 ml @ 75 mls/hr Q6H40M IV 12/17/24 07:30 01/16/25 07:29 12/19/24 13:14 75 MLS/HR Doxycycline Hyclate 250 ml @ 125 mls/hr Q12H IV 12/13/24 15:30 12/17/24 07:20 DC 12/17/24 03:24 125 MLS/HR Enoxaparin Sodium (Lovenox) 30 mg DAILY SQ 12/14/24 09:00 12/15/24 09:05 DC 12/14/24 08:46 30 MG Enoxaparin Sodium (Lovenox) 30 mg DAILY SQ 12/16/24 09:00 12/15/24 13:22 DC Folic Acid (FOLic ACID 1 MG TABLET) 1 mg DAILY PO 12/18/24 09:00 01/17/25 08:59 12/19/24 08:33 1 MG Glucagon (Glucagon 1mg Kit) 1 mg AD PRN IM HYPOGLYCEMIA PROTOCOL 12/13/24 15:00 01/12/25 14:59 Guaifenesin/ Dextromethorphan (RobiTUSSin DM 200/20MG 10ML) 10 ml Q4H PRN PO COUGH 12/15/24 11:00 01/14/25 10:59 Home Med (Home Medication) (Cholecalciferol (Vitamin D3) 25 MCG) DAILY PO 12/16/24 09:00 01/15/25 08:59 Lactated Ringer's 1,000 ml @ 75 mls/hr [id number] IV 12/16/24 23:30 12/17/24 00:30 DC 12/16/24 23:34 75 MLS/HR Lactated Ringer's 1,000 ml @ 100 mls/hr Q10H IV 12/13/24 15:00 12/13/24 15:18 DC Lactated Ringer's (Lactated Ringers 1000ml) 500 ml BOLUS IV 12/17/24 00:30 12/18/24 06:39 DC [facility]ospermum [facility] ([facility]) 1 appl DAILY TP 12/15/24 09:00 01/14/25 08:59 12/19/24 08:51 1 APPL Lorazepam (AtiVAN) 0.5 mg DAILYDINNER PO 12/15/24 17:00 01/14/25 16:59 12/19/24 17:16 0.5 MG Magnesium Sulfate 50 ml @ 0 mls/hr PROTOCOL IV 12/13/24 21:30 01/12/25 21:29 12/18/24 05:55 25 MLS/HR Meropenem (Merrem 1gm) 1 gm Q8H IVPB 12/13/24 16:00 12/17/24 07:37 DC 12/16/24 23:45 1 GM Miscellaneous Medication (Ondansetron HCl ) 8 mg TID PO 12/15/24 14:00 12/15/24 10:43 DC Multivitamins Therapeutic (Multivitamin Tablet) 1 tab DAILY PO 12/18/24 09:00 01/17/25 08:59 12/19/24 08:33 1 TAB Norepinephrine 250 ml @ 0 mls/hr PROTOCOL IV 12/13/24 14:30 12/15/24 14:26 DC 12/14/24 07:35 25.3 MLS/HR Ondansetron HCl (zoFRAN 4MG INJ) 4 mg Q6H PRN IVP NAUSEA/VOMITING 12/13/24 16:30 01/12/25 16:29 Pantoprazole Sodium (PROTonix 40MG INJ) 40 mg Q24H IVP 12/13/24 15:00 01/12/25 14:59 12/19/24 14:53 40 MG Pharmacy Profile Note (Pharmacy Communication) 1 each ONCE MISC 12/13/24 15:00 12/13/24 15:28 DC Pharmacy Profile Note (Pharmacy Communication) 1 each ONCE MISC 12/17/24 07:30 12/17/24 08:12 DC Pharmacy Profile Note (Pharmacy Communication) 1 each ONCE MISC 12/18/24 08:00 12/18/24 08:29 DC Piperacillin Sod/ Tazobactam Sod (Zosyn 3.375gm+NS 50ml) 3.375 gm Q8H IV 12/17/24 08:00 12/27/24 07:59 12/19/24 17:16 3.375 GM Polyethylene Glycol (MIRalax 3350 17 GM POWD.PACK) 17 gm DAILY PO 12/16/24 09:00 01/15/25 08:59 12/19/24 08:50 17 GM Potassium Phosphate 250 ml @ 42 mls/hr PROTOCOL IV 12/15/24 05:30 12/15/24 10:19 DC 12/15/24 05:59 42 MLS/HR Potassium Chloride 100 ml @ 50 mls/hr AD PRN IV POTASSIUM PROTOCOL 12/13/24 21:30 01/12/25 21:29 12/18/24 05:55 50 MLS/HR Potassium Chloride 100 ml @ 50 mls/hr AD PRN IV POTASSIUM PROTOCOL 12/15/24 14:30 12/18/24 06:39 DC Potassium Chloride 100 ml @ 100 mls/hr AD PRN IV POTASSIUM PROTOCOL 12/15/24 14:30 12/18/24 06:39 DC Potassium Chloride (K-Dur/Klor-Con 20meq) 20 meq AD PRN PO POTASSIUM PROTOCOL 12/15/24 14:30 01/14/25 14:29 Potassium Chloride (KCl 10% Elixir 20meq/15ml) 20 meq AD PRN PO POTASSIUM PROTOCOL 12/15/24 14:30 01/14/25 14:29 12/15/24 22:57 20 MEQ Potassium Chloride (KCl 10% Elixir 20meq/15ml) 40 meq BID PO 12/18/24 09:00 12/18/24 21:01 DC 12/18/24 21:06 40 MEQ Quetiapine Fumarate (SEROquel 100 mg TAB) 200 mg BID PO 12/15/24 21:00 01/14/25 20:59 12/19/24 08:34 200 MG Sodium Chloride 1,000 ml @ 75 mls/hr [id number] IV 12/16/24 14:30 12/16/24 22:18 DC 12/16/24 15:08 75 MLS/HR Thiamine HCl (Vitamin B-1) 300 mg Q24H IVP 12/13/24 15:00 01/12/25 14:59 12/19/24 14:53 300 MG Venlafaxine HCl (EffEXOR XR 37.5mg CAP) 75 mg DAILY PO 12/16/24 09:00 01/15/25 08:59 12/19/24 08:33 75 MG DIAGNOSTICS / RADIOLOGY: [ ] ASSESSMENT: Hypothermia, POA, in need of bare hugger Acute hypoxemic respiratory failure, POA Refeeding syndrome, POA Recurrent hypoglycemic episodes Septic shock, POA (2/2 community-acquired pneumonia and complicated UTI) Toxic metabolic encephalopathy with obtundation, POA Community-acquired pneumonia with acute hypoxemic respiratory failure, POA Acute complicated cystitis, POA Frailty/debility, POA Acute UTI, Proteus, POA History of chronic contractures of bilateral lower extremities, POA Unstageable decubitus ulcer involving the left hip, POA Cachexia, POA History of severe intellectual disability, POA History of scoliosis, POA History of microcephaly, POA History of ADHD, POA History of aggression, POA PLAN: The patient is in medical floor. Continue telemetry pack. Continue with the Halina Hugger as needed NG tube in place, continue continuous tube feedings. Give trickle feeds at 10cc/hr, until tachycardia improves Start IV phosphate repletion Patient will be kept strictly NPO and on aspiration precautions, NGT feedings only. We will maintain POCT blood glucose check q.4 hours, we will maintain blood glucose greater than 70. Continue Broad-spectrum antibiotics with IV meropenem and doxycycline Monitor respirations status closely. Place patient on 2 L nasal cannula due to hypoxemia. Urine growing proteus Patient will be placed on air mattress, offloading measures, wound care will be requested. Patient has a 1:1 sitter due to removes NGT/lines. May use mittens. Infectious Disease consulted, appreciate recommendations Reposition the patient every 2 hours and p.r.n.. Disposition: Pending improvement in clinical status SEVEN KIRKLAND MD Dec 19, 2024 18:12
--- NOTE | 2024-12-19 19:04 | PN ---
[facility] PROGRESS NOTE Date Patient Seen: Dec 19, 2024 Time of Visit: 18:56 Supervising Physician: [Dr. Escalante] Supervising Physician: Dr. Pola Lowery Primary Care Physician: Yarelis Ogden MD Outpatient Specialists: [ ] Inpatient Consults: Dr Esperanza MAYA MD Attending: Carlos Real MD PROBLEM LIST: Sepsis 2/2 Pneumonia and Acute complicated Cystitis Right upper lobe cavitation TB rule out, POA - pending bronchoscopy for tomorrow 12/16/24 Hypothermia, POA , resolved 2/2 sepsis Hypoglycemia episodes Acute thrombocytopenia Failure to thrive pending GI for G-tube eval Community-acquired pneumonia with acute hypoxemic respiratory failure, POA Suspected aspiration, POA Acute complicated cystitis, POA + Proteus Mirabiis Frailty/debility, POA History of chronic contractures of bilateral lower extremities, POA Unstageable decubitus ulcers to right hip POA Intellectual disability, POA History of scoliosis, POA History of microcephaly, POA History of ADHD, POA History of aggression, POA Nonverbal Plan summary: Remove isolation precaution Continue IV antibiotics Follow ID recommendations Maintain normal thermic as much as possible S/P bronchoscopy, negative for TB Continue tube feedings INTERVAL HISTORY: Patient evaluated at bedside prior to bronchoscopy, potassium and magnesium being replaced at this time. Patient's body temperature within normal limits. She continues with NG tube. Patient remains nonverbal, however awake and alert likely secondary to her increased feeding intake. No overnight events reported by nursing staff present at the time, no nausea or vomiting episodes. Platelets at 59 this morning. Hemoglobin 9.4, creatinine 0.3. We will continue to follow the patient following bronchoscopy. 12/19 patient is evaluated at bedside. Temperature taken at bedside is improved to 97.5� F. she was tachycardic with heart rate ranging up to 130. Continues on room air, no current respiratory distress. Per sitter, patient has not had a productive cough. She is status post bronchoscopy, MTB not detected. Gram stain is negative. No acid-fast bacilli seen, pending culture. WBC remains within normal limits. Repeat CT is unremarkable. REVIEW OF SYSTEMS: UNABLE TO OBTAIN DUE TO PATIENT IS NONVERBAL. INTELLECTUAL DISABILITY. PHYSICAL EXAM: GENERAL: Awake to voice nonverbal, intellectually disabled microcephaly. HEENT: Sclera non icteric, dry mucosa NECK: Supple, no JVD, trachea midline LUNGS: Coarse rhonchi breath sounds bilaterally. No wheezes HEART: Regular rate and rhythm. Normal S1 and S2, without murmurs ABD: Cachectic, flat, nontender. Bowel sounds present EXT: Contractions to upper and lower extremities, right hip unstageable pressure ulcer with a black eschar NEURO: Awake to voice, nonverbal and chronically ill with upper and lower extremity contractures. Vital Signs (last 8hr) Date Time Temp Pulse Resp B/P (MAP) Pulse Ox O2 Delivery O2 Flow Rate FiO2 12/19/24 18:46 88 20 12/19/24 18:45 88 20 N/A Room Air 21 12/19/24 16:00 96.1 102 16 108/71 97 Room Air 12/19/24 12:00 97.5 131 18 115/69 94 Room Air 12/19/24 11:29 130 19 N/A Room Air 21 LABS: Hematology Labs: Test 12/19/24 06:14 12/18/24 04:39 Range/Units White Blood Count 4.9 4.8-10.8 K/uL Red Blood Count 3.68 L 4.00-5.50 MIL/uL Hemoglobin 11.5 #L 12.0-16.0 g/dL Hematocrit 33.9 #L 36-48 % Mean Corpuscular Volume 92.1 79-99 fL Mean Corpuscular Hemoglobin 31.3 27.0-33.0 pg Mean Corpuscular Hemoglobin Concent 33.9 32.0-36.0 g/dL Red Cell Distribution Width 14.4 11.0-15.5 % Platelet Count 71 L 130-400 K/uL Mean Platelet Volume 10.2 7.5-10.5 fL Nucleated Red Blood Cells 0.0 0.0-0.19 % Platelet Morphology Comment See comments Chemistry Labs: Test 12/19/24 15:23 12/19/24 06:14 12/19/24 04:35 12/18/24 11:20 Range/Units Whole Blood Glucose 94 70-110 MG/DL Sodium Level 137 136-145 mmol/L Potassium Level 4.9 3.5-5.1 mmol/L Chloride Level 105 101-111 mmol/L Carbon Dioxide Level 30 21-32 mmol/L Blood Urea Nitrogen 10 7-18 mg/dL Creatinine 0.3 L 0.5-1.0 mg/dL Glomerular Filtration Rate Calc 136 >90 mL/min Random Glucose 143 H 70-105 mg/dL Total Calcium 8.1 L 8.5-10.1 mg/dL Bedside Glucose Comment Protocol Initiated Magnesium Level 2.30 1.80-2.40 mg/dL Test 12/18/24 04:39 Range/Units Phosphorus Level 1.4 L 2.5-4.9 mg/dL Coagulation Labs: Test 12/18/24 04:39 Range/Units Prothrombin Time 12.4 H 9.6-11.6 SEC Prothromb Time International Ratio 1.19 H 0.85-1.15 Activated Partial Thromboplast Time 43.7 H 26.3-35.5 SEC DIAGNOSTICS / RADIOLOGY RESULTS: [ ] PLAN NEURO: Minimize central acting medications as possible. Maintain fall precautions, adequate lighting during the day PULMONARY: Supplemental 02 as needed. Maintain aspiration precautions at all times CARDIOVASCULAR: Follow hemodynamics. Vital signs per facility protocol GI & NUTRITION: Continue with nutritional support. Continue stool softeners and laxatives as needed. KIDNEYS & ELECTROLYTES: Strict monitoring of intake, output and overall fluid balance. Avoid nephrotoxic medications to the extent possible. Medications to be dosed according to renal function. Monitor electrolytes and replace as needed ENDOCRINE: Maintain blood glucose between 100-180 at all times. Hypoglycemia protocol in place INFECTIOUS DISEASE: Trend temperature, WBC and procalcitonin level Follow cultures, deescalate antibiotics as soon as possible. Panculture if new onset fever ONCOLOGY/HEMATOLOGY/COAGULATION: Monitor for s/s of bleeding Monitor hemoglobin, coagulation studies as needed SKIN: Pressure ulcer prevention per facility protocol Specialty mattress ORTHO/REHAB: Continue PT/OT Prophylaxis: Continue GI and DVT prophylaxis Code Status: Full Resuscitation Disposition: TBD Other: Total patient care time exceeds 35 minutes excluding all procedures. RAMO JUAREZ Dec 19, 2024 19:04
--- NOTE | 2024-12-19 22:58 | PN ---
INFECTIOUS DISEASE PROGRESS NOTE Date of Service: Dec 19, 2024 SUBJECTIVE: This is a 44-year-old female patient with intellectual disability who was seen in room 301. Patient is s/p bronchoscopy under anesthesia day #1. We will follow up on the culture results. Patient is afebrile, temperature 98.4� and a WBC of 4.9. Final urine culture results positive for Proteus mirabilis and patient continues on Zosyn IV every 8 hours. We will continue to follow patient's care. PHYSICAL EXAM EYES: Anicteric. Pupils equal and reactive. HENT: No oral thrush seen, moist Oral mucosa. NECK: Supple, no JVD or thyromegaly. LUNGS: Good air entry. No rales, no rhonchi. CARDIOVASCULAR: S1, S2 regular. No murmur heard. ABDOMEN: Soft, non tender, bowel sounds present, no organomegaly. CENTRAL NERVOUS SYSTEM: Intellectual disability. SKIN: No rashes, no swelling. LYMPHATICS: No peripheral lymphadenopathy. MUSCULOSKELETAL: No joint swelling, erythema or tenderness. EXTREMITIES: No cyanosis or clubbing. BACK: No deformity, no pressure ulcer. GENITOURINARY: No dysuria or hematuria. Incontinence. Vital Sign (Last 12 Hours) 12/19/24 12/19/24 12/19/24 12/19/24 11:29 12:00 16:00 18:45 Temp 97.5 96.1 Pulse 130 131 102 88 Resp 19 18 16 20 B/P (MAP) 115/69 108/71 Pulse Ox 94 97 O2 Delivery N/A Room Air Room Air Room Air N/A Room Air FiO2 21 21 12/19/24 18:46 Pulse 88 Resp 20 Intake & Output (last 24hrs) 12/18/24 12/18/24 12/19/24 15:00 23:00 07:00 Output Total 1840 ml 1000 ml Balance -1840 ml -1000 ml LABS: Laboratory: Test 12/19/24 20:37 12/19/24 06:14 12/19/24 04:35 12/18/24 12:45 Range/Units Whole Blood Glucose 67 L 70-110 MG/DL White Blood Count 4.9 4.8-10.8 K/uL Red Blood Count 3.68 L 4.00-5.50 MIL/uL Hemoglobin 11.5 #L 12.0-16.0 g/dL Hematocrit 33.9 #L 36-48 % Mean Corpuscular Volume 92.1 79-99 fL Mean Corpuscular Hemoglobin 31.3 27.0-33.0 pg Mean Corpuscular Hemoglobin Concent 33.9 32.0-36.0 g/dL Red Cell Distribution Width 14.4 11.0-15.5 % Platelet Count 71 L 130-400 K/uL Mean Platelet Volume 10.2 7.5-10.5 fL Nucleated Red Blood Cells 0.0 0.0-0.19 % Sodium Level 137 136-145 mmol/L Potassium Level 4.9 3.5-5.1 mmol/L Chloride Level 105 101-111 mmol/L Carbon Dioxide Level 30 21-32 mmol/L Blood Urea Nitrogen 10 7-18 mg/dL Creatinine 0.3 L 0.5-1.0 mg/dL Glomerular Filtration Rate Calc 136 >90 mL/min Random Glucose 143 H 70-105 mg/dL Total Calcium 8.1 L 8.5-10.1 mg/dL Bedside Glucose Comment Protocol Initiated Body Fluid Source WASHINGS Body Fluid Volume 15 mL Body Fluid Color ORANGE H LT YELLOW Body Fluid Supernatant Appearance CLOUDY H CLEAR Body Fluid WBC 1100 /cu. mm. Body Fluid RBC 1824 /cu. mm. Body Fluid Neutrophils 82.0 % Body Fluid Lymphocytes 3 % Body Fluid Monocytes % 2 % Body Fluid Macrophages (%) 12 Body Fluid Other Cells (%) 1 Test 12/18/24 11:20 12/18/24 04:39 Range/Units Magnesium Level 2.30 1.80-2.40 mg/dL Platelet Morphology Comment See comments Prothrombin Time 12.4 H 9.6-11.6 SEC Prothromb Time International Ratio 1.19 H 0.85-1.15 Activated Partial Thromboplast Time 43.7 H 26.3-35.5 SEC Phosphorus Level 1.4 L 2.5-4.9 mg/dL ASSESSMENT: Urinary tract infection with Proteus mirabilis. Pneumonia. Septic shock. Right lung cavitary lesions, status post bronchoscopy ruling out TB. Thrombocytopenia. Hypokalemia. Debility PLAN: Continue Zosyn IV. Continue oxygen support as needed. Continue GI prophylaxis. We will follow up on bronchoscopy culture results. Continue monitoring electrolytes. Patient has been started on NG tube feedings with Vital AF. This case was reviewed and discussed with my supervising physician and the above assessment and plan was formulated and agreed upon. ATTESTATION BY PHYSICIAN I have seen and examined the patient. I reviewed the documentation, medical decision making, and treatment plan as noted by the mid-level provider above. I agree with the findings and plan of care. IGNACIA MARTI MD, MIRTA L [facility] Dec 19, 2024 22:58
[2024-12-20] VITALS (10 sets, daily range): BP systolic 104–134; BP diastolic 52–87; PULSE 67–111; RESP 15–20; TEMP 97.2–98.5; O2SAT 95–98
[2024-12-20 06:13] LABS: EOSINOPHILS # (AUTO) 0.08 K/uL (0.00-0.70); EOSINOPHILS % (AUTO) 1.7 % (0.0-8.0); HEMATOCRIT 26.3 % (36-48); IMMATURE GRANULOCYTE ABSOLUTE 0.04 K/uL (0-1); LYMPHOCYTES # (AUTO) 1.1 K/uL (1.0-4.8); LYMPHOCYTES % (AUTO) 23.9 % (21.0-51.0); MEAN CORPUSCULAR HEMOGLOBIN 31.5 pg (27.0-33.0); MEAN CORPUSCULAR HGB CONC 34.2 g/dL (32.0-36.0); MONOCYTES # (AUTO) 0.1 K/uL (0.1-1.0); MONOCYTES % (AUTO) 2.9 % (3.0-13.0); NEUTROPHILS # (AUTO) 3.4 K/uL (1.8-7.7); NEUTROPHILS % (AUTO) 70.7 % (40.0-77.0); PLATELET COUNT (AUTO) 87 K/uL (130-400); RED BLOOD CELL COUNT(AUTO) 2.86 MIL/uL (4.00-5.50); RED CELL DISTRIBUTION WIDTH 14.1 % (11.0-15.5); WHITE BLOOD COUNT (AUTO) 4.8 K/uL (4.8-10.8)
[2024-12-20 06:24] LABS: CREATININE 0.4 mg/dL (0.5-1.0); MAGNESIUM 1.6 mg/dL (1.80-2.40); POTASSIUM 3.5 mmol/L (3.5-5.1)
--- NOTE | 2024-12-20 08:58 | HMCIMG ---
CHEST 1VW HISTORY: Pneumonia COMPARISON: 12/16/2024 FINDINGS: A frontal projection of the chest was obtained. There are bilateral pulmonary infiltrates with right more than left. Poststernotomy changes are seen. The heart is enlarged. Degenerative changes of the thoracolumbar spine are present. Nasogastric tube is seen with distal tip in plane of the stomach. All the lines and tubes are again seen in place. No evidence of aortic calcification is seen. IMPRESSION: 1. Bilateral pulmonary infiltrates are seen suggestive of pulmonary vascular congestion with possible superimposed pneumonitis. This is worse on the right.
[2024-12-20] MEDS ORDERED: NACL 0.9% IV SCH (09:00)
[2024-12-20] MEDS ORDERED: SOD PHOSPHATE IV SCH (09:00)
[2024-12-20] MEDS ORDERED: [UNRECOGNIZED DRUG - OTHER] IV SCH (09:00)
[2024-12-20] MEDS: ENOXAPARIN SODIUM 30 MG/0.3 ML SQ SCH (09:07)
[2024-12-20] MEDS ORDERED: COMPOUND IV MISC 1 EACH IVSOLN MISC PRN (09:30)
[2024-12-20] MEDS: NACL 0.9% IV SCH (09:55)
[2024-12-20] MEDS: SOD PHOSPHATE IV SCH (09:55)
[2024-12-20] MEDS: [UNRECOGNIZED DRUG - OTHER] IV SCH (09:55)
--- NOTE | 2024-12-20 11:49 | NUR ---
Discharge Planning: Pt. is negative for TB. Pending GI consult for peg tube placement.
--- NOTE | 2024-12-20 12:17 | PN ---
GASTROENTEROLOGY PROGRESS NOTE Date of Visit: Dec 20, 2024 Time of Visit: 12:17 Events / Notes: No acute events overnight. TB ruled out. Denies fever, chills, abdominal pain, N/V, hematemesis, bloating, constipation, diarrhea, melena or hematochezia. Review of Systems: CONSTITUTIONAL: No malaise or change in sensation of wellbeing. ENMT: No rhinorrhea, otorrhea, sinus pain, ear ache. CARDIOVASCULAR: No angina, palpitations, orthopnea or paroxysmal dyspnea. RESPIRATORY: No SOB. GASTROINTESTINAL: No abdominal pain, nausea, vomiting, diarrhea, hematemesis, melena or change in the patient's habitual bowel movements consistency/number. GENITOURINARY: No dysuria, hematuria or change in bladder continence. MUSCULOSKELETAL: No new muscle pain or decrease in muscular strength. No new joint swelling, redness or tenderness. SKIN: No new rash. Physical Exam: GEN: Awake, alert, oriented in person, time and place, and in no acute distress. HEENT: No sinus tenderness. Tympanic membranes were not examined. No rhinorrhea. Oral pharyngeal mucosa is pink, moist and within normal limits. Neck is supple with no cervical lymphadenopathy, thyromegaly or JVD. CHEST: Inspection, palpation and percussion of the chest were unremarkable. Lung auscultation revealed normal breath sounds bilaterally. CARDIAC: PMI is within normal limits. Heart sounds are regular. Normal S1, S2. No gallop or murmur. ABD: Soft, non-tender and not distended. No peritoneal signs on palpation. No organomegaly. Normal bowel sounds. EXT: No cyanosis or clubbing. No edema. SKIN: Intact. No rashes. JOINTS: No evidence of synovitis or acute arthritis. NEURO: Alert and oriented to name, place and person. Cranial nerve examination is unremarkable. No focal motor deficits. Normal speech. Gait is normal. Strength is normal. Vital Signs (last 8hr) Date Time Temp Pulse Resp B/P (MAP) Pulse Ox O2 Delivery O2 Flow Rate FiO2 12/20/24 08:00 96 Room Air* 0 21 12/20/24 08:00 98.1 67 20 134/74 92 Room Air 12/20/24 06:55 95 20 N/A Room Air 21 12/20/24 06:52 95 20 Laboratory: [ ] Laboratory: Test 12/20/24 06:02 12/20/24 03:47 12/19/24 04:35 12/18/24 12:45 Range/Units White Blood Count 4.8 4.8-10.8 K/uL Red Blood Count 2.86 #L 4.00-5.50 MIL/uL Hemoglobin 9.0 #L 12.0-16.0 g/dL Hematocrit 26.3 #L 36-48 % Mean Corpuscular Volume 92.0 79-99 fL Mean Corpuscular Hemoglobin 31.5 27.0-33.0 pg Mean Corpuscular Hemoglobin Concent 34.2 32.0-36.0 g/dL Red Cell Distribution Width 14.1 11.0-15.5 % Platelet Count 87 L 130-400 K/uL Mean Platelet Volume 10.2 7.5-10.5 fL Immature Granulocyte % (Auto) 0.8 0-1 % Neutrophils (%) (Auto) 70.7 40.0-77.0 % Lymphocytes (%) (Auto) 23.9 21.0-51.0 % Monocytes (%) (Auto) 2.9 L 3.0-13.0 % Eosinophils (%) (Auto) 1.7 0.0-8.0 % Basophils (%) (Auto) 0.0 0.0-5.0 % Neutrophils # (Auto) 3.4 1.8-7.7 K/uL Lymphocytes # (Auto) 1.1 1.0-4.8 K/uL Monocytes # (Auto) 0.1 0.1-1.0 K/uL Eosinophils # (Auto) 0.08 0.00-0.70 K/uL Basophils # (Auto) 0.00 0.00-0.20 K/uL Absolute Immature Granulocyte (auto 0.04 0-1 K/uL Nucleated Red Blood Cells 0.0 0.0-0.19 % Sodium Level 141 136-145 mmol/L Potassium Level 3.5 3.5-5.1 mmol/L Chloride Level 107 101-111 mmol/L Carbon Dioxide Level 33 H 21-32 mmol/L Blood Urea Nitrogen 10 7-18 mg/dL Creatinine 0.4 L 0.5-1.0 mg/dL Glomerular Filtration Rate Calc 127 >90 mL/min Random Glucose 85 70-105 mg/dL Total Calcium 8.0 L 8.5-10.1 mg/dL Phosphorus Level 2.0 L 2.5-4.9 mg/dL Magnesium Level 1.60 L 1.80-2.40 mg/dL Whole Blood Glucose 82 70-110 MG/DL Bedside Glucose Comment Protocol Initiated Body Fluid Source WASHINGS Body Fluid Volume 15 mL Body Fluid Color ORANGE H LT YELLOW Body Fluid Supernatant Appearance CLOUDY H CLEAR Body Fluid WBC 1100 /cu. mm. Body Fluid RBC 1824 /cu. mm. Body Fluid Neutrophils 82.0 % Body Fluid Lymphocytes 3 % Body Fluid Monocytes % 2 % Body Fluid Macrophages (%) 12 Body Fluid Other Cells (%) 1 Current Medications Medications (Trade) Dose Ordered Sig/Castillo Route PRN Reason Start Time Stop Time Status Last Admin Dose Admin Acetaminophen (TYLenol 325MG ELIXIR) 325 mg Q6H PRN PO MILD PAIN (1-3) 12/13/24 15:00 01/12/25 14:59 12/16/24 23:50 325 MG Acetaminophen (TYLenol 500MG TAB) 500 mg Q4PRN PRN PO FEVER 12/15/24 10:30 12/18/24 06:36 DC Acetaminophen (TYLenol 500MG TAB) 500 mg Q4PRN PRN PO PAIN 12/15/24 10:30 12/18/24 06:37 DC Acetylcysteine (MUComyst 20% 4ML) 400mg = 2ml [id number] IH 12/14/24 18:00 12/19/24 11:38 DC 12/19/24 11:23 800 MG Albumin Human 50 ml @ 0 mls/hr AD IV 12/14/24 10:00 12/18/24 06:39 DC 12/14/24 11:14 50 MLS/HR Albuterol (DUOneb) 1 udvial Q6H PRN IH SHORTNESS OF BREATH 12/13/24 15:30 12/19/24 11:38 DC 12/19/24 11:23 1 UDVIAL Bisacodyl (DulcoLAX) 10 mg DAILY RC 12/16/24 09:00 12/19/24 08:59 DC 12/18/24 09:25 10 MG Budesonide (Pulmicort 0.5 Mg/2ml) 0.5 mg BIDRESP IH 12/13/24 18:00 01/12/25 17:59 12/20/24 06:52 0.5 MG Buspirone HCl (BUspar) 15 mg TID PO 12/15/24 14:00 01/14/25 13:59 12/20/24 09:06 15 MG Dextrose 500 ml @ 0 mls/hr Q0M IV 12/16/24 12:30 12/17/24 07:15 DC 12/16/24 12:30 999 MLS/HR Dextrose 1,000 ml @ 75 mls/hr [id number] IV 12/13/24 15:00 12/16/24 14:30 DC 12/16/24 10:16 75 MLS/HR Dextrose 1,000 ml @ 75 mls/hr [id number] IV 12/17/24 01:00 12/17/24 07:15 DC 12/17/24 00:50 75 MLS/HR Dextrose (D50w) 50 ml AD PRN IV HYPOGLYCEMIA PROTOCOL 12/13/24 15:00 01/12/25 14:59 12/17/24 00:00 50 ML Dextrose/Sodium Chloride 500 ml @ 75 mls/hr Q6H40M IV 12/17/24 07:30 12/17/24 07:20 DC Dextrose/Sodium Chloride 500 ml @ 75 mls/hr Q6H40M IV 12/17/24 07:30 01/16/25 07:29 12/20/24 09:16 75 MLS/HR Doxycycline Hyclate 250 ml @ 125 mls/hr Q12H IV 12/13/24 15:30 12/17/24 07:20 DC 12/17/24 03:24 125 MLS/HR Enoxaparin Sodium (Lovenox) 30 mg DAILY SQ 12/14/24 09:00 12/15/24 09:05 DC 12/14/24 08:46 30 MG Enoxaparin Sodium (Lovenox) 30 mg DAILY SQ 12/16/24 09:00 12/15/24 13:22 DC Enoxaparin Sodium (Lovenox) 30 mg DAILY SQ 12/20/24 09:00 01/19/25 08:59 12/20/24 09:07 30 MG Folic Acid (FOLic ACID 1 MG TABLET) 1 mg DAILY PO 12/18/24 09:00 01/17/25 08:59 12/20/24 09:06 1 MG Glucagon (Glucagon 1mg Kit) 1 mg AD PRN IM HYPOGLYCEMIA PROTOCOL 12/13/24 15:00 01/12/25 14:59 Guaifenesin/ Dextromethorphan (RobiTUSSin DM 200/20MG 10ML) 10 ml Q4H PRN PO COUGH 12/15/24 11:00 01/14/25 10:59 Home Med (Home Medication) (Cholecalciferol (Vitamin D3) 25 MCG) DAILY PO 12/16/24 09:00 01/15/25 08:59 Lactated Ringer's 1,000 ml @ 75 mls/hr [id number] IV 12/16/24 23:30 12/17/24 00:30 DC 12/16/24 23:34 75 MLS/HR Lactated Ringer's 1,000 ml @ 100 mls/hr Q10H IV 12/13/24 15:00 12/13/24 15:18 DC Lactated Ringer's (Lactated Ringers 1000ml) 500 ml BOLUS IV 12/17/24 00:30 12/18/24 06:39 DC Leptospermum Honey (Medihoney) 1 appl DAILY TP 12/15/24 09:00 01/14/25 08:59 12/20/24 09:16 1 APPL Lorazepam (AtiVAN) 0.5 mg DAILYDINNER PO 12/15/24 17:00 01/14/25 16:59 12/19/24 17:16 0.5 MG Magnesium Sulfate 50 ml @ 0 mls/hr PROTOCOL IV 12/13/24 21:30 01/12/25 21:29 12/20/24 07:12 25 MLS/HR Meropenem (Merrem 1gm) 1 gm Q8H IVPB 12/13/24 16:00 12/17/24 07:37 DC 12/16/24 23:45 1 GM Miscellaneous Medication (Ondansetron HCl ) 8 mg TID PO 12/15/24 14:00 12/15/24 10:43 DC Multivitamins Therapeutic (Multivitamin Tablet) 1 tab DAILY PO 12/18/24 09:00 01/17/25 08:59 12/20/24 09:06 1 TAB Norepinephrine 250 ml @ 0 mls/hr PROTOCOL IV 12/13/24 14:30 12/15/24 14:26 DC 12/14/24 07:35 25.3 MLS/HR Ondansetron HCl (zoFRAN 4MG INJ) 4 mg Q6H PRN IVP NAUSEA/VOMITING 12/13/24 16:30 01/12/25 16:29 Pantoprazole Sodium (PROTonix 40MG INJ) 40 mg Q24H IVP 12/13/24 15:00 01/12/25 14:59 12/19/24 14:53 40 MG Pharmacy Profile Note (Pharmacy Communication) 1 each ONCE MISC 12/13/24 15:00 12/13/24 15:28 DC Pharmacy Profile Note (Pharmacy Communication) 1 each ONCE MISC 12/17/24 07:30 12/17/24 08:12 DC Pharmacy Profile Note (Pharmacy Communication) 1 each ONCE MISC 12/18/24 08:00 12/18/24 08:29 DC Piperacillin Sod/ Tazobactam Sod (Zosyn 3.375gm+NS 50ml) 3.375 gm Q8H IV 12/17/24 08:00 12/27/24 07:59 12/20/24 09:16 3.375 GM Polyethylene Glycol (MIRalax 3350 17 GM POWD.PACK) 17 gm DAILY PO 12/16/24 09:00 01/15/25 08:59 12/20/24 09:08 17 GM Potassium Phosphate 250 ml @ 42 mls/hr PROTOCOL IV 12/15/24 05:30 12/15/24 10:19 DC 12/15/24 05:59 42 MLS/HR Potassium Chloride 100 ml @ 50 mls/hr AD PRN IV POTASSIUM PROTOCOL 12/13/24 21:30 01/12/25 21:29 12/18/24 05:55 50 MLS/HR Potassium Chloride 100 ml @ 50 mls/hr AD PRN IV POTASSIUM PROTOCOL 12/15/24 14:30 12/18/24 06:39 DC Potassium Chloride 100 ml @ 100 mls/hr AD PRN IV POTASSIUM PROTOCOL 12/15/24 14:30 12/18/24 06:39 DC Potassium Chloride (K-Dur/Klor-Con 20meq) 20 meq AD PRN PO POTASSIUM PROTOCOL 12/15/24 14:30 01/14/25 14:29 Potassium Chloride (KCl 10% Elixir 20meq/15ml) 20 meq AD PRN PO POTASSIUM PROTOCOL 12/15/24 14:30 01/14/25 14:29 12/15/24 22:57 20 MEQ Potassium Chloride (KCl 10% Elixir 20meq/15ml) 40 meq BID PO 12/18/24 09:00 12/18/24 21:01 DC 12/18/24 21:06 40 MEQ Quetiapine Fumarate (SEROquel 100 mg TAB) 200 mg BID PO 12/15/24 21:00 01/14/25 20:59 12/20/24 09:06 200 MG Sodium Chloride 1,000 ml @ 75 mls/hr [id number] IV 12/16/24 14:30 12/16/24 22:18 DC 12/16/24 15:08 75 MLS/HR Sodium Phosphate 15 mmol/Sodium Chloride 250 ml @ 62.5 mls/hr PROTOCOL IV 12/20/24 09:00 12/20/24 08:52 DC Sodium Phosphate 15 mmol/Sodium Chloride 250 ml @ 62.5 mls/hr PROTOCOL IV 12/20/24 09:00 01/19/25 08:59 12/20/24 09:55 62.5 MLS/HR Thiamine HCl (Vitamin B-1) 300 mg Q24H IVP 12/13/24 15:00 01/12/25 14:59 12/19/24 14:53 300 MG Venlafaxine HCl (EffEXOR XR 37.5mg CAP) 75 mg DAILY PO 12/16/24 09:00 01/15/25 08:59 12/20/24 09:06 75 MG Diagnostics / Radiology: [COPY/PASTE HERE IF NO REPORTS PLEASE DELETE SECTION] Assessment: Failure to thrive Microcephaly Scoliosis Plan: EGD WITH PEG FOR WEDNESDAY Continue GI prophylaxis Advance feedings as tolerated Avoid NSAIDs Antireflux measures Monitor H&H and transfuse as needed Call with questions, concerns or change in clinical status Patient to follow-up at clinic post discharge Thank you for this consult ZHAO GUERRA INSPECTOR BICYCLE Dec 20, 2024 12:17
--- NOTE | 2024-12-20 15:20 | PN ---
[facility] PROGRESS NOTE Date Patient Seen: Dec 20, 2024 Time of Visit: 15:20 Supervising Physician: [Dr. Escalante] Primary Care Physician: Yarelis Ogden MD Outpatient Specialists: [ ] Inpatient Consults: [facility] , Dr Esperanza Naranjo MD Attending: Carlos Real MD PROBLEM LIST: Sepsis 2/2 Pneumonia and Acute complicated Cystitis Right upper lobe cavitation TB rule out, POA - pending bronchoscopy for tomorrow 12/16/24 Hypothermia, POA , resolved 2/2 sepsis Hypoglycemia episodes Acute thrombocytopenia Failure to thrive pending GI for G-tube eval Community-acquired pneumonia with acute hypoxemic respiratory failure, POA Suspected aspiration, POA Acute complicated cystitis, POA + Proteus Mirabiis Frailty/debility, POA History of chronic contractures of bilateral lower extremities, POA Unstageable decubitus ulcers to right hip POA Intellectual disability, POA History of scoliosis, POA History of microcephaly, POA History of ADHD, POA History of aggression, POA Nonverbal Plan summary: GI for PEG tube placement Remove isolation precaution Continue IV antibiotics Follow ID recommendations Maintain normal thermic as much as possible S/P bronchoscopy, negative for TB Continue tube feedings INTERVAL HISTORY: Patient evaluated at bedside prior to bronchoscopy, potassium and magnesium being replaced at this time. Patient's body temperature within normal limits. She continues with NG tube. Patient remains nonverbal, however awake and alert likely secondary to her increased feeding intake. No overnight events reported by nursing staff present at the time, no nausea or vomiting episodes. Platelets at 59 this morning. Hemoglobin 9.4, creatinine 0.3. We will continue to follow the patient following bronchoscopy. 12/19 patient is evaluated at bedside. Temperature taken at bedside is improved to 97.5� F. she was tachycardic with heart rate ranging up to 130. Continues on room air, no current respiratory distress. Per sitter, patient has not had a productive cough. She is status post bronchoscopy, MTB not detected. Gram stain is negative. No acid-fast bacilli seen, pending culture. WBC remains within normal limits. Repeat CT is unremarkable. 12/20 patient is evaluated at bedside. She continues with NGT and tube feedings for primary. TB has been ruled out, no current cough or phlegm production per sitter at bedside. She was saturating well on room air. Temperature is improved to WNL, currently off hypothermic measures. Patient is high risk for aspiration, has been recommended for PEG tube. Defer to primary for management of the same. REVIEW OF SYSTEMS: UNABLE TO OBTAIN DUE TO PATIENT IS NONVERBAL. INTELLECTUAL DISABILITY. PHYSICAL EXAM: GENERAL: Awake to voice nonverbal, intellectually disabled microcephaly. HEENT: Sclera non icteric, dry mucosa NECK: Supple, no JVD, trachea midline LUNGS: Coarse rhonchi breath sounds bilaterally. No wheezes HEART: Regular rate and rhythm. Normal S1 and S2, without murmurs ABD: Cachectic, flat, nontender. Bowel sounds present EXT: Contractions to upper and lower extremities, right hip unstageable pressure ulcer with a black eschar NEURO: Awake to voice, nonverbal and chronically ill with upper and lower extremity contractures. Vital Signs (last 8hr) Date Time Temp Pulse Resp B/P (MAP) Pulse Ox O2 Delivery O2 Flow Rate FiO2 12/20/24 08:00 96 Room Air* 0 21 12/20/24 08:00 98.1 67 20 134/74 92 Room Air LABS: Hematology Labs: Test 12/20/24 06:02 Range/Units White Blood Count 4.8 4.8-10.8 K/uL Red Blood Count 2.86 #L 4.00-5.50 MIL/uL Hemoglobin 9.0 #L 12.0-16.0 g/dL Hematocrit 26.3 #L 36-48 % Mean Corpuscular Volume 92.0 79-99 fL Mean Corpuscular Hemoglobin 31.5 27.0-33.0 pg Mean Corpuscular Hemoglobin Concent 34.2 32.0-36.0 g/dL Red Cell Distribution Width 14.1 11.0-15.5 % Platelet Count 87 L 130-400 K/uL Mean Platelet Volume 10.2 7.5-10.5 fL Immature Granulocyte % (Auto) 0.8 0-1 % Neutrophils (%) (Auto) 70.7 40.0-77.0 % Lymphocytes (%) (Auto) 23.9 21.0-51.0 % Monocytes (%) (Auto) 2.9 L 3.0-13.0 % Eosinophils (%) (Auto) 1.7 0.0-8.0 % Basophils (%) (Auto) 0.0 0.0-5.0 % Neutrophils # (Auto) 3.4 1.8-7.7 K/uL Lymphocytes # (Auto) 1.1 1.0-4.8 K/uL Monocytes # (Auto) 0.1 0.1-1.0 K/uL Eosinophils # (Auto) 0.08 0.00-0.70 K/uL Basophils # (Auto) 0.00 0.00-0.20 K/uL Absolute Immature Granulocyte (auto 0.04 0-1 K/uL Nucleated Red Blood Cells 0.0 0.0-0.19 % Chemistry Labs: Test 12/20/24 14:14 12/20/24 06:02 12/19/24 04:35 Range/Units Whole Blood Glucose 71 70-110 MG/DL Sodium Level 141 136-145 mmol/L Potassium Level 3.5 3.5-5.1 mmol/L Chloride Level 107 101-111 mmol/L Carbon Dioxide Level 33 H 21-32 mmol/L Blood Urea Nitrogen 10 7-18 mg/dL Creatinine 0.4 L 0.5-1.0 mg/dL Glomerular Filtration Rate Calc 127 >90 mL/min Random Glucose 85 70-105 mg/dL Total Calcium 8.0 L 8.5-10.1 mg/dL Phosphorus Level 2.0 L 2.5-4.9 mg/dL Magnesium Level 1.60 L 1.80-2.40 mg/dL Bedside Glucose Comment Protocol Initiated DIAGNOSTICS / RADIOLOGY RESULTS: [ ] PLAN NEURO: Minimize central acting medications as possible. Maintain fall precautions, adequate lighting during the day PULMONARY: Supplemental 02 as needed. Maintain aspiration precautions at all times CARDIOVASCULAR: Follow hemodynamics. Vital signs per facility protocol GI & NUTRITION: Continue with nutritional support. Continue stool softeners and laxatives as needed. KIDNEYS & ELECTROLYTES: Strict monitoring of intake, output and overall fluid balance. Avoid nephrotoxic medications to the extent possible. Medications to be dosed according to renal function. Monitor electrolytes and replace as needed ENDOCRINE: Maintain blood glucose between 100-180 at all times. Hypoglycemia protocol in place INFECTIOUS DISEASE: Trend temperature, WBC and procalcitonin level Follow cultures, deescalate antibiotics as soon as possible. Panculture if new onset fever ONCOLOGY/HEMATOLOGY/COAGULATION: Monitor for s/s of bleeding Monitor hemoglobin, coagulation studies as needed SKIN: Pressure ulcer prevention per facility protocol Specialty mattress ORTHO/REHAB: Continue PT/OT Prophylaxis: Continue GI and DVT prophylaxis Code Status: Full Resuscitation Disposition: TBD Other: Total patient care time exceeds 35 minutes excluding all procedures. RAMO JUAREZ Dec 20, 2024 15:20
--- NOTE | 2024-12-20 15:41 | PN ---
[facility] PROGRESS NOTE Date of Service: Dec 20, 2024 Time of Service: 15:30 SUBJECTIVE: 12/14 patient seen at bedside, no acute events overnight. Patient was seen at bedside, she does not participate in the medical interview. She does not appear to be in any acute distress. She is on pressors, we will continue to wean as able. Sodium improved from 150 down to 146, remainder of her labs are relatively unremarkable. Urine growing bacteria, we will continue with empiric antibiotics 12/15/24 Patient sen and examined. Care discussed with RN No acute overnight events. Follow cultures/continue antibiotics. 12/16 patient seen at bedside, no acute events overnight. Pulmonology was pending bronchoscopy to obtain samples to test for tuberculosis however patient became hypothermic and somnolent. Repeat labs, ABG were ordered however no abnormalities were noted. Lactic acid was normal, sodium had mildly decreased from 142 down to 134, ammonia was within normal limits. She was started on a Halina Hugger and bolused fluids, her temperature began to improve and she was more awake. Her phosphorus is low at 1.8 and given her constitution this is concerning for refeeding syndrome, we will continue to monitor closely. 12/16/24 capacity manager: Charge nurse RN called me with concern for patient due to patient being tachycardic heart rate 120-130s and a temperature of 93.6� rectal. RN reports blood pressure 109/65, respirations, 98% on nasal cannula. RN reports that patient has was a rapid response earlier, has been on the Halina Hugger all day with no improvement of the temperature, and now is tachycardic. I went to assess the patient at bedside. The patient's breathing was even, unlabored, and lethargic. The patient is nonverbal, moans with touch. The patient was receiving feedings per NG and IV fluids. Stat ABGs, blood work were done. Remarkable lab results: Lactic acid increased from 1.04 to 1.59. Phos was 1.6, magnesium 1.9, total protein 4.3, albumin 1.6. ABGs on room air: PO2 58.4, ABG O2 saturation 89.2. (PO2 this morning was 91.5). The patient was placed back on 2 L nasal cannula, increased bear hugger to 30� C from 32� C. Electrolytes were replaced. Telemetry pack was order. We will continue monitoring patient closely. 12/17/2024 0315: Addendum: Reassessed the patient multiple times. Her temperature improved, remained tachycardic, despite a total of a 1500 mL bolus of LR. BP ranging systolic 98-105. The patient had a hypoglycemic episode at 11:54 p.m., blood glucose was 51, despite being of feedings. Change fluids to D5 W at 75 mL an hour. We will continue monitoring patient closely. 06:00 Reassessed the patient before off of my shift HR had improved to 112-116. b/p low 100s systolic. 12/17 patient seen at bedside, temperature has improved. She continues to be tachycardic, hemodynamically stable saturating well on room air. Hemoglobin stable at 10.1, similar to yesterday, her phosphate is very low at 1.1. She is much more awake and interactive today compared to yesterday. The constellation of symptoms with hypothermia, tachycardia and even the altered mental status are likely secondary to refeeding syndrome. The patient is not septic, her ammonia is at normal levels, lactic acid is at normal levels, CO2 is at normal levels she has been adequately resuscitated with fluids. She will be repleted with IV phosphate, her tube feeds we will be reduced to trickle feeds at 10 cc/hour before attempting to increase the feed rate. If her tachycardia improves with these changes then tomorrow we will attempt to increase the rate of her tube feeds. 12/18 patient seen at bedside, no acute events overnight. Her tachycardia has improved, hypothermia improving, she is awake today in no acute distress. Pending bronchoscopy later today to take samples for ruling out TB. Once completed we will resume trickle feeds. Today potassium, phosphate and magnesium were all low, we will be repleted. This is likely secondary to refeeding syndrome. 12/19 patient seen at bedside, no acute events overnight. Patient is still having hypothermia and tachycardia ranging from 81 up to 130, labs relatively u nremarkable. Repeat mg and phos tomorrow, will begin to titrate up tube feedings 12/20 patient seen at bedside, no acute events overnight. Preliminary TB cultures are no growth to date, GI contacted for PEG tube placement. Her temperature has been improved, she has been hemodynamically stable, tachycardia is improving. We will begin to titrate up her tube feeds. REVIEW OF SYSTEMS: Patient is obtunded, unable to obtain ROS. Patient is nonverbal, only moans. PHYSICAL EXAM GENERAL APPEARANCE: The patient is obtunded, very frail, cachectic, contractures noted of the lower extremities NEUROLOGICAL: The patient response to painful stimuli, moans when touched, is nonverbal. Does not follow command. HEENT: Face is symmetric. Pupils are equal and reactive. Extraocular movements are intact. NECK: Supple. No JVD. No thyromegaly. No submental, submandibular, pre- /postauricular, occipital or supraclavicular lymphadenopathy. CHEST: Normal chest expansion. No Telemetry. LUNGS: Absence of any rales, rhonchi or any wheezing. CARDIOVASCULAR: Regular. Tachycardic. No appreciable rubs, murmurs or gallops. ABDOMEN: Soft, nontender, and nondistended. There is no rebound, voluntary guarding, or rigidity. : Deferred. No Clark. EXTREMITIES: Contractures to bilateral lower extremity. Non-edematous and not cyanotic. No clubbing. Good capillary refill. SKIN: No skin breakdown. Vital Signs (last 8hr) Date Time Temp Pulse Resp B/P (MAP) Pulse Ox O2 Delivery O2 Flow Rate FiO2 12/20/24 08:00 96 Room Air* 0 21 12/20/24 08:00 98.1 67 20 134/74 92 Room Air LABS: Laboratory: Test 12/20/24 14:14 12/20/24 06:02 12/19/24 04:35 Range/Units Whole Blood Glucose 71 70-110 MG/DL White Blood Count 4.8 4.8-10.8 K/uL Red Blood Count 2.86 #L 4.00-5.50 MIL/uL Hemoglobin 9.0 #L 12.0-16.0 g/dL Hematocrit 26.3 #L 36-48 % Mean Corpuscular Volume 92.0 79-99 fL Mean Corpuscular Hemoglobin 31.5 27.0-33.0 pg Mean Corpuscular Hemoglobin Concent 34.2 32.0-36.0 g/dL Red Cell Distribution Width 14.1 11.0-15.5 % Platelet Count 87 L 130-400 K/uL Mean Platelet Volume 10.2 7.5-10.5 fL Immature Granulocyte % (Auto) 0.8 0-1 % Neutrophils (%) (Auto) 70.7 40.0-77.0 % Lymphocytes (%) (Auto) 23.9 21.0-51.0 % Monocytes (%) (Auto) 2.9 L 3.0-13.0 % Eosinophils (%) (Auto) 1.7 0.0-8.0 % Basophils (%) (Auto) 0.0 0.0-5.0 % Neutrophils # (Auto) 3.4 1.8-7.7 K/uL Lymphocytes # (Auto) 1.1 1.0-4.8 K/uL Monocytes # (Auto) 0.1 0.1-1.0 K/uL Eosinophils # (Auto) 0.08 0.00-0.70 K/uL Basophils # (Auto) 0.00 0.00-0.20 K/uL Absolute Immature Granulocyte (auto 0.04 0-1 K/uL Nucleated Red Blood Cells 0.0 0.0-0.19 % Sodium Level 141 136-145 mmol/L Potassium Level 3.5 3.5-5.1 mmol/L Chloride Level 107 101-111 mmol/L Carbon Dioxide Level 33 H 21-32 mmol/L Blood Urea Nitrogen 10 7-18 mg/dL Creatinine 0.4 L 0.5-1.0 mg/dL Glomerular Filtration Rate Calc 127 >90 mL/min Random Glucose 85 70-105 mg/dL Total Calcium 8.0 L 8.5-10.1 mg/dL Phosphorus Level 2.0 L 2.5-4.9 mg/dL Magnesium Level 1.60 L 1.80-2.40 mg/dL Bedside Glucose Comment Protocol Initiated Current Medications Medications (Trade) Dose Ordered Sig/Castillo Route PRN Reason Start Time Stop Time Status Last Admin Dose Admin Acetaminophen (TYLenol 325MG ELIXIR) 325 mg Q6H PRN PO MILD PAIN (1-3) 12/13/24 15:00 01/12/25 14:59 12/16/24 23:50 325 MG Acetaminophen (TYLenol 500MG TAB) 500 mg Q4PRN PRN PO FEVER 12/15/24 10:30 12/18/24 06:36 DC Acetaminophen (TYLenol 500MG TAB) 500 mg Q4PRN PRN PO PAIN 12/15/24 10:30 12/18/24 06:37 DC Acetylcysteine (MUComyst 20% 4ML) 400mg = 2ml [id number] IH 12/14/24 18:00 12/19/24 11:38 DC 12/19/24 11:23 800 MG Albumin Human 50 ml @ 0 mls/hr AD IV 12/14/24 10:00 12/18/24 06:39 DC 12/14/24 11:14 50 MLS/HR Albuterol (DUOneb) 1 udvial Q6H PRN IH SHORTNESS OF BREATH 12/13/24 15:30 12/19/24 11:38 DC 12/19/24 11:23 1 UDVIAL Bisacodyl (DulcoLAX) 10 mg DAILY RC 12/16/24 09:00 12/19/24 08:59 DC 12/18/24 09:25 10 MG Budesonide (Pulmicort 0.5 Mg/2ml) 0.5 mg BIDRESP IH 12/13/24 18:00 01/12/25 17:59 12/20/24 06:52 0.5 MG Buspirone HCl (BUspar) 15 mg TID PO 12/15/24 14:00 01/14/25 13:59 12/20/24 14:10 15 MG Dextrose 500 ml @ 0 mls/hr Q0M IV 12/16/24 12:30 12/17/24 07:15 DC 12/16/24 12:30 999 MLS/HR Dextrose 1,000 ml @ 75 mls/hr [id number] IV 12/13/24 15:00 12/16/24 14:30 DC 12/16/24 10:16 75 MLS/HR Dextrose 1,000 ml @ 75 mls/hr [id number] IV 12/17/24 01:00 12/17/24 07:15 DC 12/17/24 00:50 75 MLS/HR Dextrose (D50w) 50 ml AD PRN IV HYPOGLYCEMIA PROTOCOL 12/13/24 15:00 01/12/25 14:59 12/17/24 00:00 50 ML Dextrose/Sodium Chloride 500 ml @ 75 mls/hr Q6H40M IV 12/17/24 07:30 12/17/24 07:20 DC Dextrose/Sodium Chloride 500 ml @ 75 mls/hr Q6H40M IV 12/17/24 07:30 01/16/25 07:29 12/20/24 14:22 75 MLS/HR Doxycycline Hyclate 250 ml @ 125 mls/hr Q12H IV 12/13/24 15:30 12/17/24 07:20 DC 12/17/24 03:24 125 MLS/HR Enoxaparin Sodium (Lovenox) 30 mg DAILY SQ 12/14/24 09:00 12/15/24 09:05 DC 12/14/24 08:46 30 MG Enoxaparin Sodium (Lovenox) 30 mg DAILY SQ 12/16/24 09:00 12/15/24 13:22 DC Enoxaparin Sodium (Lovenox) 30 mg DAILY SQ 12/20/24 09:00 01/19/25 08:59 12/20/24 09:07 30 MG Folic Acid (FOLic ACID 1 MG TABLET) 1 mg DAILY PO 12/18/24 09:00 01/17/25 08:59 12/20/24 09:06 1 MG Glucagon (Glucagon 1mg Kit) 1 mg AD PRN IM HYPOGLYCEMIA PROTOCOL 12/13/24 15:00 01/12/25 14:59 Guaifenesin/ Dextromethorphan (RobiTUSSin DM 200/20MG 10ML) 10 ml Q4H PRN PO COUGH 12/15/24 11:00 01/14/25 10:59 Home Med (Home Medication) (Cholecalciferol (Vitamin D3) 25 MCG) DAILY PO 12/16/24 09:00 01/15/25 08:59 Lactated Ringer's 1,000 ml @ 75 mls/hr [id number] IV 12/16/24 23:30 12/17/24 00:30 DC 12/16/24 23:34 75 MLS/HR Lactated Ringer's 1,000 ml @ 100 mls/hr Q10H IV 12/13/24 15:00 12/13/24 15:18 DC Lactated Ringer's (Lactated Ringers 1000ml) 500 ml BOLUS IV 12/17/24 00:30 12/18/24 06:39 DC [facility]permum [facility] 1 appl DAILY TP 12/15/24 09:00 01/14/25 08:59 12/20/24 09:16 1 APPL Lorazepam (AtiVAN) 0.5 mg DAILYDINNER PO 12/15/24 17:00 01/14/25 16:59 12/19/24 17:16 0.5 MG Magnesium Sulfate 50 ml @ 0 mls/hr PROTOCOL IV 12/13/24 21:30 01/12/25 21:29 12/20/24 07:12 25 MLS/HR Meropenem (Merrem 1gm) 1 gm Q8H IVPB 12/13/24 16:00 12/17/24 07:37 DC 12/16/24 23:45 1 GM Miscellaneous Medication (Ondansetron HCl ) 8 mg TID PO 12/15/24 14:00 12/15/24 10:43 DC Multivitamins Therapeutic (Multivitamin Tablet) 1 tab DAILY PO 12/18/24 09:00 01/17/25 08:59 12/20/24 09:06 1 TAB Norepinephrine 250 ml @ 0 mls/hr PROTOCOL IV 12/13/24 14:30 12/15/24 14:26 DC 12/14/24 07:35 25.3 MLS/HR Ondansetron HCl (zoFRAN 4MG INJ) 4 mg Q6H PRN IVP NAUSEA/VOMITING 12/13/24 16:30 01/12/25 16:29 Pantoprazole Sodium (PROTonix 40MG INJ) 40 mg Q24H IVP 12/13/24 15:00 01/12/25 14:59 12/20/24 14:10 40 MG Pharmacy Profile Note (Pharmacy Communication) 1 each ONCE MISC 12/13/24 15:00 12/13/24 15:28 DC Pharmacy Profile Note (Pharmacy Communication) 1 each ONCE MISC 12/17/24 07:30 12/17/24 08:12 DC Pharmacy Profile Note (Pharmacy Communication) 1 each ONCE MISC 12/18/24 08:00 12/18/24 08:29 DC Piperacillin Sod/ Tazobactam Sod (Zosyn 3.375gm+NS 50ml) 3.375 gm Q8H IV 12/17/24 08:00 12/27/24 07:59 12/20/24 09:16 3.375 GM Polyethylene Glycol (MIRalax 3350 17 GM POWD.PACK) 17 gm DAILY PO 12/16/24 09:00 01/15/25 08:59 12/20/24 09:08 17 GM Potassium Phosphate 250 ml @ 42 mls/hr PROTOCOL IV 12/15/24 05:30 12/15/24 10:19 DC 12/15/24 05:59 42 MLS/HR Potassium Chloride 100 ml @ 50 mls/hr AD PRN IV POTASSIUM PROTOCOL 12/13/24 21:30 01/12/25 21:29 12/18/24 05:55 50 MLS/HR Potassium Chloride 100 ml @ 50 mls/hr AD PRN IV POTASSIUM PROTOCOL 12/15/24 14:30 12/18/24 06:39 DC Potassium Chloride 100 ml @ 100 mls/hr AD PRN IV POTASSIUM PROTOCOL 12/15/24 14:30 12/18/24 06:39 DC Potassium Chloride (K-Dur/Klor-Con 20meq) 20 meq AD PRN PO POTASSIUM PROTOCOL 12/15/24 14:30 01/14/25 14:29 Potassium Chloride (KCl 10% Elixir 20meq/15ml) 20 meq AD PRN PO POTASSIUM PROTOCOL 12/15/24 14:30 01/14/25 14:29 12/15/24 22:57 20 MEQ Potassium Chloride (KCl 10% Elixir 20meq/15ml) 40 meq BID PO 12/18/24 09:00 12/18/24 21:01 DC 12/18/24 21:06 40 MEQ Quetiapine Fumarate (SEROquel 100 mg TAB) 200 mg BID PO 12/15/24 21:00 01/14/25 20:59 12/20/24 09:06 200 MG Sodium Chloride 1,000 ml @ 75 mls/hr [id number] IV 12/16/24 14:30 12/16/24 22:18 DC 12/16/24 15:08 75 MLS/HR Sodium Phosphate 15 mmol/Sodium Chloride 250 ml @ 62.5 mls/hr PROTOCOL IV 12/20/24 09:00 12/20/24 08:52 DC Sodium Phosphate 15 mmol/Sodium Chloride 250 ml @ 62.5 mls/hr PROTOCOL IV 12/20/24 09:00 01/19/25 08:59 12/20/24 09:55 62.5 MLS/HR Thiamine HCl (Vitamin B-1) 300 mg Q24H IVP 12/13/24 15:00 01/12/25 14:59 12/20/24 14:10 300 MG Venlafaxine HCl (EffEXOR XR 37.5mg CAP) 75 mg DAILY PO 12/16/24 09:00 01/15/25 08:59 12/20/24 09:06 75 MG DIAGNOSTICS / RADIOLOGY: [ ] ASSESSMENT: Hypothermia, POA, in need of bare hugger, improving Acute hypoxemic respiratory failure, resolved, POA Refeeding syndrome, POA Recurrent hypoglycemic episodes Septic shock, POA (2/2 community-acquired pneumonia and complicated UTI) Toxic metabolic encephalopathy with obtundation, POA Community-acquired pneumonia with acute hypoxemic respiratory failure, POA Acute complicated cystitis, POA Frailty/debility, POA Acute UTI, Proteus, POA History of chronic contractures of bilateral lower extremities, POA Unstageable decubitus ulcer involving the left hip, POA Cachexia, POA History of severe intellectual disability, POA History of scoliosis, POA History of microcephaly, POA History of ADHD, POA History of aggression, POA PLAN: The patient is in medical floor. Continue telemetry pack. Continue with the Halina Hugger as needed NG tube in place, continue continuous tube feedings. Give trickle feeds at 10cc/hr, until tachycardia improves Continue IV phosphate repletion Patient will be kept strictly NPO and on aspiration precautions, NGT feedings only. We will maintain POCT blood glucose check q.4 hours, we will maintain blood glucose greater than 70. Continue Broad-spectrum antibiotics with IV meropenem and doxycycline Monitor respirations status closely. Place patient on 2 L nasal cannula due to hypoxemia. Urine growing proteus Patient will be placed on air mattress, offloading measures, wound care will be requested. Patient has a 1:1 sitter due to removes NGT/lines. May use mittens. Infectious Disease consulted, appreciate recommendations Reposition the patient every 2 hours and p.r.n.. GI consulted for PEG tube placement Disposition: Pending improvement in clinical status PEG tube placement SEVEN KIRKLAND MD Dec 20, 2024 15:41
--- NOTE | 2024-12-20 15:53 | PN ---
INFECTIOUS DISEASE PROGRESS NOTE Date of Service: Dec 20, 2024 SUBJECTIVE: This is a 44-year-old female patient with intellectual disability who was seen in room 301. Patient underwent a bronchoscopy procedure under anesthesia care on 12/18/2024. Results today showing no Mycobacterium tuberculosis and airborne isolation precautions were discontinued. Bronchial washing positive for Ivanna albicans. Remaining afebrile, temperature is 98.1� and a WBC of 4.8. Will continue on Zosyn IV. We will continue to follow patient's care. PHYSICAL EXAM EYES: Anicteric. Pupils equal and reactive. HENT: No oral thrush seen, moist Oral mucosa. NECK: Supple, no JVD or thyromegaly. LUNGS: Good air entry. No rales, no rhonchi. CARDIOVASCULAR: S1, S2 regular. No murmur heard. ABDOMEN: Soft, non tender, bowel sounds present, no organomegaly. CENTRAL NERVOUS SYSTEM: Intellectual disability. SKIN: No rashes, no swelling. LYMPHATICS: No peripheral lymphadenopathy. MUSCULOSKELETAL: No joint swelling, erythema or tenderness. EXTREMITIES: No cyanosis or clubbing. BACK: No deformity, no pressure ulcer. GENITOURINARY: No dysuria or hematuria. Incontinence. Vital Sign (Last 12 Hours) 12/20/24 12/20/24 12/20/24 12/20/24 06:52 06:55 08:00 08:00 Temp 98.1 Pulse 95 95 67 Resp 20 20 20 B/P (MAP) 134/74 Pulse Ox 92 96 O2 Delivery N/A Room Air Room Air Room Air* O2 Flow Rate 0 FiO2 21 21 Intake & Output (last 24hrs) 12/19/24 12/19/24 12/20/24 15:00 23:00 07:00 Intake Total 190 ml 260.0 ml Output Total 2200 ml Balance -2009 ml 260.0 ml LABS: Laboratory: Test 12/20/24 14:14 12/20/24 06:02 12/19/24 04:35 Range/Units Whole Blood Glucose 71 70-110 MG/DL White Blood Count 4.8 4.8-10.8 K/uL Red Blood Count 2.86 #L 4.00-5.50 MIL/uL Hemoglobin 9.0 #L 12.0-16.0 g/dL Hematocrit 26.3 #L 36-48 % Mean Corpuscular Volume 92.0 79-99 fL Mean Corpuscular Hemoglobin 31.5 27.0-33.0 pg Mean Corpuscular Hemoglobin Concent 34.2 32.0-36.0 g/dL Red Cell Distribution Width 14.1 11.0-15.5 % Platelet Count 87 L 130-400 K/uL Mean Platelet Volume 10.2 7.5-10.5 fL Immature Granulocyte % (Auto) 0.8 0-1 % Neutrophils (%) (Auto) 70.7 40.0-77.0 % Lymphocytes (%) (Auto) 23.9 21.0-51.0 % Monocytes (%) (Auto) 2.9 L 3.0-13.0 % Eosinophils (%) (Auto) 1.7 0.0-8.0 % Basophils (%) (Auto) 0.0 0.0-5.0 % Neutrophils # (Auto) 3.4 1.8-7.7 K/uL Lymphocytes # (Auto) 1.1 1.0-4.8 K/uL Monocytes # (Auto) 0.1 0.1-1.0 K/uL Eosinophils # (Auto) 0.08 0.00-0.70 K/uL Basophils # (Auto) 0.00 0.00-0.20 K/uL Absolute Immature Granulocyte (auto 0.04 0-1 K/uL Nucleated Red Blood Cells 0.0 0.0-0.19 % Sodium Level 141 136-145 mmol/L Potassium Level 3.5 3.5-5.1 mmol/L Chloride Level 107 101-111 mmol/L Carbon Dioxide Level 33 H 21-32 mmol/L Blood Urea Nitrogen 10 7-18 mg/dL Creatinine 0.4 L 0.5-1.0 mg/dL Glomerular Filtration Rate Calc 127 >90 mL/min Random Glucose 85 70-105 mg/dL Total Calcium 8.0 L 8.5-10.1 mg/dL Phosphorus Level 2.0 L 2.5-4.9 mg/dL Magnesium Level 1.60 L 1.80-2.40 mg/dL Bedside Glucose Comment Protocol Initiated ASSESSMENT: Urinary tract infection with Proteus mirabilis. Aspiration Pneumonia. Septic shock. Right lung cavitary lesions, status post bronchoscopy, TB ruled out. Thrombocytopenia. Hypokalemia. Debility PLAN: Continue Zosyn IV. Continue GI prophylaxis. . Continue monitoring electrolytes. Patient currently on NG tube feedings with Vital AF. GI evaluated patient for PEG tube placement. This case was reviewed and discussed with my supervising physician and the above assessment and plan was formulated and agreed upon. ATTESTATION BY PHYSICIAN I have seen and examined the patient. I reviewed the documentation, medical decision making, and treatment plan as noted by the mid-level provider above. I agree with the findings and plan of care. IGNACIA MARTI MD, [facility] Dec 20, 2024 15:53
--- NOTE | 2024-12-20 17:39 | NUR ---
CONSENT FOR PEG PLACEMENT GAVE A CALL TO GUARANTOR MADELEINE KIMBALL AND SHE DID NOT ANSWER TO GIVE US CONSENT FOR PROCEDURE. TRIED CALLING TWICE AND LEFT MESSAGE.
[2024-12-21] VITALS (8 sets, daily range): BP systolic 115–124; BP diastolic 76–87; PULSE 75–86; RESP 17–20; TEMP 97.4; O2SAT 96–97
[2024-12-21 04:45] LABS: BASOPHILS # (AUTO) 0.01 K/uL (0.00-0.20); BASOPHILS % (AUTO) 0.2 % (0.0-5.0); EOSINOPHILS # (AUTO) 0.05 K/uL (0.00-0.70); EOSINOPHILS % (AUTO) 0.8 % (0.0-8.0); IMMATURE GRANULOCYTE ABSOLUTE 0.04 K/uL (0-1); LYMPHOCYTES # (AUTO) 1.2 K/uL (1.0-4.8); LYMPHOCYTES % (AUTO) 17.6 % (21.0-51.0); MEAN CORPUSCULAR HEMOGLOBIN 31.2 pg (27.0-33.0); MEAN CORPUSCULAR VOLUME 91.7 fL (79-99); MONOCYTES # (AUTO) 0.2 K/uL (0.1-1.0); MONOCYTES % (AUTO) 3.6 % (3.0-13.0); NEUTROPHILS # (AUTO) 5.1 K/uL (1.8-7.7); NEUTROPHILS % (AUTO) 77.2 % (40.0-77.0); PLATELET COUNT (AUTO) 100 K/uL (130-400); RED BLOOD CELL COUNT(AUTO) 3.27 MIL/uL (4.00-5.50); RED CELL DISTRIBUTION WIDTH 13.8 % (11.0-15.5); WHITE BLOOD COUNT (AUTO) 6.7 K/uL (4.8-10.8)
[2024-12-21 04:59] LABS: CREATININE 0.3 mg/dL (0.5-1.0); POTASSIUM 3.4 mmol/L (3.5-5.1)
--- NOTE | 2024-12-21 10:15 | NUR ---
BEHAVIORAL EPISODE Patient pulling on NG tube. Sitter redirected. Tube placement verified with air bolus. Will continue to monitor. Addendum: 12/21/24 at 1059 by NERISSA LOZANO RN RN Amended: Links added.
--- NOTE | 2024-12-21 10:39 | PN ---
GASTROENTEROLOGY PROGRESS NOTE Date of Visit: December 21, 2024 Time of Visit: 10:38 Events / Notes: No acute events overnight. TB ruled out. No fever, chills, abdominal pain, N/V, hematemesis, bloating, constipation, diarrhea, melena or hematochezia. Review of Systems: CONSTITUTIONAL: No malaise or change in sensation of wellbeing. ENMT: No rhinorrhea, otorrhea, sinus pain, ear ache. CARDIOVASCULAR: No angina, palpitations, orthopnea or paroxysmal dyspnea. RESPIRATORY: No SOB. GASTROINTESTINAL: No abdominal pain, nausea, vomiting, diarrhea, hematemesis, melena or change in the patient's habitual bowel movements consistency/number. GENITOURINARY: No dysuria, hematuria or change in bladder continence. MUSCULOSKELETAL: No new muscle pain or decrease in muscular strength. No new joint swelling, redness or tenderness. SKIN: No new rash. Physical Exam: GEN: Awake, alert, oriented in person, time and place, and in no acute distress. HEENT: No sinus tenderness. Tympanic membranes were not examined. No rhinorrhea. Oral pharyngeal mucosa is pink, moist and within normal limits. Neck is supple with no cervical lymphadenopathy, thyromegaly or JVD. CHEST: Inspection, palpation and percussion of the chest were unremarkable. Lung auscultation revealed normal breath sounds bilaterally. CARDIAC: PMI is within normal limits. Heart sounds are regular. Normal S1, S2. No gallop or murmur. ABD: Soft, non-tender and not distended. No peritoneal signs on palpation. No organomegaly. Normal bowel sounds. EXT: No cyanosis or clubbing. No edema. SKIN: Intact. No rashes. JOINTS: No evidence of synovitis or acute arthritis. NEURO: Alert and oriented to name, place and person. Cranial nerve examination is unremarkable. No focal motor deficits. Normal speech. Gait is normal. Strength is normal. Vital Signs (last 8hr) Date Time Temp Pulse Resp B/P (MAP) Pulse Ox O2 Delivery O2 Flow Rate FiO2 12/21/24 06:21 79 18 N/A Room Air 21 12/21/24 06:20 79 20 12/21/24 03:28 97.3 86 17 123/87 100 Room Air 21 Laboratory: [ ] Laboratory: Test 12/21/24 05:26 12/21/24 04:27 12/20/24 06:02 Range/Units Whole Blood Glucose 75 70-110 MG/DL White Blood Count 6.7 # 4.8-10.8 K/uL Red Blood Count 3.27 L 4.00-5.50 MIL/uL Hemoglobin 10.2 L 12.0-16.0 g/dL Hematocrit 30.0 L 36-48 % Mean Corpuscular Volume 91.7 79-99 fL Mean Corpuscular Hemoglobin 31.2 27.0-33.0 pg Mean Corpuscular Hemoglobin Concent 34.0 32.0-36.0 g/dL Red Cell Distribution Width 13.8 11.0-15.5 % Platelet Count 100 L 130-400 K/uL Mean Platelet Volume 10.2 7.5-10.5 fL Immature Granulocyte % (Auto) 0.6 0-1 % Neutrophils (%) (Auto) 77.2 H 40.0-77.0 % Lymphocytes (%) (Auto) 17.6 L 21.0-51.0 % Monocytes (%) (Auto) 3.6 3.0-13.0 % Eosinophils (%) (Auto) 0.8 0.0-8.0 % Basophils (%) (Auto) 0.2 0.0-5.0 % Neutrophils # (Auto) 5.1 1.8-7.7 K/uL Lymphocytes # (Auto) 1.2 1.0-4.8 K/uL Monocytes # (Auto) 0.2 0.1-1.0 K/uL Eosinophils # (Auto) 0.05 0.00-0.70 K/uL Basophils # (Auto) 0.01 0.00-0.20 K/uL Absolute Immature Granulocyte (auto 0.04 0-1 K/uL Nucleated Red Blood Cells 0.0 0.0-0.19 % Sodium Level 142 136-145 mmol/L Potassium Level 3.4 L 3.5-5.1 mmol/L Chloride Level 106 101-111 mmol/L Carbon Dioxide Level 31 21-32 mmol/L Blood Urea Nitrogen 15 7-18 mg/dL Creatinine 0.3 L 0.5-1.0 mg/dL Glomerular Filtration Rate Calc 136 >90 mL/min Random Glucose 80 70-105 mg/dL Total Calcium 8.1 L 8.5-10.1 mg/dL Phosphorus Level 2.0 L 2.5-4.9 mg/dL Magnesium Level 1.60 L 1.80-2.40 mg/dL Current Medications Medications (Trade) Dose Ordered Sig/Castillo Route PRN Reason Start Time Stop Time Status Last Admin Dose Admin Acetaminophen (TYLenol 325MG ELIXIR) 325 mg Q6H PRN PO MILD PAIN (1-3) 12/13/24 15:00 01/12/25 14:59 12/16/24 23:50 325 MG Acetaminophen (TYLenol 500MG TAB) 500 mg Q4PRN PRN PO FEVER 12/15/24 10:30 12/18/24 06:36 DC Acetaminophen (TYLenol 500MG TAB) 500 mg Q4PRN PRN PO PAIN 12/15/24 10:30 12/18/24 06:37 DC Acetylcysteine (MUComyst 20% 4ML) 400mg = 2ml [id number] IH 12/14/24 18:00 12/19/24 11:38 DC 12/19/24 11:23 800 MG Albumin Human 50 ml @ 0 mls/hr AD IV 12/14/24 10:00 12/18/24 06:39 DC 12/14/24 11:14 50 MLS/HR Albuterol (DUOneb) 1 udvial Q6H PRN IH SHORTNESS OF BREATH 12/13/24 15:30 12/19/24 11:38 DC 12/19/24 11:23 1 UDVIAL Bisacodyl (DulcoLAX) 10 mg DAILY RC 12/16/24 09:00 12/19/24 08:59 DC 12/18/24 09:25 10 MG Budesonide (Pulmicort 0.5 Mg/2ml) 0.5 mg BIDRESP IH 12/13/24 18:00 01/12/25 17:59 12/21/24 09:33 0.5 MG Buspirone HCl (BUspar) 15 mg TID PO 12/15/24 14:00 01/14/25 13:59 12/20/24 21:20 15 MG Dextrose 500 ml @ 0 mls/hr Q0M IV 12/16/24 12:30 12/17/24 07:15 DC 12/16/24 12:30 999 MLS/HR Dextrose 1,000 ml @ 75 mls/hr [id number] IV 12/13/24 15:00 12/16/24 14:30 DC 12/16/24 10:16 75 MLS/HR Dextrose 1,000 ml @ 75 mls/hr [id number] IV 12/17/24 01:00 12/17/24 07:15 DC 12/17/24 00:50 75 MLS/HR Dextrose (D50w) 50 ml AD PRN IV HYPOGLYCEMIA PROTOCOL 12/13/24 15:00 01/12/25 14:59 12/17/24 00:00 50 ML Dextrose/Sodium Chloride 500 ml @ 75 mls/hr Q6H40M IV 12/17/24 07:30 12/17/24 07:20 DC Dextrose/Sodium Chloride 500 ml @ 75 mls/hr Q6H40M IV 12/17/24 07:30 01/16/25 07:29 12/20/24 21:31 75 MLS/HR Doxycycline Hyclate 250 ml @ 125 mls/hr Q12H IV 12/13/24 15:30 12/17/24 07:20 DC 12/17/24 03:24 125 MLS/HR Enoxaparin Sodium (Lovenox) 30 mg DAILY SQ 12/14/24 09:00 12/15/24 09:05 DC 12/14/24 08:46 30 MG Enoxaparin Sodium (Lovenox) 30 mg DAILY SQ 12/16/24 09:00 12/15/24 13:22 DC Enoxaparin Sodium (Lovenox) 30 mg DAILY SQ 12/20/24 09:00 01/19/25 08:59 12/20/24 09:07 30 MG Folic Acid (FOLic ACID 1 MG TABLET) 1 mg DAILY PO 12/18/24 09:00 01/17/25 08:59 12/20/24 09:06 1 MG Glucagon (Glucagon 1mg Kit) 1 mg AD PRN IM HYPOGLYCEMIA PROTOCOL 12/13/24 15:00 01/12/25 14:59 Guaifenesin/ Dextromethorphan (RobiTUSSin DM 200/20MG 10ML) 10 ml Q4H PRN PO COUGH 12/15/24 11:00 01/14/25 10:59 Home Med (Home Medication) (Cholecalciferol (Vitamin D3) 25 MCG) DAILY PO 12/16/24 09:00 01/15/25 08:59 Lactated Ringer's 1,000 ml @ 75 mls/hr [id number] IV 12/16/24 23:30 12/17/24 00:30 DC 12/16/24 23:34 75 MLS/HR Lactated Ringer's 1,000 ml @ 100 mls/hr Q10H IV 12/13/24 15:00 12/13/24 15:18 DC Lactated Ringer's (Lactated Ringers 1000ml) 500 ml BOLUS IV 12/17/24 00:30 12/18/24 06:39 DC Leptospermum Honey (Medihoney) 1 appl DAILY TP 12/15/24 09:00 01/14/25 08:59 12/20/24 09:16 1 APPL Lorazepam (AtiVAN) 0.5 mg DAILYDINNER PO 12/15/24 17:00 01/14/25 16:59 12/20/24 15:48 0.5 MG Magnesium Sulfate 50 ml @ 0 mls/hr PROTOCOL IV 12/13/24 21:30 01/12/25 21:29 12/20/24 07:12 25 MLS/HR Meropenem (Merrem 1gm) 1 gm Q8H IVPB 12/13/24 16:00 12/17/24 07:37 DC 12/16/24 23:45 1 GM Miscellaneous Medication (Ondansetron HCl ) 8 mg TID PO 12/15/24 14:00 12/15/24 10:43 DC Multivitamins Therapeutic (Multivitamin Tablet) 1 tab DAILY PO 12/18/24 09:00 01/17/25 08:59 12/20/24 09:06 1 TAB Norepinephrine 250 ml @ 0 mls/hr PROTOCOL IV 12/13/24 14:30 12/15/24 14:26 DC 12/14/24 07:35 25.3 MLS/HR Ondansetron HCl (zoFRAN 4MG INJ) 4 mg Q6H PRN IVP NAUSEA/VOMITING 12/13/24 16:30 01/12/25 16:29 Pantoprazole Sodium (PROTonix 40MG INJ) 40 mg Q24H IVP 12/13/24 15:00 01/12/25 14:59 12/20/24 14:10 40 MG Pharmacy Profile Note (Pharmacy Communication) 1 each ONCE MISC 12/13/24 15:00 12/13/24 15:28 DC Pharmacy Profile Note (Pharmacy Communication) 1 each ONCE MISC 12/17/24 07:30 12/17/24 08:12 DC Pharmacy Profile Note (Pharmacy Communication) 1 each ONCE MISC 12/18/24 08:00 12/18/24 08:29 DC Piperacillin Sod/ Tazobactam Sod (Zosyn 3.375gm+NS 50ml) 3.375 gm Q8H IV 12/17/24 08:00 12/27/24 07:59 12/21/24 01:15 3.375 GM Polyethylene Glycol (MIRalax 3350 17 GM POWD.PACK) 17 gm DAILY PO 12/16/24 09:00 01/15/25 08:59 12/20/24 09:08 17 GM Potassium Phosphate 250 ml @ 42 mls/hr PROTOCOL IV 12/15/24 05:30 12/15/24 10:19 DC 12/15/24 05:59 42 MLS/HR Potassium Chloride 100 ml @ 50 mls/hr AD PRN IV POTASSIUM PROTOCOL 12/13/24 21:30 01/12/25 21:29 12/18/24 05:55 50 MLS/HR Potassium Chloride 100 ml @ 50 mls/hr AD PRN IV POTASSIUM PROTOCOL 12/15/24 14:30 12/18/24 06:39 DC Potassium Chloride 100 ml @ 100 mls/hr AD PRN IV POTASSIUM PROTOCOL 12/15/24 14:30 12/18/24 06:39 DC Potassium Chloride (K-Dur/Klor-Con 20meq) 20 meq AD PRN PO POTASSIUM PROTOCOL 12/15/24 14:30 01/14/25 14:29 Potassium Chloride (KCl 10% Elixir 20meq/15ml) 20 meq AD PRN PO POTASSIUM PROTOCOL 12/15/24 14:30 01/14/25 14:29 12/15/24 22:57 20 MEQ Potassium Chloride (KCl 10% Elixir 20meq/15ml) 40 meq BID PO 12/18/24 09:00 12/18/24 21:01 DC 12/18/24 21:06 40 MEQ Quetiapine Fumarate (SEROquel 100 mg TAB) 200 mg BID PO 12/15/24 21:00 01/14/25 20:59 12/20/24 21:20 200 MG Sodium Chloride 1,000 ml @ 75 mls/hr [id number] IV 12/16/24 14:30 12/16/24 22:18 DC 12/16/24 15:08 75 MLS/HR Sodium Phosphate 15 mmol/Sodium Chloride 250 ml @ 62.5 mls/hr PROTOCOL IV 12/20/24 09:00 12/20/24 08:52 DC Sodium Phosphate 15 mmol/Sodium Chloride 250 ml @ 62.5 mls/hr PROTOCOL IV 12/20/24 09:00 01/19/25 08:59 12/20/24 09:55 62.5 MLS/HR Thiamine HCl (Vitamin B-1) 300 mg Q24H IVP 12/13/24 15:00 01/12/25 14:59 12/20/24 14:10 300 MG Venlafaxine HCl (EffEXOR XR 37.5mg CAP) 75 mg DAILY PO 12/16/24 09:00 01/15/25 08:59 12/20/24 09:06 75 MG Diagnostics / Radiology: [COPY/PASTE HERE IF NO REPORTS PLEASE DELETE SECTION] Assessment: Failure to thrive Microcephaly Scoliosis Plan: EGD WITH PEG FOR WEDNESDAY Continue GI prophylaxis Advance feedings as tolerated Avoid NSAIDs Antireflux measures Monitor H&H and transfuse as needed Call with questions, concerns or change in clinical status Patient to follow-up at clinic post discharge Thank you for this consult ZHAO GUERRA SENIOR STAFF ACCOUNTANT December 21, 2024 10:38
--- NOTE | 2024-12-21 11:26 | PN ---
[facility] PROGRESS NOTE Date Patient Seen: December 21, 2024 Time of Visit: 11:23 Supervising Physician: [Dr. Naranjo] Primary Care Physician: Yarelis Ogden MD Outpatient Specialists: [ ] Inpatient Consults: [facility] , Dr Esperanza Naranjo MD Attending: Carlos Real MD PROBLEM LIST: Sepsis 2/2 Pneumonia and Acute complicated Cystitis Right upper lobe cavitation TB rule out, POA - pending bronchoscopy for tomorrow 12/16/24 Hypothermia, POA , resolved 2/2 sepsis Hypoglycemia episodes Acute thrombocytopenia Failure to thrive pending GI for G-tube eval Community-acquired pneumonia with acute hypoxemic respiratory failure, POA Suspected aspiration, POA Acute complicated cystitis, POA + Proteus Mirabiis Frailty/debility, POA History of chronic contractures of bilateral lower extremities, POA Unstageable decubitus ulcers to right hip POA Intellectual disability, POA History of scoliosis, POA History of microcephaly, POA History of ADHD, POA History of aggression, POA Nonverbal Plan summary: GI for PEG tube placement Remove isolation precaution Continue IV antibiotics Follow ID recommendations Maintain normal thermic as much as possible S/P bronchoscopy, negative for TB Continue tube feedings INTERVAL HISTORY: Patient evaluated at bedside prior to bronchoscopy, potassium and magnesium being replaced at this time. Patient's body temperature within normal limits. She continues with NG tube. Patient remains nonverbal, however awake and alert likely secondary to her increased feeding intake. No overnight events reported by nursing staff present at the time, no nausea or vomiting episodes. Platelets at 59 this morning. Hemoglobin 9.4, creatinine 0.3. We will continue to follow the patient following bronchoscopy. 12/19 patient is evaluated at bedside. Temperature taken at bedside is improved to 97.5� F. she was tachycardic with heart rate ranging up to 130. Continues on room air, no current respiratory distress. Per sitter, patient has not had a productive cough. She is status post bronchoscopy, MTB not detected. Gram stain is negative. No acid-fast bacilli seen, pending culture. WBC remains within normal limits. Repeat CT is unremarkable. 12/20 patient is evaluated at bedside. She continues with NGT and tube feedings for primary. TB has been ruled out, no current cough or phlegm production per sitter at bedside. She was saturating well on room air. Temperature is improved to WNL, currently off hypothermic measures. Patient is high risk for aspiration, has been recommended for PEG tube. Defer to primary for management of the same. 12/21 patient was pulling on her NG tube overnight, was redirected by nursing staff. She is pending GI for PEG tube placement today. Continues saturating well on room air. Labs and vitals are reviewed and within normal limits. On behalf of [facility], we thank you for this consultation. We will sign off, please re-consult us necessary. REVIEW OF SYSTEMS: UNABLE TO OBTAIN DUE TO PATIENT IS NONVERBAL. INTELLECTUAL DISABILITY. PHYSICAL EXAM: GENERAL: Awake to voice nonverbal, intellectually disabled microcephaly. HEENT: Sclera non icteric, dry mucosa NECK: Supple, no JVD, trachea midline LUNGS: Coarse rhonchi breath sounds bilaterally. No wheezes HEART: Regular rate and rhythm. Normal S1 and S2, without murmurs ABD: Cachectic, flat, nontender. Bowel sounds present EXT: Contractions to upper and lower extremities, right hip unstageable pressure ulcer with a black eschar NEURO: Awake to voice, nonverbal and chronically ill with upper and lower extremity contractures. Vital Signs (last 8hr) Date Time Temp Pulse Resp B/P (MAP) Pulse Ox O2 Delivery O2 Flow Rate FiO2 12/21/24 06:21 79 18 N/A Room Air 21 12/21/24 06:20 79 20 12/21/24 03:28 97.3 86 17 123/87 100 Room Air 21 LABS: Hematology Labs: Test 12/21/24 04:27 Range/Units White Blood Count 6.7 # 4.8-10.8 K/uL Red Blood Count 3.27 L 4.00-5.50 MIL/uL Hemoglobin 10.2 L 12.0-16.0 g/dL Hematocrit 30.0 L 36-48 % Mean Corpuscular Volume 91.7 79-99 fL Mean Corpuscular Hemoglobin 31.2 27.0-33.0 pg Mean Corpuscular Hemoglobin Concent 34.0 32.0-36.0 g/dL Red Cell Distribution Width 13.8 11.0-15.5 % Platelet Count 100 L 130-400 K/uL Mean Platelet Volume 10.2 7.5-10.5 fL Immature Granulocyte % (Auto) 0.6 0-1 % Neutrophils (%) (Auto) 77.2 H 40.0-77.0 % Lymphocytes (%) (Auto) 17.6 L 21.0-51.0 % Monocytes (%) (Auto) 3.6 3.0-13.0 % Eosinophils (%) (Auto) 0.8 0.0-8.0 % Basophils (%) (Auto) 0.2 0.0-5.0 % Neutrophils # (Auto) 5.1 1.8-7.7 K/uL Lymphocytes # (Auto) 1.2 1.0-4.8 K/uL Monocytes # (Auto) 0.2 0.1-1.0 K/uL Eosinophils # (Auto) 0.05 0.00-0.70 K/uL Basophils # (Auto) 0.01 0.00-0.20 K/uL Absolute Immature Granulocyte (auto 0.04 0-1 K/uL Nucleated Red Blood Cells 0.0 0.0-0.19 % Chemistry Labs: Test 12/21/24 05:26 12/21/24 04:27 12/20/24 06:02 Range/Units Whole Blood Glucose 75 70-110 MG/DL Sodium Level 142 136-145 mmol/L Potassium Level 3.4 L 3.5-5.1 mmol/L Chloride Level 106 101-111 mmol/L Carbon Dioxide Level 31 21-32 mmol/L Blood Urea Nitrogen 15 7-18 mg/dL Creatinine 0.3 L 0.5-1.0 mg/dL Glomerular Filtration Rate Calc 136 >90 mL/min Random Glucose 80 70-105 mg/dL Total Calcium 8.1 L 8.5-10.1 mg/dL Phosphorus Level 2.0 L 2.5-4.9 mg/dL Magnesium Level 1.60 L 1.80-2.40 mg/dL DIAGNOSTICS / RADIOLOGY RESULTS: [ ] PLAN NEURO: Minimize central acting medications as possible. Maintain fall precautions, adequate lighting during the day PULMONARY: Supplemental 02 as needed. Maintain aspiration precautions at all times CARDIOVASCULAR: Follow hemodynamics. Vital signs per facility protocol GI & NUTRITION: Continue with nutritional support. Continue stool softeners and laxatives as needed. KIDNEYS & ELECTROLYTES: Strict monitoring of intake, output and overall fluid balance. Avoid nephrotoxic medications to the extent possible. Medications to be dosed according to renal function. Monitor electrolytes and replace as needed ENDOCRINE: Maintain blood glucose between 100-180 at all times. Hypoglycemia protocol in place INFECTIOUS DISEASE: Trend temperature, WBC and procalcitonin level Follow cultures, deescalate antibiotics as soon as possible. Panculture if new onset fever ONCOLOGY/HEMATOLOGY/COAGULATION: Monitor for s/s of bleeding Monitor hemoglobin, coagulation studies as needed SKIN: Pressure ulcer prevention per facility protocol Specialty mattress ORTHO/REHAB: Continue PT/OT Prophylaxis: Continue GI and DVT prophylaxis Code Status: Full Resuscitation Disposition: TBD Other: Total patient care time exceeds 35 minutes excluding all procedures. RAMO JUAREZ December 21, 2024 11:26
--- NOTE | 2024-12-21 12:48 | PN ---
INFECTIOUS DISEASE PROGRESS NOTE Date of Service: December 21, 2024 SUBJECTIVE: This is a 44-year-old female patient with intellectual disability who was seen in room 301. Patient underwent a bronchoscopy procedure under anesthesia care on 12/18/2024. Bronchial washing is positive for Ivanna albicans. Will continue on Zosyn IV. No fever reported. No episodes of emesis reported. Patient is pending for an EGD with PEG tube placement for today. PHYSICAL EXAM EYES: Anicteric. Pupils equal and reactive. HENT: No oral thrush seen, moist Oral mucosa. NECK: Supple, no JVD or thyromegaly. LUNGS: Good air entry. Productive cough. CARDIOVASCULAR: S1, S2 regular. No murmur heard. ABDOMEN: Soft, non tender, bowel sounds present, no organomegaly. CENTRAL NERVOUS SYSTEM: Intellectual disability. SKIN: No rashes, no swelling. LYMPHATICS: No peripheral lymphadenopathy. MUSCULOSKELETAL: No joint swelling, erythema or tenderness. EXTREMITIES: No cyanosis or clubbing. BACK: No deformity, no pressure ulcer. GENITOURINARY: No dysuria or hematuria. Incontinence. Vital Sign (Last 12 Hours) 12/21/24 12/21/24 12/21/24 03:28 06:20 06:21 Temp 97.3 Pulse 86 79 79 Resp 17 20 18 B/P (MAP) 123/87 Pulse Ox 100 O2 Delivery Room Air N/A Room Air FiO2 21 21 Intake & Output (last 24hrs) 12/20/24 12/20/24 12/21/24 15:00 23:00 07:00 Intake Total 200 ml Output Total 1300 ml Balance -1100 ml LABS: Laboratory: Test 12/21/24 11:30 12/21/24 04:27 12/20/24 06:02 Range/Units Whole Blood Glucose 64 L 70-110 MG/DL White Blood Count 6.7 # 4.8-10.8 K/uL Red Blood Count 3.27 L 4.00-5.50 MIL/uL Hemoglobin 10.2 L 12.0-16.0 g/dL Hematocrit 30.0 L 36-48 % Mean Corpuscular Volume 91.7 79-99 fL Mean Corpuscular Hemoglobin 31.2 27.0-33.0 pg Mean Corpuscular Hemoglobin Concent 34.0 32.0-36.0 g/dL Red Cell Distribution Width 13.8 11.0-15.5 % Platelet Count 100 L 130-400 K/uL Mean Platelet Volume 10.2 7.5-10.5 fL Immature Granulocyte % (Auto) 0.6 0-1 % Neutrophils (%) (Auto) 77.2 H 40.0-77.0 % Lymphocytes (%) (Auto) 17.6 L 21.0-51.0 % Monocytes (%) (Auto) 3.6 3.0-13.0 % Eosinophils (%) (Auto) 0.8 0.0-8.0 % Basophils (%) (Auto) 0.2 0.0-5.0 % Neutrophils # (Auto) 5.1 1.8-7.7 K/uL Lymphocytes # (Auto) 1.2 1.0-4.8 K/uL Monocytes # (Auto) 0.2 0.1-1.0 K/uL Eosinophils # (Auto) 0.05 0.00-0.70 K/uL Basophils # (Auto) 0.01 0.00-0.20 K/uL Absolute Immature Granulocyte (auto 0.04 0-1 K/uL Nucleated Red Blood Cells 0.0 0.0-0.19 % Sodium Level 142 136-145 mmol/L Potassium Level 3.4 L 3.5-5.1 mmol/L Chloride Level 106 101-111 mmol/L Carbon Dioxide Level 31 21-32 mmol/L Blood Urea Nitrogen 15 7-18 mg/dL Creatinine 0.3 L 0.5-1.0 mg/dL Glomerular Filtration Rate Calc 136 >90 mL/min Random Glucose 80 70-105 mg/dL Total Calcium 8.1 L 8.5-10.1 mg/dL Phosphorus Level 2.0 L 2.5-4.9 mg/dL Magnesium Level 1.60 L 1.80-2.40 mg/dL ASSESSMENT: Urinary tract infection with Proteus mirabilis. Aspiration Pneumonia. Septic shock. Right lung cavitary lesions, status post bronchoscopy, TB ruled out. Thrombocytopenia. Hypokalemia. Debility PLAN: Continue Zosyn IV. Continue GI prophylaxis. . Continue monitoring electrolytes. Patient currently on NG tube feedings with Vital AF. Pending an EGD with PEG tube placement for today. This case was reviewed and discussed with my supervising physician and the above assessment and plan was formulated and agreed upon. ATTESTATION BY PHYSICIAN I have seen and examined the patient. I reviewed the documentation, medical decision making, and treatment plan as noted by the mid-level provider above. I agree with the findings and plan of care. IGNACIA MARTI MD, [facility] December 21, 2024 12:48
--- NOTE | 2024-12-21 13:09 | NUR ---
[facility] Follow-up: Patient re-assessed by wound healing team. Assessment and recommendations provided to primary nurse. Education provided. Wound care done. Addendum: 12/22/24 at 1309 by ALESSIO BAKER RN RN/ Amended: Links added.
--- NOTE | 2024-12-21 15:05 | PN ---
[facility] PROGRESS NOTE Date of Service: December 21, 2024 Time of Service: 15:04 SUBJECTIVE: 12/14 patient seen at bedside, no acute events overnight. Patient was seen at bedside, she does not participate in the medical interview. She does not appear to be in any acute distress. She is on pressors, we will continue to wean as able. Sodium improved from 150 down to 146, remainder of her labs are relatively unremarkable. Urine growing bacteria, we will continue with empiric antibiotics 12/15/24 Patient sen and examined. Care discussed with RN No acute overnight events. Follow cultures/continue antibiotics. 12/16 patient seen at bedside, no acute events overnight. Pulmonology was pending bronchoscopy to obtain samples to test for tuberculosis however patient became hypothermic and somnolent. Repeat labs, ABG were ordered however no abnormalities were noted. Lactic acid was normal, sodium had mildly decreased from 142 down to 134, ammonia was within normal limits. She was started on a Halina Hugger and bolused fluids, her temperature began to improve and she was more awake. Her phosphorus is low at 1.8 and given her constitution this is concerning for refeeding syndrome, we will continue to monitor closely. 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 RN reports blood pressure 109/65, respirations, 98% on nasal cannula. RN reports that patient has was a rapid response earlier, has been on the Halina Hugger all day with no improvement of the temperature, and now is tachycardic. I went to assess the patient at bedside. The patient's breathing was even, unlabored, and lethargic. The patient is nonverbal, moans with touch. The patient was receiving feedings per NG and IV fluids. Stat ABGs, blood work were done. Remarkable lab results: Lactic acid increased from 1.04 to 1.59. Phos was 1.6, magnesium 1.9, total protein 4.3, albumin 1.6. ABGs on room air: PO2 58.4, ABG O2 saturation 89.2. (PO2 this morning was 91.5). The patient was placed back on 2 L nasal cannula, increased bear hugger to 30� C from 32� C. Electrolytes were replaced. Telemetry pack was order. We will continue monitoring patient closely. 12/17/2024 0315: Addendum: Reassessed the patient multiple times. Her temperature improved, remained tachycardic, despite a total of a 1500 mL bolus of LR. BP ranging systolic 98-105. The patient had a hypoglycemic episode at 11:54 p.m., blood glucose was 51, despite being of feedings. Change fluids to D5 W at 75 mL an hour. We will continue monitoring patient closely. 06:00 Reassessed the patient before off of my shift HR had improved to 112-116. b/p low 100s systolic. 12/17 patient seen at bedside, temperature has improved. She continues to be tachycardic, hemodynamically stable saturating well on room air. Hemoglobin stable at 10.1, similar to yesterday, her phosphate is very low at 1.1. She is much more awake and interactive today compared to yesterday. The constellation of symptoms with hypothermia, tachycardia and even the altered mental status are likely secondary to refeeding syndrome. The patient is not septic, her ammonia is at normal levels, lactic acid is at normal levels, CO2 is at normal levels she has been adequately resuscitated with fluids. She will be repleted with IV phosphate, her tube feeds we will be reduced to trickle feeds at 10 cc/hour before attempting to increase the feed rate. If her tachycardia improves with these changes then tomorrow we will attempt to increase the rate of her tube feeds. 12/18 patient seen at bedside, no acute events overnight. Her tachycardia has improved, hypothermia improving, she is awake today in no acute distress. Pending bronchoscopy later today to take samples for ruling out TB. Once completed we will resume trickle feeds. Today potassium, phosphate and magnesium were all low, we will be repleted. This is likely secondary to refeeding syndrome. 12/19 patient seen at bedside, no acute events overnight. Patient is still having hypothermia and tachycardia ranging from 81 up to 130, labs relatively un remarkable. Repeat mg and phos tomorrow, will begin to titrate up tube feedings 12/20 patient seen at bedside, no acute events overnight. Preliminary TB cultures are no growth to date, GI contacted for PEG tube placement. Her temperature has been improved, she has been hemodynamically stable, tachycardia is improving. We will begin to titrate up her tube feeds. 12/21 patient is pending PEG tube placement today, we will follow up postprocedure, vitals and labs relatively unremarkable. REVIEW OF SYSTEMS: Patient is obtunded, unable to obtain ROS. Patient is nonverbal, only moans. PHYSICAL EXAM GENERAL APPEARANCE: The patient is obtunded, very frail, cachectic, contractures noted of the lower extremities NEUROLOGICAL: The patient response to painful stimuli, moans when touched, is nonverbal. Does not follow command. HEENT: Face is symmetric. Pupils are equal and reactive. Extraocular movements are intact. NECK: Supple. No JVD. No thyromegaly. No submental, submandibular, pre- /postauricular, occipital or supraclavicular lymphadenopathy. CHEST: Normal chest expansion. No Telemetry. LUNGS: Absence of any rales, rhonchi or any wheezing. CARDIOVASCULAR: Regular. Tachycardic. No appreciable rubs, murmurs or gallops. ABDOMEN: Soft, nontender, and nondistended. There is no rebound, voluntary guarding, or rigidity. : Deferred. No Clark. EXTREMITIES: Contractures to bilateral lower extremity. Non-edematous and not cyanotic. No clubbing. Good capillary refill. SKIN: No skin breakdown. Vital Signs (last 8hr) Date Time Temp Pulse Resp B/P (MAP) Pulse Ox O2 Delivery O2 Flow Rate FiO2 12/21/24 11:40 97.3 84 18 116/82 94 Room Air LABS: Laboratory: Test 12/21/24 11:30 12/21/24 04:27 12/20/24 06:02 Range/Units Whole Blood Glucose 64 L 70-110 MG/DL White Blood Count 6.7 # 4.8-10.8 K/uL Red Blood Count 3.27 L 4.00-5.50 MIL/uL Hemoglobin 10.2 L 12.0-16.0 g/dL Hematocrit 30.0 L 36-48 % Mean Corpuscular Volume 91.7 79-99 fL Mean Corpuscular Hemoglobin 31.2 27.0-33.0 pg Mean Corpuscular Hemoglobin Concent 34.0 32.0-36.0 g/dL Red Cell Distribution Width 13.8 11.0-15.5 % Platelet Count 100 L 130-400 K/uL Mean Platelet Volume 10.2 7.5-10.5 fL Immature Granulocyte % (Auto) 0.6 0-1 % Neutrophils (%) (Auto) 77.2 H 40.0-77.0 % Lymphocytes (%) (Auto) 17.6 L 21.0-51.0 % Monocytes (%) (Auto) 3.6 3.0-13.0 % Eosinophils (%) (Auto) 0.8 0.0-8.0 % Basophils (%) (Auto) 0.2 0.0-5.0 % Neutrophils # (Auto) 5.1 1.8-7.7 K/uL Lymphocytes # (Auto) 1.2 1.0-4.8 K/uL Monocytes # (Auto) 0.2 0.1-1.0 K/uL Eosinophils # (Auto) 0.05 0.00-0.70 K/uL Basophils # (Auto) 0.01 0.00-0.20 K/uL Absolute Immature Granulocyte (auto 0.04 0-1 K/uL Nucleated Red Blood Cells 0.0 0.0-0.19 % Sodium Level 142 136-145 mmol/L Potassium Level 3.4 L 3.5-5.1 mmol/L Chloride Level 106 101-111 mmol/L Carbon Dioxide Level 31 21-32 mmol/L Blood Urea Nitrogen 15 7-18 mg/dL Creatinine 0.3 L 0.5-1.0 mg/dL Glomerular Filtration Rate Calc 136 >90 mL/min Random Glucose 80 70-105 mg/dL Total Calcium 8.1 L 8.5-10.1 mg/dL Phosphorus Level 2.0 L 2.5-4.9 mg/dL Magnesium Level 1.60 L 1.80-2.40 mg/dL Current Medications Medications (Trade) Dose Ordered Sig/Castillo Route PRN Reason Start Time Stop Time Status Last Admin Dose Admin Acetaminophen (TYLenol 325MG ELIXIR) 325 mg Q6H PRN PO MILD PAIN (1-3) 12/13/24 15:00 01/12/25 14:59 12/16/24 23:50 325 MG Acetaminophen (TYLenol 500MG TAB) 500 mg Q4PRN PRN PO FEVER 12/15/24 10:30 12/18/24 06:36 DC Acetaminophen (TYLenol 500MG TAB) 500 mg Q4PRN PRN PO PAIN 12/15/24 10:30 12/18/24 06:37 DC Acetylcysteine (MUComyst 20% 4ML) 400mg = 2ml [id number] IH 12/14/24 18:00 12/19/24 11:38 DC 12/19/24 11:23 800 MG Albumin Human 50 ml @ 0 mls/hr AD IV 12/14/24 10:00 12/18/24 06:39 DC 12/14/24 11:14 50 MLS/HR Albuterol (DUOneb) 1 udvial Q6H PRN IH SHORTNESS OF BREATH 12/13/24 15:30 12/19/24 11:38 DC 12/19/24 11:23 1 UDVIAL Bisacodyl (DulcoLAX) 10 mg DAILY RC 12/16/24 09:00 12/19/24 08:59 DC 12/18/24 09:25 10 MG Budesonide (Pulmicort 0.5 Mg/2ml) 0.5 mg BIDRESP IH 12/13/24 18:00 01/12/25 17:59 12/21/24 09:33 0.5 MG Buspirone HCl (BUspar) 15 mg TID PO 12/15/24 14:00 01/14/25 13:59 12/20/24 21:20 15 MG Dextrose 500 ml @ 0 mls/hr Q0M IV 12/16/24 12:30 12/17/24 07:15 DC 12/16/24 12:30 999 MLS/HR Dextrose 1,000 ml @ 75 mls/hr [id number] IV 12/13/24 15:00 12/16/24 14:30 DC 12/16/24 10:16 75 MLS/HR Dextrose 1,000 ml @ 75 mls/hr [id number] IV 12/17/24 01:00 12/17/24 07:15 DC 12/17/24 00:50 75 MLS/HR Dextrose (D50w) 50 ml AD PRN IV HYPOGLYCEMIA PROTOCOL 12/13/24 15:00 01/12/25 14:59 12/17/24 00:00 50 ML Dextrose/Sodium Chloride 500 ml @ 75 mls/hr Q6H40M IV 12/17/24 07:30 12/17/24 07:20 DC Dextrose/Sodium Chloride 500 ml @ 75 mls/hr Q6H40M IV 12/17/24 07:30 01/16/25 07:29 12/20/24 21:31 75 MLS/HR Doxycycline Hyclate 250 ml @ 125 mls/hr Q12H IV 12/13/24 15:30 12/17/24 07:20 DC 12/17/24 03:24 125 MLS/HR Enoxaparin Sodium (Lovenox) 30 mg DAILY SQ 12/14/24 09:00 12/15/24 09:05 DC 12/14/24 08:46 30 MG Enoxaparin Sodium (Lovenox) 30 mg DAILY SQ 12/16/24 09:00 12/15/24 13:22 DC Enoxaparin Sodium (Lovenox) 30 mg DAILY SQ 12/20/24 09:00 01/19/25 08:59 12/20/24 09:07 30 MG Folic Acid (FOLic ACID 1 MG TABLET) 1 mg DAILY PO 12/18/24 09:00 01/17/25 08:59 12/20/24 09:06 1 MG Glucagon (Glucagon 1mg Kit) 1 mg AD PRN IM HYPOGLYCEMIA PROTOCOL 12/13/24 15:00 01/12/25 14:59 Guaifenesin/ Dextromethorphan (RobiTUSSin DM 200/20MG 10ML) 10 ml Q4H PRN PO COUGH 12/15/24 11:00 01/14/25 10:59 Home Med (Home Medication) (Cholecalciferol (Vitamin D3) 25 MCG) DAILY PO 12/16/24 09:00 01/15/25 08:59 Lactated Ringer's 1,000 ml @ 75 mls/hr [id number] IV 12/16/24 23:30 12/17/24 00:30 DC 12/16/24 23:34 75 MLS/HR Lactated Ringer's 1,000 ml @ 100 mls/hr Q10H IV 12/13/24 15:00 12/13/24 15:18 DC Lactated Ringer's (Lactated Ringers 1000ml) 500 ml BOLUS IV 12/17/24 00:30 12/18/24 06:39 DC Leptospermum Honey (Medihoney) 1 appl DAILY TP 12/15/24 09:00 01/14/25 08:59 12/20/24 09:16 1 APPL Lorazepam (AtiVAN) 0.5 mg DAILYDINNER PO 12/15/24 17:00 01/14/25 16:59 12/20/24 15:48 0.5 MG Magnesium Sulfate 50 ml @ 0 mls/hr PROTOCOL IV 12/13/24 21:30 01/12/25 21:29 12/20/24 07:12 25 MLS/HR Meropenem (Merrem 1gm) 1 gm Q8H IVPB 12/13/24 16:00 12/17/24 07:37 DC 12/16/24 23:45 1 GM Miscellaneous Medication (Ondansetron HCl ) 8 mg TID PO 12/15/24 14:00 12/15/24 10:43 DC Multivitamins Therapeutic (Multivitamin Tablet) 1 tab DAILY PO 12/18/24 09:00 01/17/25 08:59 12/20/24 09:06 1 TAB Norepinephrine 250 ml @ 0 mls/hr PROTOCOL IV 12/13/24 14:30 12/15/24 14:26 DC 12/14/24 07:35 25.3 MLS/HR Ondansetron HCl (zoFRAN 4MG INJ) 4 mg Q6H PRN IVP NAUSEA/VOMITING 12/13/24 16:30 01/12/25 16:29 Pantoprazole Sodium (PROTonix 40MG INJ) 40 mg Q24H IVP 12/13/24 15:00 01/12/25 14:59 12/20/24 14:10 40 MG Pharmacy Profile Note (Pharmacy Communication) 1 each ONCE MISC 12/13/24 15:00 12/13/24 15:28 DC Pharmacy Profile Note (Pharmacy Communication) 1 each ONCE MISC 12/17/24 07:30 12/17/24 08:12 DC Pharmacy Profile Note (Pharmacy Communication) 1 each ONCE MISC 12/18/24 08:00 12/18/24 08:29 DC Piperacillin Sod/ Tazobactam Sod (Zosyn 3.375gm+NS 50ml) 3.375 gm Q8H IV 12/17/24 08:00 12/27/24 07:59 12/21/24 01:15 3.375 GM Polyethylene Glycol (MIRalax 3350 17 GM POWD.PACK) 17 gm DAILY PO 12/16/24 09:00 01/15/25 08:59 12/20/24 09:08 17 GM Potassium Phosphate 250 ml @ 42 mls/hr PROTOCOL IV 12/15/24 05:30 12/15/24 10:19 DC 12/15/24 05:59 42 MLS/HR Potassium Chloride 100 ml @ 50 mls/hr AD PRN IV POTASSIUM PROTOCOL 12/13/24 21:30 01/12/25 21:29 12/18/24 05:55 50 MLS/HR Potassium Chloride 100 ml @ 50 mls/hr AD PRN IV POTASSIUM PROTOCOL 12/15/24 14:30 12/18/24 06:39 DC Potassium Chloride 100 ml @ 100 mls/hr AD PRN IV POTASSIUM PROTOCOL 12/15/24 14:30 12/18/24 06:39 DC Potassium Chloride (K-Dur/Klor-Con 20meq) 20 meq AD PRN PO POTASSIUM PROTOCOL 12/15/24 14:30 01/14/25 14:29 Potassium Chloride (KCl 10% Elixir 20meq/15ml) 20 meq AD PRN PO POTASSIUM PROTOCOL 12/15/24 14:30 01/14/25 14:29 12/15/24 22:57 20 MEQ Potassium Chloride (KCl 10% Elixir 20meq/15ml) 40 meq BID PO 12/18/24 09:00 12/18/24 21:01 DC 12/18/24 21:06 40 MEQ Quetiapine Fumarate (SEROquel 100 mg TAB) 200 mg BID PO 12/15/24 21:00 01/14/25 20:59 12/20/24 21:20 200 MG Sodium Chloride 1,000 ml @ 75 mls/hr [id number] IV 12/16/24 14:30 12/16/24 22:18 DC 12/16/24 15:08 75 MLS/HR Sodium Phosphate 15 mmol/Sodium Chloride 250 ml @ 62.5 mls/hr PROTOCOL IV 12/20/24 09:00 12/20/24 08:52 DC Sodium Phosphate 15 mmol/Sodium Chloride 250 ml @ 62.5 mls/hr PROTOCOL IV 12/20/24 09:00 01/19/25 08:59 12/20/24 09:55 62.5 MLS/HR Thiamine HCl (Vitamin B-1) 300 mg Q24H IVP 12/13/24 15:00 01/12/25 14:59 12/20/24 14:10 300 MG Venlafaxine HCl (EffEXOR XR 37.5mg CAP) 75 mg DAILY PO 12/16/24 09:00 01/15/25 08:59 12/20/24 09:06 75 MG DIAGNOSTICS / RADIOLOGY: [ ] ASSESSMENT: Hypothermia, POA, in need of bare hugger, improving Acute hypoxemic respiratory failure, resolved, POA Refeeding syndrome, POA Recurrent hypoglycemic episodes Septic shock, POA (2/2 community-acquired pneumonia and complicated UTI) Toxic metabolic encephalopathy with obtundation, POA Community-acquired pneumonia with acute hypoxemic respiratory failure, POA Acute complicated cystitis, POA Frailty/debility, POA Acute UTI, Proteus, POA History of chronic contractures of bilateral lower extremities, POA Unstageable decubitus ulcer involving the left hip, POA Cachexia, POA History of severe intellectual disability, POA History of scoliosis, POA History of microcephaly, POA History of ADHD, POA History of aggression, POA PLAN: The patient is in medical floor. Continue telemetry pack. Continue with the Halina Hugger as needed NG tube in place, continue continuous tube feedings. Give trickle feeds at 10cc/hr, until tachycardia improves Continue IV phosphate repletion Patient will be kept strictly NPO and on aspiration precautions, NGT feedings only. We will maintain POCT blood glucose check q.4 hours, we will maintain blood glucose greater than 70. Continue Broad-spectrum antibiotics with IV meropenem and doxycycline Monitor respirations status closely. Place patient on 2 L nasal cannula due to hypoxemia. Urine growing proteus Patient will be placed on air mattress, offloading measures, wound care will be requested. Patient has a 1:1 sitter due to removes NGT/lines. May use mittens. Infectious Disease consulted, appreciate recommendations Reposition the patient every 2 hours and p.r.n.. GI consulted for PEG tube placement Disposition: Pending improvement in clinical status PEG tube placement SEVEN KIRKLAND MD December 21, 2024 15:04
--- NOTE | 2024-12-21 17:00 | NUR ---
Patient remained stable throughout shift. Continues on D5 1/2 solution @ 75ml/hr as she is NPO pending EGD with placement of PEG. Continues to pull at EKG leads and NG tube. Placement verified. Sitter in line of site. Will continue to monitor.
[2024-12-22] VITALS (28 sets, daily range): BP systolic 89–131; BP diastolic 44–95; PULSE 47–94; RESP 15–20; TEMP 97.2–98.1; O2SAT 95–97
[2024-12-22 04:57] LABS: BASOPHILS # (AUTO) 0.01 K/uL (0.00-0.20); BASOPHILS % (AUTO) 0.2 % (0.0-5.0); EOSINOPHILS # (AUTO) 0.03 K/uL (0.00-0.70); EOSINOPHILS % (AUTO) 0.5 % (0.0-8.0); HEMATOCRIT 29.2 % (36-48); IMMATURE GRANULOCYTE ABSOLUTE 0.03 K/uL (0-1); LYMPHOCYTES # (AUTO) 1.6 K/uL (1.0-4.8); LYMPHOCYTES % (AUTO) 24.6 % (21.0-51.0); MEAN CORPUSCULAR HEMOGLOBIN 31.3 pg (27.0-33.0); MEAN CORPUSCULAR HGB CONC 34.2 g/dL (32.0-36.0); MEAN CORPUSCULAR VOLUME 91.5 fL (79-99); MONOCYTES # (AUTO) 0.3 K/uL (0.1-1.0); NEUTROPHILS # (AUTO) 4.5 K/uL (1.8-7.7); NEUTROPHILS % (AUTO) 70.2 % (40.0-77.0); PLATELET COUNT (AUTO) 101 K/uL (130-400); RED BLOOD CELL COUNT(AUTO) 3.19 MIL/uL (4.00-5.50); RED CELL DISTRIBUTION WIDTH 13.3 % (11.0-15.5); WHITE BLOOD COUNT (AUTO) 6.4 K/uL (4.8-10.8)
[2024-12-22 05:46] LABS: CREATININE 0.4 mg/dL (0.5-1.0); MAGNESIUM 1.8 mg/dL (1.80-2.40); PHOSPHORUS 3.3 mg/dL (2.5-4.9); POTASSIUM 3.6 mmol/L (3.5-5.1)
[2024-12-22] MEDS ORDERED: proPOFol 10 MG/ML 20ML VIAL IV ONE (11:13)
[2024-12-22] MEDS ORDERED: LIDOCAINE PF 100MG/5ML (2%) SYRINGE 5ML ONE (11:14)
--- NOTE | 2024-12-22 13:27 | NUR ---
Nutritional f/u Note: Chart, meds, and labs Reviewed. Pt continues on D5 1/2 solution @ 75ml/hr, s/p placement of PEG, and needing TF recommendations. Preliminary TB cultures are no growth to date as per MD. Pt hemodynamically stable, tachycardia is improving, as per MD. Current TF order Vital AF 35ml/hr with 150ml H20 flush q 4. Pt has been transferred out of ICU to med floor. Wt Status: Stable 29kg. Recommend: -Jevity 1.5 -TF for home use BOLUS: 3 cans/day or 711ml/day, 1can aat 0600, 1100, 1500hrs with 110 ml h20 flush before and after each feeding. TF to provide daily: 1065kcal, 45gm pro, 1200ml total free H20 TF+Flush/day. -If continuous Jevity 1.5 @30ml/hr with 150ml H20 flush q 4 or H20 flush as per MD. -RD to provide further recommendations based on clinical progress. -Monitor feeding tolerance, %, wt, and labs -If No BM >3days consider bowel stimulant. - Please notify RD if additional nutrition concerns arise. Addendum: 12/22/24 at [address] Amended: Links added.
--- NOTE | 2024-12-22 15:43 | PN ---
INFECTIOUS DISEASE PROGRESS NOTE Date of Service: December 22, 2024 SUBJECTIVE: This 44 year old female patient is being seen today at bedside. She's awake, status post EGD with peg placement. Patient is no respiratory distress. Remains on antibiotics. No acute events over night. We continue to follow. PHYSICAL EXAM EYES: Anicteric. Pupils equal and reactive. HENT: No oral thrush seen, moist Oral mucosa. NECK: Supple, no JVD or thyromegaly. LUNGS: Good air entry. Productive cough. CARDIOVASCULAR: S1, S2 regular. No murmur heard. ABDOMEN: Soft, non tender, bowel sounds present, no organomegaly. PEG site is clean CENTRAL NERVOUS SYSTEM: Intellectual disability. SKIN: No rashes, no swelling. LYMPHATICS: No peripheral lymphadenopathy. MUSCULOSKELETAL: No joint swelling, erythema or tenderness. EXTREMITIES: No cyanosis or clubbing. BACK: No deformity, no pressure ulcer. GENITOURINARY: No dysuria or hematuria. Incontinence. Vital Sign (Last 12 Hours) 12/22/24 12/22/24 12/22/24 12/22/24 04:00 06:35 06:36 07:54 Temp 97.3 98.1 Pulse 88 77 70 Resp 18 20 20 18 B/P (MAP) 116/80 131/95 Pulse Ox 94 96 O2 Delivery Room Air N/A Room Air Room Air FiO2 21 21 12/22/24 12/22/24 12/22/24 12/22/24 11:19 11:19 11:40 11:45 Temp 97.2 Pulse 77 79 Resp 15 16 B/P (MAP) 108/69 104/73 Pulse Ox 97 99 O2 Delivery Mask Nasal Cannula Nonrebreathing Mask Nonrebreathing Mask O2 Flow Rate 10.0 10.0 10.0 12/22/24 12/22/24 12/22/24 12/22/24 11:50 11:55 12:00 12:05 Pulse 73 69 66 62 Resp 16 15 15 16 B/P (MAP) 105/74 109/77 111/76 111/75 Pulse Ox 99 98 98 98 O2 Delivery Nonrebreathing Mask Room Air Room Air Room Air O2 Flow Rate 10.0 12/22/24 12/22/24 12/22/24 12:10 12:15 12:30 Temp 97.3 98.1 98.1 Pulse 62 70 67 Resp 17 18 18 B/P (MAP) 121/76 109/78 101/69 Pulse Ox 97 98 98 O2 Delivery Room Air Room Air Room Air Intake & Output (last 24hrs) 12/21/24 12/21/24 12/22/24 15:00 23:00 07:00 Output Total 800 ml 200 ml Balance -800 ml -200 ml LABS: Laboratory: Test 12/22/24 05:46 12/22/24 04:47 Range/Units Whole Blood Glucose 94 70-110 MG/DL White Blood Count 6.4 4.8-10.8 K/uL Red Blood Count 3.19 L 4.00-5.50 MIL/uL Hemoglobin 10.0 L 12.0-16.0 g/dL Hematocrit 29.2 L 36-48 % Mean Corpuscular Volume 91.5 79-99 fL Mean Corpuscular Hemoglobin 31.3 27.0-33.0 pg Mean Corpuscular Hemoglobin Concent 34.2 32.0-36.0 g/dL Red Cell Distribution Width 13.3 11.0-15.5 % Platelet Count 101 L 130-400 K/uL Mean Platelet Volume 10.0 7.5-10.5 fL Immature Granulocyte % (Auto) 0.5 0-1 % Neutrophils (%) (Auto) 70.2 40.0-77.0 % Lymphocytes (%) (Auto) 24.6 21.0-51.0 % Monocytes (%) (Auto) 4.0 3.0-13.0 % Eosinophils (%) (Auto) 0.5 0.0-8.0 % Basophils (%) (Auto) 0.2 0.0-5.0 % Neutrophils # (Auto) 4.5 1.8-7.7 K/uL Lymphocytes # (Auto) 1.6 1.0-4.8 K/uL Monocytes # (Auto) 0.3 0.1-1.0 K/uL Eosinophils # (Auto) 0.03 0.00-0.70 K/uL Basophils # (Auto) 0.01 0.00-0.20 K/uL Absolute Immature Granulocyte (auto 0.03 0-1 K/uL Nucleated Red Blood Cells 0.0 0.0-0.19 % Sodium Level 141 136-145 mmol/L Potassium Level 3.6 3.5-5.1 mmol/L Chloride Level 107 101-111 mmol/L Carbon Dioxide Level 30 21-32 mmol/L Blood Urea Nitrogen 21 H 7-18 mg/dL Creatinine 0.4 L 0.5-1.0 mg/dL Glomerular Filtration Rate Calc 127 >90 mL/min Random Glucose 100 70-105 mg/dL Total Calcium 7.7 L 8.5-10.1 mg/dL Phosphorus Level 3.3 2.5-4.9 mg/dL Magnesium Level 1.80 1.80-2.40 mg/dL ASSESSMENT: Urinary tract infection with Proteus mirabilis. Aspiration Pneumonia. Septic shock. Right lung cavitary lesions, status post bronchoscopy, TB ruled out. Thrombocytopenia. Hypokalemia. Debility PLAN: Continue Zosyn IV. Continue GI prophylaxis. . Continue monitoring electrolytes. Patient currently on NG tube feedings with Vital AF. Pending an EGD with PEG tube placement for today. This case was reviewed and discussed with my supervising physician and the above assessment and plan was formulated and agreed upon. HAILEY MALDONADOP December 22, 2024 15:42
--- NOTE | 2024-12-22 16:04 | PN ---
[facility] PROGRESS NOTE Date of Service: December 22, 2024 Time of Service: 16:02 SUBJECTIVE: 12/14 patient seen at bedside, no acute events overnight. Patient was seen at bedside, she does not participate in the medical interview. She does not appear to be in any acute distress. She is on pressors, we will continue to wean as able. Sodium improved from 150 down to 146, remainder of her labs are relatively unremarkable. Urine growing bacteria, we will continue with empiric antibiotics 12/15/24 Patient sen and examined. Care discussed with RN No acute overnight events. Follow cultures/continue antibiotics. 12/16 patient seen at bedside, no acute events overnight. Pulmonology was pending bronchoscopy to obtain samples to test for tuberculosis however patient became hypothermic and somnolent. Repeat labs, ABG were ordered however no abnormalities were noted. Lactic acid was normal, sodium had mildly decreased from 142 down to 134, ammonia was within normal limits. She was started on a Halina Hugger and bolused fluids, her temperature began to improve and she was more awake. Her phosphorus is low at 1.8 and given her constitution this is concerning for refeeding syndrome, we will continue to monitor closely. 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 RN reports blood pressure 109/65, respirations, 98% on nasal cannula. RN reports that patient has was a rapid response earlier, has been on the Halina Hugger all day with no improvement of the temperature, and now is tachycardic. I went to assess the patient at bedside. The patient's breathing was even, unlabored, and lethargic. The patient is nonverbal, moans with touch. The patient was receiving feedings per NG and IV fluids. Stat ABGs, blood work were done. Remarkable lab results: Lactic acid increased from 1.04 to 1.59. Phos was 1.6, magnesium 1.9, total protein 4.3, albumin 1.6. ABGs on room air: PO2 58.4, ABG O2 saturation 89.2. (PO2 this morning was 91.5). The patient was placed back on 2 L nasal cannula, increased bear hugger to 30� C from 32� C. Electrolytes were replaced. Telemetry pack was order. We will continue monitoring patient closely. 12/17/2024 0315: Addendum: Reassessed the patient multiple times. Her temperature improved, remained tachycardic, despite a total of a 1500 mL bolus of LR. BP ranging systolic 98-105. The patient had a hypoglycemic episode at 11:54 p.m., blood glucose was 51, despite being of feedings. Change fluids to D5 W at 75 mL an hour. We will continue monitoring patient closely. 06:00 Reassessed the patient before off of my shift HR had improved to 112-116. b/p low 100s systolic. 12/17 patient seen at bedside, temperature has improved. She continues to be tachycardic, hemodynamically stable saturating well on room air. Hemoglobin stable at 10.1, similar to yesterday, her phosphate is very low at 1.1. She is much more awake and interactive today compared to yesterday. The constellation of symptoms with hypothermia, tachycardia and even the altered mental status are likely secondary to refeeding syndrome. The patient is not septic, her ammonia is at normal levels, lactic acid is at normal levels, CO2 is at normal levels she has been adequately resuscitated with fluids. She will be repleted with IV phosphate, her tube feeds we will be reduced to trickle feeds at 10 cc/hour before attempting to increase the feed rate. If her tachycardia improves with these changes then tomorrow we will attempt to increase the rate of her tube feeds. 12/18 patient seen at bedside, no acute events overnight. Her tachycardia has improved, hypothermia improving, she is awake today in no acute distress. Pending bronchoscopy later today to take samples for ruling out TB. Once completed we will resume trickle feeds. Today potassium, phosphate and magnesium were all low, we will be repleted. This is likely secondary to refeeding syndrome. 12/19 patient seen at bedside, no acute events overnight. Patient is still having hypothermia and tachycardia ranging from 81 up to 130, labs relatively un remarkable. Repeat mg and phos tomorrow, will begin to titrate up tube feedings 12/20 patient seen at bedside, no acute events overnight. Preliminary TB cultures are no growth to date, GI contacted for PEG tube placement. Her temperature has been improved, she has been hemodynamically stable, tachycardia is improving. We will begin to titrate up her tube feeds. 12/21 patient is pending PEG tube placement today, we will follow up postprocedure, vitals and labs relatively unremarkable. 12/22 patient seen at bedside, no acute events overnight. Peg tube was not placed yesterday, rescheduled for today, we will follow up postprocedure. Patient is in no acute distress, hemodynamically stable, labs relatively unremarkable. REVIEW OF SYSTEMS: Patient is nonverbal unable to obtain ROS PHYSICAL EXAM GENERAL APPEARANCE: The patient is obtunded, very frail, cachectic, contractures noted of the lower extremities NEUROLOGICAL: The patient response to painful stimuli, moans when touched, is nonverbal. Does not follow command. HEENT: Face is symmetric. Pupils are equal and reactive. Extraocular movements are intact. NECK: Supple. No JVD. No thyromegaly. No submental, submandibular, pre-/postauricular, occipital or supraclavicular lymphadenopathy. CHEST: Normal chest expansion. No Telemetry. LUNGS: Absence of any rales, rhonchi or any wheezing. CARDIOVASCULAR: Regular. Tachycardic. No appreciable rubs, murmurs or gallops. ABDOMEN: Soft, nontender, and nondistended. There is no rebound, voluntary guarding, or rigidity. : Deferred. No Clark. EXTREMITIES: Contractures to bilateral lower extremity. Non-edematous and not cyanotic. No clubbing. Good capillary refill. SKIN: No skin breakdown. Vital Signs (last 8hr) Date Time Temp Pulse Resp B/P (MAP) Pulse Ox O2 Delivery O2 Flow Rate FiO2 12/22/24 12:30 98.1 67 18 101/69 98 Room Air 12/22/24 12:15 98.1 70 18 109/78 98 Room Air 12/22/24 12:10 97.3 62 17 121/76 97 Room Air 12/22/24 12:05 62 16 111/75 98 Room Air 12/22/24 12:00 66 15 111/76 98 Room Air 12/22/24 11:55 69 15 109/77 98 Room Air 12/22/24 11:50 73 16 105/74 99 Nonrebreathing Mask 10.0 12/22/24 11:45 79 16 104/73 99 Nonrebreathing Mask 10.0 12/22/24 11:40 97.2 77 15 108/69 97 Nonrebreathing Mask 10.0 12/22/24 11:19 Nasal Cannula 12/22/24 11:19 Mask 10.0 LABS: Laboratory: Test 12/22/24 05:46 12/22/24 04:47 Range/Units Whole Blood Glucose 94 70-110 MG/DL White Blood Count 6.4 4.8-10.8 K/uL Red Blood Count 3.19 L 4.00-5.50 MIL/uL Hemoglobin 10.0 L 12.0-16.0 g/dL Hematocrit 29.2 L 36-48 % Mean Corpuscular Volume 91.5 79-99 fL Mean Corpuscular Hemoglobin 31.3 27.0-33.0 pg Mean Corpuscular Hemoglobin Concent 34.2 32.0-36.0 g/dL Red Cell Distribution Width 13.3 11.0-15.5 % Platelet Count 101 L 130-400 K/uL Mean Platelet Volume 10.0 7.5-10.5 fL Immature Granulocyte % (Auto) 0.5 0-1 % Neutrophils (%) (Auto) 70.2 40.0-77.0 % Lymphocytes (%) (Auto) 24.6 21.0-51.0 % Monocytes (%) (Auto) 4.0 3.0-13.0 % Eosinophils (%) (Auto) 0.5 0.0-8.0 % Basophils (%) (Auto) 0.2 0.0-5.0 % Neutrophils # (Auto) 4.5 1.8-7.7 K/uL Lymphocytes # (Auto) 1.6 1.0-4.8 K/uL Monocytes # (Auto) 0.3 0.1-1.0 K/uL Eosinophils # (Auto) 0.03 0.00-0.70 K/uL Basophils # (Auto) 0.01 0.00-0.20 K/uL Absolute Immature Granulocyte (auto 0.03 0-1 K/uL Nucleated Red Blood Cells 0.0 0.0-0.19 % Sodium Level 141 136-145 mmol/L Potassium Level 3.6 3.5-5.1 mmol/L Chloride Level 107 101-111 mmol/L Carbon Dioxide Level 30 21-32 mmol/L Blood Urea Nitrogen 21 H 7-18 mg/dL Creatinine 0.4 L 0.5-1.0 mg/dL Glomerular Filtration Rate Calc 127 >90 mL/min Random Glucose 100 70-105 mg/dL Total Calcium 7.7 L 8.5-10.1 mg/dL Phosphorus Level 3.3 2.5-4.9 mg/dL Magnesium Level 1.80 1.80-2.40 mg/dL Current Medications Medications (Trade) Dose Ordered Sig/Castillo Route PRN Reason Start Time Stop Time Status Last Admin Dose Admin Acetaminophen (TYLenol 325MG ELIXIR) 325 mg Q6H PRN PO MILD PAIN (1-3) 12/13/24 15:00 01/12/25 14:59 12/16/24 23:50 325 MG Acetaminophen (TYLenol 500MG TAB) 500 mg Q4PRN PRN PO FEVER 12/15/24 10:30 12/18/24 06:36 DC Acetaminophen (TYLenol 500MG TAB) 500 mg Q4PRN PRN PO PAIN 12/15/24 10:30 12/18/24 06:37 DC Acetylcysteine (MUComyst 20% 4ML) 400mg = 2ml [id number] IH 12/14/24 18:00 12/19/24 11:38 DC 12/19/24 11:23 800 MG Albumin Human 50 ml @ 0 mls/hr AD IV 12/14/24 10:00 12/18/24 06:39 DC 12/14/24 11:14 50 MLS/HR Albuterol (DUOneb) 1 udvial Q6H PRN IH SHORTNESS OF BREATH 12/13/24 15:30 12/19/24 11:38 DC 12/19/24 11:23 1 UDVIAL Bisacodyl (DulcoLAX) 10 mg DAILY RC 12/16/24 09:00 12/19/24 08:59 DC 12/18/24 09:25 10 MG Budesonide (Pulmicort 0.5 Mg/2ml) 0.5 mg BIDRESP IH 12/13/24 18:00 01/12/25 17:59 12/22/24 07:00 0.5 MG Buspirone HCl (BUspar) 15 mg TID PO 12/15/24 14:00 01/14/25 13:59 12/21/24 22:21 15 MG Dextrose 500 ml @ 0 mls/hr Q0M IV 12/16/24 12:30 12/17/24 07:15 DC 12/16/24 12:30 999 MLS/HR Dextrose 1,000 ml @ 75 mls/hr [id number] IV 12/13/24 15:00 12/16/24 14:30 DC 12/16/24 10:16 75 MLS/HR Dextrose 1,000 ml @ 75 mls/hr [id number] IV 12/17/24 01:00 12/17/24 07:15 DC 12/17/24 00:50 75 MLS/HR Dextrose (D50w) 50 ml AD PRN IV HYPOGLYCEMIA PROTOCOL 12/13/24 15:00 01/12/25 14:59 12/17/24 00:00 50 ML Dextrose/Sodium Chloride 500 ml @ 75 mls/hr Q6H40M IV 12/17/24 07:30 12/17/24 07:20 DC Dextrose/Sodium Chloride 500 ml @ 75 mls/hr Q6H40M IV 12/17/24 07:30 01/16/25 07:29 12/22/24 15:55 75 MLS/HR Doxycycline Hyclate 250 ml @ 125 mls/hr Q12H IV 12/13/24 15:30 12/17/24 07:20 DC 12/17/24 03:24 125 MLS/HR Enoxaparin Sodium (Lovenox) 30 mg DAILY SQ 12/14/24 09:00 12/15/24 09:05 DC 12/14/24 08:46 30 MG Enoxaparin Sodium (Lovenox) 30 mg DAILY SQ 12/16/24 09:00 12/15/24 13:22 DC Enoxaparin Sodium (Lovenox) 30 mg DAILY SQ 12/20/24 09:00 01/19/25 08:59 12/20/24 09:07 30 MG Folic Acid (FOLic ACID 1 MG TABLET) 1 mg DAILY PO 12/18/24 09:00 01/17/25 08:59 12/20/24 09:06 1 MG Glucagon (Glucagon 1mg Kit) 1 mg AD PRN IM HYPOGLYCEMIA PROTOCOL 12/13/24 15:00 01/12/25 14:59 Guaifenesin/ Dextromethorphan (RobiTUSSin DM 200/20MG 10ML) 10 ml Q4H PRN PO COUGH 12/15/24 11:00 01/14/25 10:59 Home Med (Home Medication) (Cholecalciferol (Vitamin D3) 25 MCG) DAILY PO 12/16/24 09:00 01/15/25 08:59 Lactated Ringer's 1,000 ml @ 75 mls/hr [id number] IV 12/16/24 23:30 12/17/24 00:30 DC 12/16/24 23:34 75 MLS/HR Lactated Ringer's 1,000 ml @ 100 mls/hr Q10H IV 12/13/24 15:00 12/13/24 15:18 DC Lactated Ringer's (Lactated Ringers 1000ml) 500 ml BOLUS IV 12/17/24 00:30 12/18/24 06:39 DC Leptospermum Honey (Medihoney) 1 appl DAILY TP 12/15/24 09:00 01/14/25 08:59 12/22/24 08:35 1 APPL Lorazepam (AtiVAN) 0.5 mg DAILYDINNER PO 12/15/24 17:00 01/14/25 16:59 12/20/24 15:48 0.5 MG Magnesium Sulfate 50 ml @ 0 mls/hr PROTOCOL IV 12/13/24 21:30 01/12/25 21:29 12/22/24 06:18 100 MLS/HR Meropenem (Merrem 1gm) 1 gm Q8H IVPB 12/13/24 16:00 12/17/24 07:37 DC 12/16/24 23:45 1 GM Miscellaneous Medication (Ondansetron HCl ) 8 mg TID PO 12/15/24 14:00 12/15/24 10:43 DC Multivitamins Therapeutic (Multivitamin Tablet) 1 tab DAILY PO 12/18/24 09:00 01/17/25 08:59 12/20/24 09:06 1 TAB Norepinephrine 250 ml @ 0 mls/hr PROTOCOL IV 12/13/24 14:30 12/15/24 14:26 DC 12/14/24 07:35 25.3 MLS/HR Ondansetron HCl (zoFRAN 4MG INJ) 4 mg Q6H PRN IVP NAUSEA/VOMITING 12/13/24 16:30 01/12/25 16:29 Pantoprazole Sodium (PROTonix 40MG INJ) 40 mg Q24H IVP 12/13/24 15:00 01/12/25 14:59 12/22/24 15:51 40 MG Pharmacy Profile Note (Pharmacy Communication) 1 each ONCE MISC 12/13/24 15:00 12/13/24 15:28 DC Pharmacy Profile Note (Pharmacy Communication) 1 each ONCE MISC 12/17/24 07:30 12/17/24 08:12 DC Pharmacy Profile Note (Pharmacy Communication) 1 each ONCE MISC 12/18/24 08:00 12/18/24 08:29 DC Piperacillin Sod/ Tazobactam Sod (Zosyn 3.375gm+NS 50ml) 3.375 gm Q8H IV 12/17/24 08:00 12/27/24 07:59 12/22/24 15:51 3.375 GM Polyethylene Glycol (MIRalax 3350 17 GM POWD.PACK) 17 gm DAILY PO 12/16/24 09:00 01/15/25 08:59 12/20/24 09:08 17 GM Potassium Phosphate 250 ml @ 42 mls/hr PROTOCOL IV 12/15/24 05:30 12/15/24 10:19 DC 12/15/24 05:59 42 MLS/HR Potassium Chloride 100 ml @ 50 mls/hr AD PRN IV POTASSIUM PROTOCOL 12/13/24 21:30 01/12/25 21:29 12/18/24 05:55 50 MLS/HR Potassium Chloride 100 ml @ 50 mls/hr AD PRN IV POTASSIUM PROTOCOL 12/15/24 14:30 12/18/24 06:39 DC Potassium Chloride 100 ml @ 100 mls/hr AD PRN IV POTASSIUM PROTOCOL 12/15/24 14:30 12/18/24 06:39 DC Potassium Chloride (K-Dur/Klor-Con 20meq) 20 meq AD PRN PO POTASSIUM PROTOCOL 12/15/24 14:30 01/14/25 14:29 Potassium Chloride (KCl 10% Elixir 20meq/15ml) 20 meq AD PRN PO POTASSIUM PROTOCOL 12/15/24 14:30 01/14/25 14:29 12/15/24 22:57 20 MEQ Potassium Chloride (KCl 10% Elixir 20meq/15ml) 40 meq BID PO 12/18/24 09:00 12/18/24 21:01 DC 12/18/24 21:06 40 MEQ Quetiapine Fumarate (SEROquel 100 mg TAB) 200 mg BID PO 12/15/24 21:00 01/14/25 20:59 12/21/24 22:21 200 MG Sodium Chloride 1,000 ml @ 75 mls/hr [id number] IV 12/16/24 14:30 12/16/24 22:18 DC 12/16/24 15:08 75 MLS/HR Sodium Phosphate 15 mmol/Sodium Chloride 250 ml @ 62.5 mls/hr PROTOCOL IV 12/20/24 09:00 12/20/24 08:52 DC Sodium Phosphate 15 mmol/Sodium Chloride 250 ml @ 62.5 mls/hr PROTOCOL IV 12/20/24 09:00 01/19/25 08:59 12/20/24 09:55 62.5 MLS/HR Thiamine HCl (Vitamin B-1) 300 mg Q24H IVP 12/13/24 15:00 01/12/25 14:59 12/22/24 15:51 300 MG Venlafaxine HCl (EffEXOR XR 37.5mg CAP) 75 mg DAILY PO 12/16/24 09:00 01/15/25 08:59 12/20/24 09:06 75 MG DIAGNOSTICS / RADIOLOGY: [ ] ASSESSMENT: Hypothermia, POA, in need of bare hugger, improving Acute hypoxemic respiratory failure, resolved, POA Refeeding syndrome, POA Recurrent hypoglycemic episodes Septic shock, POA (2/2 community-acquired pneumonia and complicated UTI) Toxic metabolic encephalopathy with obtundation, POA Community-acquired pneumonia with acute hypoxemic respiratory failure, POA Acute complicated cystitis, POA Frailty/debility, POA Acute UTI, Proteus, POA History of chronic contractures of bilateral lower extremities, POA Unstageable decubitus ulcer involving the left hip, POA Cachexia, POA History of severe intellectual disability, POA History of scoliosis, POA History of microcephaly, POA History of ADHD, POA History of aggression, POA PLAN: The patient is in medical floor. Continue telemetry pack. Continue with the Halina Hugger as needed NG tube in place, continue continuous tube feedings. Give trickle feeds at 10cc/hr, until tachycardia improves Continue IV phosphate repletion Patient will be kept strictly NPO and on aspiration precautions, NGT feedings only. We will maintain POCT blood glucose check q.4 hours, we will maintain blood glucose greater than 70. Continue Broad-spectrum antibiotics with IV meropenem and doxycycline Monitor respirations status closely. Place patient on 2 L nasal cannula due to hypoxemia. Urine growing proteus Patient will be placed on air mattress, offloading measures, wound care will be requested. Patient has a 1:1 sitter due to removes NGT/lines. May use mittens. Infectious Disease consulted, appreciate recommendations Reposition the patient every 2 hours and p.r.n.. GI consulted for PEG tube placement Disposition: Pending improvement in clinical status PEG tube placement SEVEN KIRKLAND MD December 22, 2024 16:04
--- NOTE | 2024-12-22 16:47 | NUR ---
SCRIPT, TITLE XIX AND CERT OF MEDICAL NECESSITY SENT TO [facility] TO ORDER JEVITY RECOMMENDED BY JENNIFER AND ORDERED BY .
--- NOTE | 2024-12-22 16:51 | NUR ---
ADVISED MADELEINE DICK RN THAT PATIENT 'S FEEDING HAVE BEEN ORDERED FROM [facility]. SHE STATED THAT SHE WOULD BE AVAILABLE FROM WEDNESDAY TO TEACH STAFF HOW TO GIVE [facility] FEEDING. TELEPHONE CONSENT HUE GIVEN
--- NOTE | 2024-12-22 17:50 | NUR ---
NURSES NOTE TUBE FEEDING STARTED. Addendum: 12/22/24 at 1755 by VERÓNICA HUGHES RN RN TUBE FEEDING STARTED PER [employer]W MEMBER AND DR. MUNOZ RECOMMENDATIONS, SEE EMAR.
[2024-12-23] VITALS (12 sets, daily range): BP systolic 84–110; BP diastolic 50–73; PULSE 80–124; RESP 16–20; TEMP 95.9–98.3; O2SAT 96–98
[2024-12-23 08:36] LABS: HEMATOCRIT 26.9 % (36-48); MEAN CORPUSCULAR HEMOGLOBIN 31.4 pg (27.0-33.0); MEAN CORPUSCULAR HGB CONC 34.6 g/dL (32.0-36.0); MEAN CORPUSCULAR VOLUME 90.9 fL (79-99); RED BLOOD CELL COUNT(AUTO) 2.96 MIL/uL (4.00-5.50); RED CELL DISTRIBUTION WIDTH 13.4 % (11.0-15.5); WHITE BLOOD COUNT (AUTO) 8.3 K/uL (4.8-10.8)
[2024-12-23 09:04] LABS: CREATININE 0.4 mg/dL (0.5-1.0); POTASSIUM 3.1 mmol/L (3.5-5.1)
[2024-12-23 09:20] LABS: MAGNESIUM 1.9 mg/dL (1.80-2.40); PHOSPHORUS 2.4 mg/dL (2.5-4.9)
--- NOTE | 2024-12-23 12:04 | PN ---
INFECTIOUS DISEASE PROGRESS NOTE Date of Service: December 23, 2024 SUBJECTIVE: This is a 44 year old female patient who is being seen today at bedside. Patient is status post EGD with peg placement on 12/21/2024. Patient has been started on PEG tube feedings with Jevity 1.5 and the goal rate is 35 cc/hour. Patient is from a alf and per nursing report plan is to go back to the alf and the facility staff is to be taught tube feeding care. No episodes of emesis reported. No fever, temperature is 98.2� . No other issues reported by nursing. PHYSICAL EXAM EYES: Anicteric. Pupils equal and reactive. HENT: No oral thrush seen, moist Oral mucosa. NECK: Supple, no JVD or thyromegaly. LUNGS: Good air entry. Productive cough. CARDIOVASCULAR: S1, S2 regular. No murmur heard. ABDOMEN: Soft, non tender, bowel sounds present, no organomegaly. PEG site is clean CENTRAL NERVOUS SYSTEM: Intellectual disability. SKIN: No rashes, no swelling. LYMPHATICS: No peripheral lymphadenopathy. MUSCULOSKELETAL: No joint swelling, erythema or tenderness. EXTREMITIES: No cyanosis or clubbing. BACK: No deformity, no pressure ulcer. GENITOURINARY: No dysuria or hematuria. Incontinence. Vital Sign (Last 12 Hours) 12/23/24 12/23/24 12/23/24 12/23/24 00:29 04:28 07:10 07:11 Temp 95.9 98.2 Pulse 109 100 94 Resp 17 16 20 20 B/P (MAP) 100/56 102/50 Pulse Ox 96 97 O2 Delivery Room Air Room Air N/A Room Air FiO2 21 12/23/24 12/23/24 08:00 09:00 Temp 98.2 Pulse 124 Resp 18 B/P (MAP) 97/59 Pulse Ox 91 98 O2 Delivery Room Air Room Air* O2 Flow Rate 0 FiO2 21 Intake & Output (last 24hrs) 12/22/24 12/22/24 12/23/24 14:59 22:59 06:59 Intake Total 150 ml 0 ml Output Total 500 ml 450 ml Balance -350 ml -450 ml LABS: Laboratory: Test 12/23/24 11:21 12/23/24 08:22 12/22/24 04:47 Range/Units Whole Blood Glucose 123 H 70-110 MG/DL White Blood Count 8.3 4.8-10.8 K/uL Red Blood Count 2.96 L 4.00-5.50 MIL/uL Hemoglobin 9.3 L 12.0-16.0 g/dL Hematocrit 26.9 L 36-48 % Mean Corpuscular Volume 90.9 79-99 fL Mean Corpuscular Hemoglobin 31.4 27.0-33.0 pg Mean Corpuscular Hemoglobin Concent 34.6 32.0-36.0 g/dL Red Cell Distribution Width 13.4 11.0-15.5 % Platelet Count 136 # 130-400 K/uL Mean Platelet Volume 9.7 7.5-10.5 fL Nucleated Red Blood Cells 0.0 0.0-0.19 % Sodium Level 142 136-145 mmol/L Potassium Level 3.1 L 3.5-5.1 mmol/L Chloride Level 108 101-111 mmol/L Carbon Dioxide Level 33 H 21-32 mmol/L Blood Urea Nitrogen 24 H 7-18 mg/dL Creatinine 0.4 L 0.5-1.0 mg/dL Glomerular Filtration Rate Calc 127 >90 mL/min Random Glucose 119 H 70-105 mg/dL Total Calcium 7.5 L 8.5-10.1 mg/dL Phosphorus Level 2.4 L 2.5-4.9 mg/dL Magnesium Level 1.90 1.80-2.40 mg/dL Immature Granulocyte % (Auto) 0.5 0-1 % Neutrophils (%) (Auto) 70.2 40.0-77.0 % Lymphocytes (%) (Auto) 24.6 21.0-51.0 % Monocytes (%) (Auto) 4.0 3.0-13.0 % Eosinophils (%) (Auto) 0.5 0.0-8.0 % Basophils (%) (Auto) 0.2 0.0-5.0 % Neutrophils # (Auto) 4.5 1.8-7.7 K/uL Lymphocytes # (Auto) 1.6 1.0-4.8 K/uL Monocytes # (Auto) 0.3 0.1-1.0 K/uL Eosinophils # (Auto) 0.03 0.00-0.70 K/uL Basophils # (Auto) 0.01 0.00-0.20 K/uL Absolute Immature Granulocyte (auto 0.03 0-1 K/uL ASSESSMENT: Urinary tract infection with Proteus mirabilis. Aspiration Pneumonia. Septic shock, resolving. Right lung cavitary lesions, status post bronchoscopy, TB ruled out. Thrombocytopenia. Hypokalemia. Debility PLAN: Continue Zosyn IV. Continue GI prophylaxis. . Continue monitoring electrolytes. Patient has been started on tube feedings with Jevity 1.5. This case was reviewed and discussed with my supervising physician and the above assessment and plan was formulated and agreed upon. ATTESTATION BY PHYSICIAN I have seen and examined the patient. I reviewed the documentation, medical decision making, and treatment plan as noted by the mid-level provider above. I agree with the findings and plan of care. IGNACIA MARTI MD, [facility] December 23, 2024 12:04
--- NOTE | 2024-12-23 17:43 | PN ---
[facility] PROGRESS NOTE Date of Service: December 23, 2024 Time of Service: 17:39 SUBJECTIVE: 12/14 patient seen at bedside, no acute events overnight. Patient was seen at bedside, she does not participate in the medical interview. She does not appear to be in any acute distress. She is on pressors, we will continue to wean as able. Sodium improved from 150 down to 146, remainder of her labs are relatively unremarkable. Urine growing bacteria, we will continue with empiric antibiotics 12/15/24 Patient sen and examined. Care discussed with RN No acute overnight events. Follow cultures/continue antibiotics. 12/16 patient seen at bedside, no acute events overnight. Pulmonology was pending bronchoscopy to obtain samples to test for tuberculosis however patient became hypothermic and somnolent. Repeat labs, ABG were ordered however no abnormalities were noted. Lactic acid was normal, sodium had mildly decreased from 142 down to 134, ammonia was within normal limits. She was started on a Halina Hugger and bolused fluids, her temperature began to improve and she was more awake. Her phosphorus is low at 1.8 and given her constitution this is concerning for refeeding syndrome, we will continue to monitor closely. 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 RN reports blood pressure 109/65, respirations, 98% on nasal cannula. RN reports that patient has was a rapid response earlier, has been on the Halina Hugger all day with no improvement of the temperature, and now is tachycardic. I went to assess the patient at bedside. The patient's breathing was even, unlabored, and lethargic. The patient is nonverbal, moans with touch. The patient was receiving feedings per NG and IV fluids. Stat ABGs, blood work were done. Remarkable lab results: Lactic acid increased from 1.04 to 1.59. Phos was 1.6, magnesium 1.9, total protein 4.3, albumin 1.6. ABGs on room air: PO2 58.4, ABG O2 saturation 89.2. (PO2 this morning was 91.5). The patient was placed back on 2 L nasal cannula, increased bear hugger to 30� C from 32� C. Electrolytes were replaced. Telemetry pack was order. We will continue monitoring patient closely. 12/17/2024 0315: Addendum: Reassessed the patient multiple times. Her temperature improved, remained tachycardic, despite a total of a 1500 mL bolus of LR. BP ranging systolic 98-105. The patient had a hypoglycemic episode at 11:54 p.m., blood glucose was 51, despite being of feedings. Change fluids to D5 W at 75 mL an hour. We will continue monitoring patient closely. 06:00 Reassessed the patient before off of my shift HR had improved to 112-116. b/p low 100s systolic. 12/17 patient seen at bedside, temperature has improved. She continues to be tachycardic, hemodynamically stable saturating well on room air. Hemoglobin stable at 10.1, similar to yesterday, her phosphate is very low at 1.1. She is much more awake and interactive today compared to yesterday. The constellation of symptoms with hypothermia, tachycardia and even the altered mental status are likely secondary to refeeding syndrome. The patient is not septic, her ammonia is at normal levels, lactic acid is at normal levels, CO2 is at normal levels she has been adequately resuscitated with fluids. She will be repleted with IV phosphate, her tube feeds we will be reduced to trickle feeds at 10 cc/hour before attempting to increase the feed rate. If her tachycardia improves with these changes then tomorrow we will attempt to increase the rate of her tube feeds. 12/18 patient seen at bedside, no acute events overnight. Her tachycardia has improved, hypothermia improving, she is awake today in no acute distress. Pending bronchoscopy later today to take samples for ruling out TB. Once completed we will resume trickle feeds. Today potassium, phosphate and magnesium were all low, we will be repleted. This is likely secondary to refeeding syndrome. 12/19 patient seen at bedside, no acute events overnight. Patient is still having hypothermia and tachycardia ranging from 81 up to 130, labs relatively un remarkable. Repeat mg and phos tomorrow, will begin to titrate up tube feedings 12/20 patient seen at bedside, no acute events overnight. Preliminary TB cultures are no growth to date, GI contacted for PEG tube placement. Her temperature has been improved, she has been hemodynamically stable, tachycardia is improving. We will begin to titrate up her tube feeds. 12/21 patient is pending PEG tube placement today, we will follow up postprocedure, vitals and labs relatively unremarkable. 12/22 patient seen at bedside, no acute events overnight. Peg tube was not placed yesterday, rescheduled for today, we will follow up postprocedure. Patient is in no acute distress, hemodynamically stable, labs relatively unremarkable. 12/23 patient seen at bedside, no acute events overnight. Peg tube successfully placed yesterday, tube feeds will be restarted. Once she has been stabilized on nutrition we will be good candidate to discharge back to retirement. Repeat labs today still show low phosphate, low magnesium and low potassium, consistent with refeeding syndrome REVIEW OF SYSTEMS: Patient is nonverbal unable to obtain ROS PHYSICAL EXAM GENERAL APPEARANCE: The patient is obtunded, very frail, cachectic, contractures noted of the lower extremities NEUROLOGICAL: The patient response to painful stimuli, moans when touched, is nonverbal. Does not follow command. HEENT: Face is symmetric. Pupils are equal and reactive. Extraocular movements are intact. NECK: Supple. No JVD. No thyromegaly. No submental, submandibular, pre- /postauricular, occipital or supraclavicular lymphadenopathy. CHEST: Normal chest expansion. No Telemetry. LUNGS: Absence of any rales, rhonchi or any wheezing. CARDIOVASCULAR: Regular. Tachycardic. No appreciable rubs, murmurs or gallops. ABDOMEN: Soft, nontender, and nondistended. There is no rebound, voluntary guarding, or rigidity. : Deferred. No Clark. EXTREMITIES: Contractures to bilateral lower extremity. Non-edematous and not cyanotic. No clubbing. Good capillary refill. SKIN: No skin breakdown. Vital Signs (last 8hr) Date Time Temp Pulse Resp B/P (MAP) Pulse Ox O2 Delivery O2 Flow Rate FiO2 12/23/24 16:00 98.2 80 18 110/73 97 Room Air 12/23/24 12:00 98.2 111 16 84/60 94 Room Air LABS: Laboratory: Test 12/23/24 15:07 12/23/24 08:22 12/22/24 04:47 Range/Units Whole Blood Glucose 132 H 70-110 MG/DL White Blood Count 8.3 4.8-10.8 K/uL Red Blood Count 2.96 L 4.00-5.50 MIL/uL Hemoglobin 9.3 L 12.0-16.0 g/dL Hematocrit 26.9 L 36-48 % Mean Corpuscular Volume 90.9 79-99 fL Mean Corpuscular Hemoglobin 31.4 27.0-33.0 pg Mean Corpuscular Hemoglobin Concent 34.6 32.0-36.0 g/dL Red Cell Distribution Width 13.4 11.0-15.5 % Platelet Count 136 # 130-400 K/uL Mean Platelet Volume 9.7 7.5-10.5 fL Nucleated Red Blood Cells 0.0 0.0-0.19 % Sodium Level 142 136-145 mmol/L Potassium Level 3.1 L 3.5-5.1 mmol/L Chloride Level 108 101-111 mmol/L Carbon Dioxide Level 33 H 21-32 mmol/L Blood Urea Nitrogen 24 H 7-18 mg/dL Creatinine 0.4 L 0.5-1.0 mg/dL Glomerular Filtration Rate Calc 127 >90 mL/min Random Glucose 119 H 70-105 mg/dL Total Calcium 7.5 L 8.5-10.1 mg/dL Phosphorus Level 2.4 L 2.5-4.9 mg/dL Magnesium Level 1.90 1.80-2.40 mg/dL Immature Granulocyte % (Auto) 0.5 0-1 % Neutrophils (%) (Auto) 70.2 40.0-77.0 % Lymphocytes (%) (Auto) 24.6 21.0-51.0 % Monocytes (%) (Auto) 4.0 3.0-13.0 % Eosinophils (%) (Auto) 0.5 0.0-8.0 % Basophils (%) (Auto) 0.2 0.0-5.0 % Neutrophils # (Auto) 4.5 1.8-7.7 K/uL Lymphocytes # (Auto) 1.6 1.0-4.8 K/uL Monocytes # (Auto) 0.3 0.1-1.0 K/uL Eosinophils # (Auto) 0.03 0.00-0.70 K/uL Basophils # (Auto) 0.01 0.00-0.20 K/uL Absolute Immature Granulocyte (auto 0.03 0-1 K/uL Current Medications Medications (Trade) Dose Ordered Sig/Castillo Route PRN Reason Start Time Stop Time Status Last Admin Dose Admin Acetaminophen (TYLenol 325MG ELIXIR) 325 mg Q6H PRN PO MILD PAIN (1-3) 12/13/24 15:00 01/12/25 14:59 12/16/24 23:50 325 MG Acetaminophen (TYLenol 500MG TAB) 500 mg Q4PRN PRN PO FEVER 12/15/24 10:30 12/18/24 06:36 DC Acetaminophen (TYLenol 500MG TAB) 500 mg Q4PRN PRN PO PAIN 12/15/24 10:30 12/18/24 06:37 DC Acetylcysteine (MUComyst 20% 4ML) 400mg = 2ml [id number] IH 12/14/24 18:00 12/19/24 11:38 DC 12/19/24 11:23 800 MG Albumin Human 50 ml @ 0 mls/hr AD IV 12/14/24 10:00 12/18/24 06:39 DC 12/14/24 11:14 50 MLS/HR Albuterol (DUOneb) 1 udvial Q6H PRN IH SHORTNESS OF BREATH 12/13/24 15:30 12/19/24 11:38 DC 12/19/24 11:23 1 UDVIAL Bisacodyl (DulcoLAX) 10 mg DAILY RC 12/16/24 09:00 12/19/24 08:59 DC 12/18/24 09:25 10 MG Budesonide (Pulmicort 0.5 Mg/2ml) 0.5 mg BIDRESP IH 12/13/24 18:00 01/12/25 17:59 12/23/24 07:08 0.5 MG Buspirone HCl (BUspar) 15 mg TID PO 12/15/24 14:00 01/14/25 13:59 12/23/24 14:23 15 MG Dextrose 500 ml @ 0 mls/hr Q0M IV 12/16/24 12:30 12/17/24 07:15 DC 12/16/24 12:30 999 MLS/HR Dextrose 1,000 ml @ 75 mls/hr [id number] IV 12/13/24 15:00 12/16/24 14:30 DC 12/16/24 10:16 75 MLS/HR Dextrose 1,000 ml @ 75 mls/hr [id number] IV 12/17/24 01:00 12/17/24 07:15 DC 12/17/24 00:50 75 MLS/HR Dextrose (D50w) 50 ml AD PRN IV HYPOGLYCEMIA PROTOCOL 12/13/24 15:00 01/12/25 14:59 12/17/24 00:00 50 ML Dextrose/Sodium Chloride 500 ml @ 75 mls/hr Q6H40M IV 12/17/24 07:30 12/17/24 07:20 DC Dextrose/Sodium Chloride 500 ml @ 75 mls/hr Q6H40M IV 12/17/24 07:30 01/16/25 07:29 12/23/24 15:09 75 MLS/HR Doxycycline Hyclate 250 ml @ 125 mls/hr Q12H IV 12/13/24 15:30 12/17/24 07:20 DC 12/17/24 03:24 125 MLS/HR Enoxaparin Sodium (Lovenox) 30 mg DAILY SQ 12/14/24 09:00 12/15/24 09:05 DC 12/14/24 08:46 30 MG Enoxaparin Sodium (Lovenox) 30 mg DAILY SQ 12/16/24 09:00 12/15/24 13:22 DC Enoxaparin Sodium (Lovenox) 30 mg DAILY SQ 12/20/24 09:00 01/19/25 08:59 12/23/24 08:43 30 MG Folic Acid (FOLic ACID 1 MG TABLET) 1 mg DAILY PO 12/18/24 09:00 01/17/25 08:59 12/23/24 08:45 1 MG Glucagon (Glucagon 1mg Kit) 1 mg AD PRN IM HYPOGLYCEMIA PROTOCOL 12/13/24 15:00 01/12/25 14:59 Guaifenesin/ Dextromethorphan (RobiTUSSin DM 200/20MG 10ML) 10 ml Q4H PRN PO COUGH 12/15/24 11:00 01/14/25 10:59 Home Med (Home Medication) (Cholecalciferol (Vitamin D3) 25 MCG) DAILY PO 12/16/24 09:00 01/15/25 08:59 Lactated Ringer's 1,000 ml @ 75 mls/hr [id number] IV 12/16/24 23:30 12/17/24 00:30 DC 12/16/24 23:34 75 MLS/HR Lactated Ringer's 1,000 ml @ 100 mls/hr Q10H IV 12/13/24 15:00 12/13/24 15:18 DC Lactated Ringer's (Lactated Ringers 1000ml) 500 ml BOLUS IV 12/17/24 00:30 12/18/24 06:39 DC Leptospermum Honey (Medihoney) 1 appl DAILY TP 12/15/24 09:00 01/14/25 08:59 12/23/24 08:44 1 APPL Lorazepam (AtiVAN) 0.5 mg DAILYDINNER PO 12/15/24 17:00 01/14/25 16:59 12/23/24 16:16 0.5 MG Magnesium Sulfate 50 ml @ 0 mls/hr PROTOCOL IV 12/13/24 21:30 01/12/25 21:29 12/22/24 06:18 100 MLS/HR Meropenem (Merrem 1gm) 1 gm Q8H IVPB 12/13/24 16:00 12/17/24 07:37 DC 12/16/24 23:45 1 GM Miscellaneous Medication (Ondansetron HCl ) 8 mg TID PO 12/15/24 14:00 12/15/24 10:43 DC Multivitamins Therapeutic (Multivitamin Tablet) 1 tab DAILY PO 12/18/24 09:00 01/17/25 08:59 12/23/24 08:44 1 TAB Norepinephrine 250 ml @ 0 mls/hr PROTOCOL IV 12/13/24 14:30 12/15/24 14:26 DC 12/14/24 07:35 25.3 MLS/HR Ondansetron HCl (zoFRAN 4MG INJ) 4 mg Q6H PRN IVP NAUSEA/VOMITING 12/13/24 16:30 01/12/25 16:29 Pantoprazole Sodium (PROTonix 40MG INJ) 40 mg Q24H IVP 12/13/24 15:00 01/12/25 14:59 12/23/24 14:23 40 MG Pharmacy Profile Note (Pharmacy Communication) 1 each ONCE MISC 12/13/24 15:00 12/13/24 15:28 DC Pharmacy Profile Note (Pharmacy Communication) 1 each ONCE MISC 12/17/24 07:30 12/17/24 08:12 DC Pharmacy Profile Note (Pharmacy Communication) 1 each ONCE MISC 12/18/24 08:00 12/18/24 08:29 DC Piperacillin Sod/ Tazobactam Sod (Zosyn 3.375gm+NS 50ml) 3.375 gm Q8H IV 12/17/24 08:00 12/27/24 07:59 12/23/24 15:07 3.375 GM Polyethylene Glycol (MIRalax 3350 17 GM POWD.PACK) 17 gm DAILY PO 12/16/24 09:00 01/15/25 08:59 12/23/24 08:43 17 GM Potassium Phosphate 250 ml @ 42 mls/hr PROTOCOL IV 12/15/24 05:30 12/15/24 10:19 DC 12/15/24 05:59 42 MLS/HR Potassium Chloride 100 ml @ 50 mls/hr AD PRN IV POTASSIUM PROTOCOL 12/13/24 21:30 01/12/25 21:29 12/18/24 05:55 50 MLS/HR Potassium Chloride 100 ml @ 50 mls/hr AD PRN IV POTASSIUM PROTOCOL 12/15/24 14:30 12/18/24 06:39 DC Potassium Chloride 100 ml @ 100 mls/hr AD PRN IV POTASSIUM PROTOCOL 12/15/24 14:30 12/18/24 06:39 DC Potassium Chloride (K-Dur/Klor-Con 20meq) 20 meq AD PRN PO POTASSIUM PROTOCOL 12/15/24 14:30 01/14/25 14:29 Potassium Chloride (KCl 10% Elixir 20meq/15ml) 20 meq AD PRN PO POTASSIUM PROTOCOL 12/15/24 14:30 01/14/25 14:29 12/23/24 16:17 20 MEQ Potassium Chloride (KCl 10% Elixir 20meq/15ml) 40 meq BID PO 12/18/24 09:00 12/18/24 21:01 DC 12/18/24 21:06 40 MEQ Quetiapine Fumarate (SEROquel 100 mg TAB) 200 mg BID PO 12/15/24 21:00 01/14/25 20:59 12/23/24 08:45 200 MG Sodium Chloride 1,000 ml @ 75 mls/hr [id number] IV 12/16/24 14:30 12/16/24 22:18 DC 12/16/24 15:08 75 MLS/HR Sodium Phosphate 15 mmol/Sodium Chloride 250 ml @ 62.5 mls/hr PROTOCOL IV 12/20/24 09:00 12/20/24 08:52 DC Sodium Phosphate 15 mmol/Sodium Chloride 250 ml @ 62.5 mls/hr PROTOCOL IV 12/20/24 09:00 01/19/25 08:59 12/20/24 09:55 62.5 MLS/HR Thiamine HCl (Vitamin B-1) 300 mg Q24H IVP 12/13/24 15:00 01/12/25 14:59 12/23/24 14:23 300 MG Venlafaxine HCl (EffEXOR XR 37.5mg CAP) 75 mg DAILY PO 12/16/24 09:00 01/15/25 08:59 12/23/24 08:45 75 MG DIAGNOSTICS / RADIOLOGY: [ ] ASSESSMENT: Hypothermia, POA, in need of bare hugger, improving Acute hypoxemic respiratory failure, resolved, POA Refeeding syndrome, POA Recurrent hypoglycemic episodes Septic shock, POA (2/2 community-acquired pneumonia and complicated UTI) Toxic metabolic encephalopathy with obtundation, POA Community-acquired pneumonia with acute hypoxemic respiratory failure, POA Acute complicated cystitis, POA Frailty/debility, POA Acute UTI, Proteus, POA History of chronic contractures of bilateral lower extremities, POA Unstageable decubitus ulcer involving the left hip, POA Cachexia, POA History of severe intellectual disability, POA History of scoliosis, POA History of microcephaly, POA History of ADHD, POA History of aggression, POA PLAN: The patient is in medical floor. Continue telemetry pack. Continue with the Halina Hugger as needed DC NG tube Give trickle feeds at 10cc/hr, until tachycardia improves Continue IV phosphate repletion Start PEG tube feedings We will maintain POCT blood glucose check q.4 hours, we will maintain blood glucose greater than 70. Continue Broad-spectrum antibiotics with IV meropenem and doxycycline Monitor respirations status closely. Place patient on 2 L nasal cannula due to hypoxemia. Urine growing proteus Patient will be placed on air mattress, offloading measures, wound care will be requested. Patient has a 1:1 sitter due to removes NGT/lines. May use mittens. Infectious Disease consulted, appreciate recommendations Reposition the patient every 2 hours and p.r.n.. GI consulted for PEG tube placement Disposition: Pending resolution of refeeding syndrome, placement SVEEN KIRKLAND MD December 23, 2024 17:43
[2024-12-24] VITALS (13 sets, daily range): BP systolic 90–144; BP diastolic 49–104; PULSE 79–116; RESP 16–20; TEMP 95.8–98.2; O2SAT 95–100
[2024-12-24 06:16] LABS: EOSINOPHILS # (AUTO) 0.04 K/uL (0.00-0.70); EOSINOPHILS % (AUTO) 0.7 % (0.0-8.0); HEMATOCRIT 27.6 % (36-48); IMMATURE GRANULOCYTE ABSOLUTE 0.05 K/uL (0-1); LYMPHOCYTES # (AUTO) 1.3 K/uL (1.0-4.8); MEAN CORPUSCULAR HEMOGLOBIN 31.7 pg (27.0-33.0); MEAN CORPUSCULAR HGB CONC 34.4 g/dL (32.0-36.0); MONOCYTES # (AUTO) 0.2 K/uL (0.1-1.0); MONOCYTES % (AUTO) 3.8 % (3.0-13.0); NEUTROPHILS # (AUTO) 4.4 K/uL (1.8-7.7); NEUTROPHILS % (AUTO) 72.7 % (40.0-77.0); PLATELET COUNT (AUTO) 138 K/uL (130-400); RED CELL DISTRIBUTION WIDTH 13.8 % (11.0-15.5); WHITE BLOOD COUNT (AUTO) 6.1 K/uL (4.8-10.8)
[2024-12-24 06:34] LABS: CREATININE 0.4 mg/dL (0.5-1.0); MAGNESIUM 1.8 mg/dL (1.80-2.40); PHOSPHORUS 1.5 mg/dL (2.5-4.9); POTASSIUM 4.2 mmol/L (3.5-5.1)
--- NOTE | 2024-12-24 19:12 | PN ---
[facility] PROGRESS NOTE Date of Service: December 24, 2024 Time of Service: 19:10 SUBJECTIVE: 12/14 patient seen at bedside, no acute events overnight. Patient was seen at bedside, she does not participate in the medical interview. She does not appear to be in any acute distress. She is on pressors, we will continue to wean as able. Sodium improved from 150 down to 146, remainder of her labs are relatively unremarkable. Urine growing bacteria, we will continue with empiric antibiotics 12/15/24 Patient sen and examined. Care discussed with RN No acute overnight events. Follow cultures/continue antibiotics. 12/16 patient seen at bedside, no acute events overnight. Pulmonology was pending bronchoscopy to obtain samples to test for tuberculosis however patient became hypothermic and somnolent. Repeat labs, ABG were ordered however no abnormalities were noted. Lactic acid was normal, sodium had mildly decreased from 142 down to 134, ammonia was within normal limits. She was started on a Halina Hugger and bolused fluids, her temperature began to improve and she was more awake. Her phosphorus is low at 1.8 and given her constitution this is concerning for refeeding syndrome, we will continue to monitor closely. 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 RN reports blood pressure 109/65, respirations, 98% on nasal cannula. RN reports that patient has was a rapid response earlier, has been on the Halina Hugger all day with no improvement of the temperature, and now is tachycardic. I went to assess the patient at bedside. The patient's breathing was even, unlabored, and lethargic. The patient is nonverbal, moans with touch. The patient was receiving feedings per NG and IV fluids. Stat ABGs, blood work were done. Remarkable lab results: Lactic acid increased from 1.04 to 1.59. Phos was 1.6, magnesium 1.9, total protein 4.3, albumin 1.6. ABGs on room air: PO2 58.4, ABG O2 saturation 89.2. (PO2 this morning was 91.5). The patient was placed back on 2 L nasal cannula, increased bear hugger to 30� C from 32� C. Electrolytes were replaced. Telemetry pack was order. We will continue monitoring patient closely. 12/17/2024 0315: Addendum: Reassessed the patient multiple times. Her temperature improved, remained tachycardic, despite a total of a 1500 mL bolus of LR. BP ranging systolic 98-105. The patient had a hypoglycemic episode at 11:54 p.m., blood glucose was 51, despite being of feedings. Change fluids to D5 W at 75 mL an hour. We will continue monitoring patient closely. 06:00 Reassessed the patient before off of my shift HR had improved to 112-116. b/p low 100s systolic. 12/17 patient seen at bedside, temperature has improved. She continues to be tachycardic, hemodynamically stable saturating well on room air. Hemoglobin stable at 10.1, similar to yesterday, her phosphate is very low at 1.1. She is much more awake and interactive today compared to yesterday. The constellation of symptoms with hypothermia, tachycardia and even the altered mental status are likely secondary to refeeding syndrome. The patient is not septic, her ammonia is at normal levels, lactic acid is at normal levels, CO2 is at normal levels she has been adequately resuscitated with fluids. She will be repleted with IV phosphate, her tube feeds we will be reduced to trickle feeds at 10 cc/hour before attempting to increase the feed rate. If her tachycardia improves with these changes then tomorrow we will attempt to increase the rate of her tube feeds. 12/18 patient seen at bedside, no acute events overnight. Her tachycardia has improved, hypothermia improving, she is awake today in no acute distress. Pending bronchoscopy later today to take samples for ruling out TB. Once completed we will resume trickle feeds. Today potassium, phosphate and magnesium were all low, we will be repleted. This is likely secondary to refeeding syndrome. 12/19 patient seen at bedside, no acute events overnight. Patient is still having hypothermia and tachycardia ranging from 81 up to 130, labs relatively un remarkable. Repeat mg and phos tomorrow, will begin to titrate up tube feedings 12/20 patient seen at bedside, no acute events overnight. Preliminary TB cultures are no growth to date, GI contacted for PEG tube placement. Her temperature has been improved, she has been hemodynamically stable, tachycardia is improving. We will begin to titrate up her tube feeds. 12/21 patient is pending PEG tube placement today, we will follow up postprocedure, vitals and labs relatively unremarkable. 12/22 patient seen at bedside, no acute events overnight. Peg tube was not placed yesterday, rescheduled for today, we will follow up postprocedure. Patient is in no acute distress, hemodynamically stable, labs relatively unremarkable. 12/23 patient seen at bedside, no acute events overnight. Peg tube successfully placed yesterday, tube feeds will be restarted. Once she has been stabilized on nutrition we will be good candidate to discharge back to [facility]. Repeat labs today still show low phosphate, low magnesium and low potassium, consistent with refeeding syndrome 12/24 Pt continues with episodes of hypothermia and tachycardia that correspond to low phosphate, magnesium and potassium, consistent with refeeding syndrome. Will continue with tube feeds, replete electrolytes and observation. Once tolerating feeds and stable will be good candidate for discharge back to [facility] REVIEW OF SYSTEMS: Patient is nonverbal unable to obtain ROS PHYSICAL EXAM GENERAL APPEARANCE: The patient is obtunded, very frail, cachectic, contractures noted of the lower extremities NEUROLOGICAL: The patient response to painful stimuli, moans when touched, is nonverbal. Does not follow command. HEENT: Face is symmetric. Pupils are equal and reactive. Extraocular movements are intact. NECK: Supple. No JVD. No thyromegaly. No submental, submandibular, pre- /postauricular, occipital or supraclavicular lymphadenopathy. CHEST: Normal chest expansion. No Telemetry. LUNGS: Absence of any rales, rhonchi or any wheezing. CARDIOVASCULAR: Regular. Tachycardic. No appreciable rubs, murmurs or gallops. ABDOMEN: Soft, nontender, and nondistended. There is no rebound, voluntary guarding, or rigidity. : Deferred. No Clark. EXTREMITIES: Contractures to bilateral lower extremity. Non-edematous and not cyanotic. No clubbing. Good capillary refill. SKIN: No skin breakdown. Vital Signs (last 8hr) Date Time Temp Pulse Resp B/P (MAP) Pulse Ox O2 Delivery O2 Flow Rate FiO2 12/24/24 18:55 79 20 12/24/24 18:55 79 20 N/A Room Air 21 12/24/24 15:35 97.0 116 18 114/81 100 Room Air 21 12/24/24 14:53 99 Room Air* 0 21 12/24/24 11:59 95.9 113 18 94/64 98 Room Air 21 LABS: Laboratory: Test 12/24/24 16:42 12/24/24 06:00 Range/Units Whole Blood Glucose 97 70-110 MG/DL White Blood Count 6.1 # 4.8-10.8 K/uL Red Blood Count 3.00 L 4.00-5.50 MIL/uL Hemoglobin 9.5 L 12.0-16.0 g/dL Hematocrit 27.6 L 36-48 % Mean Corpuscular Volume 92.0 79-99 fL Mean Corpuscular Hemoglobin 31.7 27.0-33.0 pg Mean Corpuscular Hemoglobin Concent 34.4 32.0-36.0 g/dL Red Cell Distribution Width 13.8 11.0-15.5 % Platelet Count 138 130-400 K/uL Mean Platelet Volume 9.4 7.5-10.5 fL Immature Granulocyte % (Auto) 0.8 0-1 % Neutrophils (%) (Auto) 72.7 40.0-77.0 % Lymphocytes (%) (Auto) 22.0 21.0-51.0 % Monocytes (%) (Auto) 3.8 3.0-13.0 % Eosinophils (%) (Auto) 0.7 0.0-8.0 % Basophils (%) (Auto) 0.0 0.0-5.0 % Neutrophils # (Auto) 4.4 1.8-7.7 K/uL Lymphocytes # (Auto) 1.3 1.0-4.8 K/uL Monocytes # (Auto) 0.2 0.1-1.0 K/uL Eosinophils # (Auto) 0.04 0.00-0.70 K/uL Basophils # (Auto) 0.00 0.00-0.20 K/uL Absolute Immature Granulocyte (auto 0.05 0-1 K/uL Nucleated Red Blood Cells 0.0 0.0-0.19 % Sodium Level 141 136-145 mmol/L Potassium Level 4.2 3.5-5.1 mmol/L Chloride Level 109 101-111 mmol/L Carbon Dioxide Level 32 21-32 mmol/L Blood Urea Nitrogen 16 7-18 mg/dL Creatinine 0.4 L 0.5-1.0 mg/dL Glomerular Filtration Rate Calc 127 >90 mL/min Random Glucose 125 H 70-105 mg/dL Total Calcium 7.7 L 8.5-10.1 mg/dL Phosphorus Level 1.5 L 2.5-4.9 mg/dL Magnesium Level 1.80 1.80-2.40 mg/dL Current Medications Medications (Trade) Dose Ordered Sig/Castillo Route PRN Reason Start Time Stop Time Status Last Admin Dose Admin Acetaminophen (TYLenol 325MG ELIXIR) 325 mg Q6H PRN PO MILD PAIN (1-3) 12/13/24 15:00 01/12/25 14:59 12/24/24 16:02 325 MG Acetaminophen (TYLenol 500MG TAB) 500 mg Q4PRN PRN PO FEVER 12/15/24 10:30 12/18/24 06:36 DC Acetaminophen (TYLenol 500MG TAB) 500 mg Q4PRN PRN PO PAIN 12/15/24 10:30 12/18/24 06:37 DC Acetylcysteine (MUComyst 20% 4ML) 400mg = 2ml [id number] IH 12/14/24 18:00 12/19/24 11:38 DC 12/19/24 11:23 800 MG Albumin Human 50 ml @ 0 mls/hr AD IV 12/14/24 10:00 12/18/24 06:39 DC 12/14/24 11:14 50 MLS/HR Albuterol (DUOneb) 1 udvial Q6H PRN IH SHORTNESS OF BREATH 12/13/24 15:30 12/19/24 11:38 DC 12/19/24 11:23 1 UDVIAL Bisacodyl (DulcoLAX) 10 mg DAILY RC 12/16/24 09:00 12/19/24 08:59 DC 12/18/24 09:25 10 MG Budesonide (Pulmicort 0.5 Mg/2ml) 0.5 mg BIDRESP IH 12/13/24 18:00 01/12/25 17:59 12/24/24 18:51 0.5 MG Buspirone HCl (BUspar) 15 mg TID PO 12/15/24 14:00 01/14/25 13:59 12/24/24 16:07 15 MG Dextrose 500 ml @ 0 mls/hr Q0M IV 12/16/24 12:30 12/17/24 07:15 DC 12/16/24 12:30 999 MLS/HR Dextrose 1,000 ml @ 75 mls/hr [id number] IV 12/13/24 15:00 12/16/24 14:30 DC 12/16/24 10:16 75 MLS/HR Dextrose 1,000 ml @ 75 mls/hr [id number] IV 12/17/24 01:00 12/17/24 07:15 DC 12/17/24 00:50 75 MLS/HR Dextrose (D50w) 50 ml AD PRN IV HYPOGLYCEMIA PROTOCOL 12/13/24 15:00 01/12/25 14:59 12/17/24 00:00 50 ML Dextrose/Sodium Chloride 500 ml @ 75 mls/hr [id number] IV 12/17/24 07:30 12/17/24 07:20 DC Dextrose/Sodium Chloride 500 ml @ 75 mls/hr Q6H40M IV 12/17/24 07:30 01/16/25 07:29 12/24/24 09:29 75 MLS/HR Doxycycline Hyclate 250 ml @ 125 mls/hr Q12H IV 12/13/24 15:30 12/17/24 07:20 DC 12/17/24 03:24 125 MLS/HR Enoxaparin Sodium (Lovenox) 30 mg DAILY SQ 12/14/24 09:00 12/15/24 09:05 DC 12/14/24 08:46 30 MG Enoxaparin Sodium (Lovenox) 30 mg DAILY SQ 12/16/24 09:00 12/15/24 13:22 DC Enoxaparin Sodium (Lovenox) 30 mg DAILY SQ 12/20/24 09:00 01/19/25 08:59 12/24/24 09:28 30 MG Folic Acid (FOLic ACID 1 MG TABLET) 1 mg DAILY PO 12/18/24 09:00 01/17/25 08:59 12/24/24 09:27 1 MG Glucagon (Glucagon 1mg Kit) 1 mg AD PRN IM HYPOGLYCEMIA PROTOCOL 12/13/24 15:00 01/12/25 14:59 Guaifenesin/ Dextromethorphan (RobiTUSSin DM 200/20MG 10ML) 10 ml Q4H PRN PO COUGH 12/15/24 11:00 01/14/25 10:59 Home Med (Home Medication) (Cholecalciferol (Vitamin D3) 25 MCG) DAILY PO 12/16/24 09:00 01/15/25 08:59 Lactated Ringer's 1,000 ml @ 75 mls/hr [id number] IV 12/16/24 23:30 12/17/24 00:30 DC 12/16/24 23:34 75 MLS/HR Lactated Ringer's 1,000 ml @ 100 mls/hr Q10H IV 12/13/24 15:00 12/13/24 15:18 DC Lactated Ringer's (Lactated Ringers 1000ml) 500 ml BOLUS IV 12/17/24 00:30 12/18/24 06:39 DC Leptospermum Honey (Medihoney) 1 appl DAILY TP 12/15/24 09:00 01/14/25 08:59 12/24/24 09:29 1 APPL Lorazepam (AtiVAN) 0.5 mg DAILYDINNER PO 12/15/24 17:00 01/14/25 16:59 12/24/24 18:00 0.5 MG Magnesium Sulfate 50 ml @ 0 mls/hr PROTOCOL IV 12/13/24 21:30 01/12/25 21:29 12/22/24 06:18 100 MLS/HR Meropenem (Merrem 1gm) 1 gm Q8H IVPB 12/13/24 16:00 12/17/24 07:37 DC 12/16/24 23:45 1 GM Miscellaneous Medication (Ondansetron HCl ) 8 mg TID PO 12/15/24 14:00 12/15/24 10:43 DC Multivitamins Therapeutic (Multivitamin Tablet) 1 tab DAILY PO 12/18/24 09:00 01/17/25 08:59 12/24/24 09:27 1 TAB Norepinephrine 250 ml @ 0 mls/hr PROTOCOL IV 12/13/24 14:30 12/15/24 14:26 DC 12/14/24 07:35 25.3 MLS/HR Ondansetron HCl (zoFRAN 4MG INJ) 4 mg Q6H PRN IVP NAUSEA/VOMITING 12/13/24 16:30 01/12/25 16:29 Pantoprazole Sodium (PROTonix 40MG INJ) 40 mg Q24H IVP 12/13/24 15:00 01/12/25 14:59 12/24/24 16:07 40 MG Pharmacy Profile Note (Pharmacy Communication) 1 each ONCE MISC 12/13/24 15:00 12/13/24 15:28 DC Pharmacy Profile Note (Pharmacy Communication) 1 each ONCE MISC 12/17/24 07:30 12/17/24 08:12 DC Pharmacy Profile Note (Pharmacy Communication) 1 each ONCE MISC 12/18/24 08:00 12/18/24 08:29 DC Piperacillin Sod/ Tazobactam Sod (Zosyn 3.375gm+NS 50ml) 3.375 gm Q8H IV 12/17/24 08:00 12/27/24 07:59 12/24/24 16:07 3.375 GM Polyethylene Glycol (MIRalax 3350 17 GM POWD.PACK) 17 gm DAILY PO 12/16/24 09:00 01/15/25 08:59 12/24/24 09:28 17 GM Potassium Phosphate 250 ml @ 42 mls/hr PROTOCOL IV 12/15/24 05:30 12/15/24 10:19 DC 12/15/24 05:59 42 MLS/HR Potassium Chloride 100 ml @ 50 mls/hr AD PRN IV POTASSIUM PROTOCOL 12/13/24 21:30 01/12/25 21:29 12/18/24 05:55 50 MLS/HR Potassium Chloride 100 ml @ 50 mls/hr AD PRN IV POTASSIUM PROTOCOL 12/15/24 14:30 12/18/24 06:39 DC Potassium Chloride 100 ml @ 100 mls/hr AD PRN IV POTASSIUM PROTOCOL 12/15/24 14:30 12/18/24 06:39 DC Potassium Chloride (K-Dur/Klor-Con 20meq) 20 meq AD PRN PO POTASSIUM PROTOCOL 12/15/24 14:30 01/14/25 14:29 Potassium Chloride (KCl 10% Elixir 20meq/15ml) 20 meq AD PRN PO POTASSIUM PROTOCOL 12/15/24 14:30 01/14/25 14:29 12/23/24 20:33 20 MEQ Potassium Chloride (KCl 10% Elixir 20meq/15ml) 40 meq BID PO 12/18/24 09:00 12/18/24 21:01 DC 12/18/24 21:06 40 MEQ Quetiapine Fumarate (SEROquel 100 mg TAB) 200 mg BID PO 12/15/24 21:00 01/14/25 20:59 12/24/24 09:27 200 MG Sodium Chloride 1,000 ml @ 75 mls/hr [id number] IV 12/16/24 14:30 12/16/24 22:18 DC 12/16/24 15:08 75 MLS/HR Sodium Phosphate 15 mmol/Sodium Chloride 250 ml @ 62.5 mls/hr PROTOCOL IV 12/20/24 09:00 12/20/24 08:52 DC Sodium Phosphate 15 mmol/Sodium Chloride 250 ml @ 62.5 mls/hr PROTOCOL IV 12/20/24 09:00 01/19/25 08:59 12/24/24 13:15 62.5 MLS/HR Thiamine HCl (Vitamin B-1) 300 mg Q24H IVP 12/13/24 15:00 01/12/25 14:59 12/24/24 16:10 300 MG Venlafaxine HCl (EffEXOR XR 37.5mg CAP) 75 mg DAILY PO 12/16/24 09:00 01/15/25 08:59 12/24/24 09:27 75 MG DIAGNOSTICS / RADIOLOGY: [ ] ASSESSMENT: Hypothermia, POA, in need of bare hugger, improving Acute hypoxemic respiratory failure, resolved, POA Refeeding syndrome, POA Recurrent hypoglycemic episodes Septic shock, POA (2/2 community-acquired pneumonia and complicated UTI) Toxic metabolic encephalopathy with obtundation, POA Community-acquired pneumonia with acute hypoxemic respiratory failure, POA Acute complicated cystitis, POA Frailty/debility, POA Acute UTI, Proteus, POA History of chronic contractures of bilateral lower extremities, POA Unstageable decubitus ulcer involving the left hip, POA Cachexia, POA History of severe intellectual disability, POA History of scoliosis, POA History of microcephaly, POA History of ADHD, POA History of aggression, POA PLAN: The patient is in medical floor. Continue telemetry pack. Continue with the Halina Hugger as needed DC NG tube Give trickle feeds at 10cc/hr, until tachycardia improves Continue IV phosphate repletion Start PEG tube feedings We will maintain POCT blood glucose check q.4 hours, we will maintain blood glucose greater than 70. Continue Broad-spectrum antibiotics with IV meropenem and doxycycline Monitor respirations status closely. Place patient on 2 L nasal cannula due to hypoxemia. Urine growing proteus Patient will be placed on air mattress, offloading measures, wound care will be requested. Patient has a 1:1 sitter due to removes NGT/lines. May use mittens. Infectious Disease consulted, appreciate recommendations Reposition the patient every 2 hours and p.r.n.. GI consulted for PEG tube placement Disposition: Pending resolution of refeeding syndrome, placement SEVEN KIRKLAND MD December 24, 2024 19:12
[2024-12-25] VITALS (13 sets, daily range): BP systolic 99–127; BP diastolic 61–78; PULSE 98–128; RESP 18–21; TEMP 97.2–98.4; O2SAT 96–99
[2024-12-25 05:55] LABS: BASOPHILS # (AUTO) 0.01 K/uL (0.00-0.20); BASOPHILS % (AUTO) 0.2 % (0.0-5.0); EOSINOPHILS # (AUTO) 0.05 K/uL (0.00-0.70); EOSINOPHILS % (AUTO) 0.9 % (0.0-8.0); HEMATOCRIT 28.2 % (36-48); IMMATURE GRANULOCYTE ABSOLUTE 0.05 K/uL (0-1); LYMPHOCYTES # (AUTO) 0.9 K/uL (1.0-4.8); LYMPHOCYTES % (AUTO) 15.6 % (21.0-51.0); MEAN CORPUSCULAR HEMOGLOBIN 31.7 pg (27.0-33.0); MEAN CORPUSCULAR HGB CONC 33.7 g/dL (32.0-36.0); MONOCYTES # (AUTO) 0.3 K/uL (0.1-1.0); MONOCYTES % (AUTO) 4.3 % (3.0-13.0); NEUTROPHILS # (AUTO) 4.6 K/uL (1.8-7.7); NEUTROPHILS % (AUTO) 78.1 % (40.0-77.0); PLATELET COUNT (AUTO) 132 K/uL (130-400); RED CELL DISTRIBUTION WIDTH 13.7 % (11.0-15.5); WHITE BLOOD COUNT (AUTO) 5.8 K/uL (4.8-10.8)
[2024-12-25 06:11] LABS: CREATININE 0.3 mg/dL (0.5-1.0); MAGNESIUM 2.4 mg/dL (1.80-2.40); POTASSIUM 3.9 mmol/L (3.5-5.1)
--- NOTE | 2024-12-25 08:22 | PN ---
GASTROENTEROLOGY PROGRESS NOTE Date of Visit: December 25, 2024 Time of Visit: 08:22 Events / Notes: No acute events overnight. TB ruled out. Denies fever, chills, abdominal pain, N/V, hematemesis, bloating, constipation, diarrhea, melena or hematochezia. Review of Systems: CONSTITUTIONAL: No malaise or change in sensation of wellbeing. ENMT: No rhinorrhea, otorrhea, sinus pain, ear ache. CARDIOVASCULAR: No angina, palpitations, orthopnea or paroxysmal dyspnea. RESPIRATORY: No SOB. GASTROINTESTINAL: No abdominal pain, nausea, vomiting, diarrhea, hematemesis, melena or change in the patient's habitual bowel movements consistency/number. GENITOURINARY: No dysuria, hematuria or change in bladder continence. MUSCULOSKELETAL: No new muscle pain or decrease in muscular strength. No new joint swelling, redness or tenderness. SKIN: No new rash. Physical Exam: GEN: Awake, alert, oriented in person, time and place, and in no acute distress. HEENT: No sinus tenderness. Tympanic membranes were not examined. No rhinorrhea. Oral pharyngeal mucosa is pink, moist and within normal limits. Neck is supple with no cervical lymphadenopathy, thyromegaly or JVD. CHEST: Inspection, palpation and percussion of the chest were unremarkable. Lung auscultation revealed normal breath sounds bilaterally. CARDIAC: PMI is within normal limits. Heart sounds are regular. Normal S1, S2. No gallop or murmur. ABD: Soft, non-tender and not distended. No peritoneal signs on palpation. No organomegaly. Normal bowel sounds. EXT: No cyanosis or clubbing. No edema. SKIN: Intact. No rashes. JOINTS: No evidence of synovitis or acute arthritis. NEURO: Alert and oriented to name, place and person. Cranial nerve examination is unremarkable. No focal motor deficits. Normal speech. Gait is normal. Strength is normal. Vital Signs (last 8hr) Date Time Temp Pulse Resp B/P (MAP) Pulse Ox O2 Delivery O2 Flow Rate FiO2 12/25/24 08:08 97.5 112 19 115/78 95 Room Air 12/25/24 06:19 112 20 12/25/24 06:14 112 20 N/A Room Air 21 12/25/24 03:18 128 18 127/70 95 21 Laboratory: [ ] Laboratory: Test 12/25/24 08:06 12/25/24 05:05 Range/Units Whole Blood Glucose 95 70-110 MG/DL White Blood Count 5.8 4.8-10.8 K/uL Red Blood Count 3.00 L 4.00-5.50 MIL/uL Hemoglobin 9.5 L 12.0-16.0 g/dL Hematocrit 28.2 L 36-48 % Mean Corpuscular Volume 94.0 79-99 fL Mean Corpuscular Hemoglobin 31.7 27.0-33.0 pg Mean Corpuscular Hemoglobin Concent 33.7 32.0-36.0 g/dL Red Cell Distribution Width 13.7 11.0-15.5 % Platelet Count 132 130-400 K/uL Mean Platelet Volume 9.6 7.5-10.5 fL Immature Granulocyte % (Auto) 0.9 0-1 % Neutrophils (%) (Auto) 78.1 H 40.0-77.0 % Lymphocytes (%) (Auto) 15.6 L 21.0-51.0 % Monocytes (%) (Auto) 4.3 3.0-13.0 % Eosinophils (%) (Auto) 0.9 0.0-8.0 % Basophils (%) (Auto) 0.2 0.0-5.0 % Neutrophils # (Auto) 4.6 1.8-7.7 K/uL Lymphocytes # (Auto) 0.9 L 1.0-4.8 K/uL Monocytes # (Auto) 0.3 0.1-1.0 K/uL Eosinophils # (Auto) 0.05 0.00-0.70 K/uL Basophils # (Auto) 0.01 0.00-0.20 K/uL Absolute Immature Granulocyte (auto 0.05 0-1 K/uL Nucleated Red Blood Cells 0.0 0.0-0.19 % Sodium Level 143 136-145 mmol/L Potassium Level 3.9 3.5-5.1 mmol/L Chloride Level 109 101-111 mmol/L Carbon Dioxide Level 33 H 21-32 mmol/L Blood Urea Nitrogen 10 7-18 mg/dL Creatinine 0.3 L 0.5-1.0 mg/dL Glomerular Filtration Rate Calc 136 >90 mL/min Random Glucose 112 H 70-105 mg/dL Total Calcium 7.9 L 8.5-10.1 mg/dL Phosphorus Level 2.0 L 2.5-4.9 mg/dL Magnesium Level 2.40 1.80-2.40 mg/dL Current Medications Medications (Trade) Dose Ordered Sig/Castillo Route PRN Reason Start Time Stop Time Status Last Admin Dose Admin Acetaminophen (TYLenol 325MG ELIXIR) 325 mg Q6H PRN PO MILD PAIN (1-3) 12/13/24 15:00 01/12/25 14:59 12/24/24 16:02 325 MG Acetaminophen (TYLenol 500MG TAB) 500 mg Q4PRN PRN PO FEVER 12/15/24 10:30 12/18/24 06:36 DC Acetaminophen (TYLenol 500MG TAB) 500 mg Q4PRN PRN PO PAIN 12/15/24 10:30 12/18/24 06:37 DC Acetylcysteine (MUComyst 20% 4ML) 400mg = 2ml [id number] IH 12/14/24 18:00 12/19/24 11:38 DC 12/19/24 11:23 800 MG Albumin Human 50 ml @ 0 mls/hr AD IV 12/14/24 10:00 12/18/24 06:39 DC 12/14/24 11:14 50 MLS/HR Albuterol (DUOneb) 1 udvial Q6H PRN IH SHORTNESS OF BREATH 12/13/24 15:30 12/19/24 11:38 DC 12/19/24 11:23 1 UDVIAL Bisacodyl (DulcoLAX) 10 mg DAILY RC 12/16/24 09:00 12/19/24 08:59 DC 12/18/24 09:25 10 MG Budesonide (Pulmicort 0.5 Mg/2ml) 0.5 mg BIDRESP IH 12/13/24 18:00 01/12/25 17:59 12/25/24 06:19 0.5 MG Buspirone HCl (BUspar) 15 mg TID PO 12/15/24 14:00 01/14/25 13:59 12/24/24 20:43 15 MG Dextrose 500 ml @ 0 mls/hr Q0M IV 12/16/24 12:30 12/17/24 07:15 DC 12/16/24 12:30 999 MLS/HR Dextrose 1,000 ml @ 75 mls/hr [id number] IV 12/13/24 15:00 12/16/24 14:30 DC 12/16/24 10:16 75 MLS/HR Dextrose 1,000 ml @ 75 mls/hr [id number] IV 12/17/24 01:00 12/17/24 07:15 DC 12/17/24 00:50 75 MLS/HR Dextrose (D50w) 50 ml AD PRN IV HYPOGLYCEMIA PROTOCOL 12/13/24 15:00 01/12/25 14:59 12/17/24 00:00 50 ML Dextrose/Sodium Chloride 500 ml @ 75 mls/hr Q6H40M IV 12/17/24 07:30 12/17/24 07:20 DC Dextrose/Sodium Chloride 500 ml @ 75 mls/hr Q6H40M IV 12/17/24 07:30 01/16/25 07:29 12/24/24 09:29 75 MLS/HR Doxycycline Hyclate 250 ml @ 125 mls/hr Q12H IV 12/13/24 15:30 12/17/24 07:20 DC 12/17/24 03:24 125 MLS/HR Enoxaparin Sodium (Lovenox) 30 mg DAILY SQ 12/14/24 09:00 12/15/24 09:05 DC 12/14/24 08:46 30 MG Enoxaparin Sodium (Lovenox) 30 mg DAILY SQ 12/16/24 09:00 12/15/24 13:22 DC Enoxaparin Sodium (Lovenox) 30 mg DAILY SQ 12/20/24 09:00 01/19/25 08:59 12/24/24 09:28 30 MG Folic Acid (FOLic ACID 1 MG TABLET) 1 mg DAILY PO 12/18/24 09:00 01/17/25 08:59 12/24/24 09:27 1 MG Glucagon (Glucagon 1mg Kit) 1 mg AD PRN IM HYPOGLYCEMIA PROTOCOL 12/13/24 15:00 01/12/25 14:59 Guaifenesin/ Dextromethorphan (RobiTUSSin DM 200/20MG 10ML) 10 ml Q4H PRN PO COUGH 12/15/24 11:00 01/14/25 10:59 Home Med (Home Medication) (Cholecalciferol (Vitamin D3) 25 MCG) DAILY PO 12/16/24 09:00 01/15/25 08:59 Lactated Ringer's 1,000 ml @ 75 mls/hr [id number] IV 12/16/24 23:30 12/17/24 00:30 DC 12/16/24 23:34 75 MLS/HR Lactated Ringer's 1,000 ml @ 100 mls/hr Q10H IV 12/13/24 15:00 12/13/24 15:18 DC Lactated Ringer's (Lactated Ringers 1000ml) 500 ml BOLUS IV 12/17/24 00:30 12/18/24 06:39 DC Leptospermum Honey (Medihoney) 1 appl DAILY TP 12/15/24 09:00 01/14/25 08:59 12/24/24 09:29 1 APPL Lorazepam (AtiVAN) 0.5 mg DAILYDINNER PO 12/15/24 17:00 01/14/25 16:59 12/24/24 18:00 0.5 MG Magnesium Sulfate 50 ml @ 0 mls/hr PROTOCOL IV 12/13/24 21:30 01/12/25 21:29 12/24/24 20:43 25 MLS/HR Meropenem (Merrem 1gm) 1 gm Q8H IVPB 12/13/24 16:00 12/17/24 07:37 DC 12/16/24 23:45 1 GM Miscellaneous Medication (Ondansetron HCl ) 8 mg TID PO 12/15/24 14:00 12/15/24 10:43 DC Multivitamins Therapeutic (Multivitamin Tablet) 1 tab DAILY PO 12/18/24 09:00 01/17/25 08:59 12/24/24 09:27 1 TAB Norepinephrine 250 ml @ 0 mls/hr PROTOCOL IV 12/13/24 14:30 12/15/24 14:26 DC 12/14/24 07:35 25.3 MLS/HR Ondansetron HCl (zoFRAN 4MG INJ) 4 mg Q6H PRN IVP NAUSEA/VOMITING 12/13/24 16:30 01/12/25 16:29 Pantoprazole Sodium (PROTonix 40MG INJ) 40 mg Q24H IVP 12/13/24 15:00 01/12/25 14:59 12/24/24 16:07 40 MG Pharmacy Profile Note (Pharmacy Communication) 1 each ONCE MISC 12/13/24 15:00 12/13/24 15:28 DC Pharmacy Profile Note (Pharmacy Communication) 1 each ONCE MISC 12/17/24 07:30 12/17/24 08:12 DC Pharmacy Profile Note (Pharmacy Communication) 1 each ONCE MISC 12/18/24 08:00 12/18/24 08:29 DC Piperacillin Sod/ Tazobactam Sod (Zosyn 3.375gm+NS 50ml) 3.375 gm Q8H IV 12/17/24 08:00 12/27/24 07:59 12/24/24 23:11 3.375 GM Polyethylene Glycol (MIRalax 3350 17 GM POWD.PACK) 17 gm DAILY PO 12/16/24 09:00 01/15/25 08:59 12/24/24 09:28 17 GM Potassium Phosphate 250 ml @ 42 mls/hr PROTOCOL IV 12/15/24 05:30 12/15/24 10:19 DC 12/15/24 05:59 42 MLS/HR Potassium Chloride 100 ml @ 50 mls/hr AD PRN IV POTASSIUM PROTOCOL 12/13/24 21:30 01/12/25 21:29 12/18/24 05:55 50 MLS/HR Potassium Chloride 100 ml @ 50 mls/hr AD PRN IV POTASSIUM PROTOCOL 12/15/24 14:30 12/18/24 06:39 DC Potassium Chloride 100 ml @ 100 mls/hr AD PRN IV POTASSIUM PROTOCOL 12/15/24 14:30 12/18/24 06:39 DC Potassium Chloride (K-Dur/Klor-Con 20meq) 20 meq AD PRN PO POTASSIUM PROTOCOL 12/15/24 14:30 01/14/25 14:29 Potassium Chloride (KCl 10% Elixir 20meq/15ml) 20 meq AD PRN PO POTASSIUM PROTOCOL 12/15/24 14:30 01/14/25 14:29 12/23/24 20:33 20 MEQ Potassium Chloride (KCl 10% Elixir 20meq/15ml) 40 meq BID PO 12/18/24 09:00 12/18/24 21:01 DC 12/18/24 21:06 40 MEQ Quetiapine Fumarate (SEROquel 100 mg TAB) 200 mg BID PO 12/15/24 21:00 01/14/25 20:59 12/24/24 20:42 200 MG Sodium Chloride 1,000 ml @ 75 mls/hr [id number] IV 12/16/24 14:30 12/16/24 22:18 DC 12/16/24 15:08 75 MLS/HR Sodium Phosphate 15 mmol/Sodium Chloride 250 ml @ 62.5 mls/hr PROTOCOL IV 12/20/24 09:00 12/20/24 08:52 DC Sodium Phosphate 15 mmol/Sodium Chloride 250 ml @ 62.5 mls/hr PROTOCOL IV 12/20/24 09:00 01/19/25 08:59 12/24/24 13:15 62.5 MLS/HR Thiamine HCl (Vitamin B-1) 300 mg Q24H IVP 12/13/24 15:00 01/12/25 14:59 12/24/24 16:10 300 MG Venlafaxine HCl (EffEXOR XR 37.5mg CAP) 75 mg DAILY PO 12/16/24 09:00 01/15/25 08:59 12/24/24 09:27 75 MG Diagnostics / Radiology: [COPY/PASTE HERE IF NO REPORTS PLEASE DELETE SECTION] Assessment: Failure to thrive Microcephaly Scoliosis Plan: Continue GI prophylaxis Advance feedings as tolerated Avoid NSAIDs Antireflux measures Monitor H&H and transfuse as needed Call with questions, concerns or change in clinical status Patient to follow-up at clinic post discharge Thank you for this consult ZHAO GUERRAP December 25, 2024 08:22
--- NOTE | 2024-12-25 12:09 | PN ---
[facility] PROGRESS NOTE Date of Service: December 25, 2024 Time of Service: 12:09 SUBJECTIVE: 12/14 patient seen at bedside, no acute events overnight. Patient was seen at bedside, she does not participate in the medical interview. She does not appear to be in any acute distress. She is on pressors, we will continue to wean as able. Sodium improved from 150 down to 146, remainder of her labs are relatively unremarkable. Urine growing bacteria, we will continue with empiric antibiotics 12/15/24 Patient sen and examined. Care discussed with RN No acute overnight events. Follow cultures/continue antibiotics. 12/16 patient seen at bedside, no acute events overnight. Pulmonology was pending bronchoscopy to obtain samples to test for tuberculosis however patient became hypothermic and somnolent. Repeat labs, ABG were ordered however no abnormalities were noted. Lactic acid was normal, sodium had mildly decreased from 142 down to 134, ammonia was within normal limits. She was started on a Halina Hugger and bolused fluids, her temperature began to improve and she was more awake. Her phosphorus is low at 1.8 and given her constitution this is concerning for refeeding syndrome, we will continue to monitor closely. 12/16/24 proposal manager: Charge nurse RN called me with concern for patient due to patient being tachycardic heart rate 120-130s and a temperature of 93.6� rectal. RN reports blood pressure 109/65, respirations, 98% on nasal cannula. RN reports that patient has was a rapid response earlier, has been on the Halina Hugger all day with no improvement of the temperature, and now is tachycardic. I went to assess the patient at bedside. The patient's breathing was even, unlabored, and lethargic. The patient is nonverbal, moans with touch. The patient was receiving feedings per NG and IV fluids. Stat ABGs, blood work were done. Remarkable lab results: Lactic acid increased from 1.04 to 1.59. Phos was 1.6, magnesium 1.9, total protein 4.3, albumin 1.6. ABGs on room air: PO2 58.4, ABG O2 saturation 89.2. (PO2 this morning was 91.5). The patient was placed back on 2 L nasal cannula, increased bear hugger to 30� C from 32� C. Electrolytes were replaced. Telemetry pack was order. We will continue monitoring patient closely. 12/17/2024 0315: Addendum: Reassessed the patient multiple times. Her temperature improved, remained tachycardic, despite a total of a 1500 mL bolus of LR. BP ranging systolic 98-105. The patient had a hypoglycemic episode at 11:54 p.m., blood glucose was 51, despite being of feedings. Change fluids to D5 W at 75 mL an hour. We will continue monitoring patient closely. 06:00 Reassessed the patient before off of my shift HR had improved to 112-116. b/p low 100s systolic. 12/17 patient seen at bedside, temperature has improved. She continues to be tachycardic, hemodynamically stable saturating well on room air. Hemoglobin stable at 10.1, similar to yesterday, her phosphate is very low at 1.1. She is much more awake and interactive today compared to yesterday. The constellation of symptoms with hypothermia, tachycardia and even the altered mental status are likely secondary to refeeding syndrome. The patient is not septic, her ammonia is at normal levels, lactic acid is at normal levels, CO2 is at normal levels she has been adequately resuscitated with fluids. She will be repleted with IV phosphate, her tube feeds we will be reduced to trickle feeds at 10 cc/hour before attempting to increase the feed rate. If her tachycardia improves with these changes then tomorrow we will attempt to increase the rate of her tube feeds. 12/18 patient seen at bedside, no acute events overnight. Her tachycardia has improved, hypothermia improving, she is awake today in no acute distress. Pending bronchoscopy later today to take samples for ruling out TB. Once completed we will resume trickle feeds. Today potassium, phosphate and magnesium were all low, we will be repleted. This is likely secondary to refeeding syndrome. 12/19 patient seen at bedside, no acute events overnight. Patient is still having hypothermia and tachycardia ranging from 81 up to 130, labs relatively un remarkable. Repeat mg and phos tomorrow, will begin to titrate up tube feedings 12/20 patient seen at bedside, no acute events overnight. Preliminary TB cultures are no growth to date, GI contacted for PEG tube placement. Her temperature has been improved, she has been hemodynamically stable, tachycardia is improving. We will begin to titrate up her tube feeds. 12/21 patient is pending PEG tube placement today, we will follow up postprocedure, vitals and labs relatively unremarkable. 12/22 patient seen at bedside, no acute events overnight. Peg tube was not placed yesterday, rescheduled for today, we will follow up postprocedure. Patient is in no acute distress, hemodynamically stable, labs relatively unremarkable. 12/23 patient seen at bedside, no acute events overnight. Peg tube successfully placed yesterday, tube feeds will be restarted. Once she has been stabilized on nutrition we will be good candidate to discharge back to [facility]. Repeat labs today still show low phosphate, low magnesium and low potassium, consistent with refeeding syndrome 12/24 Pt continues with episodes of hypothermia and tachycardia that correspond to low phosphate, magnesium and potassium, consistent with refeeding syndrome. Will continue with tube feeds, replete electrolytes and observation. Once tolerating feeds and stable will be good candidate for discharge back to [facility] 12/25 patient is seen and examined at bedside, remains mildly tachycardic, electrolytes has been replaced, getting nutritional support via PEG tube. Home medications reviewed, the patient on metoprolol tartrate 25 mg p.o. b.i.d.. However per my discussion with the nurse, patient's blood pressure has remained in the soft side. We will continue with IV fluids, we will start the patient on midodrine 5 mg p.o. t.i.d., we will continue close monitoring of the patient's heart rate, electrolytes in a.m. and replace IV per protocol. If medically stable anticipate discharge to [facility] in the next 24 hours. REVIEW OF SYSTEMS: Patient is nonverbal unable to obtain ROS PHYSICAL EXAM GENERAL APPEARANCE: The patient is obtunded, very frail, cachectic, contractures noted of the lower extremities NEUROLOGICAL: The patient response to painful stimuli, moans when touched, is nonverbal. Does not follow command. HEENT: Face is symmetric. Pupils are equal and reactive. Extraocular movements are intact. NECK: Supple. No JVD. No thyromegaly. No submental, submandibular, pre- /postauricular, occipital or supraclavicular lymphadenopathy. CHEST: Normal chest expansion. No Telemetry. LUNGS: Absence of any rales, rhonchi or any wheezing. CARDIOVASCULAR: Regular. Tachycardic. No appreciable rubs, murmurs or gallops. ABDOMEN: Soft, nontender, and nondistended. There is no rebound, voluntary guarding, or rigidity. : Deferred. No Clark. EXTREMITIES: Contractures to bilateral lower extremity. Non-edematous and not cyanotic. No clubbing. Good capillary refill. SKIN: No skin breakdown. Vital Signs (last 8hr) Date Time Temp Pulse Resp B/P (MAP) Pulse Ox O2 Delivery O2 Flow Rate FiO2 12/25/24 08:08 97.5 112 19 115/78 95 Room Air 12/25/24 06:19 112 20 12/25/24 06:14 112 20 N/A Room Air 21 LABS: Laboratory: Test 12/25/24 08:06 12/25/24 05:05 Range/Units Whole Blood Glucose 95 70-110 MG/DL White Blood Count 5.8 4.8-10.8 K/uL Red Blood Count 3.00 L 4.00-5.50 MIL/uL Hemoglobin 9.5 L 12.0-16.0 g/dL Hematocrit 28.2 L 36-48 % Mean Corpuscular Volume 94.0 79-99 fL Mean Corpuscular Hemoglobin 31.7 27.0-33.0 pg Mean Corpuscular Hemoglobin Concent 33.7 32.0-36.0 g/dL Red Cell Distribution Width 13.7 11.0-15.5 % Platelet Count 132 130-400 K/uL Mean Platelet Volume 9.6 7.5-10.5 fL Immature Granulocyte % (Auto) 0.9 0-1 % Neutrophils (%) (Auto) 78.1 H 40.0-77.0 % Lymphocytes (%) (Auto) 15.6 L 21.0-51.0 % Monocytes (%) (Auto) 4.3 3.0-13.0 % Eosinophils (%) (Auto) 0.9 0.0-8.0 % Basophils (%) (Auto) 0.2 0.0-5.0 % Neutrophils # (Auto) 4.6 1.8-7.7 K/uL Lymphocytes # (Auto) 0.9 L 1.0-4.8 K/uL Monocytes # (Auto) 0.3 0.1-1.0 K/uL Eosinophils # (Auto) 0.05 0.00-0.70 K/uL Basophils # (Auto) 0.01 0.00-0.20 K/uL Absolute Immature Granulocyte (auto 0.05 0-1 K/uL Nucleated Red Blood Cells 0.0 0.0-0.19 % Sodium Level 143 136-145 mmol/L Potassium Level 3.9 3.5-5.1 mmol/L Chloride Level 109 101-111 mmol/L Carbon Dioxide Level 33 H 21-32 mmol/L Blood Urea Nitrogen 10 7-18 mg/dL Creatinine 0.3 L 0.5-1.0 mg/dL Glomerular Filtration Rate Calc 136 >90 mL/min Random Glucose 112 H 70-105 mg/dL Total Calcium 7.9 L 8.5-10.1 mg/dL Phosphorus Level 2.0 L 2.5-4.9 mg/dL Magnesium Level 2.40 1.80-2.40 mg/dL Current Medications Medications (Trade) Dose Ordered Sig/Castillo Route PRN Reason Start Time Stop Time Status Last Admin Dose Admin Acetaminophen (TYLenol 325MG ELIXIR) 325 mg Q6H PRN PO MILD PAIN (1-3) 12/13/24 15:00 01/12/25 14:59 12/24/24 16:02 325 MG Acetaminophen (TYLenol 500MG TAB) 500 mg Q4PRN PRN PO FEVER 12/15/24 10:30 12/18/24 06:36 DC Acetaminophen (TYLenol 500MG TAB) 500 mg Q4PRN PRN PO PAIN 12/15/24 10:30 12/18/24 06:37 DC Acetylcysteine (MUComyst 20% 4ML) 400mg = 2ml [id number] IH 12/14/24 18:00 12/19/24 11:38 DC 12/19/24 11:23 800 MG Albumin Human 50 ml @ 0 mls/hr AD IV 12/14/24 10:00 12/18/24 06:39 DC 12/14/24 11:14 50 MLS/HR Albuterol (DUOneb) 1 udvial Q6H PRN IH SHORTNESS OF BREATH 12/13/24 15:30 12/19/24 11:38 DC 12/19/24 11:23 1 UDVIAL Bisacodyl (DulcoLAX) 10 mg DAILY RC 12/16/24 09:00 12/19/24 08:59 DC 12/18/24 09:25 10 MG Budesonide (Pulmicort 0.5 Mg/2ml) 0.5 mg BIDRESP IH 12/13/24 18:00 01/12/25 17:59 12/25/24 06:19 0.5 MG Buspirone HCl (BUspar) 15 mg TID PO 12/15/24 14:00 01/14/25 13:59 12/25/24 09:29 15 MG Dextrose 500 ml @ 0 mls/hr Q0M IV 12/16/24 12:30 12/17/24 07:15 DC 12/16/24 12:30 999 MLS/HR Dextrose 1,000 ml @ 75 mls/hr [id number] IV 12/13/24 15:00 12/16/24 14:30 DC 12/16/24 10:16 75 MLS/HR Dextrose 1,000 ml @ 75 mls/hr [id number] IV 12/17/24 01:00 12/17/24 07:15 DC 12/17/24 00:50 75 MLS/HR Dextrose (D50w) 50 ml AD PRN IV HYPOGLYCEMIA PROTOCOL 12/13/24 15:00 01/12/25 14:59 12/17/24 00:00 50 ML Dextrose/Sodium Chloride 500 ml @ 75 mls/hr Q6H40M IV 12/17/24 07:30 12/17/24 07:20 DC Dextrose/Sodium Chloride 500 ml @ 75 mls/hr Q6H40M IV 12/17/24 07:30 01/16/25 07:29 12/25/24 09:30 75 MLS/HR Doxycycline Hyclate 250 ml @ 125 mls/hr Q12H IV 12/13/24 15:30 12/17/24 07:20 DC 12/17/24 03:24 125 MLS/HR Enoxaparin Sodium (Lovenox) 30 mg DAILY SQ 12/14/24 09:00 12/15/24 09:05 DC 12/14/24 08:46 30 MG Enoxaparin Sodium (Lovenox) 30 mg DAILY SQ 12/16/24 09:00 12/15/24 13:22 DC Enoxaparin Sodium (Lovenox) 30 mg DAILY SQ 12/20/24 09:00 01/19/25 08:59 12/25/24 09:30 30 MG Folic Acid (FOLic ACID 1 MG TABLET) 1 mg DAILY PO 12/18/24 09:00 01/17/25 08:59 12/25/24 09:29 1 MG Glucagon (Glucagon 1mg Kit) 1 mg AD PRN IM HYPOGLYCEMIA PROTOCOL 12/13/24 15:00 01/12/25 14:59 Guaifenesin/ Dextromethorphan (RobiTUSSin DM 200/20MG 10ML) 10 ml Q4H PRN PO COUGH 12/15/24 11:00 01/14/25 10:59 Home Med (Home Medication) (Cholecalciferol (Vitamin D3) 25 MCG) DAILY PO 12/16/24 09:00 01/15/25 08:59 Lactated Ringer's 1,000 ml @ 75 mls/hr [id number] IV 12/16/24 23:30 12/17/24 00:30 DC 12/16/24 23:34 75 MLS/HR Lactated Ringer's 1,000 ml @ 100 mls/hr Q10H IV 12/13/24 15:00 12/13/24 15:18 DC Lactated Ringer's (Lactated Ringers 1000ml) 500 ml BOLUS IV 12/17/24 00:30 12/18/24 06:39 DC Leptospermum Honey (Medihoney) 1 appl DAILY TP 12/15/24 09:00 01/14/25 08:59 12/25/24 09:30 1 APPL Lorazepam (AtiVAN) 0.5 mg DAILYDINNER PO 12/15/24 17:00 01/14/25 16:59 12/24/24 18:00 0.5 MG Magnesium Sulfate 50 ml @ 0 mls/hr PROTOCOL IV 12/13/24 21:30 01/12/25 21:29 12/24/24 20:43 25 MLS/HR Meropenem (Merrem 1gm) 1 gm Q8H IVPB 12/13/24 16:00 12/17/24 07:37 DC 12/16/24 23:45 1 GM Miscellaneous Medication (Ondansetron HCl ) 8 mg TID PO 12/15/24 14:00 12/15/24 10:43 DC Multivitamins Therapeutic (Multivitamin Tablet) 1 tab DAILY PO 12/18/24 09:00 01/17/25 08:59 12/25/24 09:29 1 TAB Norepinephrine 250 ml @ 0 mls/hr PROTOCOL IV 12/13/24 14:30 12/15/24 14:26 DC 12/14/24 07:35 25.3 MLS/HR Ondansetron HCl (zoFRAN 4MG INJ) 4 mg Q6H PRN IVP NAUSEA/VOMITING 12/13/24 16:30 01/12/25 16:29 Pantoprazole Sodium (PROTonix 40MG INJ) 40 mg Q24H IVP 12/13/24 15:00 01/12/25 14:59 12/24/24 16:07 40 MG Pharmacy Profile Note (Pharmacy Communication) 1 each ONCE MISC 12/13/24 15:00 12/13/24 15:28 DC Pharmacy Profile Note (Pharmacy Communication) 1 each ONCE MISC 12/17/24 07:30 12/17/24 08:12 DC Pharmacy Profile Note (Pharmacy Communication) 1 each ONCE MISC 12/18/24 08:00 12/18/24 08:29 DC Piperacillin Sod/ Tazobactam Sod (Zosyn 3.375gm+NS 50ml) 3.375 gm Q8H IV 12/17/24 08:00 12/27/24 07:59 12/25/24 09:30 3.375 GM Polyethylene Glycol (MIRalax 3350 17 GM POWD.PACK) 17 gm DAILY PO 12/16/24 09:00 01/15/25 08:59 12/25/24 09:29 17 GM Potassium Phosphate 250 ml @ 42 mls/hr PROTOCOL IV 12/15/24 05:30 12/15/24 10:19 DC 12/15/24 05:59 42 MLS/HR Potassium Chloride 100 ml @ 50 mls/hr AD PRN IV POTASSIUM PROTOCOL 12/13/24 21:30 01/12/25 21:29 12/18/24 05:55 50 MLS/HR Potassium Chloride 100 ml @ 50 mls/hr AD PRN IV POTASSIUM PROTOCOL 12/15/24 14:30 12/18/24 06:39 DC Potassium Chloride 100 ml @ 100 mls/hr AD PRN IV POTASSIUM PROTOCOL 12/15/24 14:30 12/18/24 06:39 DC Potassium Chloride (K-Dur/Klor-Con 20meq) 20 meq AD PRN PO POTASSIUM PROTOCOL 12/15/24 14:30 01/14/25 14:29 Potassium Chloride (KCl 10% Elixir 20meq/15ml) 20 meq AD PRN PO POTASSIUM PROTOCOL 12/15/24 14:30 01/14/25 14:29 12/23/24 20:33 20 MEQ Potassium Chloride (KCl 10% Elixir 20meq/15ml) 40 meq BID PO 12/18/24 09:00 12/18/24 21:01 DC 12/18/24 21:06 40 MEQ Quetiapine Fumarate (SEROquel 100 mg TAB) 200 mg BID PO 12/15/24 21:00 01/14/25 20:59 12/25/24 09:29 200 MG Sodium Chloride 1,000 ml @ 75 mls/hr [id number] IV 12/16/24 14:30 12/16/24 22:18 DC 12/16/24 15:08 75 MLS/HR Sodium Phosphate 15 mmol/Sodium Chloride 250 ml @ 62.5 mls/hr PROTOCOL IV 12/20/24 09:00 12/20/24 08:52 DC Sodium Phosphate 15 mmol/Sodium Chloride 250 ml @ 62.5 mls/hr PROTOCOL IV 12/20/24 09:00 01/19/25 08:59 12/24/24 13:15 62.5 MLS/HR Thiamine HCl (Vitamin B-1) 300 mg Q24H IVP 12/13/24 15:00 01/12/25 14:59 12/24/24 16:10 300 MG Venlafaxine HCl (EffEXOR XR 37.5mg CAP) 75 mg DAILY PO 12/16/24 09:00 01/15/25 08:59 12/25/24 09:29 75 MG DIAGNOSTICS / RADIOLOGY: [ ] ASSESSMENT: Hypothermia, POA, in need of bare hugger, improving Acute hypoxemic respiratory failure, resolved, POA Refeeding syndrome, POA Recurrent hypoglycemic episodes Septic shock, POA (2/2 community-acquired pneumonia and complicated UTI) Toxic metabolic encephalopathy with obtundation, POA Community-acquired pneumonia with acute hypoxemic respiratory failure, POA Acute complicated cystitis, POA Frailty/debility, POA Acute UTI, Proteus, POA History of chronic contractures of bilateral lower extremities, POA Unstageable decubitus ulcer involving the left hip, POA Cachexia, POA History of severe intellectual disability, POA History of scoliosis, POA History of microcephaly, POA History of ADHD, POA History of aggression, POA PLAN: The patient is in medical floor. Continue telemetry pack. Continue with the Halina Hugger as needed DC NG tube Give trickle feeds at 10cc/hr, until tachycardia improves Continue IV phosphate repletion Start PEG tube feedings We will maintain POCT blood glucose check q.4 hours, we will maintain blood glucose greater than 70. Continue Broad-spectrum antibiotics with IV meropenem and doxycycline Monitor respirations status closely. Place patient on 2 L nasal cannula due to hypoxemia. Urine growing proteus Patient will be placed on air mattress, offloading measures, wound care will be requested. Patient has a 1:1 sitter due to removes NGT/lines. May use mittens. Infectious Disease consulted, appreciate recommendations Reposition the patient every 2 hours and p.r.n.. GI consulted for PEG tube placement Disposition: Pending resolution of refeeding syndrome, placement JOLENE GARCIAS MD December 25, 2024 12:09
[2024-12-25] MEDS ORDERED: metoPROLOL tartRATE 25 MG TAB PO SCH (12:30)
--- NOTE | 2024-12-25 12:40 | NUR ---
ABBEY NOTE/AMERICA POTTER spoke to Gurwinder with [employer]. States referral received last Wednesday but is in the insurance verification process. CM provided CM number for call back with update. ABBEY discussed plan of care with Dr. Kemp. Patient to be monitored today due to tachycardia. Patient also to be transitioned to bolus feedings. Anticipate discharge tomorrow if condition improved and TF approved. Addendum: 12/25/24 at 1243 by ELTON DUNCAN CM Amended: Links added.
--- NOTE | 2024-12-25 15:33 | NUR ---
CM NOTE/RONI CM spoke to Farheen from [place]. States they are not in network with patient's insurance. CM to fax referral to [facility]. CM verified with Pato at [facility] that they do take medicaid [place]. CM to f/u.
[2024-12-25] MEDS: miDODRine HCL 5 MG TABLET PO SCH (15:41)
--- NOTE | 2024-12-25 23:37 | PN ---
INFECTIOUS DISEASE PROGRESS NOTE Date of Service: December 25, 2024 SUBJECTIVE: This is a 44 year old female patient who is being seen today at bedside. Patient is status post EGD with peg placement on 12/21/2024. Patient is tolerating PEG tube bolus feedings well. No emesis reported. Patient is afebril e, temperature is 97.3 �. Per nursing report patient's [facility]. No fever, temperature is 97.5�. Continues on Zosyn IV. PHYSICAL EXAM EYES: Anicteric. Pupils equal and reactive. HENT: No oral thrush seen, moist Oral mucosa. NECK: Supple, no JVD or thyromegaly. LUNGS: Good air entry. Productive cough. CARDIOVASCULAR: S1, S2 regular. No murmur heard. ABDOMEN: Soft, non tender, bowel sounds present, no organomegaly. PEG site is clean CENTRAL NERVOUS SYSTEM: Intellectual disability. SKIN: No rashes, no swelling. LYMPHATICS: No peripheral lymphadenopathy. MUSCULOSKELETAL: No joint swelling, erythema or tenderness. EXTREMITIES: No cyanosis or clubbing. BACK: No deformity, no pressure ulcer. GENITOURINARY: No dysuria or hematuria. Incontinence. Vital Sign (Last 12 Hours) 12/25/24 12/25/24 12/25/24 12/25/24 12:00 16:00 19:00 19:24 Temp 97.3 97.3 Pulse 119 115 104 Resp 18 19 21 B/P (MAP) 99/61 110/75 Pulse Ox 96 95 99 O2 Delivery Room Air Room Air Room Air* O2 Flow Rate 0 FiO2 21 12/25/24 12/25/24 19:25 20:00 Temp 97.2 Pulse 104 98 Resp 21 18 B/P (MAP) 120/71 Pulse Ox 97 O2 Delivery N/A Room Air Room Air FiO2 21 Intake & Output (last 24hrs) 12/24/24 12/24/24 12/25/24 15:00 23:00 07:00 Output Total 700 ml Balance -700 ml LABS: Laboratory: Test 12/25/24 20:03 12/25/24 16:22 12/25/24 05:05 Range/Units Whole Blood Glucose 126 #H 70-110 MG/DL Bedside Glucose Comment Notified Nurse White Blood Count 5.8 4.8-10.8 K/uL Red Blood Count 3.00 L 4.00-5.50 MIL/uL Hemoglobin 9.5 L 12.0-16.0 g/dL Hematocrit 28.2 L 36-48 % Mean Corpuscular Volume 94.0 79-99 fL Mean Corpuscular Hemoglobin 31.7 27.0-33.0 pg Mean Corpuscular Hemoglobin Concent 33.7 32.0-36.0 g/dL Red Cell Distribution Width 13.7 11.0-15.5 % Platelet Count 132 130-400 K/uL Mean Platelet Volume 9.6 7.5-10.5 fL Immature Granulocyte % (Auto) 0.9 0-1 % Neutrophils (%) (Auto) 78.1 H 40.0-77.0 % Lymphocytes (%) (Auto) 15.6 L 21.0-51.0 % Monocytes (%) (Auto) 4.3 3.0-13.0 % Eosinophils (%) (Auto) 0.9 0.0-8.0 % Basophils (%) (Auto) 0.2 0.0-5.0 % Neutrophils # (Auto) 4.6 1.8-7.7 K/uL Lymphocytes # (Auto) 0.9 L 1.0-4.8 K/uL Monocytes # (Auto) 0.3 0.1-1.0 K/uL Eosinophils # (Auto) 0.05 0.00-0.70 K/uL Basophils # (Auto) 0.01 0.00-0.20 K/uL Absolute Immature Granulocyte (auto 0.05 0-1 K/uL Nucleated Red Blood Cells 0.0 0.0-0.19 % Sodium Level 143 136-145 mmol/L Potassium Level 3.9 3.5-5.1 mmol/L Chloride Level 109 101-111 mmol/L Carbon Dioxide Level 33 H 21-32 mmol/L Blood Urea Nitrogen 10 7-18 mg/dL Creatinine 0.3 L 0.5-1.0 mg/dL Glomerular Filtration Rate Calc 136 >90 mL/min Random Glucose 112 H 70-105 mg/dL Total Calcium 7.9 L 8.5-10.1 mg/dL Phosphorus Level 2.0 L 2.5-4.9 mg/dL Magnesium Level 2.40 1.80-2.40 mg/dL ASSESSMENT: Urinary tract infection with Proteus mirabilis. Aspiration Pneumonia. Septic shock, resolving. Right lung cavitary lesions, status post bronchoscopy, TB ruled out. Thrombocytopenia, resolved. Failure to thrive, status post PEG tube placement. Debility PLAN: Continue Zosyn IV. Continue GI prophylaxis. . Continue monitoring electrolytes. Continue nutritional support, currently on tube feedings with Jevity 1.5. This case was reviewed and discussed with my supervising physician and the above assessment and plan was formulated and agreed upon. ATTESTATION BY PHYSICIAN I have seen and examined the patient. I reviewed the documentation, medical decision making, and treatment plan as noted by the mid-level provider above. I agree with the findings and plan of care. IGNACIA MARTI MD, [facility] December 25, 2024 23:37
[2024-12-26] VITALS (12 sets, daily range): BP systolic 105–133; BP diastolic 69–93; PULSE 103–121; RESP 18–21; TEMP 97–98.3; O2SAT 97–98
--- NOTE | 2024-12-26 02:10 | NUR ---
nurse pm note patient alert, but nonverbal. plan of care discussed with her and she looks away. Patient has been calm without trying to pull at anything. She has slept about 5 hours tonight. fernandez Santoyo, and I move her on her sides every 2-3 hours to prevent more skin breakdown. Patient had a liquid brown stool on 12/25/24. I changed her dressing on her left hip with ns, pat dry, medihoney and allevyn foam. Door open, bed alarm on, 2 side rails up. will continue to monitor patient.
[2024-12-26 04:33] LABS: BASOPHILS # (AUTO) 0.01 K/uL (0.00-0.20); BASOPHILS % (AUTO) 0.2 % (0.0-5.0); EOSINOPHILS # (AUTO) 0.07 K/uL (0.00-0.70); EOSINOPHILS % (AUTO) 1.3 % (0.0-8.0); HEMATOCRIT 24.9 % (36-48); IMMATURE GRANULOCYTE ABSOLUTE 0.06 K/uL (0-1); LYMPHOCYTES % (AUTO) 17.4 % (21.0-51.0); MEAN CORPUSCULAR HEMOGLOBIN 31.3 pg (27.0-33.0); MEAN CORPUSCULAR HGB CONC 33.7 g/dL (32.0-36.0); MEAN CORPUSCULAR VOLUME 92.9 fL (79-99); MONOCYTES # (AUTO) 0.3 K/uL (0.1-1.0); MONOCYTES % (AUTO) 5.2 % (3.0-13.0); NEUTROPHILS # (AUTO) 4.2 K/uL (1.8-7.7); NEUTROPHILS % (AUTO) 74.8 % (40.0-77.0); PLATELET COUNT (AUTO) 151 K/uL (130-400); RED BLOOD CELL COUNT(AUTO) 2.68 MIL/uL (4.00-5.50); RED CELL DISTRIBUTION WIDTH 13.9 % (11.0-15.5); WHITE BLOOD COUNT (AUTO) 5.6 K/uL (4.8-10.8)
[2024-12-26 04:55] LABS: ALBUMIN 1.5 g/dL (3.5-5.0); BILIRUBIN,TOTAL 0.3 mg/dL (0.2-1.0); CREATININE 0.3 mg/dL (0.5-1.0); MAGNESIUM 1.8 mg/dL (1.80-2.40); POTASSIUM 4.1 mmol/L (3.5-5.1); TOTAL PROTEIN, SERUM 4.3 g/dL (6.0-8.3)
[2024-12-26] MEDS ORDERED: POLY17PO4 PO (12:07)
[2024-12-26] MEDS ORDERED: MVIT PO (12:07)
[2024-12-26] MEDS ORDERED: MIDO5TAB4 PO (12:07)
[2024-12-26] MEDS ORDERED: FOLI1 PO (12:07)
[2024-12-26] MEDS ORDERED: HONE44PA TP (12:07)
--- NOTE | 2024-12-26 12:40 | PN ---
GASTROENTEROLOGY PROGRESS NOTE Date of Visit: December 26, 2024 Time of Visit: 12:40 Events / Notes: No acute events overnight. TB ruled out. Denies fever, chills, abdominal pain, N/V, hematemesis, bloating, constipation, diarrhea, melena or hematochezia. Review of Systems: CONSTITUTIONAL: No malaise or change in sensation of wellbeing. ENMT: No rhinorrhea, otorrhea, sinus pain, ear ache. CARDIOVASCULAR: No angina, palpitations, orthopnea or paroxysmal dyspnea. RESPIRATORY: No SOB. GASTROINTESTINAL: No abdominal pain, nausea, vomiting, diarrhea, hematemesis, melena or change in the patient's habitual bowel movements consistency/number. GENITOURINARY: No dysuria, hematuria or change in bladder continence. MUSCULOSKELETAL: No new muscle pain or decrease in muscular strength. No new joint swelling, redness or tenderness. SKIN: No new rash. Physical Exam: GEN: Awake, alert, oriented in person, time and place, and in no acute distress. HEENT: No sinus tenderness. Tympanic membranes were not examined. No rhinorrhea. Oral pharyngeal mucosa is pink, moist and within normal limits. Neck is supple with no cervical lymphadenopathy, thyromegaly or JVD. CHEST: Inspection, palpation and percussion of the chest were unremarkable. Lung auscultation revealed normal breath sounds bilaterally. CARDIAC: PMI is within normal limits. Heart sounds are regular. Normal S1, S2. No gallop or murmur. ABD: Soft, non-tender and not distended. No peritoneal signs on palpation. No organomegaly. Normal bowel sounds. EXT: No cyanosis or clubbing. No edema. SKIN: Intact. No rashes. JOINTS: No evidence of synovitis or acute arthritis. NEURO: Alert and oriented to name, place and person. Cranial nerve examination is unremarkable. No focal motor deficits. Normal speech. Gait is normal. Strength is normal. Vital Signs (last 8hr) Date Time Temp Pulse Resp B/P (MAP) Pulse Ox O2 Delivery O2 Flow Rate FiO2 12/26/24 11:50 97.5 103 20 129/93 95 Room Air 12/26/24 07:50 97.2 114 20 106/75 96 Room Air 12/26/24 06:41 106 21 N/A Room Air 21 12/26/24 06:26 105 20 Laboratory: [ ] Laboratory: Test 12/26/24 11:15 12/26/24 04:04 12/25/24 16:22 12/25/24 05:05 Range/Units Whole Blood Glucose 128 #H 70-110 MG/DL White Blood Count 5.6 4.8-10.8 K/uL Red Blood Count 2.68 L 4.00-5.50 MIL/uL Hemoglobin 8.4 L 12.0-16.0 g/dL Hematocrit 24.9 L 36-48 % Mean Corpuscular Volume 92.9 79-99 fL Mean Corpuscular Hemoglobin 31.3 27.0-33.0 pg Mean Corpuscular Hemoglobin Concent 33.7 32.0-36.0 g/dL Red Cell Distribution Width 13.9 11.0-15.5 % Platelet Count 151 130-400 K/uL Mean Platelet Volume 9.7 7.5-10.5 fL Immature Granulocyte % (Auto) 1.1 H 0-1 % Neutrophils (%) (Auto) 74.8 40.0-77.0 % Lymphocytes (%) (Auto) 17.4 L 21.0-51.0 % Monocytes (%) (Auto) 5.2 3.0-13.0 % Eosinophils (%) (Auto) 1.3 0.0-8.0 % Basophils (%) (Auto) 0.2 0.0-5.0 % Neutrophils # (Auto) 4.2 1.8-7.7 K/uL Lymphocytes # (Auto) 1.0 1.0-4.8 K/uL Monocytes # (Auto) 0.3 0.1-1.0 K/uL Eosinophils # (Auto) 0.07 0.00-0.70 K/uL Basophils # (Auto) 0.01 0.00-0.20 K/uL Absolute Immature Granulocyte (auto 0.06 0-1 K/uL Nucleated Red Blood Cells 0.0 0.0-0.19 % Sodium Level 146 H 136-145 mmol/L Potassium Level 4.1 3.5-5.1 mmol/L Chloride Level 111 101-111 mmol/L Carbon Dioxide Level 37 H 21-32 mmol/L Blood Urea Nitrogen 6 L 7-18 mg/dL Creatinine 0.3 L 0.5-1.0 mg/dL Glomerular Filtration Rate Calc 136 >90 mL/min Random Glucose 76 70-105 mg/dL Total Calcium 7.8 L 8.5-10.1 mg/dL Magnesium Level 1.80 1.80-2.40 mg/dL Total Bilirubin 0.3 0.2-1.0 mg/dL Aspartate Amino Transf (AST/SGOT) 33 10-37 U/L Alanine Aminotransferase (ALT/SGPT) 71 12-78 U/L Alkaline Phosphatase 111 50-136 U/L Total Protein 4.3 L 6.0-8.3 g/dL Albumin 1.5 L 3.5-5.0 g/dL Bedside Glucose Comment Notified Nurse Phosphorus Level 2.0 L 2.5-4.9 mg/dL Current Medications Medications (Trade) Dose Ordered Sig/Castillo Route PRN Reason Start Time Stop Time Status Last Admin Dose Admin Acetaminophen (TYLenol 325MG ELIXIR) 325 mg Q6H PRN PO MILD PAIN (1-3) 12/13/24 15:00 01/12/25 14:59 12/24/24 16:02 325 MG Acetaminophen (TYLenol 500MG TAB) 500 mg Q4PRN PRN PO FEVER 12/15/24 10:30 12/18/24 06:36 DC Acetaminophen (TYLenol 500MG TAB) 500 mg Q4PRN PRN PO PAIN 12/15/24 10:30 12/18/24 06:37 DC Acetylcysteine (MUComyst 20% 4ML) 400mg = 2ml [id number] IH 12/14/24 18:00 12/19/24 11:38 DC 12/19/24 11:23 800 MG Albumin Human 50 ml @ 0 mls/hr AD IV 12/14/24 10:00 12/18/24 06:39 DC 12/14/24 11:14 50 MLS/HR Albuterol (DUOneb) 1 udvial Q6H PRN IH SHORTNESS OF BREATH 12/13/24 15:30 12/19/24 11:38 DC 12/19/24 11:23 1 UDVIAL Bisacodyl (DulcoLAX) 10 mg DAILY RC 12/16/24 09:00 12/19/24 08:59 DC 12/18/24 09:25 10 MG Budesonide (Pulmicort 0.5 Mg/2ml) 0.5 mg BIDRESP IH 12/13/24 18:00 01/12/25 17:59 12/26/24 06:26 0.5 MG Buspirone HCl (BUspar) 15 mg TID PO 12/15/24 14:00 01/14/25 13:59 12/26/24 11:08 15 MG Dextrose 500 ml @ 0 mls/hr Q0M IV 12/16/24 12:30 12/17/24 07:15 DC 12/16/24 12:30 999 MLS/HR Dextrose 1,000 ml @ 75 mls/hr [id number] IV 12/13/24 15:00 12/16/24 14:30 DC 12/16/24 10:16 75 MLS/HR Dextrose 1,000 ml @ 75 mls/hr [id number] IV 12/17/24 01:00 12/17/24 07:15 DC 12/17/24 00:50 75 MLS/HR Dextrose (D50w) 50 ml AD PRN IV HYPOGLYCEMIA PROTOCOL 12/13/24 15:00 01/12/25 14:59 12/17/24 00:00 50 ML Dextrose/Sodium Chloride 500 ml @ 75 mls/hr Q6H40M IV 12/17/24 07:30 12/17/24 07:20 DC Dextrose/Sodium Chloride 500 ml @ 75 mls/hr Q6H40M IV 12/17/24 07:30 01/16/25 07:29 12/26/24 05:29 75 MLS/HR Doxycycline Hyclate 250 ml @ 125 mls/hr Q12H IV 12/13/24 15:30 12/17/24 07:20 DC 12/17/24 03:24 125 MLS/HR Enoxaparin Sodium (Lovenox) 30 mg DAILY SQ 12/14/24 09:00 12/15/24 09:05 DC 12/14/24 08:46 30 MG Enoxaparin Sodium (Lovenox) 30 mg DAILY SQ 12/16/24 09:00 12/15/24 13:22 DC Enoxaparin Sodium (Lovenox) 30 mg DAILY SQ 12/20/24 09:00 01/19/25 08:59 12/26/24 11:10 30 MG Folic Acid (FOLic ACID 1 MG TABLET) 1 mg DAILY PO 12/18/24 09:00 01/17/25 08:59 12/26/24 11:08 1 MG Glucagon (Glucagon 1mg Kit) 1 mg AD PRN IM HYPOGLYCEMIA PROTOCOL 12/13/24 15:00 01/12/25 14:59 Guaifenesin/ Dextromethorphan (RobiTUSSin DM 200/20MG 10ML) 10 ml Q4H PRN PO COUGH 12/15/24 11:00 01/14/25 10:59 Home Med (Home Medication) (Cholecalciferol (Vitamin D3) 25 MCG) DAILY PO 12/16/24 09:00 01/15/25 08:59 Lactated Ringer's 1,000 ml @ 75 mls/hr [id number] IV 12/16/24 23:30 12/17/24 00:30 DC 12/16/24 23:34 75 MLS/HR Lactated Ringer's 1,000 ml @ 100 mls/hr Q10H IV 12/13/24 15:00 12/13/24 15:18 DC Lactated Ringer's (Lactated Ringers 1000ml) 500 ml BOLUS IV 12/17/24 00:30 12/18/24 06:39 DC Leptospermum Honey (Medihoney) 1 appl DAILY TP 12/15/24 09:00 01/14/25 08:59 12/26/24 11:10 1 APPL Lorazepam (AtiVAN) 0.5 mg DAILYDINNER PO 12/15/24 17:00 01/14/25 16:59 12/25/24 15:53 0.5 MG Magnesium Sulfate 50 ml @ 0 mls/hr PROTOCOL IV 12/13/24 21:30 01/12/25 21:29 12/26/24 05:29 15 MLS/HR Meropenem (Merrem 1gm) 1 gm Q8H IVPB 12/13/24 16:00 12/17/24 07:37 DC 12/16/24 23:45 1 GM Metoprolol Tartrate (loprESSOR) 12.5 mg BID PO 12/25/24 12:30 12/25/24 12:39 DC Midodrine (PROAMatine 5 MG TABLET) 5 mg TID PO 12/25/24 14:00 01/24/25 13:59 12/26/24 11:09 5 MG Miscellaneous Medication (Ondansetron HCl ) 8 mg TID PO 12/15/24 14:00 12/15/24 10:43 DC Multivitamins Therapeutic (Multivitamin Tablet) 1 tab DAILY PO 12/18/24 09:00 01/17/25 08:59 12/26/24 11:08 1 TAB Norepinephrine 250 ml @ 0 mls/hr PROTOCOL IV 12/13/24 14:30 12/15/24 14:26 DC 12/14/24 07:35 25.3 MLS/HR Ondansetron HCl (zoFRAN 4MG INJ) 4 mg Q6H PRN IVP NAUSEA/VOMITING 12/13/24 16:30 01/12/25 16:29 Pantoprazole Sodium (PROTonix 40MG INJ) 40 mg Q24H IVP 12/13/24 15:00 01/12/25 14:59 12/25/24 15:41 40 MG Pharmacy Profile Note (Pharmacy Communication) 1 each ONCE MISC 12/13/24 15:00 12/13/24 15:28 DC Pharmacy Profile Note (Pharmacy Communication) 1 each ONCE MISC 12/17/24 07:30 12/17/24 08:12 DC Pharmacy Profile Note (Pharmacy Communication) 1 each ONCE MISC 12/18/24 08:00 12/18/24 08:29 DC Piperacillin Sod/ Tazobactam Sod (Zosyn 3.375gm+NS 50ml) 3.375 gm Q8H IV 12/17/24 08:00 12/26/24 10:59 DC 12/26/24 09:02 3.375 GM Polyethylene Glycol (MIRalax 3350 17 GM POWD.PACK) 17 gm DAILY PO 12/16/24 09:00 01/15/25 08:59 12/26/24 11:09 17 GM Potassium Phosphate 250 ml @ 42 mls/hr PROTOCOL IV 12/15/24 05:30 12/15/24 10:19 DC 12/15/24 05:59 42 MLS/HR Potassium Chloride 100 ml @ 50 mls/hr AD PRN IV POTASSIUM PROTOCOL 12/13/24 21:30 01/12/25 21:29 12/18/24 05:55 50 MLS/HR Potassium Chloride 100 ml @ 50 mls/hr AD PRN IV POTASSIUM PROTOCOL 12/15/24 14:30 12/18/24 06:39 DC Potassium Chloride 100 ml @ 100 mls/hr AD PRN IV POTASSIUM PROTOCOL 12/15/24 14:30 12/18/24 06:39 DC Potassium Chloride (K-Dur/Klor-Con 20meq) 20 meq AD PRN PO POTASSIUM PROTOCOL 12/15/24 14:30 01/14/25 14:29 Potassium Chloride (KCl 10% Elixir 20meq/15ml) 20 meq AD PRN PO POTASSIUM PROTOCOL 12/15/24 14:30 01/14/25 14:29 12/23/24 20:33 20 MEQ Potassium Chloride (KCl 10% Elixir 20meq/15ml) 40 meq BID PO 12/18/24 09:00 12/18/24 21:01 DC 12/18/24 21:06 40 MEQ Quetiapine Fumarate (SEROquel 100 mg TAB) 200 mg BID PO 12/15/24 21:00 01/14/25 20:59 12/26/24 11:12 200 MG Sodium Chloride 1,000 ml @ 75 mls/hr [id number] IV 12/16/24 14:30 12/16/24 22:18 DC 12/16/24 15:08 75 MLS/HR Sodium Phosphate 15 mmol/Sodium Chloride 250 ml @ 62.5 mls/hr PROTOCOL IV 12/20/24 09:00 12/20/24 08:52 DC Sodium Phosphate 15 mmol/Sodium Chloride 250 ml @ 62.5 mls/hr PROTOCOL IV 12/20/24 09:00 01/19/25 08:59 12/24/24 13:15 62.5 MLS/HR Thiamine HCl (Vitamin B-1) 300 mg Q24H IVP 12/13/24 15:00 01/12/25 14:59 12/25/24 15:42 300 MG Venlafaxine HCl (EffEXOR XR 37.5mg CAP) 75 mg DAILY PO 12/16/24 09:00 01/15/25 08:59 12/26/24 11:09 75 MG Diagnostics / Radiology: [COPY/PASTE HERE IF NO REPORTS PLEASE DELETE SECTION] Assessment: Failure to thrive Microcephaly Scoliosis Plan: Continue GI prophylaxis Advance feedings as tolerated Avoid NSAIDs Antireflux measures Monitor H&H and transfuse as needed Call with questions, concerns or change in clinical status Patient to follow-up at clinic post discharge Thank you for this consult ZHAO 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
--- NOTE | 2024-12-26 12:56 | DS ---
Discharge Summary Hospital Course Summary: The 44-year-old nonverbal female with history of severe intellectual disability, scoliosis, cerebral palsy, attention deficit hyperactive disorder, history of microcephaly, history of oppositional defiant disorder with aggression, severe contracture of bilateral upper and lower extremity, currently a long term patient, who presented to the ER for further evaluation of significant obtundation/lethargy, poor oral intake and clinical decline. Patient is obtunded out and unable to participate in any history at all. shelter nurse present at bedside who states that patient has been having poor oral intake over the past 2-3 days. She was seen by her PCP today and was referred to the ER for further evaluation. At baseline, patient is awake, nonverbal and very fidgety per the nursing staff. She does not follow commands and she has no history of seizures. Patient to the hospital, patient was noted to be hypothermic and hypotensive. She received 1 L of IV fluids with NS, she was placed on a Halina Hugger and she receive broad-spectrum antibiotics with IV Rocephin. Chest x-ray showed concerns for developing right upper lobe pneumonia, urinalysis showed turbid urine with large amount of leukocyte esterase, pyuria, bacteriuria concerning for UTI. Labs on presentation showed WBC count of 9300, hemoglobin of 13.2, platelet count of 573000. BMP remarkable for sodium of 150, potassium 3.6, chloride of 116, BUN of 47, creatinine of 0.6, alkaline phosphatase of 151, lactic acid of 1.0, ammonia of 43. Patient will be admitted for further management of suspected septic shock with hypothermia, UTI, pneumonia. Patient will be admitted to ICU, patient also noted to have unstageable pressure ulcer involving the left hip, Wound Care will be requested. Patient will receive broad-spectrum IV antibiotics, fluid resuscitation, and we will monitor this patient closely per we will obtain CT head without contrast and CT chest/ abdomen.] 12/14 patient seen at bedside, no acute events overnight. Patient was seen at bedside, she does not participate in the medical interview. She does not appear to be in any acute distress. She is on pressors, we will continue to wean as able. Sodium improved from 150 down to 146, remainder of her labs are relatively unremarkable. Urine growing bacteria, we will continue with empiric antibiotics 12/15/24 Patient sen and examined. Care discussed with RN No acute overnight events. Follow cultures/continue antibiotics. 12/16 patient seen at bedside, no acute events overnight. Pulmonology was pending bronchoscopy to obtain samples to test for tuberculosis however patient became hypothermic and somnolent. Repeat labs, ABG were ordered however no abnormalities were noted. Lactic acid was normal, sodium had mildly decreased from 142 down to 134, ammonia was within normal limits. She was started on a Halina Hugger and bolused fluids, her temperature began to improve and she was more awake. Her phosphorus is low at 1.8 and given her constitution this is concerning for refeeding syndrome, we will continue to monitor closely. 12/16/24 weight shifter: Charge nurse RN called me with concern for patient due to patient being tachycardic heart rate 120-130s and a temperature of 93.6� rectal. RN reports blood pressure 109/65, respirations, 98% on nasal cannula. RN reports that patient has was a rapid response earlier, has been on the Halina Hugger all day with no improvement of the temperature, and now is tachycardic. I went to assess the patient at bedside. The patient's breathing was even, unlabored, and lethargic. The patient is nonverbal, moans with touch. The patient was receiving feedings per NG and IV fluids. Stat ABGs, blood work were done. Remarkable lab results: Lactic acid increased from 1.04 to 1.59. Phos was 1.6, magnesium 1.9, total protein 4.3, albumin 1.6. ABGs on room air: PO2 58.4, ABG O2 saturation 89.2. (PO2 this morning was 91.5). The patient was placed back on 2 L nasal cannula, increased bear hugger to 30� C from 32� C. Electrolytes were replaced. Telemetry pack was order. We will continue monitoring patient closely. 12/17/2024 0315: Addendum: Reassessed the patient multiple times. Her temperature improved, remained tachycardic, despite a total of a 1500 mL bolus of LR. BP ranging systolic 98-105. The patient had a hypoglycemic episode at 11:54 p.m., blood glucose was 51, despite being of feedings. Change fluids to D5 W at 75 mL an hour. We will continue monitoring patient closely. 06:00 Reassessed the patient before off of my shift HR had improved to 112-116. b/p low 100s systolic. 12/17 patient seen at bedside, temperature has improved. She continues to be tachycardic, hemodynamically stable saturating well on room air. Hemoglobin stable at 10.1, similar to yesterday, her phosphate is very low at 1.1. She is much more awake and interactive today compared to yesterday. The constellation of symptoms with hypothermia, tachycardia and even the altered mental status are likely secondary to refeeding syndrome. The patient is not septic, her ammonia is at normal levels, lactic acid is at normal levels, CO2 is at normal levels she has been adequately resuscitated with fluids. She will be repleted with IV phosphate, her tube feeds we will be reduced to trickle feeds at 10 cc/hour before attempting to increase the feed rate. If her tachycardia improves with these changes then tomorrow we will attempt to increase the rate of her tube feeds. 12/18 patient seen at bedside, no acute events overnight. Her tachycardia has improved, hypothermia improving, she is awake today in no acute distress. Pending bronchoscopy later today to take samples for ruling out TB. Once completed we will resume trickle feeds. Today potassium, phosphate and magnesium were all low, we will be repleted. This is likely secondary to refeeding syndrome. 12/19 patient seen at bedside, no acute events overnight. Patient is still having hypothermia and tachycardia ranging from 81 up to 130, labs relatively unremarkable. Repeat mg and phos tomorrow, will begin to titrate up tube feedings 12/20 patient seen at bedside, no acute events overnight. Preliminary TB cultures are no growth to date, GI contacted for PEG tube placement. Her temperature has been improved, she has been hemodynamically stable, tachycardia is improving. We will begin to titrate up her tube feeds. 12/21 patient is pending PEG tube placement today, we will follow up postprocedure, vitals and labs relatively unremarkable. 12/22 patient seen at bedside, no acute events overnight. Peg tube was not placed yesterday, rescheduled for today, we will follow up postprocedure. Patient is in no acute distress, hemodynamically stable, labs relatively unremarkable. 12/23 patient seen at bedside, no acute events overnight. Peg tube successfully placed yesterday, tube feeds will be restarted. Once she has been stabilized on nutrition we will be good candidate to discharge back to long term. Repeat labs today still show low phosphate, low magnesium and low potassium, consistent with refeeding syndrome 12/24 Pt continues with episodes of hypothermia and tachycardia that correspond to low phosphate, magnesium and potassium, consistent with refeeding syndrome. Will continue with tube feeds, replete electrolytes and observation. Once tolerating feeds and stable will be good candidate for discharge back to long term 12/25 patient is seen and examined at bedside, remains mildly tachycardic, electrolytes has been replaced, getting nutritional support via PEG tube. Home medications reviewed, the patient on metoprolol tartrate 25 mg p.o. b.i.d.. However per my discussion with the nurse, patient's blood pressure has remained in the soft side. We will continue with IV fluids, we will start the patient on midodrine 5 mg p.o. t.i.d., we will continue close monitoring of the patient's heart rate, electrolytes in a.m. and replace IV per protocol. If medically stable anticipate discharge to long term in the next 24 hours. 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): GI and Infectious Disease Assessment/Plan: FINAL DIAGNOSIS Hypothermia, POA, in need of bare hugger, improving Acute hypoxemic respiratory failure, resolved, POA Refeeding syndrome, POA Recurrent hypoglycemic episodes Septic shock, POA (2/2 community-acquired pneumonia and complicated UTI) Toxic metabolic encephalopathy with obtundation, POA Community-acquired pneumonia with acute hypoxemic respiratory failure, POA Acute complicated cystitis, POA Frailty/debility, POA Acute UTI, Proteus, POA History of chronic contractures of bilateral lower extremities, POA Unstageable decubitus ulcer involving the left hip, POA Cachexia, POA History of severe intellectual disability, POA History of scoliosis, POA History of microcephaly, POA History of ADHD, POA History of aggression, POA Discharge Instructions: Possible discharge to long term today. Home Medications: Reported Medications Guaifenesin/Dextromethorphan (Robitussin Cough-Chest Dm Liq) 100 Mg-5 Mg/5 Ml Liquid, 10 ML PO Q4HPRN for COUGH AND CONGESTION, #210 ML 0 Refills 12/15/24 Ondansetron HCl (Ondansetron HCl) 8 Mg Tablet, 8 MG PO TID, TAB 12/15/24 Acetaminophen (Tylenol) 500 Mg Tab, 500 MG PO Q4PRN PRN for PAIN, TAB 12/15/24 Acetaminophen (Tylenol) 500 Mg Tab, 500 MG PO Q4PRN PRN for FEVER, TAB 12/15/24 Cholecalciferol (Vitamin D3) (Vitamin D3) 25 Mcg (1000 Unit) Tablet, 25 MCG PO DAILY, TAB 12/15/24 Venlafaxine HCl (Venlafaxine HCl ER) 75 Mg Cap.er.24h, 75 MG PO DAILY, C ASHU.DR 12/15/24 Quetiapine Fumarate (Quetiapine Fumarate) 200 Mg Tablet, 200 MG PO BID, TAB 12/15/24 Metoprolol Tartrate (Metoprolol Tartrate) 25 Mg Tablet, 1 TAB PO BID for 30 Days, #60 TAB 0 Refills 12/15/24 Lorazepam (Ativan) 0.5 Mg Tablet, 0.5 MG PO DAILYDINNER, TAB 12/15/24 Buspirone HCl (Buspar) 15 Mg Tab, 1 TAB PO TID for 30 Days, #60 TAB 0 Refills 12/15/24 Time spent arranging discharge: 31-60 minutes JOLENE GARCIAS MD December 26, 2024 12:56
--- NOTE | 2024-12-26 13:56 | NUR ---
[facility] Follow-up: Patient re-assessed by wound healing team. See wound assessment. Assessment and recommendations provided to primary nurse. Education provided. Wound care done. Addendum: 12/26/24 at 1639 by ALESSIO BAKER RN RN/ Amended: Links added.
[2024-12-26] MEDS: NEUtra-PHOS PACKET 1 EACH PO ONE (14:42)
--- NOTE | 2024-12-26 14:51 | PN ---
INFECTIOUS DISEASE PROGRESS NOTE Date of Service: December 26, 2024 SUBJECTIVE: This is a 44 year old female patient who is being seen today at bedside. Patient is status post EGD with peg placement on 12/21/2024. No episodes of nausea or vomiting reported. Continues on bolus feedings. Remains afebrile, temperature is 97.5�. From Infectious Disease standpoint no antibiotics needed on discharge. PHYSICAL EXAM EYES: Anicteric. Pupils equal and reactive. HENT: No oral thrush seen, moist Oral mucosa. NECK: Supple, no JVD or thyromegaly. LUNGS: Good air entry. Productive cough. CARDIOVASCULAR: S1, S2 regular. No murmur heard. ABDOMEN: Soft, non tender, bowel sounds present, no organomegaly. PEG tube. CENTRAL NERVOUS SYSTEM: Intellectual disability. SKIN: No rashes, no swelling. LYMPHATICS: No peripheral lymphadenopathy. MUSCULOSKELETAL: No joint swelling, erythema or tenderness. EXTREMITIES: No cyanosis or clubbing. BACK: No deformity, no pressure ulcer. GENITOURINARY: No dysuria or hematuria. Incontinence. Vital Sign (Last 12 Hours) 12/26/24 12/26/24 12/26/24 12/26/24 04:00 06:26 06:41 07:50 Temp 97.5 97.2 Pulse 107 105 106 114 Resp 18 20 21 20 B/P (MAP) 113/69 106/75 Pulse Ox 94 96 O2 Delivery Room Air N/A Room Air Room Air FiO2 21 12/26/24 11:50 Temp 97.5 Pulse 103 Resp 20 B/P (MAP) 129/93 Pulse Ox 95 O2 Delivery Room Air Intake & Output (last 24hrs) 12/25/24 12/25/24 12/26/24 14:59 22:59 06:59 Intake Total 497 ml 1457.0 ml Output Total 1250 ml 800 ml Balance 497 ml -1250 ml 657.0 ml LABS: Laboratory: Test 12/26/24 11:15 12/26/24 04:04 12/25/24 16:22 12/25/24 05:05 Range/Units Whole Blood Glucose 128 #H 70-110 MG/DL White Blood Count 5.6 4.8-10.8 K/uL Red Blood Count 2.68 L 4.00-5.50 MIL/uL Hemoglobin 8.4 L 12.0-16.0 g/dL Hematocrit 24.9 L 36-48 % Mean Corpuscular Volume 92.9 79-99 fL Mean Corpuscular Hemoglobin 31.3 27.0-33.0 pg Mean Corpuscular Hemoglobin Concent 33.7 32.0-36.0 g/dL Red Cell Distribution Width 13.9 11.0-15.5 % Platelet Count 151 130-400 K/uL Mean Platelet Volume 9.7 7.5-10.5 fL Immature Granulocyte % (Auto) 1.1 H 0-1 % Neutrophils (%) (Auto) 74.8 40.0-77.0 % Lymphocytes (%) (Auto) 17.4 L 21.0-51.0 % Monocytes (%) (Auto) 5.2 3.0-13.0 % Eosinophils (%) (Auto) 1.3 0.0-8.0 % Basophils (%) (Auto) 0.2 0.0-5.0 % Neutrophils # (Auto) 4.2 1.8-7.7 K/uL Lymphocytes # (Auto) 1.0 1.0-4.8 K/uL Monocytes # (Auto) 0.3 0.1-1.0 K/uL Eosinophils # (Auto) 0.07 0.00-0.70 K/uL Basophils # (Auto) 0.01 0.00-0.20 K/uL Absolute Immature Granulocyte (auto 0.06 0-1 K/uL Nucleated Red Blood Cells 0.0 0.0-0.19 % Sodium Level 146 H 136-145 mmol/L Potassium Level 4.1 3.5-5.1 mmol/L Chloride Level 111 101-111 mmol/L Carbon Dioxide Level 37 H 21-32 mmol/L Blood Urea Nitrogen 6 L 7-18 mg/dL Creatinine 0.3 L 0.5-1.0 mg/dL Glomerular Filtration Rate Calc 136 >90 mL/min Random Glucose 76 70-105 mg/dL Total Calcium 7.8 L 8.5-10.1 mg/dL Magnesium Level 1.80 1.80-2.40 mg/dL Total Bilirubin 0.3 0.2-1.0 mg/dL Aspartate Amino Transf (AST/SGOT) 33 10-37 U/L Alanine Aminotransferase (ALT/SGPT) 71 12-78 U/L Alkaline Phosphatase 111 50-136 U/L Total Protein 4.3 L 6.0-8.3 g/dL Albumin 1.5 L 3.5-5.0 g/dL Bedside Glucose Comment Notified Nurse Phosphorus Level 2.0 L 2.5-4.9 mg/dL ASSESSMENT: Urinary tract infection with Proteus mirabilis. Aspiration Pneumonia. Septic shock, resolving. Right lung cavitary lesions, status post bronchoscopy, TB ruled out. Thrombocytopenia, resolved. Failure to thrive, status post PEG tube placement. Debility PLAN: No antibiotics needed on discharge. Continue GI prophylaxis. Continue nutritional support, currently on tube feedings with Jevity 1.5. This case was reviewed and discussed with my supervising physician and the above assessment and plan was formulated and agreed upon. ATTESTATION BY PHYSICIAN I have seen and examined the patient. I reviewed the documentation, medical decision making, and treatment plan as noted by the mid-level provider above. I agree with the findings and plan of care. IGNACIA MARTI MD, [facility] December 26, 2024 14:51
--- NOTE | 2024-12-26 16:01 | NUR ---
Nutritional f/u Note: Chart, meds, and labs Reviewed. Patient is status post EGD with peg placement on 12/21/2024. Patient is tolerating PEG tube bolus feedings well. Wt Status: current wt 31kg admit wt 29kg. Recommend: -Continue TF Jevity 1.5 3 cans/day with 110ml H20 flush before and after each feeding. -Add extra 200ml H2o flush daily -RD to provide further recommendations based on clinical progress. -Monitor feeding tolerance, %, wt, and labs -If No BM >3days consider bowel stimulant. - Please notify RD if additional nutrition concerns arise. Addendum: 12/26/24 at [address] Amended: Links added.
--- NOTE | 2024-12-26 17:13 | NUR ---
[employer] FOR [employer]. SPOKE TO [facility] IN THE MORNING. SAID WANTED PHOSPORUS TO BE RECHECKED SINCE ITS LOW. SPOKE TO DR. GARCIAS GAVE OKAY FOR RECHECK. [employer] ALSO SENT FORMS FOR MD TO SIGN. DR. GARCIAS SIGNED. INFO SENT TO [employer] FORMS AND PHOS LEVELS. CM SPOKE TO DR. GARCIAS EXPLAINED THAT CM IS STILL WAITING FOR FORMULA TO BE APPROVED. CM LET NURSE KNOW ALSO THAT FORMULA APPROVAL IS STILL PENDING. DID SPEAK ABOUT BEING SENT HOME WITH SOME FORMULA ONCE AUTH RECEIVED AND ESTIMATED DELIVERY DATE ESTABLISHED. Addendum: 12/26/24 at 1717 by AMOL SUTTON RN CM Amended: Links added.
[2024-12-27] VITALS (7 sets, daily range): BP systolic 111–125; BP diastolic 67–87; PULSE 106–140; RESP 18–22; TEMP 97.5–97.6; O2SAT 90–97
--- NOTE | 2024-12-27 11:43 | PN ---
GASTROENTEROLOGY PROGRESS NOTE Date of Visit: December 27, 2024 Time of Visit: 11:43 Events / Notes: No acute events overnight. TB ruled out. Denies fever, chills, abdominal pain, N/V, hematemesis, bloating, constipation, diarrhea, melena or hematochezia. Review of Systems: CONSTITUTIONAL: No malaise or change in sensation of wellbeing. ENMT: No rhinorrhea, otorrhea, sinus pain, ear ache. CARDIOVASCULAR: No angina, palpitations, orthopnea or paroxysmal dyspnea. RESPIRATORY: No SOB. GASTROINTESTINAL: No abdominal pain, nausea, vomiting, diarrhea, hematemesis, melena or change in the patient's habitual bowel movements consistency/number. GENITOURINARY: No dysuria, hematuria or change in bladder continence. MUSCULOSKELETAL: No new muscle pain or decrease in muscular strength. No new joint swelling, redness or tenderness. SKIN: No new rash. Physical Exam: GEN: Awake, alert, oriented in person, time and place, and in no acute distress. HEENT: No sinus tenderness. Tympanic membranes were not examined. No rhinorrhea. Oral pharyngeal mucosa is pink, moist and within normal limits. Neck is supple with no cervical lymphadenopathy, thyromegaly or JVD. CHEST: Inspection, palpation and percussion of the chest were unremarkable. Lung auscultation revealed normal breath sounds bilaterally. CARDIAC: PMI is within normal limits. Heart sounds are regular. Normal S1, S2. No gallop or murmur. ABD: Soft, non-tender and not distended. No peritoneal signs on palpation. No organomegaly. Normal bowel sounds. EXT: No cyanosis or clubbing. No edema. SKIN: Intact. No rashes. JOINTS: No evidence of synovitis or acute arthritis. NEURO: Alert and oriented to name, place and person. Cranial nerve examination is unremarkable. No focal motor deficits. Normal speech. Gait is normal. Strength is normal. Vital Signs (last 8hr) Date Time Temp Pulse Resp B/P (MAP) Pulse Ox O2 Delivery O2 Flow Rate FiO2 12/27/24 07:17 97.5 106 18 118/87 96 Room Air 12/27/24 06:51 97.5 117 22 125/67 93 Room Air 12/27/24 06:45 111 20 N/A Room Air 12/27/24 06:44 111 20 Laboratory: [ ] Laboratory: Test 5/7/25 06:20 12/26/24 16:25 12/26/24 04:04 12/25/24 16:22 Range/Units Whole Blood Glucose 70 70-110 MG/DL Phosphorus Level 2.1 L 2.5-4.9 mg/dL White Blood Count 5.6 4.8-10.8 K/uL Red Blood Count 2.68 L 4.00-5.50 MIL/uL Hemoglobin 8.4 L 12.0-16.0 g/dL Hematocrit 24.9 L 36-48 % Mean Corpuscular Volume 92.9 79-99 fL Mean Corpuscular Hemoglobin 31.3 27.0-33.0 pg Mean Corpuscular Hemoglobin Concent 33.7 32.0-36.0 g/dL Red Cell Distribution Width 13.9 11.0-15.5 % Platelet Count 151 130-400 K/uL Mean Platelet Volume 9.7 7.5-10.5 fL Immature Granulocyte % (Auto) 1.1 H 0-1 % Neutrophils (%) (Auto) 74.8 40.0-77.0 % Lymphocytes (%) (Auto) 17.4 L 21.0-51.0 % Monocytes (%) (Auto) 5.2 3.0-13.0 % Eosinophils (%) (Auto) 1.3 0.0-8.0 % Basophils (%) (Auto) 0.2 0.0-5.0 % Neutrophils # (Auto) 4.2 1.8-7.7 K/uL Lymphocytes # (Auto) 1.0 1.0-4.8 K/uL Monocytes # (Auto) 0.3 0.1-1.0 K/uL Eosinophils # (Auto) 0.07 0.00-0.70 K/uL Basophils # (Auto) 0.01 0.00-0.20 K/uL Absolute Immature Granulocyte (auto 0.06 0-1 K/uL Nucleated Red Blood Cells 0.0 0.0-0.19 % Sodium Level 146 H 136-145 mmol/L Potassium Level 4.1 3.5-5.1 mmol/L Chloride Level 111 101-111 mmol/L Carbon Dioxide Level 37 H 21-32 mmol/L Blood Urea Nitrogen 6 L 7-18 mg/dL Creatinine 0.3 L 0.5-1.0 mg/dL Glomerular Filtration Rate Calc 136 >90 mL/min Random Glucose 76 70-105 mg/dL Total Calcium 7.8 L 8.5-10.1 mg/dL Magnesium Level 1.80 1.80-2.40 mg/dL Total Bilirubin 0.3 0.2-1.0 mg/dL Aspartate Amino Transf (AST/SGOT) 33 10-37 U/L Alanine Aminotransferase (ALT/SGPT) 71 12-78 U/L Alkaline Phosphatase 111 50-136 U/L Total Protein 4.3 L 6.0-8.3 g/dL Albumin 1.5 L 3.5-5.0 g/dL Bedside Glucose Comment Notified Nurse Current Medications Medications (Trade) Dose Ordered Sig/Castillo Route PRN Reason Start Time Stop Time Status Last Admin Dose Admin Acetaminophen (TYLenol 325MG ELIXIR) 325 mg Q6H PRN PO MILD PAIN (1-3) 12/13/24 15:00 01/12/25 14:59 12/24/24 16:02 325 MG Acetaminophen (TYLenol 500MG TAB) 500 mg Q4PRN PRN PO FEVER 12/15/24 10:30 12/18/24 06:36 DC Acetaminophen (TYLenol 500MG TAB) 500 mg Q4PRN PRN PO PAIN 12/15/24 10:30 12/18/24 06:37 DC Acetylcysteine (MUComyst 20% 4ML) 400mg = 2ml [id number] IH 12/14/24 18:00 12/19/24 11:38 DC 12/19/24 11:23 800 MG Albumin Human 50 ml @ 0 mls/hr AD IV 12/14/24 10:00 12/18/24 06:39 DC 12/14/24 11:14 50 MLS/HR Albuterol (DUOneb) 1 udvial Q6H PRN IH SHORTNESS OF BREATH 12/13/24 15:30 12/19/24 11:38 DC 12/19/24 11:23 1 UDVIAL Bisacodyl (DulcoLAX) 10 mg DAILY RC 12/16/24 09:00 12/19/24 08:59 DC 12/18/24 09:25 10 MG Budesonide (Pulmicort 0.5 Mg/2ml) 0.5 mg BIDRESP IH 12/13/24 18:00 01/12/25 17:59 12/27/24 06:42 0.5 MG Buspirone HCl (BUspar) 15 mg TID PO 12/15/24 14:00 01/14/25 13:59 12/27/24 10:25 15 MG Dextrose 500 ml @ 0 mls/hr Q0M IV 12/16/24 12:30 12/17/24 07:15 DC 12/16/24 12:30 999 MLS/HR Dextrose 1,000 ml @ 75 mls/hr [id number] IV 12/13/24 15:00 12/16/24 14:30 DC 12/16/24 10:16 75 MLS/HR Dextrose 1,000 ml @ 75 mls/hr [id number] IV 12/17/24 01:00 12/17/24 07:15 DC 12/17/24 00:50 75 MLS/HR Dextrose (D50w) 50 ml AD PRN IV HYPOGLYCEMIA PROTOCOL 12/13/24 15:00 01/12/25 14:59 12/17/24 00:00 50 ML Dextrose/Sodium Chloride 500 ml @ 75 mls/hr Q6H40M IV 12/17/24 07:30 12/17/24 07:20 DC Dextrose/Sodium Chloride 500 ml @ 75 mls/hr Q6H40M IV 12/17/24 07:30 01/16/25 07:29 12/26/24 18:10 75 MLS/HR Doxycycline Hyclate 250 ml @ 125 mls/hr Q12H IV 12/13/24 15:30 12/17/24 07:20 DC 12/17/24 03:24 125 MLS/HR Enoxaparin Sodium (Lovenox) 30 mg DAILY SQ 12/14/24 09:00 12/15/24 09:05 DC 12/14/24 08:46 30 MG Enoxaparin Sodium (Lovenox) 30 mg DAILY SQ 12/16/24 09:00 12/15/24 13:22 DC Enoxaparin Sodium (Lovenox) 30 mg DAILY SQ 12/20/24 09:00 01/19/25 08:59 12/27/24 10:32 30 MG Folic Acid (FOLic ACID 1 MG TABLET) 1 mg DAILY PO 12/18/24 09:00 01/17/25 08:59 12/27/24 10:23 1 MG Glucagon (Glucagon 1mg Kit) 1 mg AD PRN IM HYPOGLYCEMIA PROTOCOL 12/13/24 15:00 01/12/25 14:59 Guaifenesin/ Dextromethorphan (RobiTUSSin DM 200/20MG 10ML) 10 ml Q4H PRN PO COUGH 12/15/24 11:00 01/14/25 10:59 Home Med (Home Medication) (Cholecalciferol (Vitamin D3) 25 MCG) DAILY PO 12/16/24 09:00 01/15/25 08:59 Lactated Ringer's 1,000 ml @ 75 mls/hr [id number] IV 12/16/24 23:30 12/17/24 00:30 DC 12/16/24 23:34 75 MLS/HR Lactated Ringer's 1,000 ml @ 100 mls/hr Q10H IV 12/13/24 15:00 12/13/24 15:18 DC Lactated Ringer's (Lactated Ringers 1000ml) 500 ml BOLUS IV 12/17/24 00:30 12/18/24 06:39 DC Leptospermum Honey (Medihoney) 1 appl DAILY TP 12/15/24 09:00 01/14/25 08:59 12/27/24 10:32 1 APPL Lorazepam (AtiVAN) 0.5 mg DAILYDINNER PO 12/15/24 17:00 01/14/25 16:59 12/26/24 16:38 0.5 MG Magnesium Sulfate 50 ml @ 0 mls/hr PROTOCOL IV 12/13/24 21:30 01/12/25 21:29 12/26/24 05:29 15 MLS/HR Meropenem (Merrem 1gm) 1 gm Q8H IVPB 12/13/24 16:00 12/17/24 07:37 DC 12/16/24 23:45 1 GM Metoprolol Tartrate (loprESSOR) 12.5 mg BID PO 12/25/24 12:30 12/25/24 12:39 DC Midodrine (PROAMatine 5 MG TABLET) 5 mg TID PO 12/25/24 14:00 01/24/25 13:59 12/27/24 10:24 5 MG Miscellaneous Medication (Ondansetron HCl ) 8 mg TID PO 12/15/24 14:00 12/15/24 10:43 DC Multivitamins Therapeutic (Multivitamin Tablet) 1 tab DAILY PO 12/18/24 09:00 01/17/25 08:59 12/27/24 10:29 1 TAB Norepinephrine 250 ml @ 0 mls/hr PROTOCOL IV 12/13/24 14:30 12/15/24 14:26 DC 12/14/24 07:35 25.3 MLS/HR Ondansetron HCl (zoFRAN 4MG INJ) 4 mg Q6H PRN IVP NAUSEA/VOMITING 12/13/24 16:30 01/12/25 16:29 Pantoprazole Sodium (PROTonix 40MG INJ) 40 mg Q24H IVP 12/13/24 15:00 01/12/25 14:59 12/26/24 14:40 40 MG Pharmacy Profile Note (Pharmacy Communication) 1 each ONCE MISC 12/13/24 15:00 12/13/24 15:28 DC Pharmacy Profile Note (Pharmacy Communication) 1 each ONCE MISC 12/17/24 07:30 12/17/24 08:12 DC Pharmacy Profile Note (Pharmacy Communication) 1 each ONCE MISC 12/18/24 08:00 12/18/24 08:29 DC Piperacillin Sod/ Tazobactam Sod (Zosyn 3.375gm+NS 50ml) 3.375 gm Q8H IV 12/17/24 08:00 12/26/24 10:59 DC 12/26/24 09:02 3.375 GM Polyethylene Glycol (MIRalax 3350 17 GM POWD.PACK) 17 gm DAILY PO 12/16/24 09:00 01/15/25 08:59 12/27/24 10:31 17 GM Potassium Phosphate 250 ml @ 42 mls/hr PROTOCOL IV 12/15/24 05:30 12/15/24 10:19 DC 12/15/24 05:59 42 MLS/HR Potassium Chloride 100 ml @ 50 mls/hr AD PRN IV POTASSIUM PROTOCOL 12/13/24 21:30 01/12/25 21:29 12/18/24 05:55 50 MLS/HR Potassium Chloride 100 ml @ 50 mls/hr AD PRN IV POTASSIUM PROTOCOL 12/15/24 14:30 12/18/24 06:39 DC Potassium Chloride 100 ml @ 100 mls/hr AD PRN IV POTASSIUM PROTOCOL 12/15/24 14:30 12/18/24 06:39 DC Potassium Chloride (K-Dur/Klor-Con 20meq) 20 meq AD PRN PO POTASSIUM PROTOCOL 12/15/24 14:30 01/14/25 14:29 Potassium Chloride (KCl 10% Elixir 20meq/15ml) 20 meq AD PRN PO POTASSIUM PROTOCOL 12/15/24 14:30 01/14/25 14:29 12/23/24 20:33 20 MEQ Potassium Chloride (KCl 10% Elixir 20meq/15ml) 40 meq BID PO 12/18/24 09:00 12/18/24 21:01 DC 12/18/24 21:06 40 MEQ Quetiapine Fumarate (SEROquel 100 mg TAB) 200 mg BID PO 12/15/24 21:00 01/14/25 20:59 12/27/24 10:28 200 MG Sodium Chloride 1,000 ml @ 75 mls/hr [id number] IV 12/16/24 14:30 12/16/24 22:18 DC 12/16/24 15:08 75 MLS/HR Sodium Phosphate 15 mmol/Sodium Chloride 250 ml @ 62.5 mls/hr PROTOCOL IV 12/20/24 09:00 12/20/24 08:52 DC Sodium Phosphate 15 mmol/Sodium Chloride 250 ml @ 62.5 mls/hr PROTOCOL IV 12/20/24 09:00 01/19/25 08:59 12/24/24 13:15 62.5 MLS/HR Thiamine HCl (Vitamin B-1) 300 mg Q24H IVP 12/13/24 15:00 01/12/25 14:59 12/26/24 14:40 300 MG Venlafaxine HCl (EffEXOR XR 37.5mg CAP) 75 mg DAILY PO 12/16/24 09:00 01/15/25 08:59 12/27/24 10:29 75 MG Diagnostics / Radiology: [COPY/PASTE HERE IF NO REPORTS PLEASE DELETE SECTION] Assessment: Failure to thrive Microcephaly Scoliosis Plan: Continue GI prophylaxis Advance feedings as tolerated Avoid NSAIDs Antireflux measures Monitor H&H and transfuse as needed Call with questions, concerns or change in clinical status Patient to follow-up at clinic post discharge Thank you for this consult ZHAO GUERRA [facility] December 27, 2024 11:43
--- NOTE | 2024-12-27 13:32 | NUR ---
DC PLAN SPOKE TO [employer] [facility] [employer] SHOULD DELIVER TODAY OR TOMORROW. LET NURSE KNOW TO SEND WITH 2 DAYS WORTH OF FORMULA IN CASE THERE IS A DELAY. LET KNOW. NEEDS TO TRANSFER BEFORE 5PM NO TRANSPORT AFTER THAT. Addendum: 12/27/24 at 1336 by AMOL SUTTON RN CM Amended: Links added.
--- NOTE | 2024-12-27 14:04 | PN ---
[facility] PROGRESS NOTE Date of Service: December 27, 2024 Time of Service: 14:02 SUBJECTIVE: 12/14 patient seen at bedside, no acute events overnight. Patient was seen at bedside, she does not participate in the medical interview. She does not appear to be in any acute distress. She is on pressors, we will continue to wean as able. Sodium improved from 150 down to 146, remainder of her labs are relatively unremarkable. Urine growing bacteria, we will continue with empiric antibiotics 12/15/24 Patient sen and examined. Care discussed with RN No acute overnight events. Follow cultures/continue antibiotics. 12/16 patient seen at bedside, no acute events overnight. Pulmonology was pending bronchoscopy to obtain samples to test for tuberculosis however patient became hypothermic and somnolent. Repeat labs, ABG were ordered however no abnormalities were noted. Lactic acid was normal, sodium had mildly decreased from 142 down to 134, ammonia was within normal limits. She was started on a Halina Hugger and bolused fluids, her temperature began to improve and she was more awake. Her phosphorus is low at 1.8 and given her constitution this is concerning for refeeding syndrome, we will continue to monitor closely. 12/16/24 shield runner: Charge nurse RN called me with concern for patient due to patient being tachycardic heart rate 120-130s and a temperature of 93.6� rectal. RN reports blood pressure 109/65, respirations, 98% on nasal cannula. RN reports that patient has was a rapid response earlier, has been on the Halina Hugger all day with no improvement of the temperature, and now is tachycardic. I went to assess the patient at bedside. The patient's breathing was even, unlabored, and lethargic. The patient is nonverbal, moans with touch. The patient was receiving feedings per NG and IV fluids. Stat ABGs, blood work were done. Remarkable lab results: Lactic acid increased from 1.04 to 1.59. Phos was 1.6, magnesium 1.9, total protein 4.3, albumin 1.6. ABGs on room air: PO2 58.4, ABG O2 saturation 89.2. (PO2 this morning was 91.5). The patient was placed back on 2 L nasal cannula, increased bear hugger to 30� C from 32� C. Electrolytes were replaced. Telemetry pack was order. We will continue monitoring patient closely. 12/17/2024 0315: Addendum: Reassessed the patient multiple times. Her temperature improved, remained tachycardic, despite a total of a 1500 mL bolus of LR. BP ranging systolic 98-105. The patient had a hypoglycemic episode at 11:54 p.m., blood glucose was 51, despite being of feedings. Change fluids to D5 W at 75 mL an hour. We will continue monitoring patient closely. 06:00 Reassessed the patient before off of my shift HR had improved to 112-116. b/p low 100s systolic. 12/17 patient seen at bedside, temperature has improved. She continues to be tachycardic, hemodynamically stable saturating well on room air. Hemoglobin stable at 10.1, similar to yesterday, her phosphate is very low at 1.1. She is much more awake and interactive today compared to yesterday. The constellation of symptoms with hypothermia, tachycardia and even the altered mental status are likely secondary to refeeding syndrome. The patient is not septic, her ammonia is at normal levels, lactic acid is at normal levels, CO2 is at normal levels she has been adequately resuscitated with fluids. She will be repleted with IV phosphate, her tube feeds we will be reduced to trickle feeds at 10 cc/hour before attempting to increase the feed rate. If her tachycardia improves with these changes then tomorrow we will attempt to increase the rate of her tube feeds. 12/18 patient seen at bedside, no acute events overnight. Her tachycardia has improved, hypothermia improving, she is awake today in no acute distress. Pending bronchoscopy later today to take samples for ruling out TB. Once completed we will resume trickle feeds. Today potassium, phosphate and magnesium were all low, we will be repleted. This is likely secondary to refeeding syndrome. 12/19 patient seen at bedside, no acute events overnight. Patient is still having hypothermia and tachycardia ranging from 81 up to 130, labs relatively un remarkable. Repeat mg and phos tomorrow, will begin to titrate up tube feedings 12/20 patient seen at bedside, no acute events overnight. Preliminary TB cultures are no growth to date, GI contacted for PEG tube placement. Her temperature has been improved, she has been hemodynamically stable, tachycardia is improving. We will begin to titrate up her tube feeds. 12/21 patient is pending PEG tube placement today, we will follow up postprocedure, vitals and labs relatively unremarkable. 12/22 patient seen at bedside, no acute events overnight. Peg tube was not placed yesterday, rescheduled for today, we will follow up postprocedure. Patient is in no acute distress, hemodynamically stable, labs relatively unremarkable. 12/23 patient seen at bedside, no acute events overnight. Peg tube successfully placed yesterday, tube feeds will be restarted. Once she has been stabilized on nutrition we will be good candidate to discharge back to penitentiary. Repeat labs today still show low phosphate, low magnesium and low potassium, consistent with refeeding syndrome 12/24 Pt continues with episodes of hypothermia and tachycardia that correspond to low phosphate, magnesium and potassium, consistent with refeeding syndrome. Will continue with tube feeds, replete electrolytes and observation. Once tolerating feeds and stable will be good candidate for discharge back to penitentiary 12/25 patient is seen and examined at bedside, remains mildly tachycardic, electrolytes has been replaced, getting nutritional support via PEG tube. Home medications reviewed, the patient on metoprolol tartrate 25 mg p.o. b.i.d.. However per my discussion with the nurse, patient's blood pressure has remained in the soft side. We will continue with IV fluids, we will start the patient on midodrine 5 mg p.o. t.i.d., we will continue close monitoring of the patient's heart rate, electrolytes in a.m. and replace IV per protocol. If medically stable anticipate discharge to penitentiary in the next 24 hours. 12/27 patient is seen and examined at bedside, case discussed with the RN, no acute events overnight, patient at baseline mental status, getting nutritional support via PEG tube. Discussed with case management, possible discharge to penitentiary today pending approval of feeding formula by patient's insurance. REVIEW OF SYSTEMS: Patient is nonverbal unable to obtain ROS PHYSICAL EXAM GENERAL APPEARANCE: The patient is obtunded, very frail, cachectic, contractures noted of the lower extremities NEUROLOGICAL: The patient response to painful stimuli, moans when touched, is nonverbal. Does not follow command. HEENT: Face is symmetric. Pupils are equal and reactive. Extraocular movements are intact. NECK: Supple. No JVD. No thyromegaly. No submental, submandibular, pre- /postauricular, occipital or supraclavicular lymphadenopathy. CHEST: Normal chest expansion. No Telemetry. LUNGS: Absence of any rales, rhonchi or any wheezing. CARDIOVASCULAR: Regular. Tachycardic. No appreciable rubs, murmurs or gallops. ABDOMEN: Soft, nontender, and nondistended. There is no rebound, voluntary guarding, or rigidity. : Deferred. No Clark. EXTREMITIES: Contractures to bilateral lower extremity. Non-edematous and not cyanotic. No clubbing. Good capillary refill. SKIN: No skin breakdown. Vital Signs (last 8hr) Date Time Temp Pulse Resp B/P (MAP) Pulse Ox O2 Delivery O2 Flow Rate FiO2 12/27/24 12:00 97.5 140 19 112/72 90 Room Air 12/27/24 08:00 90 Room Air* 0 21 12/27/24 07:17 97.5 106 18 118/87 96 Room Air 12/27/24 06:51 97.5 117 22 125/67 93 Room Air 12/27/24 06:45 111 20 N/A Room Air 21 12/27/24 06:44 111 20 LABS: Laboratory: Test 12/27/24 11:55 12/26/24 16:25 12/26/24 04:04 12/25/24 16:22 Range/Units Whole Blood Glucose 124 #H 70-110 MG/DL Phosphorus Level 2.1 L 2.5-4.9 mg/dL White Blood Count 5.6 4.8-10.8 K/uL Red Blood Count 2.68 L 4.00-5.50 MIL/uL Hemoglobin 8.4 L 12.0-16.0 g/dL Hematocrit 24.9 L 36-48 % Mean Corpuscular Volume 92.9 79-99 fL Mean Corpuscular Hemoglobin 31.3 27.0-33.0 pg Mean Corpuscular Hemoglobin Concent 33.7 32.0-36.0 g/dL Red Cell Distribution Width 13.9 11.0-15.5 % Platelet Count 151 130-400 K/uL Mean Platelet Volume 9.7 7.5-10.5 fL Immature Granulocyte % (Auto) 1.1 H 0-1 % Neutrophils (%) (Auto) 74.8 40.0-77.0 % Lymphocytes (%) (Auto) 17.4 L 21.0-51.0 % Monocytes (%) (Auto) 5.2 3.0-13.0 % Eosinophils (%) (Auto) 1.3 0.0-8.0 % Basophils (%) (Auto) 0.2 0.0-5.0 % Neutrophils # (Auto) 4.2 1.8-7.7 K/uL Lymphocytes # (Auto) 1.0 1.0-4.8 K/uL Monocytes # (Auto) 0.3 0.1-1.0 K/uL Eosinophils # (Auto) 0.07 0.00-0.70 K/uL Basophils # (Auto) 0.01 0.00-0.20 K/uL Absolute Immature Granulocyte (auto 0.06 0-1 K/uL Nucleated Red Blood Cells 0.0 0.0-0.19 % Sodium Level 146 H 136-145 mmol/L Potassium Level 4.1 3.5-5.1 mmol/L Chloride Level 111 101-111 mmol/L Carbon Dioxide Level 37 H 21-32 mmol/L Blood Urea Nitrogen 6 L 7-18 mg/dL Creatinine 0.3 L 0.5-1.0 mg/dL Glomerular Filtration Rate Calc 136 >90 mL/min Random Glucose 76 70-105 mg/dL Total Calcium 7.8 L 8.5-10.1 mg/dL Magnesium Level 1.80 1.80-2.40 mg/dL Total Bilirubin 0.3 0.2-1.0 mg/dL Aspartate Amino Transf (AST/SGOT) 33 10-37 U/L Alanine Aminotransferase (ALT/SGPT) 71 12-78 U/L Alkaline Phosphatase 111 50-136 U/L Total Protein 4.3 L 6.0-8.3 g/dL Albumin 1.5 L 3.5-5.0 g/dL Bedside Glucose Comment Notified Nurse Current Medications Medications (Trade) Dose Ordered Sig/Castillo Route PRN Reason Start Time Stop Time Status Last Admin Dose Admin Acetaminophen (TYLenol 325MG ELIXIR) 325 mg Q6H PRN PO MILD PAIN (1-3) 12/13/24 15:00 01/12/25 14:59 12/27/24 12:26 325 MG Acetaminophen (TYLenol 500MG TAB) 500 mg Q4PRN PRN PO FEVER 12/15/24 10:30 12/18/24 06:36 DC Acetaminophen (TYLenol 500MG TAB) 500 mg Q4PRN PRN PO PAIN 12/15/24 10:30 12/18/24 06:37 DC Acetylcysteine (MUComyst 20% 4ML) 400mg = 2ml [id number] IH 12/14/24 18:00 12/19/24 11:38 DC 12/19/24 11:23 800 MG Albumin Human 50 ml @ 0 mls/hr AD IV 12/14/24 10:00 12/18/24 06:39 DC 12/14/24 11:14 50 MLS/HR Albuterol (DUOneb) 1 udvial Q6H PRN IH SHORTNESS OF BREATH 12/13/24 15:30 12/19/24 11:38 DC 12/19/24 11:23 1 UDVIAL Bisacodyl (DulcoLAX) 10 mg DAILY RC 12/16/24 09:00 12/19/24 08:59 DC 12/18/24 09:25 10 MG Budesonide (Pulmicort 0.5 Mg/2ml) 0.5 mg BIDRESP IH 12/13/24 18:00 01/12/25 17:59 12/27/24 06:42 0.5 MG Buspirone HCl (BUspar) 15 mg TID PO 12/15/24 14:00 01/14/25 13:59 12/27/24 10:25 15 MG Dextrose 500 ml @ 0 mls/hr Q0M IV 12/16/24 12:30 12/17/24 07:15 DC 12/16/24 12:30 999 MLS/HR Dextrose 1,000 ml @ 75 mls/hr [id number] IV 12/13/24 15:00 12/16/24 14:30 DC 12/16/24 10:16 75 MLS/HR Dextrose 1,000 ml @ 75 mls/hr [id number] IV 12/17/24 01:00 12/17/24 07:15 DC 12/17/24 00:50 75 MLS/HR Dextrose (D50w) 50 ml AD PRN IV HYPOGLYCEMIA PROTOCOL 12/13/24 15:00 01/12/25 14:59 12/17/24 00:00 50 ML Dextrose/Sodium Chloride 500 ml @ 75 mls/hr Q6H40M IV 12/17/24 07:30 12/17/24 07:20 DC Dextrose/Sodium Chloride 500 ml @ 75 mls/hr Q6H40M IV 12/17/24 07:30 01/16/25 07:29 12/26/24 18:10 75 MLS/HR Doxycycline Hyclate 250 ml @ 125 mls/hr Q12H IV 12/13/24 15:30 12/17/24 07:20 DC 12/17/24 03:24 125 MLS/HR Enoxaparin Sodium (Lovenox) 30 mg DAILY SQ 12/14/24 09:00 12/15/24 09:05 DC 12/14/24 08:46 30 MG Enoxaparin Sodium (Lovenox) 30 mg DAILY SQ 12/16/24 09:00 12/15/24 13:22 DC Enoxaparin Sodium (Lovenox) 30 mg DAILY SQ 12/20/24 09:00 01/19/25 08:59 12/27/24 10:32 30 MG Folic Acid (FOLic ACID 1 MG TABLET) 1 mg DAILY PO 12/18/24 09:00 01/17/25 08:59 12/27/24 10:23 1 MG Glucagon (Glucagon 1mg Kit) 1 mg AD PRN IM HYPOGLYCEMIA PROTOCOL 12/13/24 15:00 01/12/25 14:59 Guaifenesin/ Dextromethorphan (RobiTUSSin DM 200/20MG 10ML) 10 ml Q4H PRN PO COUGH 12/15/24 11:00 01/14/25 10:59 Home Med (Home Medication) (Cholecalciferol (Vitamin D3) 25 MCG) DAILY PO 12/16/24 09:00 01/15/25 08:59 Lactated Ringer's 1,000 ml @ 75 mls/hr [id number] IV 12/16/24 23:30 12/17/24 00:30 DC 12/16/24 23:34 75 MLS/HR Lactated Ringer's 1,000 ml @ 100 mls/hr Q10H IV 12/13/24 15:00 12/13/24 15:18 DC Lactated Ringer's (Lactated Ringers 1000ml) 500 ml BOLUS IV 12/17/24 00:30 12/18/24 06:39 DC Leptospermum Honey (Medihoney) 1 appl DAILY TP 12/15/24 09:00 01/14/25 08:59 12/27/24 10:32 1 APPL Lorazepam (AtiVAN) 0.5 mg DAILYDINNER PO 12/15/24 17:00 01/14/25 16:59 12/26/24 16:38 0.5 MG Magnesium Sulfate 50 ml @ 0 mls/hr PROTOCOL IV 12/13/24 21:30 01/12/25 21:29 12/26/24 05:29 15 MLS/HR Meropenem (Merrem 1gm) 1 gm Q8H IVPB 12/13/24 16:00 12/17/24 07:37 DC 12/16/24 23:45 1 GM Metoprolol Tartrate (loprESSOR) 12.5 mg BID PO 12/25/24 12:30 12/25/24 12:39 DC Midodrine (PROAMatine 5 MG TABLET) 5 mg TID PO 12/25/24 14:00 01/24/25 13:59 12/27/24 10:24 5 MG Miscellaneous Medication (Ondansetron HCl ) 8 mg TID PO 12/15/24 14:00 12/15/24 10:43 DC Multivitamins Therapeutic (Multivitamin Tablet) 1 tab DAILY PO 12/18/24 09:00 01/17/25 08:59 12/27/24 10:29 1 TAB Norepinephrine 250 ml @ 0 mls/hr PROTOCOL IV 12/13/24 14:30 12/15/24 14:26 DC 12/14/24 07:35 25.3 MLS/HR Ondansetron HCl (zoFRAN 4MG INJ) 4 mg Q6H PRN IVP NAUSEA/VOMITING 12/13/24 16:30 01/12/25 16:29 Pantoprazole Sodium (PROTonix 40MG INJ) 40 mg Q24H IVP 12/13/24 15:00 01/12/25 14:59 12/26/24 14:40 40 MG Pharmacy Profile Note (Pharmacy Communication) 1 each ONCE MISC 12/13/24 15:00 12/13/24 15:28 DC Pharmacy Profile Note (Pharmacy Communication) 1 each ONCE MISC 12/17/24 07:30 12/17/24 08:12 DC Pharmacy Profile Note (Pharmacy Communication) 1 each ONCE MISC 12/18/24 08:00 12/18/24 08:29 DC Piperacillin Sod/ Tazobactam Sod (Zosyn 3.375gm+NS 50ml) 3.375 gm Q8H IV 12/17/24 08:00 12/26/24 10:59 DC 12/26/24 09:02 3.375 GM Polyethylene Glycol (MIRalax 3350 17 GM POWD.PACK) 17 gm DAILY PO 12/16/24 09:00 01/15/25 08:59 12/27/24 10:31 17 GM Potassium Phosphate 250 ml @ 42 mls/hr PROTOCOL IV 12/15/24 05:30 12/15/24 10:19 DC 12/15/24 05:59 42 MLS/HR Potassium Chloride 100 ml @ 50 mls/hr AD PRN IV POTASSIUM PROTOCOL 12/13/24 21:30 01/12/25 21:29 12/18/24 05:55 50 MLS/HR Potassium Chloride 100 ml @ 50 mls/hr AD PRN IV POTASSIUM PROTOCOL 12/15/24 14:30 12/18/24 06:39 DC Potassium Chloride 100 ml @ 100 mls/hr AD PRN IV POTASSIUM PROTOCOL 12/15/24 14:30 12/18/24 06:39 DC Potassium Chloride (K-Dur/Klor-Con 20meq) 20 meq AD PRN PO POTASSIUM PROTOCOL 12/15/24 14:30 01/14/25 14:29 Potassium Chloride (KCl 10% Elixir 20meq/15ml) 20 meq AD PRN PO POTASSIUM PROTOCOL 12/15/24 14:30 01/14/25 14:29 12/23/24 20:33 20 MEQ Potassium Chloride (KCl 10% Elixir 20meq/15ml) 40 meq BID PO 12/18/24 09:00 12/18/24 21:01 DC 12/18/24 21:06 40 MEQ Quetiapine Fumarate (SEROquel 100 mg TAB) 200 mg BID PO 12/15/24 21:00 01/14/25 20:59 12/27/24 10:28 200 MG Sodium Chloride 1,000 ml @ 75 mls/hr [id number] IV 12/16/24 14:30 12/16/24 22:18 DC 12/16/24 15:08 75 MLS/HR Sodium Phosphate 15 mmol/Sodium Chloride 250 ml @ 62.5 mls/hr PROTOCOL IV 12/20/24 09:00 12/20/24 08:52 DC Sodium Phosphate 15 mmol/Sodium Chloride 250 ml @ 62.5 mls/hr PROTOCOL IV 12/20/24 09:00 01/19/25 08:59 12/24/24 13:15 62.5 MLS/HR Thiamine HCl (Vitamin B-1) 300 mg Q24H IVP 12/13/24 15:00 01/12/25 14:59 12/26/24 14:40 300 MG Venlafaxine HCl (EffEXOR XR 37.5mg CAP) 75 mg DAILY PO 12/16/24 09:00 01/15/25 08:59 12/27/24 10:29 75 MG DIAGNOSTICS / RADIOLOGY: [ ] FINAL DIAGNOSIS Hypothermia, POA, in need of bare hugger, improving Acute hypoxemic respiratory failure, resolved, POA Refeeding syndrome, POA Recurrent hypoglycemic episodes Septic shock, POA (2/2 community-acquired pneumonia and complicated UTI) Toxic metabolic encephalopathy with obtundation, POA Community-acquired pneumonia with acute hypoxemic respiratory failure, POA Acute complicated cystitis, POA Frailty/debility, POA Acute UTI, Proteus, POA History of chronic contractures of bilateral lower extremities, POA Unstageable decubitus ulcer involving the left hip, POA Cachexia, POA History of severe intellectual disability, POA History of scoliosis, POA History of microcephaly, POA History of ADHD, POA History of aggression, POA PLAN: Patient remains admitted to the medical floor Continue nutritional support via PEG tube Continue to monitor mental status Possible discharge to penitentiary today pending insurance approval of feeding formula. NEURO: Minimize central acting medications as possible. Fall Precautions. Well lighted room through the day and minimize interruptions through the night to prevent acute delirium. PULMONARY: Supplemental 02 as needed BiPAP as necessary, for respiratory distress Titrate Fio2 to keep Spo2 > or = 90% DuoNeb�s and CPT as needed IS hourly while awake for pulmonary hygiene prn Out of bed to chair as tolerated Maintain aspiration precautions at all times CARDIOVASCULAR: Follow hemodynamics. Vital signs per facility protocol GI & NUTRITION: Continue nutritional support Aspirations precautions Prokinetic agents and laxatives as needed KIDNEYS & ELECTROLYTES: Strict monitoring of intake and output Daily weights Avoid nephrotoxic agents Monitor electrolytes and replace as needed Goal urine output of 30mL/hr or 0.5mL/kg/hr Medications to be dosed according to renal function. Avoid contrast if possible ENDOCRINE: Maintain blood glucose between 100-180 at all times. Insulin sliding scale for blood glucose management Hypoglycemia and hyperglycemia protocol in place INFECTIOUS DISEASE: Trend temperature, WBC and procalcitonin level Follow cultures, deescalate antibiotics as soon as possible. Panculture if new onset fever HEMATOLOGY & COAGULATION: Monitor H&H. Keep Hgb > 7 Transfuse 1 unit of PRBC for Hgb < 7 Transfuse 1 pack of platelets of platelets < 20, 000 Watch for any signs and symptoms of bleeding SKIN: Pressure ulcer prevention per facility protocol Specialty mattress as needed ORTHO/REHAB Continue PT/OT PRN: MEDICATIONS Tylenol 650 mg po every 4 hrs for fever zofran 4 mg IV every 6 hrs for n/v Hydralazine 5 mg IV every 4 hrs systolic pressure > 160 bowel regiment: lactulose 20 gm PO BID PRN constipation Supportive measures: Continue GI and DVT prophylaxis Disposition: Possible discharge to penitentiary today. All questions answered time spent: > 35 min JOLENE GARCIAS MD December 27, 2024 14:04
--- NOTE | 2024-12-27 14:35 | PN ---
INFECTIOUS DISEASE PROGRESS NOTE Date of Service: December 27, 2024 SUBJECTIVE: This is a 44 year old female patient who is being seen today at bedside. Patient is tolerating peg tube bolus feedings well. No episodes of emesis reported. No fever, temperature is 97.5�. There was a drop on the hemoglobin to 8.4. We will continue to monitor. Antibiotics discontinued and no antibiotics needed on discharge. PHYSICAL EXAM EYES: Anicteric. Pupils equal and reactive. HENT: No oral thrush seen, moist Oral mucosa. NECK: Supple, no JVD or thyromegaly. LUNGS: Good air entry. Productive cough. CARDIOVASCULAR: S1, S2 regular. No murmur heard. ABDOMEN: Soft, non tender, bowel sounds present, no organomegaly. PEG tube. CENTRAL NERVOUS SYSTEM: Intellectual disability. SKIN: No rashes, no swelling. LYMPHATICS: No peripheral lymphadenopathy. MUSCULOSKELETAL: No joint swelling, erythema or tenderness. EXTREMITIES: No cyanosis or clubbing. BACK: No deformity, no pressure ulcer. GENITOURINARY: No dysuria or hematuria. Incontinence. Vital Sign (Last 12 Hours) 12/27/24 12/27/24 12/27/24 12/27/24 06:44 06:45 06:51 07:17 Temp 97.5 97.5 Pulse 111 111 117 106 Resp 20 20 22 18 B/P (MAP) 125/67 118/87 Pulse Ox 93 96 O2 Delivery N/A Room Air Room Air Room Air FiO2 21 21 12/27/24 12/27/24 08:00 12:00 Temp 97.5 Pulse 140 Resp 19 B/P (MAP) 112/72 Pulse Ox 90 90 O2 Delivery Room Air* Room Air O2 Flow Rate 0 FiO2 21 Intake & Output (last 24hrs) 12/26/24 12/26/24 12/27/24 15:00 23:00 07:00 Intake Total 860 ml Output Total 350 ml 200 ml 1000 ml Balance -350 ml 660 ml -1000 ml LABS: Laboratory: Test 12/27/24 11:55 12/26/24 16:25 12/26/24 04:04 12/25/24 16:22 Range/Units Whole Blood Glucose 124 #H 70-110 MG/DL Phosphorus Level 2.1 L 2.5-4.9 mg/dL White Blood Count 5.6 4.8-10.8 K/uL Red Blood Count 2.68 L 4.00-5.50 MIL/uL Hemoglobin 8.4 L 12.0-16.0 g/dL Hematocrit 24.9 L 36-48 % Mean Corpuscular Volume 92.9 79-99 fL Mean Corpuscular Hemoglobin 31.3 27.0-33.0 pg Mean Corpuscular Hemoglobin Concent 33.7 32.0-36.0 g/dL Red Cell Distribution Width 13.9 11.0-15.5 % Platelet Count 151 130-400 K/uL Mean Platelet Volume 9.7 7.5-10.5 fL Immature Granulocyte % (Auto) 1.1 H 0-1 % Neutrophils (%) (Auto) 74.8 40.0-77.0 % Lymphocytes (%) (Auto) 17.4 L 21.0-51.0 % Monocytes (%) (Auto) 5.2 3.0-13.0 % Eosinophils (%) (Auto) 1.3 0.0-8.0 % Basophils (%) (Auto) 0.2 0.0-5.0 % Neutrophils # (Auto) 4.2 1.8-7.7 K/uL Lymphocytes # (Auto) 1.0 1.0-4.8 K/uL Monocytes # (Auto) 0.3 0.1-1.0 K/uL Eosinophils # (Auto) 0.07 0.00-0.70 K/uL Basophils # (Auto) 0.01 0.00-0.20 K/uL Absolute Immature Granulocyte (auto 0.06 0-1 K/uL Nucleated Red Blood Cells 0.0 0.0-0.19 % Sodium Level 146 H 136-145 mmol/L Potassium Level 4.1 3.5-5.1 mmol/L Chloride Level 111 101-111 mmol/L Carbon Dioxide Level 37 H 21-32 mmol/L Blood Urea Nitrogen 6 L 7-18 mg/dL Creatinine 0.3 L 0.5-1.0 mg/dL Glomerular Filtration Rate Calc 136 >90 mL/min Random Glucose 76 70-105 mg/dL Total Calcium 7.8 L 8.5-10.1 mg/dL Magnesium Level 1.80 1.80-2.40 mg/dL Total Bilirubin 0.3 0.2-1.0 mg/dL Aspartate Amino Transf (AST/SGOT) 33 10-37 U/L Alanine Aminotransferase (ALT/SGPT) 71 12-78 U/L Alkaline Phosphatase 111 50-136 U/L Total Protein 4.3 L 6.0-8.3 g/dL Albumin 1.5 L 3.5-5.0 g/dL Bedside Glucose Comment Notified Nurse ASSESSMENT: Urinary tract infection with Proteus mirabilis. Aspiration Pneumonia. Septic shock, resolving. Right lung cavitary lesions, status post bronchoscopy, TB ruled out. Thrombocytopenia, resolved. Failure to thrive, status post PEG tube placement. Debility PLAN: Discontinue antibiotics. No antibiotics needed on discharge. Continue GI prophylaxis. Continue nutritional support, currently on bolus tube feedings with Jevity 1.5. This case was reviewed and discussed with my supervising physician and the above assessment and plan was formulated and agreed upon. ATTESTATION BY PHYSICIAN I have seen and examined the patient. I reviewed the documentation, medical decision making, and treatment plan as noted by the mid-level provider above. I agree with the findings and plan of care. IGNACIA MARTI MD, [facility] [place] [facility] December 27, 2024 14:35
--- NOTE | 2024-12-27 14:59 | NUR ---
PATIENT DISCHARGED TO [facility]. REPORT GIVEN TO MADELEINE @ [phone]. ALL QUESTIONS AND CONCERNS ANSWERED. MIDLINE REMOVED FROM LEFT UPPER ARM. RECINOS INTACT AND DRAINING TO GRAVITY. 6 CANS OF [employer] 1.5 SENT WITH PATIENT. ALL BELONGINGS COLLECTED AND TAKEN BY FACILITY PERSONNEL. PATIENT CHANGED BY PCT BEFORE DISCHARGE. PATIENT TAKEN DOWN BY FACILITY PERSONNEL.
== END 2024-12-27 15:20 | disposition home or self-care (01) | DRG 720 ==
LOC: EDH 12:12 → EDHIP 12:13 → 2CH 16:58 → 3AH 12-15 15:07 → 4CH 12-20 21:24
PROVIDERS: ADMIT Internal Medicine; ATTEND Internal Medicine
PROC: 0B9D8ZX Drainage of Right Middle Lung Lobe, Via Natural or Artificial Opening Endoscopic, Diagnostic (ICD-10-PCS; 2024-12-13)
PROC: 0B9C8ZX Drainage of Right Upper Lung Lobe, Via Natural or Artificial Opening Endoscopic, Diagnostic (ICD-10-PCS; 2024-12-13)
PROC: 05HC33Z Insertion of Infusion Device into Left Basilic Vein, Percutaneous Approach (ICD-10-PCS; 2024-12-15)
PROC: B54NZZA Ultrasonography of Left Upper Extremity Veins, Guidance (ICD-10-PCS; 2024-12-15)
PROC: 0DH63UZ Insertion of Feeding Device into Stomach, Percutaneous Approach (ICD-10-PCS; principal; 2024-12-22)
DX: A41.9 Sepsis, unspecified organism (principal); J96.01 Acute respiratory failure with hypoxia; R65.21 Severe sepsis with septic shock; J69.0 Pneumonitis due to inhalation of food and vomit; G92.8 Other toxic encephalopathy; E43 Unspecified severe protein-calorie malnutrition; L89.220 Pressure ulcer of left hip, unstageable; R64 Cachexia; D69.6 Thrombocytopenia, unspecified; F72 Severe intellectual disabilities; Z68.1 Body mass index [BMI] 19.9 or less, adult; B96.4 Proteus (mirabilis) (morganii) as the cause of diseases classified elsewhere; E87.6 Hypokalemia; F90.9 Attention-deficit hyperactivity disorder, unspecified type; L97.819 Non-pressure chronic ulcer of other part of right lower leg with unspecified severity; N30.00 Acute cystitis without hematuria; Q02 Microcephaly; R54 Age-related physical debility; R62.7 Adult failure to thrive; Z74.01 Bed confinement status; Z99.3 Dependence on wheelchair; Z93.1 Gastrostomy status; M41.9 Scoliosis, unspecified; J18.8 Other pneumonia, unspecified organism; F91.3 Oppositional defiant disorder; R68.0 Hypothermia, not associated with low environmental temperature; R91.1 Solitary pulmonary nodule; Z20.822 Contact with and (suspected) exposure to COVID-19; Z68.21 Body mass index [BMI] 21.0-21.9, adult
CPT/HCPCS: 31624; 36415; 36556; 36600; 43246; 70450; 71045; 71250; 74018; 74176; 80048; 80053; 80076; 81001; 82140; 82435; 82533; 82550; 82803; 82947; 82948; 83605; 83615; 83735; 83880; 84100; 84132; 84145; 84295; 84443; 84484; 84703; 85018; 85025; 85027; 85610; 85651; 85730; 86140; 86480; 86738; 87040; 87071; 87086; 87116; 87186; 87205; 87206; 87426; 87449; 87556; 87804; 87880; 88108; 88305; 88312; 89051; 92610; 93005; 94640; 94664; 96361; 96374; 99291; A4606; C1894; G0378; J0171; J0330; J0612; J0696; J1100; J1650; J2003; J2185; J2250; J2310; J2405; J2470; J2543; J2704; J2710; J3010; J3411; J3475; J3480; J3490; J7030; J7042; J7050; J7070; P9047; A4215; A4222; A4223; A4620; A4657; C1750; L0625

== ENCOUNTER → 2025-06-27 | Outpatient (CLI) | payer MEDICAID ==
[~2025-06-27] MED LIST: ACET-66 PO; BUSP15 PO; CHOL-34 PO; FOLI1 PO; GUAI237L82 PO; HONE44PA TP; LORA0.5T83 PO; METO25TA6 PO; MIDO5TAB4 PO; MVIT PO; ONDA-105 PO; POLY17PO4 PO; QUET200T30 PO; VENL75CA97 PO
--- NOTE | 2025-06-27 13:30 | NUR ---
MBSS COMPLETED (OUTPATIENT). SILENT ASPIRATION after the swallow with mildly thick and moderately thick liquids; transient penetration with pudding thick textures followed by audible gulping sounds. RECOMMENDATIONS: PEG tube feedings and pleasure feedings of very small amounts of pureed solids (NO pudding, jellos, ice cream or anything that melts) as tolerated. COMPENSATORY STRATEGIES: 1. sit upright during oral intake 2. small bites/sips 3. slow oral intake 4. supervision 5. NOTHING THAT MELTS (ice cream, jellos, pudding) NOTES: Pt with Hx of severe IDD, Scoliosis, Cerebral Palsy, attention deficit with hyperactivity, microcephales, OAD with aggression. As per geriatric care manager, patient's baseline diet consists of pureed solids and nectar thick liquids; however, facility would like to know if patient is safe for oral intake. Pt nonverbal; however cooperative. DIAGNOSTIC FINDINGS: Pt presented with moderate to severe oropharyngeal dysphagia characterized by decreased oral motor strength, ROM, and coordination; decreased tongue base retraction; decreased hyo-laryngeal elevation/excursion, and decreased sensation. These characteristics were evidenced by decreased labial closure with anterior spillage; decreased bolus formation and manipulation with residue; occasional residue on base of tongue, valleculae and posterior pharyngeal wall cleared with extra dry swallows; resulting in SILENT ASPIRATION after the swallow with mildly thick and moderately thick liquids via tsp; transient penetration with pudding textures with audible gulping sounds during the swallow. STATE ASSESSED PROPERTIES DIRECTOR reviewed results and recommendations with patient and geriatric care manager. Hard copy with results and recommendations discussed and provided to geriatric care manager to take back to facility. Speech therapy not warranted at this time. All questions answered. Addendum: 06/27/[address] [facility]ANIELLE GARCIA Amended: Links added.
--- NOTE | 2025-07-03 09:46 | HMCIMG ---
MODIFIED BARIUM SWALLOW W CINE REASON: DYSPHAGIA; Feeding difficulties, unspecified FINDINGS: Fluoroscopic assistance was provided to the speech pathologist while performing examination. For findings and dietary recommendations, refer to speech pathologist's report. FLUORO TIME: 3.1 min IMPRESSION: Modified barium swallow as described.
== END | disposition home or self-care (01) ==
LOC: RAH 13:19
PROVIDERS: ATTEND Internal Medicine Gastroenterology
DX: R13.12 Dysphagia, oropharyngeal phase (principal); R63.30 Feeding difficulties, unspecified
CPT/HCPCS: 74230; 92611